=== PATIENT | female | born 2005 | race African-American/Black ===

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

== ENCOUNTER 2024-02-14 22:16 | Emergency (ER) | payer SELFPAY ==
[2024-02-14 22:26] VITALS: BP 149/78; PULSE 81; RESP 16; TEMP 36.4; O2SAT 100
[2024-02-14 22:55] LABS: Appearance Urine Cloudy (Clear); Bacteria Urine 1+ /hpf; Bilirubin Urine Negative (Negative); Blood Urine 3+ (Negative); Color Urine Yellow (Yellow); Glucose Urine UA Negative (Negative); Ketones Urine Trace mg/dL (Negative); Leukocyte Esterase Ur Trace LEU/UL (Negative); Nitrate Urine Negative (Negative); Non Pathogenic Casts 0-2; Protein Urine Trace mg/dL (Negative); RBC Urine 51-100 /hpf (0-2); Squamous Epithelial Cell Urine Few /hpf (Few); pH Urine 5.5 (5.0-9.0)
[2024-02-14 23:00] LABS: Add Urine Microscopic? YES
--- NOTE | 2024-02-14 23:26 | ED.GENADULT ---
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 The patient reports that she was treated for chlamydia about 3 months ago and reports that she has had some vaginal irritation and discharge after having relations with the individual that they have given her chlamydia the patient reports that she is no longer that relationship and reports Related Data Home Medications Medication Instructions Recorded Confirmed lisinopril 10 mg tablet mg 02/14/24 Allergies Allergy/AdvReac Type Severity Reaction Status Date / Time Penicillins Allergy Severe Anaphylactic Verified 02/14/24 22:29 Shock [place] And Derivatives Allergy Mild itching Verified 02/14/24 22:29 Early Allergy Intermediate hives Uncoded 02/14/24 22:29 Whole Milk AdvReac Unknown projectile Uncoded 02/14/24 22:29 vomiting Review of Systems Review of Systems: A 10 system review of systems was completed on the patient and is negative except for what is stated in the HPI. Nursing and ancillary documentation was reviewed. Exam Narrative: GENERAL: Well-appearing, well-nourished, and in no acute distress. HEAD: Normocephalic, atraumatic. EYES: PERRLA and EOMI. ENT: Nares clear, no rhinorrhea or epistaxis. Mucous membranes moist. NECK: Supple. CHEST: Clear to auscultation. No respiratory distress. HEART: Regular rate and rhythm. No murmur heard. Normal peripheral pulses. ABDOMEN: Soft, nontender, nondistended, normal active bowel sounds. EXTREMITIES: Normal range of motion. No edema. SKIN: Warm, dry, no rash. NEURO: No focal deficits. Alert and oriented x3. PSYCH: Normal mood and affect. Course Vital Signs Vital signs: Vital Signs Temperature 36.4 C 02/14/24 22:26 Pulse Rate 81 02/14/24 22:26 Respiratory Rate 16 02/14/24 22:26 Blood Pressure 149/78 H 02/14/24 22:26 Pulse Oximetry 100 02/14/24 22:26 Oxygen Delivery Room Air 02/14/24 22:26 Temperature 36.4 C 02/14/24 22:26 Pulse Rate 81 02/14/24 22:26 Respiratory Rate 16 02/14/24 22:26 Blood Pressure 149/78 H 02/14/24 22:26 Pulse Oximetry 100 02/14/24 22:26 Oxygen Delivery Room Air 02/14/24 22:26 Medical Decision Making MDM Narrative Medical decision making narrative: differential diagnosis includes STI, urinary tract infection, urinalysis showed a urinary tract infection the patient will be empirically treated with Rocephin is started on Macrobid also given her prior history of STI patient will doxycycline and also be started on Flagyl Vital Signs Vital Signs: Vital Signs Temperature 36.4 C 02/14/24 22:26 Pulse Rate 81 02/14/24 22:26 Respiratory Rate 16 02/14/24 22:26 Blood Pressure 149/78 H 02/14/24 22:26 Pulse Oximetry 100 02/14/24 22:26 Oxygen Delivery Room Air 02/14/24 22:26 Temperature 36.4 C 02/14/24 22:26 Pulse Rate 81 02/14/24 22:26 Respiratory Rate 16 02/14/24 22:26 Blood Pressure 149/78 H 02/14/24 22:26 Pulse Oximetry 100 02/14/24 22:26 Oxygen Delivery Room Air 02/14/24 22:26 Lab Data Labs: Lab Results 02/14/24 Range/Units 22:37 Urine Color Yellow (Yellow) Urine Appearance Cloudy H (Clear) Urine pH 5.5 (5.0-9.0) Ur Specific [place] 1.030 (1.001-1.035) Urine Protein Trace (Negative) mg/dL Urine Glucose (UA) Negative (Negative) mg/dL Urine Ketones Trace H (Negative) mg/dL Ur Blood (Man) 3+ H (Negative) Urine Nitrate Negative (Negative) Urine Bilirubin Negative (Negative) Urine Urobilinogen 1.0 (<2.0) mg/dL Leukocyte Esterase Rfl Trace H (Negative) KENA/UL Urine RBC 51-100 H (0-2) /hpf Urine WBC 11-20 H (0-3) /hpf Ur Squamous Epith Cells Few (Few) /hpf Urine Bacteria 1+ H
[2024-02-14] MEDS: cefTRIAXone 1 GM VIAL IM (23:49)
[2024-02-14] MEDS: metroNIDAZOLE 500 MG TABLET PO (23:51)
[2024-02-14] MEDS: DOXYCYCLINE HYCLATE 100 MG TABLET PO (23:51)
[2024-02-15 00:57] LABS: Chlamydia trachomatis NOT DETECTED (NOT DETECTE); Neisseria gonorrhoeae PCR NOT DETECTED (NOT DETECTE)
== END 2024-02-14 23:58 | disposition home or self-care (01) ==
PROVIDERS: Emergency Provider Emergency Medicine; PCP Emergency Medicine
DX: N39.0 Urinary tract infection, site not specified (principal); Z20.2 Contact with and (suspected) exposure to infections with a predominantly sexual mode of transmission; Z79.899 Other long term (current) drug therapy
CPT/HCPCS: 81001; 81025; 87086; 87088; 87491; 87591; 96372; 99283; A9270; J0696

== ENCOUNTER 2024-10-01 11:08 | Emergency (ER) | payer SELFPAY ==
[2024-10-01 11:10] VITALS: BP 139/108; PULSE 105; RESP 16; TEMP 36.6; O2SAT 100
--- OUTSIDE RECORDS SUMMARY | 2024-10-01 12:51 | XMS_ITS | Encounter Summary ---
Author Organization [facility] Address [address] [place] [address] Care Team Providers Care Signal Maintainer Helper Name Role Phone Mesfin May MD Primary Care Provider [phone] Kiki Burks MD Unavailable Yuly Pope DO Primary Care Provider [phone] Reason for Visit * Reason Onset Date Comments Concerns 09/07/2021 Encounter Details Date Type Department Care Team (Late st Contact Info) Description 09/07/2021 Telephone [facility] [place] [facility] [address] [place] [id number] Mesfin May MD [address] [place] [id number] Concerns Social History Tobacco Use Types Packs/Day Years Used Date Smoking Tobacco: Passive Smo ke Exposure - Never Smoker Smokeless Tobacco: Never Alcohol Use Standard Drinks/Week Comments No 0 (1 standard drink = 0.6 oz pur e alcohol) Sex and Gender Information Value Date Recorded Sex Assigned at Not on file Gender Identity Not on file Sexual Orientation Not on file documented as of this encounter Functional Status Functional Status Response Date of Assess ment Is person deaf or have robi us hearing difficulty? No 04/05/2020 Is person blind or have seri ous difficulty seeing? Yes-wears glasses 04/05/2020 Does person have serious dif ficulty walking/climbing stairs? Yes 04/05/2020 Does person have difficulty dressing/bathing? Ye s 04/05/2020 Does person have difficulty doing errands alone? Yes 04/05/2020 Cognitive Status Response Date of Assessm ent Does person have difficulty concentrating/remembering/making decisions? Yes 04/05/2020 documented as of this encounter Miscellaneous Notes * Telephone Encounter - Priya Christianson APRN-CNP - 09/07/2021 3:45 PM CRYOGENIC TRANSPORT DRIVER Called number in chart mother Ms Purdy. She said she got 2nd covid vaccine at [facility]. Instructed to provide school with vaccine care or contact [facility] for letter since we do not have record of this visit. GENIC TRANSPORT DRIVER * Telephone Encounter - Ariana Booker - 09/07/2021 3:09 PM CST Ronaldrigobertohunter Men[employer], 15 year old female, Mother } is calling with concerns. Patient mom call and said that she need her child doctor to fax over a notes to patient school to let them know that she was here at the doctor office yesterday 09/06/2021 getting her 2nd covid shot and it made her sick. You canreach patient mom at [phone] Instructed that provider will call back at their earliest convenience. GENIC TRANSPORT DRIVER documented in this encounter Plan of Treatment Upcoming Encounters Date Type Department Care Team (Late st Contact Info) Description 10/03/2024 10:00 AM CRYOGENIC TRANSPORT DRIVER Office Visit [facility] [place] [address] [facility] , [address] [phone] Amina Nicholas APRN-CNP [id number] [address] 01/08/2025 9:00 AM CDT Office Visit [facility] [place] [address] [facility], [place] [id number] Areli Dao APRN-CNP [address] [place] [id number] documented as of this encounter Visit Diagnoses Not on filedocumented in this encounter Additional Health Concerns Infection Onset Date Last Indicated Resolved Time COVID-19 Under Investigation 04/13/2023 04/13/2023 04/13/2023 5:37 AM CDT documented as of this encounter Care Teams Signal Maintainer Helper Relationship Specialty [place] [address] [place] [id number] PCP - General Pediatrics 12/11/17 02/16/22 Yuly Pope DO [address] [place] [id number] PCP - General Internal Medicine 02/17/22 Kiki Burks MD [address] [place] [phone] Resident Student Resident 12/11/17 documented as of this encounter
--- OUTSIDE RECORDS SUMMARY | 2024-10-01 12:51 | XMS_ITS ---
Author Organization [facility] Address [address] [place] [address] Care Team Providers Care Mixing Machine Tender Cork Gasket Name Role Phone Sharonda Roberts Primary Care Provider REASON FOR VISIT check in for appt Social History Sex Assigned At : Social History Observation Description Sex Assigned At Female Encounters Encounter Location Date Provider Diagnosis [address] [address] 11/27/2023 Sharonda Roberts Plan Of Treatment No Information Progress Notes * Ronald VIEIRAiDOB:[birth year] (18 yo F)Acc No.[id number]:11/27/2023 Patient: Duncan JOYRonald :2005 A ge:18 Y S ex:Female Address:[facility] [place], [address] * true * Date: Generated for Aneeshi yanira/Dinorahg/eTransmitting on: 0 10/01/2024 12:51 PM 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
--- OUTSIDE RECORDS SUMMARY | 2024-10-01 12:52 | XMS_ITS | Clinical Summary ---
Author Organization [facility] Address [address] 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 This disclosure is being madepursuant to the Care Everywhere program and may not contain all information available regarding this patient. Last updated 18.[facility] Allergies Active Allergy Reactions Criticality Noted Date Comments [place] Vomiting Low 10/05/2017 Lactose GI Discomfort Low 05/30/2018 [place] Rash Medium 09/25/2014 [place] Fruit Swelling Medium 10/05/2017 [place] Oil Rash Medium 09/25/2014 Penicillins Swelling High 07/17/2011 Other reaction(s): Swollen tongue Prochlorperazine Rash Medium Medications * Be aware that medications may not be up to date on this document. Alwaysverify current medications with the patient. Medication Sig Dispensed Refills Start Date End Date Status polyethylene glycol 3350 (MIRALAX) 17 GM/SCOOP powderIndications: Constipation, unspecified constipation type Take 17 g by mouth once daily 05/07/2020 Active omeprazole (PRILOSEC) 40 MG capsule TAKE 1 (ONE) CAPSULE BY MOUTH 2 TIMES DAILY, BEFORE BREAKFAST AND SUPPER 60 capsule 2 08/30/2021 Active naproxen (NAPROSYN) 500 MG tablet Take at onset of severe. Do not take more than 3x per week. 30 tablet 5 02/17/2022 Active levonorgestrel (Mirena) 20 MCG/DAY IUD 1 (one) device by Intrauterine route continuous Inserted at [facility] [employer] 04/23/2022, good through 04/24/2030 04/24/2022 Active albuterol HFA (Ventolin HFA) 108 (90 Base) MCG/ACT inhaler Inhale 2 (two) puffs by mouth every 6 hours as needed 18 g 5 06/18/2022 Active hydrOXYzine HCl (Atarax) 25 MG tablet Take 1 (one) tablet by mouth 4 times daily as needed for Itching 15 tablet 07/03/2023 Active SUMAtriptan (Imitrex) 50 MG tablet Take 1 (one) tablet by mouth daily as needed - may repeat one time for Migraine Maximum daily dose: 200mg/24 hours 9 tablet 09/21/2023 Active lisinopril (Prinivil; Zestril) 10 MG tablet Take 1 (one) tablet by mouth once daily 90 tablet 1 09/21/2023 Active dexAMETHasone (Decadron) 0.5 MG/5ML elixir 5 mL swish and spit three to four times daily for 5 days. It is important to keep the medication in the mouth for five minutes prior to spitting it out. Do not rinse afterward and avoid eating or drinking for 30 minutes. 100 mL 12/25/2023 Active ibuprofen (Motrin) 400 MG tablet TAKE 1 (ONE) TABLET BY MOUTH EVERY 4 HOURS FOR 30 DAYS 180 tablet 12/28/2023 12/27/2024 Active acyclovir (Zovirax) 200 MG capsule TAKE 2 (TWO) CAPSULES BY MOUTH 3 TIMES DAILY FOR 26 DOSES 52 capsule 12/28/2023 12/27/2024 Active polyethylene glycol 3350 (Miralax) 17 GM/SCOOP powder Take 2 capfuls QD-BID for soft regular stools 500 g 3 08/14/2024 Active esomeprazole (NexIUM) 20 MG capsule Take 1 (one) capsule by mouth daily before breakfast 14 capsule 08/15/2024 Active ondansetron, disintegrating, (Zofran ODT) 4 MG tablet Take 1 (one) tablet by mouth every 6 hours as needed for Nausea/Vomiting Allow tablet to dissolve on the tongue 5 tablet 08/15/2024 Active Active Problems Problem Noted Date Diagnosed Date Polydipsia/concern for diabetes 08/14/2024 Assessment & Plan (08/14/2024 4:26 PM TECHNICAL CUSTOMER SUPPORT SPECIALIST): Pt with concern for diabetes, had elevated HgA1c in the past, now has increased thirst. + acanthosis, BMI > 99%ile, 51 today. Will check HgA1c, CMP today. F/u next week. Irregular bleeding 09/23/2023 Assessment & Plan (09/23/2023 10:32 AM TECHNICAL CUSTOMER SUPPORT SPECIALIST): IUD - Mirena placed in March 2022 in view of menorrhagia - not experiencing heavy bleeding but continues to have irregular spotting and periods. Now sexually active - would like to consider other alternatives as says she feels very bloated and uncomfortable with current IUD. Has OB appt set up for 10/06. Positive screening for depre ssion on 9-item Patient Health Questionnaire (PHQ-9) 09/23/2023 Assessment & Plan (09/23/2023 10:45 AM TECHNICAL CUSTOMER SUPPORT SPECIALIST): Does have a hx of anxiety and depression as per patient with no SI/HI. Is currently in therapy - at [facility] once a week and seeking psychiatry referral to [facility] to initiate medication. Mood stable today. PHQ-9 6/ZACH -5. Screen for STD (sexually transmitted disease) Assessment & Plan (09/23/2023 10:48 AM TECHNICAL CUSTOMER SUPPORT SPECIALIST): Is currently newly sexually active - with male partner, protected intercourse as per patient with barrier contraception but infrequently without. Testing pursued today. Results positive for Chlamydia, trich, gonorrhea neg and blood testing - HIV/syphilis not collected yet. Did attempt to reach out to patient to talk about results but unavailable . Prescribed doxycyline 100 mg BID x 7 days. Will continue to reach out to talk about treatment. Prescription in place. Acanthosis nigricans 10/21/2020 Sleep difficulties 10/21/2020 Chronic constipation 05/07/2020 Assessment & Plan (08/14/2024 4:23 PM TECHNICAL CUSTOMER SUPPORT SPECIALIST): Pt with chronic constipation, managed with Miralax (reports to not be working when taking 1 capful/day) and Mag Citrate (took recently and did not work). She has intermittent diarrhea and constipation. Last BM was this morning was loose, not formed, not zac, not watery. Intermittent drops of blood in stool. Plan to obtain an obstructive series, TSH, CBC, CMP, refer to GI. F/u next week. Left ventricular hypertrophy 05/03/2020 Assessment & Plan (05/03/2020 1:52 PM CDT): IMPRESSION Ashley is a 14 year-old with: 1. Obesity. 2. Left ventricular hypertrophy, likely secondary to hypertension. PLAN Ashley has a structurally normal heart by exam and prior ECG. She had a normal echocardiogram apart from left ventricular hypertrophy. She does not have any left heart obstruction to explain the hypertrophy (no aortic stenosis or coarctation of the aorta), and her echo is not suggestive of a myopathic process such as hypertrophic cardiomyopathy (normal diastolic indices, normal mitral valve motion, hypertrophy is not asymmetric, and no left atrial dilation); furthermore, she has no family history of myopathic diseases. She does, however, have an extensive family history of hypertension, and her mother tells me that Ashley's blood pressure has always been elevated at well child exams. She had several very high documented blood pressures in March (apparently 165/100 at an outlying hospital), and has fairly consistently been in the 130-140 mmHg range at home. Given the lack of other explanations for her left ventricular hypertrophy and the documented elevated blood pressures (recognizing she is not consistently high), and family history of hypertension, my opinion is longstanding hypertension is the likely culprit for the hypertrophy. Thus I would recommend treating hypertension, and started her on lisinopril 10 mg qday. I asked her to contact me if she feels dizzy or develops a chronic cough on this medication. I also discussed the importance of weight loss, regular physical activity (which she does), and cutting back on salt in her diet. I scheduled a follow up visit in 3 months for a medication and blood pressure check (no testing), and anticipate likely repeating her echo in 6-9 months hopefully with improved blood pressure control to assess for any changes in the degree of hypertrophy. In the meantime, she has no restrictions from a cardiovascular standpoint regarding routine care or activity. SBE prophylaxis is not indicated. Hypertension 04/05/2020 Assessment & Plan (12/26/2023 1:59 PM CDT): Assessment: Chronic problem, some mild BP elevation here likely partly fluids and white coat hypertension given patient-reported anxiety with the hospital setting Plan: - continue home lisinopril - monitor BP here Assessment & Plan (09/23/2023 10:44 AM TECHNICAL CUSTOMER SUPPORT SPECIALIST): BP stable today but patient takes lisinopril very erratically. Did take a dose before clinic visit which may be the reason for normal blood pressure - 120/88. Reinforced compliance with lisinopril. Assessment & Plan (02/17/2022 10:54 AM CDT): - BP stable today - Continue lisinopril 10 mg qd. Refilled rx Assessment & Plan (04/13/2020 2:18 PM CDT): Assessment: - Admitted 1 week ago for hypertensive emergency with blurry vision and headache, which have both occurred on many past occasions - Average home measurements in the 130's/100's, not currently on antihypertensive therapy - Reports of polydipsia, occasional thyroid tenderness, and polyuria - Seen by Nephrology inpatient -- no renal pathology on U/S, Echo showed mild LVH - Pt struggles with morbid obesity and dietary sugar and salt intake -- referred to Weight Mgmt clinic Plan: - RFP, Urine lytes, TSH, Lipid panel today - Follow-up with Nephrology in June as scheduled - Will follow-up in [facility] and start antihypertensives pending today's labs Assessment & Plan (04/06/2020 11:42 AM CDT): Assessment: RonaldTerrellmiki Menon 14 year old obese (BMI: 47.56) with pmhx of R posterior fossa arachnoid cyst s/p fenestration in 2012, autism spectrum disorder, headache, staring spells, POTS, ADHD, recent concussion (3 weeks ago) and intermittently elevated HTN transferred from OSH with high BP 160/100, dizziness and blurry vision this morning. Plan: - Regular diet - BP checks manually q4h - I/O's, VS q8h - CR monitors - Following Nephrology recs, work up was done. ECHO showed moderate LVH unchanged from her prior imaging, HbA1C: 5.6, BMP is unremarkable. - Renal USG, EKG, renin, aldosterone, cortisol and urine analysis ordered - Nutrition consulted Assessment & Plan (04/05/2020 3:47 PM CDT): Assessment: Ashley Menon 14 year old obese (BMI: 47.56) with pmhx of R posterior fossa arachnoid cyst s/p fenestration in 2012, autism spectrum disorder, headache, staring spells, POTS, ADHD, recent concussion (3 weeks ago) and intermittently elevated HTN transferred from OSH with high BP 160/100, dizziness and blurry vision this morning. Plan: - Admit to Pediatrics, Dr. Fatima - Regular diet - BP checks manually q4h - I/O's, VS q8h - CR monitors - Nephrology consulted. Appreciate recs: 1. Blood pressure to be checked using manual technique in upper extremity Q4H with comment on clinical status (ongoing blurry vision/dizziness) 2. Labetalol 20 mg IV Q4H PRN SBP >150 3. No recommendation for chronic anti-hypertensive therapy for now 4. Will follow up results of labs sent at [facility] 5. If BP noted to be >130/80 using manual BP measurement technique while during hospitalization, will consider further evaluation for etiology of elevated BP including (depending on evaluation already performed at [facility]) Urine for urinalysis Blood for RFP, renin, aldosterone, cortisol Renal ultrasound EKG and echo (prior echo on 09/27/13 performed for history of cardiomegaly on CXR with left ventricle thickness at upper limit of normal) History of concussion 03/09/2020 Assessment & Plan (03/10/2020 9:36 AM CDT): Patient previously suffered concussion on 03/03 with subsequent headache, altered gait, dizziness, fatigue, slepe disturbance, retrograde and anterograde amnesia since the event. Neurological exam demonstrates no focal deficits, but altered gait with normal walk, tandem walk and a positive romberg sign. NSAIDs PRN Refered to concussion clinic Reduce school workload until symptoms subside Hold off on driving lessons until symptoms subside Severe frontal headaches 04/30/2018 Assessment & Plan (09/23/2023 10:42 AM TECHNICAL CUSTOMER SUPPORT SPECIALIST): Continues to have frontal headaches - atleast once a week - characterized as migraines. Was initially followed by Neurology ---> was on Topamax which she discontinued in 2019. Also has a hx of R posterior arachnoid cyst s/p fenestration. Has family hx of migraines. In part may be due to high blood pressures (is on lisinopril - not compliant). Talked about abortive therapy - imitrex 50 mg at the onset of headaches. Will consider placing patient on prophylactic therapy or referral to Neurology for further follow up. Reinforced compliance to lisinopril. Assessment & Plan (06/23/2019 1:06 PM TECHNICAL CUSTOMER SUPPORT SPECIALIST): Followed by Neurology Assessment & Plan (05/01/2018 2:56 PM CDT): Assessment: Patient is a 12 y.o. female admitted with right CPA/posterior fossa arachnoid cyst s/p fenestration in 2012 who is presented to the ED with persistent headaches and new onset dizziness, is neurologically intact with a CT scan of the head(04/30) showing no significant change in the size of the right posterior fossa arachnoid cyst with stable ventriculomegaly compared to MR scan in November 2017. Evaluated by Neurology, Ophthalmology and ENT. No acute interventions recommended at this time. Pt's cause of headaches and dizziness is most likely due to a combination of factors including some orthostasis, obesity, and poor diet. Plan: -Vitals Q4 -I/Os Q8 - Regular diet - Orthostatic vitals - Increase water intake; decrease caffeine intake -Flovent 44mcg 2 puffs BID for asthma - RT education - consider referral to weight management - increase fluid intake - begin headache diary - follow-up with neurosurgery and neurology as outpatient Assessment & Plan (04/30/2018 9:19 PM CDT): Assessment: Patient is a 12 y.o. female admitted with right CPA/posterior fossa arachnoid cyst s/p fenestration in 2012 who is presenting to the ED with persistent headaches and new onset dizziness, is neurologically intact with a CT scan of the head(04/30) showing no significant change in the size of the right posterior fossa arachnoid cyst with stable ventriculomegaly compared to MR scan in November 2017. Cause of new onset headaches and dizziness unclear at this time. Plan: -Vitals Q4 -I/Os Q8 -Regular diet - Consult for further evaluation of headache and dizziness - Neurology - Neurosurgery - ENT -Opthalmology -Flovent 44mcg 2 puffs BID for asthma -RT education Assessment & Plan (04/30/2018 5:26 PM CDT): Assessment: Patient is a 12 y.o. female admitted with right CPA/posterior fossa arachnoid cyst s/p fenestration in 2012 who is presenting to the ED with persistent headaches and new onset dizziness, is neurologically intact with a CT scan of the head(04/30) showing no significant change in the size of the right posterior fossa arachnoid cyst with stable ventriculomegaly compared to MR scan in November 2017. Plan: -Admit to general medicine floor -Vitals Q4 -I/Os Q8 -Regular diet - Consult for further evaluation of headache and dizziness - Neurology - Neurosurgery - ENT -Opthalmology -Flovent 44mcg 2 puffs BID for asthma -RT education Menorrhagia 04/23/2018 Assessment & Plan (02/17/2022 10:53 AM CDT): - Refilled Naproxen. Take at onset of menstrual sx - Ordered CBC to r/o anemia - Discussed OCP vs Nexplanon vs Depo. Patient interested in Nexplanon insertion. Referred to adolescent cell preparer clinic with Dr. Angulo Assessment & Plan (06/23/2019 1:06 PM TECHNICAL CUSTOMER SUPPORT SPECIALIST): Improved Followed by Adolescent Med Assessment & Plan (04/23/2018 12:43 PM CDT): Hx of heavy painful periods Naproxen makes her sleepy Check CBC today In the past Ibuprofen, has not worked. Instructed to trial 600mg every 6-8 hours instead of 400mg Refer to Adolescent Anxiety 04/23/2018 Assessment & Plan (08/25/2022 7:03 PM TECHNICAL CUSTOMER SUPPORT SPECIALIST): Assessment: 16 year old female who presents with signs and symptoms generalized anxiety for several years. Including fear, anxiety, trouble staying asleep, repeated thoughts, palpitation, chest pain, and more. Calm during exam today. Has not tried any medication in the past. Plan: Start Wellbutrin daily Start Atarax PRN for anxiety Follow-up in 4-6 weeks Assessment & Plan (07/19/2020 4:56 PM TECHNICAL CUSTOMER SUPPORT SPECIALIST): Spent >50% of this visit discussing concerns of anxiety, particularly as it has been exacerbated during the covid pandemic. Reports improvement with in-person schooling (she describes herself as very social and in need of social interactions), which she will start back up in the spring. I discussed with her that increasing physical activity, and talking on the phone with family and friends is certainly an option. She will make an effort to touch base with loved ones. Also discussed with her that several covid vaccines are now being administered to at-risk groups, and that vaccinating the general public seems to be around the corner. She seemed more hopeful after I mentioned this, and she continues to look forward to this pandemic being over. Assessment & Plan (04/23/2018 12:47 PM CDT): Spent >50% of this visit discussing concerns regarding anxiety and counseling options and coordination for care Patient willing to speak with someone. Mother does not want medications. Refer to [facility] for follow up 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 0904/23/2018 Assessment & Plan (07/19/2020 4:57 PM TECHNICAL CUSTOMER SUPPORT SPECIALIST): BMI remains elevated. Has likely been exacerbated by being at home more (virtual schooling). Encouraged her to continue making healthy diet options and increasing her physical activity. Plan: - RTC in 3mo Assessment & Plan (04/13/2020 2:14 PM CDT): Assessment: - Weight today 148kg (>99th percentile) - Patient has tried losing weight but has difficulty with sweets, sugar, and sodium - Has been referred to stock shipper in the past and tried the meal plans - Mom reports patient will bargain to drink sugary drinks and eats salty foods despite the rest of her diet being mostly healthy Plan: - referral to weight mgmt clinic for weight counseling and to devise a plan for dietary measures for BP control Assessment & Plan (04/23/2018 12:46 PM CDT): BMI. >99 %ile (Z= 2.69) based on CDC 2-20 Years BMI-for-age data using vitals from 04/23/2018. Diet and exercise reviewed at length, recommendations for working towards goal for change Can discuss with counseling Mentioned following up with weight management as an option Follow up at well child check up Poor sleep hygiene 01/01/2017 Assessment & Plan (09/23/2023 10:28 AM TECHNICAL CUSTOMER SUPPORT SPECIALIST): Continues to have poor sleep hygiene with erratic sleep schedule. Sleeps at 3-4 am until 11-12 am with frequent use of electronics. Discussed establishing a routine and sticking to beddtime/sleep aids/ turning off electronics atleast 1-2 hours before bedttime. Assessment & Plan (01/02/2017 6:19 PM CDT): Pt c/o difficult falling and staying asleep. Pt does have hx of nightmares and sleep terrors which may be contributing. Snoring does not seem to be an issue anymore for her (has been seen in sleep clinic before). She also has very poor sleep hygiene that is likely the cause of her sleep problems. - Advised to turn off TV and phone 2 hours before bedtime, and keep consistent bedtime/wake time over the summer. Ganglion cyst of foot 09/28/2016 Assessment & Plan (06/23/2019 1:07 PM TECHNICAL CUSTOMER SUPPORT SPECIALIST): Referral to Ortho. Assessment & Plan (09/28/2016 11:59 AM TECHNICAL CUSTOMER SUPPORT SPECIALIST): Mass on left dorsal surface of the bony prominence. Unlikely to be fracture or calcification of bone without h/o trauma. Plan: - Xray of left foot 2 view Allergic rhinitis 10/15/2014 Overview (04/29/2015): Assessment & Plan (08/03/2021 3:50 PM TECHNICAL CUSTOMER SUPPORT SPECIALIST): Poorly controlled. Takes Zyrtec. Plan: Continue Zyrtec. Start Flonase Assessment & Plan (09/28/2016 11:56 AM TECHNICAL CUSTOMER SUPPORT SPECIALIST): Pt with AR on Zyrtec. Her symptoms are not well controlled with Zyrtec QD. Plan: - Adding Flonase - Continue Zyrtec Assessment & Plan (12/09/2015 1:00 PM CDT): Improved with zyrtec 5mg QD - refilled. Assessment & Plan (10/15/2014 10:25 AM CDT): H/o nasal symptoms for few months claritin 10 mg daily Call or return if no better or worse Healthcare maintenance 09/09/2014 Assessment & Plan (08/03/2021 3:49 PM TECHNICAL CUSTOMER SUPPORT SPECIALIST): Refused Flu shot Assessment & Plan (07/19/2020 4:52 PM TECHNICAL CUSTOMER SUPPORT SPECIALIST): Ashley Menon is here for her adolescent well child check and has excessive weight gain and normal development. Immunizations up to date - flu shot today Has dentist PHQ-9: Negative Age appropriate anticipatory guidance provided Return in about 3 months (around 10/17/2020) for weight follow-up. Assessment & Plan (06/23/2019 1:05 PM TECHNICAL CUSTOMER SUPPORT SPECIALIST): Ronald Menon is here for her adolescent well child check and has normal growth with good interval weight gain and normal development. MMR - defers flu Dental referral for prevention PHQ-9: mild depression Age appropriate anticipatory guidance provided Return for next well child check; sooner if concerns arise. Assessment & Plan (01/01/2017 1:26 AM CDT): Ashley Menon is here for her adolescent well child check and has normal growth with good interval weight gain and normal development. HPV #2 given today Has a dental home Age appropriate anticipatory guidance provided Return for next well child check in 1 year; sooner if concerns arise. Assessment & Plan (10/14/2015 2:03 PM CDT): Ashley Menon is here for her 10 y.o. well child check. See problem list for obesity and developmental problems. Vaccinations today: TdaP, Menactra, HPV #1/3 Lipid Screening Needs a new dental home - mom arranging through insurance. Age appropriate anticipatory guidance provided Return for follow up in 4-6 weeks; call sooner if concerns arise. Assessment & Plan (09/09/2014 1:45 PM TECHNICAL CUSTOMER SUPPORT SPECIALIST): Ashley Menon is here for her 8 y.o. well child check. - Immunizations up to date, except flu which was declined today - Has a dental home - Age appropriate anticipatory guidance provided - Return for next well child check; sooner if concerns arise - See other separate problems Obesity 09/09/2014 Assessment & Plan (09/23/2023 10:26 AM TECHNICAL CUSTOMER SUPPORT SPECIALIST): Weight is up from previous visit - 300 lbs at last visit with weight at 363 lbs at this visit. Eats 2 large meals but currently experiencing decreased appetite which may be due to frequent snacking. Talked about portion sizing as well as regular meals with incorporation of exercise as well as healthy snack alternatives. Plan: - Will continue to follow - RTC in 3 months Assessment & Plan (02/17/2022 10:54 AM CDT): - Weight stable - Discussed cutting down on juice intake for weight goal of 300 lbs - Not interested in weight mgmt clinic at this time Assessment & Plan (06/23/2019 1:05 PM TECHNICAL CUSTOMER SUPPORT SPECIALIST): Good exercise regimen Discussed diet issues. Assessment & Plan (01/02/2017 6:12 PM CDT): BMI is 38 today, increased from 33 last year. Pt states she eats well and gets lots exercise through sports but this seems inconsistent with her weight gain. She has been referred to nutrition in the past but did not go. Encouraged her to continue to make healthy choices this summer, to cut out soda and juice, and to run/walk at least 3 times per week. Pt has acanthosis on exam, and due to obesity, will screen for DM. - Blood glucose, lipid profile today Assessment & Plan (12/09/2015 1:29 PM CDT): Weight today is 84.6kg, down about 1 kg in past 6 weeks. Pt has made healthy changes including workouts with a care trainer 3-4 times per week and limiting sweet drinks. Mom allows her to have 1-2 cheat days per week when she can have sweets, but also gives in to Ashley frequently when she wants unhealthy foods. Encouraged them to keep up with the diet and exercise changes and that she is on the right track. Pt was also referred to nutrition at her last visit, encouraged her to make an appointment. - Continue exercise and diet changes - Schedule nutrition appt - F/U in 3-4 months Assessment & Plan (10/14/2015 2:05 PM CDT): Weight is 85.4kg (up from 77kg in 04/2015) (99.9%ile) and BMI is 33 (99%ile). No previous obesity lab screening has been done. Stressed the importance of weight management as the rate of increase in pt's weight is very concerning. Mom has implemented some changes including exercising with pt 2-3x/week and improving her diet, limiting sweets. Pt and Mom could still use more specific counseling on diet changes. Pt still drinks juice and sweet tea, recommended cutting this down and drinking water instead. Also limit screen time. Plan: - Refer to nutrition - can schedule an appointment with her brother - Labs today: lipid screening, glucose, ALT - Continue to encourage exercise and activity that she enjoys - Follow up in 4-6 weeks Assessment & Plan (04/30/2015 4:47 PM CDT): BMI only slightly increased. Discussed diet and exercise. Encouraged maintenance of present weight while she undergoes growth spurt. Assessment & Plan (09/09/2014 1:42 PM TECHNICAL CUSTOMER SUPPORT SPECIALIST): Ashley Menon is an obese 8 y/o female seen today for well child check. Lost 6 pounds since last seen in 06/2014. Recently went from size 15 to 14. Describes eager appetite, active but not currently involved in any sports. - Discussed healthy choices with meals and variety of foods, avoiding soda and juice - Increase physical activity - plan is to start baseball this spring - Will need lipid panel at next well child check Acne 07/08/2014 Assessment & Plan (07/19/2020 4:59 PM TECHNICAL CUSTOMER SUPPORT SPECIALIST): Noted on bilateral cheeks and chin. No inflammation noted. Likely exacerbated by stress of the pandemic. Plan: - Will start benzoyl peroxide - RTC in 3mo (monitor during weight follow-up) Assessment & Plan (07/08/2014 1:31 PM TECHNICAL CUSTOMER SUPPORT SPECIALIST): Flesh colored fine papular rash. Appears to be urticarial, possibly associated with H2 release (abdominal pain with meals). No trigger identified Education provided Zyrtec in am Benadryl at night Hydrocortisone for 1 week past when rash disappears Zantac for 1 month Would not do RAST testing at this point RTC if rash does not start to improve in the next week ADHD (attention deficit hyperactivity disorder) 07/31/2013 Assessment & Plan (07/19/2020 5:04 PM TECHNICAL CUSTOMER SUPPORT SPECIALIST): Has had significant difficulty with attention and focus while school has been virtual. She knows that she would do much better if school were in-person, since she would not be able to move around like she is at home. Mother has made significant efforts in making their home a quite environment by removing distractions, but Ashley is always getting up and doing something else when she should be doing her work. I discussed with her that restarting methylphenidate would be an option, but she does not want to feel like a zombie , and a side-effect is increased blood pressure. She has the school's Erik break to consider whether she would like to restart it or not. I also mentioned to them that they should discuss with Cardiology (appointment scheduled in July 2020) if it would even be possible for her to start an ADHD med with her LVH and HTN. Will continue to monitor. However, I suspect that her attention and focus will improve with in-person schooling. Assessment & Plan (09/28/2016 11:51 AM TECHNICAL CUSTOMER SUPPORT SPECIALIST): Pt with ADHD diagnosed earlier. Pt was on med until 7 yo, but discontinued as pt states it made her feel stupid . She is currently followed by a therapist and mom wishes not to medicate her. Assessment & Plan (12/09/2015 1:35 PM CDT): Pt has a hx of developmental delays (fine motor and problem solving), and mood instability. She received full neuropsychiatric evaluation with psychology this past month. She has deficits in attention and problem solving, and will require special services at school. Will follow up on these adjustments at school. Mom would like to continue counseling services for her but has had difficulty finding a counselor. - Refer to [facility], given phone number. Or recommend she try and schedule with Ashley's previous counselor. - Will follow up on classroom and learning adjustments for the next school year. Assessment & Plan (10/14/2015 2:00 PM CDT): Pt was seen by psychology for diagnostic evaluation for behavioral issues and developmental/learning delays. Has follow up scheduled with them this month. Will follow up on their recommendations. Assessment & Plan (04/30/2015 4:48 PM CDT): Suspect patient and parent using prior h/o neurosurgery as a crutch for some of her problems. Refer to psychology. Assessment & Plan (07/31/2013 5:51 PM TECHNICAL CUSTOMER SUPPORT SPECIALIST): Unusual behaviors, escalating since, after surgery. Initially, symptoms more suggestive of anxiety/PTSD. Now, more odd. Mother concerned with and reports history of language and social delays. Indicates can become aggressive, rocks when upset, and aversions to sound yet high pain threshold to hot temperatures (& other possible sensory issues). Family history significant for schizophrenia and bipolar in [place] interactions between mother and child in office. Referral to [facility] for formal evaluation although from previous visits, autism seems unlikely. Stressed importance of continuing to see psychologist. Make sure to take copies of school evaluation for [facility] to review. Follow up in 3-4 months after [facility] evaluation completed. Asthma 06/18/2013 Assessment & Plan (06/23/2019 1:06 PM TECHNICAL CUSTOMER SUPPORT SPECIALIST): Well controlled Does not get relief from MDIs Uses nebulizer. Meds refilled. Assessment & Plan (04/23/2018 12:43 PM CDT): Hx of asthma Plan: Continue Albuterol every 4-6 hours as needed with spacer Continue Flovent Monitor Albuterol use, if using more frequently (more then twice a week/multiple times on a day of week/0awakening more then twice a month) bring patient in sooner Follow up at well child check up Assessment & Plan (12/13/2017 10:54 AM CDT): Pt walks up at night with coughing spells ,difficulty breathing--albuterol inhaler helps Pt had prednisone on 11/29 Lungs -clear,no distress Mom had nebulizer which she thinks worked better Nebulizer given --Albuterol premix --1 amp q 4 hours prn Re-start --flovent 44 -2 puffs bid Finish z-brinda Call or return if no better or worse Assessment & Plan (01/02/2017 6:20 PM CDT): Hx of mild intermittent asthma, with albuterol use with exercise, infrequently otherwise. Pt does not need a controller at this time. - Continue albuterol prior to and during exercise, and PRN Assessment & Plan (09/28/2016 11:50 AM TECHNICAL CUSTOMER SUPPORT SPECIALIST): Pt on Flovent 44 2puffs BID and Albuterol prn. Plan: - refills given with spacer - RTC if having to use albuterol more frequently Assessment & Plan (12/09/2015 1:24 PM CDT): Hx of mild-moderate persistent asthma. No ED visits for asthma in over a year. Pt has sx every 1-2 days. She is using flovent but only QD instead of BID, and does not have a spacer. - Asthma education with aerochamber provided - Refilled flovent 110 2 puffs BID - reinforced importance of using flovent for sx control - refilled albuterol Assessment & Plan (10/15/2014 10:28 AM CDT): Pt has congestion but no h/o wheezing Continue using albuterol q 4 hours prn Assessment & Plan (07/31/2013 5:45 PM TECHNICAL CUSTOMER SUPPORT SPECIALIST): Mild exacerabation over past month. Not giving full dose of Flovent. Instructed mother to increase to 2 puffs BID and wean off albuterol. Call office if unable to wean off albuterol over next two weeks or if worsens. Assessment & Plan (06/18/2013 5:23 PM TECHNICAL CUSTOMER SUPPORT SPECIALIST): Patient with mild persistent asthma. No ED visits or hospitalizations for asthma in last year. -Increase Flovent 44 from qday to BID use. -Continue albuterol PRN. -Advised use of albuterol 15-20 minutes prior to strenuous exercise. -Asthma check in 3 months, sooner if symptoms persist or worsen despite med change today. Resolved Problems Problem Noted Date Diagnosed Date Resolved Date Fever 12/25/2023 01/08/2024 Assessment & Plan (12/26/2023 3:56 PM CDT): Pt with symptoms of fatigue, chills, fever (tmax 103), decreased appetite, lymphadenopathy, abdominal pain and non-bloody diarrhea for the past week. Constellation of symptoms most consistent with infectious process, mostly likely viral illness such as mononucleosis however bacterial infection is also a possibility. Pt in NAD and overall well-appearing on exam with cervical lymphadenopathy noted. Per chart review, previous workup included negative COVID/Flu/RSV, negative monospot, negative strep DNA, negative gonorrhea and chlamydia. Pt has been on Clindamycin without improvement in symptoms. Discussed with pt that obtaining labs to check white count and electrolytes would be the starting point as well as obtaining a chest x-ray given history of shortness of breath. Return precautions provided including shortness of breath and difficulty breathing and/or swallowing that would require urgent medical evaluation. - Labs ordered: CBC with diff, CMP, repeat monospot - Imaging ordered: 2VW chest x-ray - Will call with results - If symptoms not improving or worsening by the end of the week, please return to clinic for further evaluation Aphthous ulcer of mouth 12/25/202307/30 Assessment & Plan (12/26/2023 3:55 PM CDT): Pt with aphthous ulcers noted to gums on exam. No cold sores noted. Pt was on valacyclovir with reported improvement in cold sore. - Start Magic mouth wash and oral steroid (swish and spit) three times a day for 5 days Syncope and collapse 12/25/2023 024 Assessment & Plan (12/26/2023 1:57 PM CDT): Likely due to dehydration, now resolved, EKG normal. Management as above. Assessment & Plan (12/25/2023 11:45 PM CDT): Please refer to dehydration problem list Dehydration 12/25/2023 01/08/2024 Assessment & Plan (12/27/2023 11:29 AM CDT): Assessment: 18 year old female with chronic hypertension admitted with dehydration in the setting of herpetic gingivostomatitis. Clinical dehydration manifested by syncope and fatigue, currently clinically rehydrated, PO intake improving though not yet sufficient Plan: - continue MIVFs, if PO continues to improve can consider saline lock and transition home, otherwise will continue in-hospital fluid support - strict I/O's - encourage PO Assessment & Plan (12/25/2023 11:45 PM CDT): Assessment: Ronald Collette Menon, 18 year old female, with known history of HTN, presented to ED after syncopal episode. After her [facility] visit this afternoon, she went to labs where she had brief 15-20sec passing out episode, but recovered with full consiousness and taken to ED for further evaluation. She has been having fever (resolved) and painful mouth sores for past 4 days and couple of episodes of loose stools, non bloody. No other symptoms. No improvement with Clinda and Valacyclovir prescribed at the OSH. In [facility] ED, afebrile. Labs CBC normal, CMP showed low bicarb 17 concerning for dehydration, TSH, BG normal, mono screen process. Pian improved with swish and spit mouth wash able to tolerate small PO, tylenol x 1, bolus x 1. Started on mIVF. Admitted to gen med floor for hydration and pain control Plan: Admit to yellow team under VS q8h Pulse ox Strict I/Os Regular diet D5NS 100ml/hr Tylenol 650mg q6h prn Motrin 400mg q6h prn Magic mouth wash q6h prn Herpetic gingivostomatitis 12/25/2023 0 08/14/2024 Assessment & Plan (12/27/2023 11:30 AM CDT): Assessment: Gingivostomatitis, likely HSV given now positive PCR (reportedly had a prior negative test though cannot see documentation of such), which would fit clinical symptoms especially in the setting of her first cold sore occurring simultaneously. Unclear why she did not respond to valacyclovir, though may have been past window of benefit. Could consider co-infection with Coxsackie virus (given fever and exposure to BF who had a febrile illness), or other viral etiology. Can see oral mucosal involvement with mycoplasma as well, generally more mucositis usually though certainly possible. HIV a consideration though reported exposure history would be less compatible, and she declines testing. Plan: - Magic mouth wash swish and spit q6h prn - start IV acyclovir 5mg/kg, likely will transition to acyclovir on discharge rather than valacyclovir given lack of response - Tylenol 650mg q6h prn - Motrin 400mg q6h prn - follow Mycoplasma IgM and IgG - stop azithromycin Assessment & Plan (12/25/2023 11:55 PM CDT): Assessment: Ronald Murdock started with mouth sores 4 days ago, painful. Fever resolved. She was seen on OSH ED on 12/20 and started on Clindamycin. As symptoms not improving, she was seen in another OSH ED on 12/22 and was started on Valacyclovir. She is compliant with both Clindamycin and Valacyclovir, but no improvements in symptoms. She also complaints of sore throat. She was tested negative for strep throat and mono test at the OSH. She also tested negative for oral swabs at the OSH. In [facility] ED, her pain improved with magic mouth wash and able to tolerate small PO. She is admitted to the floor for management of dehydration and further investigation and management of painful mouth ulcers Differential diagnosis could be aphthous ulcers vs HSV vs lichen planus vs stomatitis 2/2 micronutrient deficiency Plan: Magic mouth wash swish and spit q6h prn Tylenol 650mg q6h prn Motrin 400mg q6h prn Injury of left ankle 08/25/2022 025 Assessment & Plan (08/25/2022 7:11 PM TECHNICAL CUSTOMER SUPPORT SPECIALIST): Assessment: Rolled ankle about 2 weeks ago and still having pain to palpation and limited range of motion. Pain mostly on the lateral malleolus. Able to bare weight for only a limited amount of time. Plan: Follow-up with orthopedic surgery Follow-up with physical therapy Otitis externa 08/03/2021 09/14/2021 Assessment & Plan (08/03/2021 3:48 PM TECHNICAL CUSTOMER SUPPORT SPECIALIST): Otitis Externa on L side Plan: Start Ciprodex Acute right otitis media 08/03/202105/2024 Assessment & Plan (08/03/2021 3:49 PM TECHNICAL CUSTOMER SUPPORT SPECIALIST): See exam. Plan: Start Cefdinir Diarrhea 06/07/2021 07/05/2021 Laceration of skin of left hand 04/21/2021 08/14/2024 Trapezius strain, right, initial encounter 12/14/2020 02/20/2022 Assessment & Plan (12/14/2020 12:27 PM CDT): R Trapezius muscle injury. Plan: - Referred to Physical Therapy - Start Naproxen 500mg BID for 7 days, then reassess pain - Gentle massages okay - Letter for activity limitations for work and EC activities Suspected COVID-19 virus infection 07/13/2020 02/20/2022 Assessment & Plan (07/13/2020 11:30 AM TECHNICAL CUSTOMER SUPPORT SPECIALIST): 14-year-old female with multiple comorbidities and positive COVID exposure presents with pharyngitis, otalgia, headache, nasal congestion, and cough. Rapid strep test negative. Pending COVID test. COVID vs other viral etiology URI. Pulse Ox 99 on room air. Quarantine at home until COVID results return Supportive care: analgesics, antipyretics, fluids, rest Education on when to report the the emergency department (call first) for worsening symptoms. Pain of upper abdomen 05/07/20202021 Periumbilical abdominal pain 05/07/2020 02/20/2022 Dizziness 04/05/2020 02/20/2022 Assessment & Plan (04/06/2020 7:49 AM CDT): Assessment: Ashley Menon 14 year old obese (BMI: 47.56) with pmhx of R posterior fossa arachnoid cyst s/p fenestration in 2013, autism spectrum disorder, headache, staring spells, POTS, ADHD, recent concussion (3 weeks ago) and intermittently elevated HTN transferred from OSH with high BP 160/100, dizziness and blurry vision this morning. Plan: - Neurology consulted - Recommended for orthostatics - Continue monitoring for dizziness Assessment & Plan (04/05/2020 4:13 PM CDT): Assessment: Ashley Menon 14 year old obese (BMI: 47.56) with pmhx of R posterior fossa arachnoid cyst s/p fenestration in 2013, autism spectrum disorder, headache, staring spells, POTS, ADHD, recent concussion (3 weeks ago) and intermittently elevated HTN transferred from OSH with high BP 160/100, dizziness and blurry vision this morning. Plan: - Neurology consulted - Recommended for orthostatics - Continue monitoring for dizziness Blurry vision 04/05/2020 02/20/2022 Hand injury, left, initial encounter 12/09/2019 02/20/2022 Assessment & Plan (12/09/2019 2:48 PM CDT): Ashley slammed her hand in the car door and since then, has been experiencing pain at site and inability to bend. Obtained X ray during clinic. On my read, X ray did not show any fractures or soft tissue swelling. Sent home with supportive care measures including alleve PRN, finger splint. After final X ray read was in which did not show fractures or dislocation, I called mother to inform her. Closed triplane fracture of ankle with routine healing 07/02/2017 06/23/2019 Headache(784.0) 01/02/2017 06/23/2019 Overview (04/29/2017): IMO Update 04/29/2017 Assessment & Plan (01/02/2017 6:16 PM CDT): Pt having occasional headaches that seem consistent with tension-type headache or menstrual headache. Pt has hx of arachnoid cyst and is worried that headaches are related, but there are no other accompanying sx to suggest this, and the pain is completely resolved with tylenol. Advised to call neurosurgery to speak to her specialist about it, but reassured her that her headaches are likely not related. - Continue tylenol 1000mg PRN - Discuss with neurosurgeon - Call if headaches are more frequent or not relieved by tylenol. Go to ED if worst headache of your life or associated with vomiting, weakness, vision changes Viral respiratory illness 09/28/2016 Assessment & Plan (09/28/2016 12:04 PM TECHNICAL CUSTOMER SUPPORT SPECIALIST): 11yo female with h/o asthma, allergic rhinitis presenting with viral respiratory symptoms and frontal headache. Pt is not vaccinated for flu shot. Clear nasal drainage, diarrhea consistent with virus (flu or adenovirus), however lack of high fever would be unlikely in flu. Would also consider sinusitis with her PND causing cough. Plan: - Follow flu swab result - Continue supportive care unless pt clinically worsens; would consider treating for sinusitis then Qcudm-[id number] vaccine (MMR) not given 09/29/19 17 06/23/2019 Assessment & Plan (09/28/2016 12:00 PM TECHNICAL CUSTOMER SUPPORT SPECIALIST): Missing record of her 2nd MMR vaccine. Plan: - to update once confirmed with her school that she has received 2nd dose Sinusitis, chronic 10/15/2014 9 Overview (04/29/2015): Assessment & Plan (10/15/2014 10:27 AM CDT): Nasal congestion for few months ,seen in local er dx with flu according to mom H/o thick nasal discharge and daytime cough z-brinda --2,1,1,1,1 Honey for cough Call or return if no better or worse Snoring 09/09/2014 06/23/2019 Assessment & Plan (09/09/2014 1:34 PM TECHNICAL CUSTOMER SUPPORT SPECIALIST): Ashley Menon is 8 y/o obese female with snoring and pauses in breathing at night concerning for possible sleep apnea. This could likely be contributed by enlarged tonsils and/or body habitus. - Ordered sleep study to evaluate sleep, mom provided with phone number where she can call to schedule study Sleep terror 09/09/2014 06/23/2019 Assessment & Plan (10/14/2015 2:08 PM CDT): Pt with hx of sleep terrors, sleep walking, and inability to stay asleep. Pt also has a hx of snoring and had a sleep study done but has not followed up in the sleep clinic. Note in chart states that pt no-showed to their sleep study, so it is unclear if/when this was done. Plan: - Referral to sleep clinic Assessment & Plan (09/09/2014 1:36 PM TECHNICAL CUSTOMER SUPPORT SPECIALIST): Ashley Menon is a 8 y/o female here for well child check and has frequent episodes of night time screaming and violent/combative behaviors while asleep consistent with sleep terrors. - Mom given hand out about sleep terrors - Educated about importance of not waking Ashley during episodes but still keeping her safe Separation anxiety 09/09/2014 9 Assessment & Plan (10/14/2015 2:02 PM CDT): Mom worried about pt's attachment to her brother and separation anxiety between them, especially since brother will be going to college in a couple years. Pt would benefit from specific behavioral management. Plan: - Referred mom to the [facility] to help with disruptive behaviors Assessment & Plan (09/09/2014 1:39 PM TECHNICAL CUSTOMER SUPPORT SPECIALIST): Ashley Menon is a 8 y/o female seen today for well child check found to have significant separation anxiety related to her mother. Discussed with mom and Ashley the role of therapy in treatment of anxiety in childhood. - Referral to Psychology at [facility] for management of anxiety. Mom does not wish to return to prior therapist in [place]. URI (upper respiratory infection) 07/24/2014 12/09/2014 Assessment & Plan (07/24/2014 4:52 PM TECHNICAL CUSTOMER SUPPORT SPECIALIST): 8yo with 4-5days of fever, congestion, runny nose, cough, and wheezing. Fever has been well controlled with tylenol/motrin rotating as instructed by the ED. Getting albuterol every 4-8hrs as needed. In office patient looks well. Afebrile, not wheezing. Plan: -discussed discontinuing the scheduled motrin/tylenol and to only use as needed -discussed and provided handouts on supportive care for viral respiratory illness -Per Mom no refills needed for albuterol [facility] with [facility] 07/24/2014 06/23/2019 Assessment & Plan (07/24/2014 4:56 PM TECHNICAL CUSTOMER SUPPORT SPECIALIST): Per Mom Ashley [facility] weeks. Did not give details, but implied that it was a temporary arrangement. -Provided family with [employer]'s business card as a social service resource, instructed her to call with questions/concerns if we could be of service. Ashley is due for a well child check and Mom was interested in possibly speaking with [facility] at that time. Abdominal pain, epigastric 07/13/2014 0 09/09/2014 Assessment & Plan (07/13/2014 1:21 PM TECHNICAL CUSTOMER SUPPORT SPECIALIST): Zantac trial x 1 mo Hip pain 06/18/2013 12/09/2015 Assessment & Plan (06/18/2013 5:25 PM TECHNICAL CUSTOMER SUPPORT SPECIALIST): BL hip pain resolved with stretching exercises. Not needed any pain meds for. X-rays are normal. Normal hip exam BL. -Follow clinically Posterior fossa arachnoid cyst 06/18/2013 06/23/2019 Overview (04/29/2017): . IMO Update 04/29/2017 Assessment & Plan (06/18/2013 10:01 PM TECHNICAL CUSTOMER SUPPORT SPECIALIST): 05/05/13 Right suboccipital retrosigmoid craniotomy for excision and fenestration of arachnoid cyst. Microsurgical technique. Cranioplasty of skull defect less than 5 cm using [employer] titanium plating system. 05/19/13 Recurrent incisional drainage, right posterior fossa arachnoid cyst, surgical wound breakdown and exploration Fall 11/10/2009 06/18/2013 Encounters Date Type Department Care Team Description 08/19/[address] [facility] - [facility] [address] [place] [address]. [place] [address] Yuly Pope, DO Concerns 08/15/2024 7:44 AM TECHNICAL CUSTOMER SUPPORT SPECIALIST - 08/15/2024 8:07 PM TECHNICAL CUSTOMER SUPPORT SPECIALIST Emergency ER at [address] [address] Dasia Donaldson MD Gerard, James M, MD Abdominal pain, epigastric Discharge Disposition: Home or Self Care 08/15/2024 Travel 08/14/2024 4:34 PM TECHNICAL CUSTOMER SUPPORT SPECIALIST - 08/14/2024 11:59 PM TECHNICAL CUSTOMER SUPPORT SPECIALIST Hospital Encounter [facility] - Lab [address] [place] [id number] Areli Salinas, PhD Discharge Disposition: Home or Self Care 08/14/2024 4:20 PM TECHNICAL CUSTOMER SUPPORT SPECIALIST - 08/14/2024 4:33 PM TECHNICAL CUSTOMER SUPPORT SPECIALIST Hospital Encounter [facility] - Radiology [address] [place] [id number] Areli Dao APRN-CNP Discharge Disposition: Home or Self Care 08/14/2024 2:45 PM TECHNICAL CUSTOMER SUPPORT SPECIALIST - 08/14/2024 4:19 PM TECHNICAL CUSTOMER SUPPORT SPECIALIST Hospital Encounter [facility] - [facility] [address] [facility] [place] [address] Areli Salinas, PhD Areli Dao APRN-CNP from Last 3 Months Immunizations Name Administration Dates Next Due CovELDR Media primary Monoval ent 12+ yr 0.3ml 02/17/2022 DTaP VACCINE IM (6wk-6yrs) 03/04/2009,,03/30/2005,11/24 HEP A PEDS 2 DOSE 03/27/2008,02/19/2007 HEP B VACCINE, PED/ADOL 06/05/2005,05/05,03/30/2005,11/24,2004 HIB-PRP-OMP 3 DOSE 05/05/2005,03/30/2005, 005 Human Papilloma Virus Nineva lent Vaccine 12/28/2016,10/13/2015 INFLUENZA VACCINE 05/08/2013,05/23/2010 INFLUENZA VACCINE, QUADR. (F LUZONE; FLULAVAL; FLUARIX; AFLURIA QUADRIVALENT; 6MO+), 0.5 ML (IIV4) 07/19/2020 MENINGOCOCCAL CONJUGATE (MCV4P) 08/03/2021,10/12 MMR 06/23/2019,03/04/2009 PNEUMOCOCCAL PCV7 CONJ, PEDS 11/28/2005, 05/05/2005,03/30/2005,11/24 POLIO IPV 03/04/2009, 5,05/05/2005,03/30,2004 TDAP (7yrs+) 10/13/2015 VARICELLA 03/04/2009,11/28/2005 Family History Medical History Relation Name Comments Seizures Brother 1/2 paternal br other, onset as adult Obesity Father Other - Musculoskeletal Father bone disorder Seizures Father Hypertension Maternal Grandfather Obesity Maternal Grandfather Bipolar Disorder Maternal Grandmother Hypertension Maternal Grandmother Other Maternal Grandmother Stroke <50 yo Schizophrenia Maternal Grandmother Asthma Mother Cancer - Other Mother cervical Migraine Mother Other Mother overweight, bor derline diabetes Other - Syndrome Sister 1 transgender male to female Crohn's Disease Sister 2 Hypertension Sister 3 Obesity Sister 3 Anesthesia Reaction Neg Hx Relation Name Status Comments Brother Alive Father Maternal Grandfather Maternal Grandmother Alive Mother Alive Sister 1 Alive Sister 2 Sister 3 Social History Tobacco Use Types Packs/Day Years Used Date Smoking Tobacco: Never Passive Smoke Exposure: Yes Smokeless Tobacco: Never Tobacco Cessation:Counseling Given: Not Answered Alcohol Use Standard Drinks/Week Comments No 0 (1 standard drink = 0.6 oz pur e alcohol) AUDIT-C Answer Date Recorded Q1: How often do you have a drink containing alc ohol? Never 12/25/2023 Average Number of Drinks Not on file 024 Q3: How often do you have si x or more drinks on one occasion? Never 12/25/2023 PHQ-2 Answer Date Recorded Patient Health Questionnaire-2 Score 0 04/16/2023 Sex and Gender Information Value Date Recorded Sex Assigned at Not on file Gender Identity Not on file Sexual Orientation Not on file Last Filed Vital Signs Vital Sign Reading Time Taken Comments Blood Pressure 135/90 08/15/2024 6:43 PM TECHNICAL CUSTOMER SUPPORT SPECIALIST Pulse 90 08/15/2024 6:43 PM TECHNICAL CUSTOMER SUPPORT SPECIALIST Temperature 37.6 C (99.7 F) 08/15/2024 6:43 PM TECHNICAL CUSTOMER SUPPORT SPECIALIST Respiratory Rate 20 08/15/2024 6:43 PM TECHNICAL CUSTOMER SUPPORT SPECIALIST Oxygen Saturation 99% 08/15/2024 6:43 PM TECHNICAL CUSTOMER SUPPORT SPECIALIST Inhaled Oxygen Concentration 100% 01/2013 12:30 PM CDT Weight 161.4 kg (355 lb 13.2 oz) 08/15/2024 7:31 AM TECHNICAL CUSTOMER SUPPORT SPECIALIST Height 175 cm (5' 8.9 ) 08/15/2024 7:31 AM TECHNICAL CUSTOMER SUPPORT SPECIALIST Body Mass Index 52.7 08/15/2024 7:31 AM TECHNICAL CUSTOMER SUPPORT SPECIALIST Plan of Treatment Upcoming Encounters Date Type Department Care Team (Late st Contact Info) Description 10/03/2024 10:00 AM TECHNICAL CUSTOMER SUPPORT SPECIALIST Office Visit [facility] - [address], [address] [phone] Amina Nicholas, [employer] [id number] [place] [phone] 01/08/2025 9:00 AM CDT Office Visit [facility] - [facility] [address] [facility], [facility] [place] [id number] Areli Dao, [employer] [address] [place] [address] Health Maintenance Due Date Last Done Comments PNEUMOCOCCAL VACCINE (1 of 1 - PPSV23) 2010 11/28/2005, 05/05/2005, 03/30/2005, Additional history exists HIV SCREENING 2019 MENINGOCOCCAL (Group B) VACCINE (1 of 2 - Standard) 2020 HEPATITIS C SCREENING 09/15/2022 COVID-19 VACCINE (3 - season) 2024 02/17/2022, 07/25/2021 INFLUENZA VACCINE (#1) 2024 , 05/08/2013, 05/23/2010 CHLAMYDIA/GONORRHEA SCREENING 09/21/2024 09/21/2023 DTAP/TDAP/TD VACCINES (6 - Td or Tdap) 10/12/2025 10/13/2015, 03/04/2009, 05/05/2005, Additional history exists ZOSTER VACCINE (1 of 2) 2054 HIB VACCINE Aged Out 05/05/2005, 07/2004, 2004 No longer eligible based on patient's age to complete this topic HEPATITIS B VACCINE Completed 06/05/2005, 05/05/2005, 03/30/2005, Additional history exists HPV VACCINE Completed 12/28/2016, 10/13/2015 MENINGOCOCCAL VACCINE Completed 08/03/2021, 016 DEPRESSION SCREENING Completed 08/14/2024, 09/21/2023, 08/25/2022, Additional history exists Medical Devices Implanted Type Area Fork Lift Truck Operator Device Identifier Shelf Expiration Date Model / Serial / Lot Floseal 10ml Implanted:Qty: 1 on 05/05/2013 by Aiden Turner MD at [facility] Right: Cranial [employer] 06/29/2014 [id number] / / [id number] Grft Duragen Plus 2 X 2 Implanted:Qty: 1 on 05/05/2013 by Aiden Turner MD at [facility] Right: Cranial Integra [employer] Alexandra 11/28/2015 [id number] / / [id number] Matrix Regeneration Durepair 1 X 1in Implanted:Qty: 1 on 05/05/2013 by Aiden Turner MD at [facility] Right: Cranial Med[employer] Neurological 12/28/2013 [id number] / / [id number] Glue Tisseel Fibrin 10ml Implanted:Qty: 1 on 05/05/2013 by Aiden Turner MD at [facility] Right: Cranial [employer] 09/27/2014 [id number] / / [id number] Cov Bur Hole Ti Matrix 17mm Implanted:Qty: 1 on 05/05/2013 by Aiden Turner MD at [facility] Right: Cranial Synthes Maxillofacial [id number] / / Synthes Matrix Neuro Plate Implanted:Qty: 1 on 05/05/2013 by Aiden Turner MD at [facility] Right: Cranial [id number] / / Synthes Matrix Neuro Screws 4 Mm Implanted:Qty: 9 on 05/05/2013 by Aiden Turner MD at [facility] Right: Cranial [id number] / / Screw Ortho Pediatric Set Implanted:Qty: 1 on 07/09/2017 by Areli Kwan MD at [facility] Right: Ankle 45 / / Explanted Type Area Fork Lift Truck Operator Device Identifier Shelf Expiration Date Model / Serial / Lot Wire K 3mm 21mm Ss Orth Fx Explanted:Qty: 1 on 07/09/2017 by Areli Kwan MD at [facility] Right: Ankle Ortho Pedicatrics 6 / / Procedures Procedure Name Priority Date/Time Associated Diagnosis Comments US ABDOMEN LIMITED STAT 08/15/2024 5: 21 PM TECHNICAL CUSTOMER SUPPORT SPECIALIST Abdominal pain, epigastric CT ABDOMEN PELVIS W CONTRAST STAT 08/15/2024 3:47 PM TECHNICAL CUSTOMER SUPPORT SPECIALIST Abdominal pain, epigastric HCG URINE QUALITATIVE - POCT (IP) INTERFACED Routine 08/15/2024 3:08 PM TECHNICAL CUSTOMER SUPPORT SPECIALIST URINALYSIS W/MICROSCOPIC REFLEX TO CULTURE STAT 08/15/2024 3:05 PM TECHNICAL CUSTOMER SUPPORT SPECIALIST HCG URINE QUAL POCT NOTIFICATION STAT 08/15/2024 1:32 PM TECHNICAL CUSTOMER SUPPORT SPECIALIST AMYLASE BLOOD STAT 08/15/2024 10:10 AM TECHNICAL CUSTOMER SUPPORT SPECIALIST LIPASE BLOOD STAT 08/15/2024 10:10 AM TECHNICAL CUSTOMER SUPPORT SPECIALIST COMPREHENSIVE METABOLIC PANEL STAT 08/15/2024 10:10 AM TECHNICAL CUSTOMER SUPPORT SPECIALIST CBC W AUTO DIFFERENTIAL STAT 08/15/2024 10:10 AM TECHNICAL CUSTOMER SUPPORT SPECIALIST CBC W/O DIFFERENTIAL Routine 08/14/2024 4:45 PM TECHNICAL CUSTOMER SUPPORT SPECIALIST Chronic constipation COMPREHENSIVE METABOLIC PANEL Routine 08/14/2024 4:45 PM TECHNICAL CUSTOMER SUPPORT SPECIALIST Chronic constipation TSH REFLEX FREE T4 Routine 08/14/2024 4: 45 PM TECHNICAL CUSTOMER SUPPORT SPECIALIST Chronic constipation HEMOGLOBIN A1C Routine 08/14/2024 4:45 PM TECHNICAL CUSTOMER SUPPORT SPECIALIST Chronic constipation LIPID PROFILE Routine 08/14/2024 4:45 PM TECHNICAL CUSTOMER SUPPORT SPECIALIST Encounter for routine child health examination with abnormal findings XR ABD OBSTRUCTION SERIES 2VW Routine 08/14/2024 4:29 PM TECHNICAL CUSTOMER SUPPORT SPECIALIST Chronic constipation CHLAMYDIA + GC AMPLIFIED PROBE Routine 09/21/2023 4:07 PM TECHNICAL CUSTOMER SUPPORT SPECIALIST Encounter for routine child health examination with abnormal findings from Last 3 Months or Most Recently Relevant to Health Maintenance Results * US Abdomen Limited (08/15/2024 5:21 PM TECHNICAL CUSTOMER SUPPORT SPECIALIST) Anatomical Region Laterality Modality Abdomen Ultrasound 08/15/2024 4:46 PM TECHNICAL CUSTOMER SUPPORT SPECIALIST Impressions 08/16/2024 7:23 AM TECHNICAL CUSTOMER SUPPORT SPECIALIST Limited gallbladder ultrasound as the patient was postprandial. Evaluation also limited due to body habitus. There appears to be a linear echogenic focus in the gallbladder which may represent cholelithiasis versus prominent folds, poorly evaluated on the images obtained. No gallbladder wall thickening or pericholecystic fluid identified on ultrasound. Consider a routine outpatient ultrasound performed with appropriate fasting time if the patient is continuing to experience right upper quadrant pain. Reading Radiologist: Delphine Tenorio on 08/16/2024 at 7:23 AM Narrative 08/16/2024 7:23 AM TECHNICAL CUSTOMER SUPPORT SPECIALIST PROCEDURE: US ABDOMEN LIMITED, DATE/TIME OF EXAM: 08/15/2024 4:46 PM, LOCATION INDICATION: Epigastric pain ADDITIONAL CLINICAL INFORMATION: Ordering Provider Reason For Exam: Evaluate for cholelithiasis COMPARISON: Same day CT TECHNIQUE: Right upper quadrant ultrasound was performed according to departmental protocol FINDINGS: The patient was not NPO for the examination and ate 15 minutes prior to exam. Ultrasound is also degraded by patient body habitus. Limited evaluation of the liver is grossly unremarkable. Liver is within normal limits for size. No intrahepatic or extrahepatic biliary ductal dilatation. Gallbladder lumen contains a linear hyperechoic focus with some suggestion of posterior acoustic shadowing however it does not appear mobile and is poorly characterized on the images obtained. There is no gallbladder wall thickening or pericholecystic fluid identified. Pancreas: Obscured due to bowel gas Right kidney: Not seen due to ectopic positioning as demonstrated on recent CT. Procedure Note Delphine Tenorio MD - 08/16/2024 PROCEDURE: US ABDOMEN LIMITED, DATE/TIME OF EXAM: 08/15/2024 4:46 PM,LOCATION INDICATION: Epigastric pain ADDITIONAL CLINICAL INFORMATION: Ordering Provider Reason For Exam: Evaluate for cholelithiasis COMPARISON: Same day CT TECHNIQUE: Right upper quadrant ultrasound was performed according to departmental protocol FINDINGS: The patient was not NPO for the examination and ate 15 minutes prior toexam. Ultrasound is also degraded by patient body habitus. Limited evaluation of the liver is grossly unremarkable. Liver is withinnormal limits for size. No intrahepatic or extrahepatic biliary ductal dilatation. Gallbladder lumen contains a linear hyperechoic focus with some suggestionof posterior acoustic shadowing however it does not appear mobile and ispoorly characterized on the images obtained. There is no gallbladder wallthickening or pericholecystic fluid identified. Pancreas: Obscured due to bowel gas Right kidney: Not seen due to ectopic positioning as demonstrated onrecent CT. IMPRESSION Limited gallbladder ultrasound as the patient was postprandial. Evaluationalso limited due to body habitus. There appears to be a linear echogenic focus in the gallbladder which may represent cholelithiasis versus prominent folds, poorly evaluated on theimages obtained. No gallbladder wall thickening or pericholecystic fluididentified on ultrasound. Consider a routine outpatient ultrasound performed withappropriate fasting time if the patient is continuing to experience right upperquadrant pain. Reading Radiologist: Delphine Tenorio on 08/16/2024 at 7:23 AM Amandeep Blackwell MD US ORDERABLES * CT Abdomen Pelvis W Contrast (08/15/2024 3:47 PM TECHNICAL CUSTOMER SUPPORT SPECIALIST) Anatomical Region Laterality Modality Abdomen, Pelvis Computed Tomogra phy 08/15/2024 3:40 PM TECHNICAL CUSTOMER SUPPORT SPECIALIST Impressions 08/15/2024 4:12 PM TECHNICAL CUSTOMER SUPPORT SPECIALIST 1. Questionable cholelithiasis (versus gallbladder folds) without CT findings to suggest acute inflammation. This could be further evaluated with ultrasound if indicated. 2. Ectopic right kidney with abnormal rotation, with a ptotic appearance with the lower moiety descending into the right lower quadrant. No urinary tract dilation or evidence of pyelonephritis. 3. Incidental 4.4 cm low-attenuation cystic lesion in the spleen. As true splenic cysts are extremely rare, this is more likely a benign splenic lymphangioma or hemangioma. Reading Radiologist: Delphine Tenorio on 08/15/2024 at 4:12 PM Narrative 08/15/2024 4:12 PM TECHNICAL CUSTOMER SUPPORT SPECIALIST PROCEDURE: CT ABDOMEN PELVIS W CONTRAST, DATE/TIME OF EXAM: 08/15/2024 3:40 PM, LOCATION INDICATION: Epigastric pain CG SEDATION IF NEEDED: ORDER [id number] FOR INPATIENTS AND [id number] FOR OUTPATIENTS AND CLINIC PATIENTS. - Radiation Dose:->[id number] ADDITIONAL CLINICAL INFORMATION: Ordering Provider Reason For Exam: 18-year-old with reports of daily emesis for one year. COMPARISON: None. TECHNIQUE: CT of the abdomen and pelvis with 95 IV contrast. Coronal and sagittal reformatted images were submitted. DOSE: CTDI: 11.7 mGy, DLP: 720.5 mGy-cm The reported CTDIvol (mGy) and DLP (mGy-cm) values are generated from scan acquisition factors based on 32 cm (body) or 16 cm (head) phantoms and may underestimate or overestimate the actual patient dose based on patient size and other factors. FINDINGS: Chest: The lung bases are clear. Hepatobiliary: Liver is normal in size and attenuation. No focal hepatic lesion. There is a rounded region in the gallbladder (series 4 image 71), without gallbladder wall thickening or pericholecystic fluid, which may represent a gallstone. The common bile duct measures approximately 3 mm in caliber, within normal limits. Pancreas: Normal without peripancreatic fluid collection. Spleen: Well-circumscribed fluid attenuation lesion in the inferior pole of the spleen measuring 3.7 x 4.4 x 4.4 cm. Fluid. Adrenal glands: Normal in morphology without mass lesion. There does appear to be a medial limb of the right adrenal gland. : Abnormal rotation and location of the right kidney, which is located low in the right retroperitoneum and descends into the right lower quadrant, with the right renal vein located anteriorly as opposed to medially. No urinary tract dilation. Normal cortical medullary differentiation Left kidney is normal. No urinary tract dilation or evidence of pyelonephritis. No bladder or deep pelvic soft tissue abnormality is seen. Intrauterine contraceptive device is normally positioned in the uterus. GI: No obstruction or abnormal bowel wall thickening. Normal appendix. Vascular: The aorta and inferior vena cava are normal. Other: No free air or abnormal fluid collection. Bones: The bones are normal. Procedure Note Delphine Tenorio MD - 08/15/2024 PROCEDURE: CT ABDOMEN PELVIS W CONTRAST, DATE/TIME OF EXAM: 53:40 PM, LOCATION INDICATION: Epigastric pain CG SEDATION IF NEEDED: ORDER [id number] FORINPATIENTS AND [id number] FOR OUTPATIENTS AND CLINIC PATIENTS. - RadiationDose:->[id number] ADDITIONAL CLINICAL INFORMATION: Ordering Provider Reason For Exam: 18-year-old with reports of dailyemesis for one year. COMPARISON: None. TECHNIQUE: CT of the abdomen and pelvis with 95 IV contrast. Coronal and sagittal reformatted images were submitted. DOSE: CTDI: 11.7 mGy, DLP: 720.5 mGy-cm The reported CTDIvol (mGy) and DLP (mGy-cm) values are generated from scan acquisition factors based on 32 cm (body) or 16 cm (head) phantoms and may underestimate or overestimate the actual patient dose based on patientsize and other factors. FINDINGS: Chest: The lung bases are clear. Hepatobiliary: Liver is normal in size and attenuation. No focal hepaticlesion. There is a rounded region in the gallbladder (series 4 image 71), without gallbladder wall thickening or pericholecystic fluid, which may representa gallstone. The common bile duct measures approximately 3 mm in caliber,within normal limits. Pancreas: Normal without peripancreatic fluid collection. Spleen: Well-circumscribed fluid attenuation lesion in the inferior poleof the spleen measuring 3.7 x 4.4 x 4.4 cm. Fluid. Adrenal glands: Normal in morphology without mass lesion. There doesappear to be a medial limb of the right adrenal gland. : Abnormal rotation and location of the right kidney, which is locatedlow in the right retroperitoneum and descends into the right lower quadrant, withthe right renal vein located anteriorly as opposed to medially. No urinarytract dilation. Normal cortical medullary differentiation Left kidney is normal.No urinary tract dilation or evidence of pyelonephritis. No bladder or deeppelvic soft tissue abnormality is seen. Intrauterine contraceptive device isnormally positioned in the uterus. GI: No obstruction or abnormal bowel wall thickening. Normal appendix. Vascular: The aorta and inferior vena cava are normal. Other: No free air or abnormal fluid collection. Bones: The bones are normal. IMPRESSION 1. Questionable cholelithiasis (versus gallbladder folds) without CTfindings to suggest acute inflammation. This could be further evaluated withultrasound if indicated. 2. Ectopic right kidney with abnormal rotation, with a ptotic appearancewith the lower moiety descending into the right lower quadrant. No urinarytract dilation or evidence of pyelonephritis. 3. Incidental 4.4 cm low-attenuation cystic lesion in the spleen. As true splenic cysts are extremely rare, this is more likely a benign splenic lymphangioma or hemangioma. Reading Radiologist: Delphine Tenorio on 08/15/2024 at 4:12 PM Dasia Donaldson MD CT ORDERABLES * HCG URINE QUALITATIVE - POCT (IP) INTERFACED (08/15/2024 3:08 PM TECHNICAL CUSTOMER SUPPORT SPECIALIST) HCG Qual Urine Negative Negative 08/15/2024 3:18 PM TECHNICAL CUSTOMER SUPPORT SPECIALIST [facility] Urine URINE / Unknown 08/15/2024 3 :08 PM TECHNICAL CUSTOMER SUPPORT SPECIALIST 08/15/2024 3:18 PM TECHNICAL CUSTOMER SUPPORT SPECIALIST Amandeep Blackwell MD LAB - POINT OF CARE ORDERABLES [facility] [address] [place] [phone] * (ABNORMAL) URINALYSIS W/MICROSCOPIC REFLEX TO CULTURE (08/15/2024 3:05 PM TECHNICAL CUSTOMER SUPPORT SPECIALIST) Color UA Yellow Straw, Yellow 08/15/2024 3:19 PM [facility] Clarity UA Slt Cloudy(A) Clear 08/15/2024 3:19 PM [facility] Specific [place] UA 1.024 1.005 - 1.030 08/15/2024 3:19 PM [facility] pH UA 8.0 5.0 - 8.0 pH 08/15/2024 3:19 PM [facility] Protein UA Negative Negative 08/15/2024 3:19 PM [facility] Glucose UA Negative Negative 08/15/2024 3:19 PM [facility] Ketone UA Negative Negative 08/15/2024 3:19 PM [facility] Bilirubin UA Negative Negative 08/15/2024 3:19 PM [facility] Blood UA Negative Negative 08/15/2024 3:19 PM [facility] Nitrite UA Negative Negative 08/15/2024 3:19 PM [facility] Leukocyte Esterase Negative Negative 08/15/2024 3:19 PM [facility] Urobilinogen UA 2.0(A) Negative mg/dL 08/15/2024 3:19 PM [facility] RBC UA 3-5 None Seen, 0-2, 3-5 /HPF 08/15/2024 3:19 PM [facility] WBC UA 0-5 None Seen, 0-5 /HPF 08/15/2024 3:19 PM [facility] Squamous Epithelial Cells UA 6-10(A) None Seen, 0-2, 3-5 /HPF 08/15/2024 3:19 PM [facility] Mucus UA 1+ /LPF 08/15/2024 3:19 PM [facility] Urine URINE SPECIMEN OBTAINED BY CLEAN CATCH PROCEDURE / Unknown Collection / Unknown 08/15/2024 3:05 PM TECHNICAL CUSTOMER SUPPORT SPECIALIST 08/15/2024 3:13 PM TECHNICAL CUSTOMER SUPPORT SPECIALIST Narrative [facility] - 08/15/2024 3:19 PM TECHNICAL CUSTOMER SUPPORT SPECIALIST Culture Not Indicated Dasia Donaldson MD LAB - URINALYSI S ORDERABLES Performing Organization Address City/[facility]/ZIP Co de Phone Number [facility] [address] [place] [address] [phone] * HCG URINE QUAL POCT NOTIFICATION (08/15/2024 1:32 PM TECHNICAL CUSTOMER SUPPORT SPECIALIST) Comment Notification Label Only - See Separate Report 08/15/2024 4:01 PM TECHNICAL CUSTOMER SUPPORT SPECIALIST [facility] Urine URINE / Unknown 08/15/2024 1 :32 PM TECHNICAL CUSTOMER SUPPORT SPECIALIST 08/15/2024 2:51 PM TECHNICAL CUSTOMER SUPPORT SPECIALIST Dasia Donaldson MD LAB - URINALYSI S ORDERABLES [address] [id number] [place] [address] * (ABNORMAL) CBC W AUTO DIFFERENTIAL (08/15/2024 10:10 AM TECHNICAL CUSTOMER SUPPORT SPECIALIST) WBC 11.3(H) 4.0 - 10.7 x10E9/L 08/15/2024 10:45 AM [facility] RBC Count 4.14 3.90 - 5.20 x10E12/L 08/15/2024 10:45 AM [facility] Hemoglobin 12.3 11.9 - 15.8 g/dL 08/15/2024 10:45 AM [facility] Hematocrit 37.0 34.8 - 46.1 % 08/15/2024 10:45 AM [facility] MCV 89.4 80.0 - 98.0 fL 08/15/2024 10:45 AM [facility] MCH 29.7 26.7 - 33.6 pg 08/15/2024 10:45 AM [facility] MCHC 33.2 31.7 - 36.3 g/dL 08/15/2024 10:45 AM [facility] RDW-CV 12.7 11.3 - 14.8 % 08/15/2024 10:45 AM [facility] Platelet Count 413 150 - 420 x10E9/L 08/15/2024 10:45 AM [facility] MPV 9.5 7.8 - 11.4 fL 08/15/2024 10:45 AM [facility] Neutrophil % 78.9(H) 41.0 - 74.0 % 08/15/2024 10:45 AM [facility] Lymphocyte % 12.8(L) 17.0 - 47.0 % 08/15/2024 10:45 AM [facility] Monocyte % 7.4 3.0 - 11.0 % 08/15/2024 10:45 AM [facility] Eosinophil % 0.3 0.0 - 7.0 % 08/15/2024 10:45 AM [facility] Basophil % 0.2 0.0 - 1.6 % 08/15/2024 10:45 AM [facility] Immature Granulocytes % 0.4 0.0 - 1.0 % 08/15/2024 10:45 AM [facility] Neutrophil Absolute 8.94(H) 1.60 - 7.50 x10E9/L 08/15/2024 10:45 AM [facility] Lymphocyte Absolute 1.45 1.00 - 4.40 x10E9/L 08/15/2024 10:45 AM [facility] Monocyte Absolute 0.84 0.15 - 1.00 x10E9/L 08/15/2024 10:45 AM [facility] Eosinophil Absolute 0.03 0.00 - 0.60 x10E9/L 08/15/2024 10:45 AM [facility] Basophil Absolute 0.02 0.00 - 0.13 x10E9/L 08/15/2024 10:45 AM [facility] Blood BLOOD SPECIMEN / Unknown Venipuncture / Unknown 08/15/2024 10:10 AM [facility] 08/15/2024 10:31 AM [facility] Dasia Donaldson MD LAB - HEMATOLOG Y ORDERABLES [facility] [address] [place] [address], [facility] [phone] * COMPREHENSIVE METABOLIC PANEL (08/15/2024 10:10 AM [facility]) Only the most recent of2 resultswithin the time period is included. BUN 11 7 - 26 mg/dL 08/15/2024 10:59 AM [facility] Creatinine 0.68 0.56 - 0.96 mg/dL 08/15/2024 10:59 AM [facility] Sodium 137 136 - 145 mmol/L 08/15/2024 10:59 AM [facility] Potassium 4.0 3.5 - 4.5 mmol/L 08/15/2024 10:59 AM [facility] Chloride 106 98 - 107 mmol/L 08/15/2024 10:59 AM [facility] CO2 24 22 - 29 mmol/L 08/15/2024 10:59 AM [facility] Glucose 98 70 - 99 mg/dL 08/15/2024 10:59 AM [facility] Calcium 9.6 8.4 - 10.2 mg/dL 08/15/2024 10:59 AM [facility] Protein Total 7.6 6.0 - 8.3 g/dL 08/15/2024 10:59 AM [facility] Albumin 3.9 3.4 - 5.0 g/dL 08/15/2024 10:59 AM [facility] Bilirubin Total 0.6 0.2 - 1.2 mg/dL 08/15/2024 10:59 AM [facility] Alkaline Phosphatase 77 40 - 150 U/L 08/15/2024 10:59 AM [facility] ALT 16 5 - 55 U/L 08/15/2024 10:59 AM [facility] AST 17 5 - 34 U/L 08/15/2024 10:59 AM [facility] Anion Gap 7 6 - 16 08/15/2024 10:59 AM [facility] BUN/Creatinine Ratio 16 7 - 23 08/15/2024 10:59 AM [facility] Osmolality Calculated 283 275 - 295 mOsm/kg 08/15/2024 10:59 AM [facility] Albumin/Globulin Ratio 1.1 1.1 - 2.3 08/15/2024 10:59 AM [facility] eGFR by CKD-EPI >90 >=90 mL/min/1.7 3 m2 08/15/2024 10:59 AM [facility] Blood BLOOD SPECIMEN / Unknown Venipuncture / Unknown 08/15/2024 10:10 AM TECHNICAL CUSTOMER SUPPORT SPECIALIST 08/15/2024 10:31 AM TECHNICAL CUSTOMER SUPPORT SPECIALIST Dasia Donaldson MD LAB - CHEMISTRY ORDERABLES [address] [address], [place] [phone] * LIPASE BLOOD (08/15/2024 10:10 AM TECHNICAL CUSTOMER SUPPORT SPECIALIST) Lipase 14 8 - 78 U/L 08/15/2024 10:59 AM [facility] Blood BLOOD SPECIMEN / Unknown Venipuncture / Unknown 08/15/2024 10:10 AM TECHNICAL CUSTOMER SUPPORT SPECIALIST 08/15/2024 10:31 AM TECHNICAL CUSTOMER SUPPORT SPECIALIST Narrative [facility] - 08/15/2024 10:59 AM TECHNICAL CUSTOMER SUPPORT SPECIALIST Lipase results from the [employer] Alinity analyzer may not be comparable with other methodologies. Dasia Donaldson MD LAB - CHEMISTRY ORDERABLES [address] [address], [place] [phone] * AMYLASE BLOOD (08/15/2024 10:10 AM TECHNICAL CUSTOMER SUPPORT SPECIALIST) Amylase 42 25 - 125 U/L 08/15/2024 10:59 AM [facility] Blood BLOOD SPECIMEN / Unknown Venipuncture / Unknown 08/15/2024 10:10 AM TECHNICAL CUSTOMER SUPPORT SPECIALIST 08/15/2024 10:31 AM TECHNICAL CUSTOMER SUPPORT SPECIALIST Dasia Donaldson MD LAB - CHEMISTRY ORDERABLES Performing Organization Address City/[facility]/ZIP Co de Phone Number [address] [address], [facility] [phone] * TSH REFLEX FREE T4 (08/14/2024 4:45 PM TECHNICAL CUSTOMER SUPPORT SPECIALIST) TSH 1.281 0.350 - 4.940 uIU/mL 08/14/2024 6:39 PM [facility] Blood BLOOD SPECIMEN / Unknown Lab Venipuncture / Unknown 08/14/2024 4:45 PM TECHNICAL CUSTOMER SUPPORT SPECIALIST 08/14/2024 4:57 PM TECHNICAL CUSTOMER SUPPORT SPECIALIST Areli CARNES LAB - VOCATIONAL NURSING INSTRUCTOR RY ORDERABLES Performing Organization Address [facility]/[place] Co de Phone Number [address] [address], [facility] [phone] * HEMOGLOBIN A1C (08/14/2024 4:45 PM TECHNICAL CUSTOMER SUPPORT SPECIALIST) Hemoglobin A1c 5.3 <=5.6 % 08/15/2024 10:21 AM [facility] Estimated Average Glucose 105 mg/dL 08/15/2024 10:21 AM [facility] Comment: HbA1c Interpretation: Normal : < 5.7% Pre-diabetes: 5.7-6.4% Diabetes: Equal to or greater than 6.5% Test results diagnostic of diabetes should be repeated for confirmation. Treatment target values recommended by ADA and other clinical organizations should be used to evaluate metabolic control in patients. Reference: [place] [employer], Standards of Care in Diabetes -2020 In patients 70 years and older consider HbA1c target range of 7.0-7.5% (Reference: Phil Vargas et al. MINA. 2012) The Sebia assay for the measurement of HbA1c is a National Glycohemoglobin Standardization Program (NGSP) certified method. Blood BLOOD SPECIMEN / Unknown Lab Venipuncture / Unknown 08/14/2024 4:45 PM TECHNICAL CUSTOMER SUPPORT SPECIALIST 08/14/2024 4:57 PM TECHNICAL CUSTOMER SUPPORT SPECIALIST Areli Dao [employer] LAB - VOCATIONAL NURSING INSTRUCTOR RY ORDERABLES [facility] [address] [place] [address], [facility] [phone] * (ABNORMAL) CBC NO DIFFERENTIAL (08/14/2024 4:45 PM TECHNICAL CUSTOMER SUPPORT SPECIALIST) WBC 12.7(H) 4.0 - 10.7 x10E9/L 08/14/2024 5:00 PM [facility] RBC Count 3.93 3.90 - 5.20 x10E12/L 08/14/2024 5:00 PM [facility] Hemoglobin 11.8(L) 11.9 - 15.8 g/dL 08/14/2024 5:00 PM [facility] Hematocrit 36.1 34.8 - 46.1 % 08/14/2024 5:00 PM [facility] MCV 91.9 80.0 - 98.0 fL 08/14/2024 5:00 PM [facility] MCH 30.0 26.7 - 33.6 pg 08/14/2024 5:00 PM [facility] MCHC 32.7 31.7 - 36.3 g/dL 08/14/2024 5:00 PM [facility] RDW-CV 12.7 11.3 - 14.8 % 08/14/2024 5:00 PM [facility] Platelet Count 395 150 - 420 x10E9/L 08/14/2024 5:00 PM [facility] MPV 9.1 7.8 - 11.4 fL 08/14/2024 5:00 PM [facility] Blood BLOOD SPECIMEN / Unknown Lab Venipuncture / Unknown 08/14/2024 4:45 PM TECHNICAL CUSTOMER SUPPORT SPECIALIST 08/14/2024 4:57 PM TECHNICAL CUSTOMER SUPPORT SPECIALIST Areli Dao [employer] LAB - HEMATOL OGY ORDERABLES Performing Organization Address City/[facility]/ZIP Co de Phone Number [facility] [address] [place] [address], [place] [phone] * (ABNORMAL) LIPID PROFILE (08/14/2024 4:45 PM TECHNICAL CUSTOMER SUPPORT SPECIALIST) Cholesterol Total 164 <200 mg/dL 08/14/2024 6:21 PM [facility] HDL 34(L) >40 mg/dL 08/14/2024 6:21 PM [facility] Comment: ATP III Classification of HDL Cholesterol: <40 mg/dL: Considered a major risk factor. >60 mg/dL: Considered a negative risk factor. LDL Calculated 107(H) <100 mg/dL 08/14/2024 6:21 PM [facility] Comment: ATP III Classification of LDL Cholesterol: <100 mg/dL: Optimal 100 - 129 mg/dL: Near Optimal/Above Optimal 130 - 159 mg/dL: Borderline High 160 - 189 mg/dL: High >190 mg/dL: Very High Triglycerides 115 <150 mg/dL 08/14/2024 6:21 PM [facility] Comment: ATP III Classification of Triglycerides: <150 mg/dL: Normal 150 - 199 mg/dL: Borderline High 200 - 400 mg/dL: High >500 mg/dL: Very High Blood BLOOD SPECIMEN / Unknown Lab Venipuncture / Unknown 08/14/2024 4:45 PM TECHNICAL CUSTOMER SUPPORT SPECIALIST 08/14/2024 4:57 PM TECHNICAL CUSTOMER SUPPORT SPECIALIST Yuly Pope DO LAB - CHEMISTRY ORDE ANSELMO [facility] [address] [place] [address], [place] [phone] * XR Abd Obstruction Series 2Vw (08/14/2024 4:29 PM TECHNICAL CUSTOMER SUPPORT SPECIALIST) Anatomical Region Laterality Modality Abdomen Computed Radiogr aphy 08/14/2024 4:22 PM TECHNICAL CUSTOMER SUPPORT SPECIALIST Impressions 08/14/2024 4:37 PM TECHNICAL CUSTOMER SUPPORT SPECIALIST Nonobstructive bowel gas pattern. Reading Radiologist: Pallavi Lange on 08/14/2024 at 4:37 PM Narrative 08/14/2024 4:37 PM TECHNICAL CUSTOMER SUPPORT SPECIALIST INDICATION: Constipation COMPARISON: None available. TECHNIQUE: Supine frontal and upright radiographs of the abdomen. FINDINGS: IUD is present. The bowel gas pattern is nonobstructive with moderate colonic stool. There are no findings to suggest free intraperitoneal gas. No abnormal calcifications are seen. No acute osseous abnormality is seen. The lower chest is normal. Procedure Note Pallavi Lange MD - 08/14/2024 INDICATION: Constipation COMPARISON: None available. TECHNIQUE: Supine frontal and upright radiographs of the abdomen. FINDINGS: IUD is present. The bowel gas pattern is nonobstructive with moderate colonic stool. There are no findings to suggest free intraperitoneal gas. No abnormal calcifications are seen. No acute osseous abnormality is seen. The lower chest is normal. IMPRESSION Nonobstructive bowel gas pattern. Reading Radiologist: Pallavi Lange on 08/14/2024 at 4:37 PM Areli Dao [employer] DIAGNOSTIC IM AGING ORDERABLES * (ABNORMAL) CHLAMYDIA + GC AMPLIFIED PROBE (09/21/2023 4:07 PM TECHNICAL CUSTOMER SUPPORT SPECIALIST) Chlamydia Amplified Probe Positive(A) Negative 09/22/2023 12:40 AM TECHNICAL CUSTOMER SUPPORT SPECIALIST [facility] GC Amplified Probe Negative Negative 09/22/2023 12:40 AM TECHNICAL CUSTOMER SUPPORT SPECIALIST [facility] Microbiology URINE / Unknown Collection / Unknown 09/21/2023 4:07 PM TECHNICAL CUSTOMER SUPPORT SPECIALIST 09/21/2023 4:53 PM TECHNICAL CUSTOMER SUPPORT SPECIALIST Narrative [facility] - 09/22/2023 12:40 AM TECHNICAL CUSTOMER SUPPORT SPECIALIST Repeat testing is recommended 3 months post treatment for patients who test positive for Chlamydia trachomatis/Neisseria gonorrhoeae. Results based on detection/no detection of ribosomal RNA by amplified method. Yuly Pope DO LAB - MICROBIOLOGY O RDERABLES [facility] [address] [place] [address] [phone] from Last 3 Months or Most Recently Relevant to Health Maintenance Advance Directives * Full Code (Latest Code Status on File) Date Activated Date Inactivated Comments 12/25/2023 11:24 PM 12/28/2023 2:22 PM * Full Code Date Activated Date Inactivated Comments 04/05/2020 1:50 PM 04/06/2020 6:02 PM * Full Code Date Activated Date Inactivated Comments 04/30/2018 9:48 AM 05/01/2018 4:48 PM Care Teams Mexican Food Machine Tender Relationship Specialty Start Date End Date Yuly Pope DO [address] [place] [address] PCP - General Internal Medicine 02/17/22 Kiki Burks MD [address] [place] [address] Resident Student Resident 12/11/17
--- OUTSIDE RECORDS SUMMARY | 2024-10-01 12:52 | XMS_ITS | Referral Summary ---
Author Organization [facility] Address [address] [facility] [place] [address] Care Team Providers Care Home Health Nurse Licensed Practical Name Role Phone Kiki Burks MD Unavailable Yuly Pope DO Primary Care Provider [phone] Source Comments [facility],non-owned Affiliates and Associated Physician Practices is amultiple site organization consisting of ambulatory clinics and hospital sitesin [place], [place], [place] and [place]. This disclosure is being madepursuant to the Care Everywhere program and may not contain all information available regarding this patient. Last updated 18.[facility] Encounters Date Type Department Care Team Description 08/19/2024 Telephone [facility] [address] [place] [address]. [place] [address] Yuly Pope, DO Concerns 08/15/2024 Travel 08/15/2024 7:44 AM PACU NURSE - 08/15/2024 8:07 PM PACU NURSE Emergency ER at [address] [address] Dasia Donaldson MD Gerard, James M, MD Abdominal pain, epigastric Discharge Disposition: Home or Self Care 08/14/2024 4:34 PM PACU NURSE - 08/14/2024 11:59 PM PACU NURSE Hospital Encounter [facility] - Lab [address] [place] [address] Areli Salinas, PhD Discharge Disposition: Home or Self Care 08/14/2024 4:20 PM PACU NURSE - 08/14/2024 4:33 PM PACU NURSE Hospital Encounter [facility] - Radiology [address] [place] [address] Areli Dao APRN-CNP Discharge Disposition: Home or Self Care 08/14/2024 2:45 PM PACU NURSE - 08/14/2024 4:19 PM PACU NURSE Hospital Encounter [facility] [address] [place] [address]. [place] [address] Areli Salinas, PhD Areli Dao APRN-CNP from Last 3 Months Allergies Active Allergy Reactions Criticality Noted Date Comments [place] Bovis Vomiting Low 10/05/2017 Lactose GI Discomfort Low 05/30/2018 Karnes Rash Medium 09/25/2014 Karnes Fruit Swelling Medium 10/05/2017 Karnes Oil Rash Medium 09/25/2014 Penicillins Swelling High [...] device by Intrauterine route continuous Inserted at [facility] 04/23/2022, good through 04/24/2030 04/24/2022 Active albuterol [...] 08/14/2024 Assessment & Plan (08/14/2024 4:26 PM PACU NURSE): Pt with concern for diabetes, had elevated HgA1c in the past, now has increased thirst. + acanthosis, BMI > 99%ile, 51 today. Will check HgA1c, CMP today. F/u next week. Irregular bleeding 09/23/2023 Assessment & Plan (09/23/2023 10:32 AM PACU NURSE): IUD - Mirena placed in March 2022 [...] 09/23/2023 Assessment & Plan (09/23/2023 10:45 AM PACU NURSE): Does have a hx of anxiety and depression as per patient with no SI/HI. Is currently in therapy - at [facility] once a week and seeking psychiatry referral to [place] to initiate medication. Mood stable today. PHQ-9 6/ZACH -5. Screen for STD (sexually transmitted disease) Assessment & Plan (09/23/2023 10:48 AM PACU NURSE): Is currently newly sexually active - with [...] 05/07/2020 Assessment & Plan (08/14/2024 4:23 PM PACU NURSE): Pt with chronic constipation, managed with Miralax [...] here Assessment & Plan (09/23/2023 10:44 AM PACU NURSE): BP stable today but patient takes lisinopril [...] June as scheduled - Will follow-up in [facility] and start antihypertensives pending today's labs Assessment & Plan (04/06/2020 11:42 AM CDT): Assessment: Ashley Menon 14 year [...] follow up results of labs sent at [facility] 5. If BP noted to be >130/80 using manual BP measurement technique while during hospitalization, will consider further evaluation for etiology of elevated BP including (depending on evaluation already performed at [facility]) Urine for urinalysis Blood for [...] 04/30/2018 Assessment & Plan (09/23/2023 10:42 AM PACU NURSE): Continues to have frontal headaches - atleast [...] lisinopril. Assessment & Plan (06/23/2019 1:06 PM PACU NURSE): Followed by Neurology Assessment & Plan (05/01/2018 [...] interested in Nexplanon insertion. Referred to adolescent budget record clerk clinic with Dr. Angulo Assessment & Plan (06/23/2019 1:06 PM PACU NURSE): Improved Followed by Adolescent Med Assessment & Plan (04/23/2018 12:43 PM CDT): Hx of heavy painful periods Naproxen makes her sleepy Check CBC today In the past Ibuprofen, has not worked. Instructed to trial 600mg every 6-8 hours instead of 400mg Refer to Adolescent Anxiety 04/23/2018 Assessment & Plan (08/25/2022 7:03 PM PACU NURSE): Assessment: 16 year old female who presents with signs and symptoms generalized anxiety for several years. Including fear, anxiety, trouble staying asleep, repeated thoughts, palpitation, chest pain, and more. Calm during exam today. Has not tried any medication in the past. Plan: Start Wellbutrin daily Start Atarax PRN for anxiety Follow-up in 4-6 weeks Assessment & Plan (07/19/2020 4:56 PM PACU NURSE): Spent >50% of this visit discussing concerns [...] 0904/23/2018 Assessment & Plan (07/19/2020 4:57 PM PACU NURSE): BMI remains elevated. Has likely been exacerbated [...] and sodium - Has been referred to boxing machine operator in the past and tried the meal [...] 01/01/2017 Assessment & Plan (09/23/2023 10:28 AM PACU NURSE): Continues to have poor sleep hygiene with [...] 09/28/2016 Assessment & Plan (06/23/2019 1:07 PM PACU NURSE): Referral to Ortho. Assessment & Plan (09/28/2016 11:59 AM PACU NURSE): Mass on left dorsal surface of the bony prominence. Unlikely to be fracture or calcification of bone without h/o trauma. Plan: - Xray of left foot 2 view Allergic rhinitis 10/15/2014 Overview (04/29/2015): Assessment & Plan (08/03/2021 3:50 PM PACU NURSE): Poorly controlled. Takes Zyrtec. Plan: Continue Zyrtec. Start Flonase Assessment & Plan (09/28/2016 11:56 AM PACU NURSE): Pt with AR on Zyrtec. Her symptoms [...] 09/09/2014 Assessment & Plan (08/03/2021 3:49 PM PACU NURSE): Refused Flu shot Assessment & Plan (07/19/2020 4:52 PM PACU NURSE): Ashley Menon is here for her adolescent well child check and has excessive weight gain and normal development. Immunizations up to date - flu shot today Has dentist PHQ-9: Negative Age appropriate anticipatory guidance provided Return in about 3 months (around 10/17/2020) for weight follow-up. Assessment & Plan (06/23/2019 1:05 PM PACU NURSE): Ronald Menon is here for her adolescent [...] arise. Assessment & Plan (09/09/2014 1:45 PM PACU NURSE): Ashley Menon is here for her 8 y.o. well child check. - Immunizations up to date, except flu which was declined today - Has a dental home - Age appropriate anticipatory guidance provided - Return for next well child check; sooner if concerns arise - See other separate problems Obesity 09/09/2014 Assessment & Plan (09/23/2023 10:26 AM PACU NURSE): Weight is up from previous visit - [...] time Assessment & Plan (06/23/2019 1:05 PM PACU NURSE): Good exercise regimen Discussed diet issues. Assessment [...] made healthy changes including workouts with a regional trainer 3-4 times per week and limiting [...] spurt. Assessment & Plan (09/09/2014 1:42 PM PACU NURSE): Ashley Menon is an obese 8 y/o [...] 07/08/2014 Assessment & Plan (07/19/2020 4:59 PM PACU NURSE): Noted on bilateral cheeks and chin. No inflammation noted. Likely exacerbated by stress of the pandemic. Plan: - Will start benzoyl peroxide - RTC in 3mo (monitor during weight follow-up) Assessment & Plan (07/08/2014 1:31 PM PACU NURSE): Flesh colored fine papular rash. Appears to [...] 07/31/2013 Assessment & Plan (07/19/2020 5:04 PM PACU NURSE): Has had significant difficulty with attention and [...] schooling. Assessment & Plan (09/28/2016 11:51 AM PACU NURSE): Pt with ADHD diagnosed earlier. Pt was [...] psychology. Assessment & Plan (07/31/2013 5:51 PM PACU NURSE): Unusual behaviors, escalating since, after surgery. Initially, symptoms more suggestive of anxiety/PTSD. Now, more odd. Mother concerned with and reports history of language and social delays. Indicates can become aggressive, rocks when upset, and aversions to sound yet high pain threshold to hot temperatures (& other possible sensory issues). Family history significant for schizophrenia and bipolar in [place]. Peculiar interactions between mother and child in office. Referral to [facility] for formal evaluation although from previous visits, autism seems unlikely. Stressed importance of continuing to see psychologist. Make sure to take copies of school evaluation for [facility] to review. Follow up in 3-4 months after [facility] evaluation completed. Asthma 06/18/2013 Assessment & Plan (06/23/2019 1:06 PM PACU NURSE): Well controlled Does not get relief from [...] PRN Assessment & Plan (09/28/2016 11:50 AM PACU NURSE): Pt on Flovent 44 2puffs BID and [...] prn Assessment & Plan (07/31/2013 5:45 PM PACU NURSE): Mild exacerabation over past month. Not giving full dose of Flovent. Instructed mother to increase to 2 puffs BID and wean off albuterol. Call office if unable to wean off albuterol over next two weeks or if worsens. Assessment & Plan (06/18/2013 5:23 PM PACU NURSE): Patient with mild persistent asthma. No ED [...] and Valacyclovir prescribed at the OSH. In ED, afebrile. Labs CBC normal, CMP showed [...] 025 Assessment & Plan (08/25/2022 7:11 PM PACU NURSE): Assessment: Rolled ankle about 2 weeks ago and still having pain to palpation and limited range of motion. Pain mostly on the lateral malleolus. Able to bare weight for only a limited amount of time. Plan: Follow-up with orthopedic surgery Follow-up with physical therapy Otitis externa 08/03/2021 09/14/2021 Assessment & Plan (08/03/2021 3:48 PM PACU NURSE): Otitis Externa on L side Plan: Start Ciprodex Acute right otitis media 08/03/202105/2024 Assessment & Plan (08/03/2021 3:49 PM PACU NURSE): See exam. Plan: Start Cefdinir Diarrhea 06/07/2021 [...] 02/20/2022 Assessment & Plan (07/13/2020 11:30 AM PACU NURSE): 14-year-old female with multiple comorbidities and positive [...] 09/28/2016 Assessment & Plan (09/28/2016 12:04 PM PACU NURSE): 11yo female with h/o asthma, allergic rhinitis [...] worsens; would consider treating for sinusitis then Civap-dhotrlo-otjkciv vaccine (MMR) not given 09/29/19 17 06/23/2019 Assessment & Plan (09/28/2016 12:00 PM PACU NURSE): Missing record of her 2nd MMR vaccine. [...] 06/23/2019 Assessment & Plan (09/09/2014 1:34 PM PACU NURSE): Ashley Menon is 8 y/o obese female [...] clinic Assessment & Plan (09/09/2014 1:36 PM PACU NURSE): Ashley Menon is a 8 y/o female [...] behaviors Assessment & Plan (09/09/2014 1:39 PM PACU NURSE): Ashley Menon is a 8 y/o female seen today for well child check found to have significant separation anxiety related to her mother. Discussed with mom and Ashley the role of therapy in treatment of anxiety in childhood. - Referral to Psychology at [facility] for management of anxiety. Mom does not wish to return to prior therapist in [place]. URI (upper respiratory infection) 07/24/2014 12/09/2014 Assessment & Plan (07/24/2014 4:52 PM PACU NURSE): 8yo with 4-5days of fever, congestion, runny [...] refills needed for albuterol Living [facility] with Mom 07/24/2014 06/23/2019 Assessment & Plan (07/24/2014 4:56 PM PACU NURSE): Per Mom Ashley has been [facility] for past several weeks. Did not give details, but implied that it was a temporary arrangement. -Provided family with [employer] [address] card as a social service resource, instructed her to call with questions/concerns if we could be of service. Ashley is due for a well child check and Mom was interested in possibly speaking with Mindy at that time. Abdominal pain, epigastric 07/13/2014 0 09/09/2014 Assessment & Plan (07/13/2014 1:21 PM PACU NURSE): Zantac trial x 1 mo Hip pain 06/18/2013 12/09/2015 Assessment & Plan (06/18/2013 5:25 PM PACU NURSE): BL hip pain resolved with stretching exercises. Not needed any pain meds for. X-rays are normal. Normal hip exam BL. -Follow clinically Posterior fossa arachnoid cyst 06/18/2013 06/23/2019 Overview (04/29/2017): . IMO Update 04/29/2017 Assessment & Plan (06/18/2013 10:01 PM PACU NURSE): 05/05/13 Right suboccipital retrosigmoid craniotomy for excision and fenestration of arachnoid cyst. Microsurgical technique. Cranioplasty of skull defect less than 5 cm using Synthes titanium plating system. 05/19/13 Recurrent incisional drainage, right posterior fossa arachnoid cyst, surgical wound breakdown and exploration Fall 11/10/2009 06/18/2013 Immunizations Name Administration Dates Next Due Appetise primary Monoval ent 12+ yr 0.3ml 02/17/2022 [...] 03/04/2009, 5,05/05/2005,03/30,2004 TDAP (7yrs+) 10/13/2015 VARICELLA 03/04/2009,11/28/2005 Social History Tobacco Use Types Packs/Day Years [...] Comments Blood Pressure 135/90 08/15/2024 6:43 PM PACU NURSE Pulse 90 08/15/2024 6:43 PM PACU NURSE Temperature 37.6 C (99.7 F) 08/15/2024 6:43 PM PACU NURSE Respiratory Rate 20 08/15/2024 6:43 PM PACU NURSE Oxygen Saturation 99% 08/15/2024 6:43 PM PACU NURSE Inhaled Oxygen Concentration 100% 01/2013 12:30 PM CDT Weight 161.4 kg (355 lb 13.2 oz) 08/15/2024 7:31 AM PACU NURSE Height 175 cm (5' 8.9 ) 08/15/2024 7:31 AM PACU NURSE Body Mass Index 52.7 08/15/2024 7:31 AM PACU NURSE Functional Status Functional Status Response Date of [...] person have difficulty concentrating/remembering/making decisions? Yes 04/05/2020 Plan of Treatment Upcoming Encounters Date Type Department Care Team (Late st Contact Info) Description 10/03/2024 10:00 AM PACU NURSE Office Visit [facility] [place] [address] [place] , [address] [address] Amina Nicholas, SENIOR NETWORK SECURITY ENGINEER-INSOLE PRESSER [address] [address] 01/08/2025 9:00 AM CDT Office Visit [facility] [place] [address] [facility], [place] [address] Feliberto Areli Sam, SENIOR NETWORK SECURITY ENGINEER-INSOLE PRESSER [address] [place] [address] Medical Devices Implanted Type Area Solo Truck Driver Device Identifier Shelf Expiration Date Model / Serial / Lot Floseal 10ml Implanted:Qty: 1 on 05/05/2013 by Aiden Turner MD at [facility] Right: Cranial [employer] 06/29/2014 [id number] / / [id number] Grft Duragen Plus 2 X 2 Implanted:Qty: 1 on 05/05/2013 by Aiden Turner MD at [facility] Right: Cranial Integra [employer] Alexandra 11/28/2015 [id number] / / [id number] Matrix Regeneration Durepair 1 X 1in Implanted:Qty: 1 on 05/05/2013 by Aiden Turner MD at [facility] Right: Cranial Medtronic Neurological 12/28/2013 [id number] / / [id number] Glue Tisseel Fibrin 10ml Implanted:Qty: 1 on 05/05/2013 by Aiden Turner MD at [facility] Right: Cranial Santacruz Katie [employer] 09/27/2014 [id number] / / [id number] Cov Bur Hole Ti Matrix 17mm Implanted:Qty: 1 on 05/05/2013 by Aiden Turner MD at [facility] Right: Cranial Synthes Maxillofacial [id number] / / Synthes Matrix Neuro Plate Implanted:Qty: 1 on 05/05/2013 by Aiden Turner MD at [facility] Right: Cranial 04.502.074 / / Synthes Matrix Neuro Screws 4 Mm Implanted:Qty: 9 on 05/05/2013 by Aiden Turner MD at [facility] Right: Cranial [id number] / / Screw Ortho Pediatric Set Implanted:Qty: 1 on 07/09/2017 by Areli Kwan MD at [facility] Right: Ankle 45 / / Explanted Type Area Solo Truck Driver Device Identifier Shelf Expiration Date Model / Serial / Lot Wire K 3mm 21mm Ss Orth Fx Explanted:Qty: 1 on 07/09/2017 by Areli Kwan MD at [facility] Right: Ankle Ortho Pedicatrics 6 / / Procedures Procedure Name Priority Date/Time Associated Diagnosis Comments US ABDOMEN LIMITED STAT 08/15/2024 5: 21 PM PACU NURSE Abdominal pain, epigastric CT ABDOMEN PELVIS W CONTRAST STAT 08/15/2024 3:47 PM PACU NURSE Abdominal pain, epigastric HCG URINE QUALITATIVE - POCT (IP) INTERFACED Routine 08/15/2024 3:08 PM PACU NURSE URINALYSIS W/MICROSCOPIC REFLEX TO CULTURE STAT 08/15/2024 3:05 PM PACU NURSE HCG URINE QUAL POCT NOTIFICATION STAT 08/15/2024 1:32 PM PACU NURSE AMYLASE BLOOD STAT 08/15/2024 10:10 AM PACU NURSE LIPASE BLOOD STAT 08/15/2024 10:10 AM PACU NURSE COMPREHENSIVE METABOLIC PANEL STAT 08/15/2024 10:10 AM PACU NURSE CBC W AUTO DIFFERENTIAL STAT 08/15/2024 10:10 AM PACU NURSE CBC W/O DIFFERENTIAL Routine 08/14/2024 4:45 PM PACU NURSE Chronic constipation COMPREHENSIVE METABOLIC PANEL Routine 08/14/2024 4:45 PM PACU NURSE Chronic constipation TSH REFLEX FREE T4 Routine 08/14/2024 4: 45 PM PACU NURSE Chronic constipation HEMOGLOBIN A1C Routine 08/14/2024 4:45 PM PACU NURSE Chronic constipation LIPID PROFILE Routine 08/14/2024 4:45 PM PACU NURSE Encounter for routine child health examination with abnormal findings XR ABD OBSTRUCTION SERIES 2VW Routine 08/14/2024 4:29 PM PACU NURSE Chronic constipation CHLAMYDIA + GC AMPLIFIED PROBE Routine 09/21/2023 4:07 PM PACU NURSE Encounter for routine child health examination with abnormal findings from Last 3 Months or Most Recently Relevant to Health Maintenance Results * US Abdomen Limited (08/15/2024 5:21 PM PACU NURSE) Anatomical Region Laterality Modality Abdomen Ultrasound 08/15/2024 4:46 PM PACU NURSE Impressions 08/16/2024 7:23 AM PACU NURSE Limited gallbladder ultrasound as the patient was [...] at 7:23 AM Narrative 08/16/2024 7:23 AM PACU NURSE PROCEDURE: US ABDOMEN LIMITED, DATE/TIME OF EXAM: [...] Abdomen Pelvis W Contrast (08/15/2024 3:47 PM PACU NURSE) Anatomical Region Laterality Modality Abdomen, Pelvis Computed Tomogra phy 08/15/2024 3:40 PM PACU NURSE Impressions 08/15/2024 4:12 PM PACU NURSE 1. Questionable cholelithiasis (versus gallbladder folds) without [...] at 4:12 PM Narrative 08/15/2024 4:12 PM PACU NURSE PROCEDURE: CT ABDOMEN PELVIS W CONTRAST, DATE/TIME OF EXAM: 08/15/2024 3:40 PM, LOCATION INDICATION: Epigastric pain CG SEDATION IF NEEDED: ORDER [id number] FOR INPATIENTS AND [id number] FOR OUTPATIENTS AND CLINIC PATIENTS. - Radiation [...] Epigastric pain CG SEDATION IF NEEDED: ORDER [id number] FORINPATIENTS AND [id number] FOR OUTPATIENTS AND CLINIC PATIENTS. - RadiationDose:->761.52 [...] - POCT (IP) INTERFACED (08/15/2024 3:08 PM PACU NURSE) Pathologist [facility] HCG Qual Urine Negative Negative 08/15/2024 3:18 PM PACU NURSE [facility] Urine URINE / Unknown 08/15/2024 3 :08 PM PACU NURSE 08/15/2024 3:18 PM PACU NURSE Amandeep Blackwell MD LAB - POINT OF CARE ORDERABLES Performing Organization Address City/State/[facility] Co de Phone Number [facility] [address] [place] [phone] * (ABNORMAL) URINALYSIS W/MICROSCOPIC REFLEX TO CULTURE (08/15/2024 3:05 PM PACU NURSE) Color UA Yellow Straw, Yellow 08/15/2024 3:19 PM PACU NURSE [facility] Clarity UA Slt Cloudy(A) Clear 08/15/2024 3:19 PM PACU NURSE [facility] Specific [place] UA 1.024 1.005 - 1.030 08/15/2024 3:19 PM [facility] pH UA 8.0 5.0 - 8.0 pH 08/15/2024 3:19 PM PACU NURSE [facility] Protein UA Negative Negative 08/15/2024 3:19 PM [facility] Glucose UA Negative Negative 08/15/2024 3:19 PM [facility] Ketone UA Negative Negative 08/15/2024 3:19 PM [facility] Bilirubin UA Negative Negative 08/15/2024 3:19 PM [facility] Blood UA Negative Negative 08/15/2024 3:19 PM [facility] Nitrite UA Negative Negative 08/15/2024 3:19 PM [facility] Leukocyte Esterase Negative Negative 08/15/2024 3:19 PM [facility] Urobilinogen UA 2.0(A) Negative mg/dL 08/15/2024 3:19 PM [facility] RBC UA 3-5 None Seen, 0-2, 3-5 /HPF 08/15/2024 3:19 PM [facility] WBC UA 0-5 None Seen, 0-5 /HPF 08/15/2024 3:19 PM [facility] Squamous Epithelial Cells UA 6-10(A) None Seen, 0-2, 3-5 /HPF 08/15/2024 3:19 PM [facility] Mucus UA 1+ /LPF 08/15/2024 3:19 PM [facility] Urine URINE SPECIMEN OBTAINED BY CLEAN CATCH PROCEDURE / Unknown Collection / Unknown 08/15/2024 3:05 PM PACU NURSE 08/15/2024 3:13 PM PACU NURSE Narrative [facility] - 08/15/2024 3:19 PM PACU NURSE Culture Not Indicated Dasia Donaldson MD LAB - URINALYSI S ORDERABLES Performing Organization Address City/State/[facility] de Phone Number [facility] [address] [place] [phone], [facility] [email or web address]] [phone] * HCG URINE QUAL POCT NOTIFICATION (08/15/2024 1:32 PM PACU NURSE) Comment Notification Label Only - See Separate Report 08/15/2024 4:01 PM PACU NURSE [facility] Urine URINE / Unknown 08/15/2024 1 :32 PM PACU NURSE 08/15/2024 2:51 PM PACU NURSE Dasia Donaldson MD LAB - URINALYSI S ORDERABLES [facility] [place]0 Medina Velasco [facility]. [place] [phone] * (ABNORMAL) CBC W AUTO DIFFERENTIAL (08/15/2024 10:10 AM [facility]) WBC 11.3(H) 4.0 - 10.7 x10E9/L 08/15/2024 10:45 AM [facility] RBC Count 4.14 3.90 - 5.20 x10E12/L 08/15/2024 10:45 AM [facility] Hemoglobin 12.3 11.9 - 15.8 g/dL 08/15/2024 10:45 AM [facility] Hematocrit 37.0 34.8 - 46.1 % 08/15/2024 10:45 AM [facility] MCV 89.4 80.0 - 98.0 fL 08/15/2024 10:45 AM [facility] MCH 29.7 26.7 - 33.6 pg 08/15/2024 10:45 AM [facility] MCHC 33.2 31.7 - 36.3 g/dL 08/15/2024 10:45 AM [facility] RDW-CV 12.7 11.3 - 14.8 % 08/15/2024 10:45 AM [facility] Platelet Count 413 150 - 420 x10E9/L 08/15/2024 10:45 AM [facility] MPV 9.5 7.8 - 11.4 fL 08/15/2024 10:45 AM [facility] Neutrophil % 78.9(H) 41.0 - 74.0 % 08/15/2024 10:45 AM [facility] Lymphocyte % 12.8(L) 17.0 - 47.0 % 08/15/2024 10:45 AM [facility] Monocyte % 7.4 3.0 - 11.0 % 08/15/2024 10:45 AM [facility] Eosinophil % 0.3 0.0 - 7.0 % 08/15/2024 10:45 AM [facility] Basophil % 0.2 0.0 - 1.6 % 08/15/2024 10:45 AM [facility] Immature Granulocytes % 0.4 0.0 - 1.0 % 08/15/2024 10:45 AM [facility] Neutrophil Absolute 8.94(H) 1.60 - 7.50 x10E9/L 08/15/2024 10:45 AM [facility] Lymphocyte Absolute 1.45 1.00 - 4.40 x10E9/L 08/15/2024 10:45 AM [facility] Monocyte Absolute 0.84 0.15 - 1.00 x10E9/L 08/15/2024 10:45 AM [facility] Eosinophil Absolute 0.03 0.00 - 0.60 x10E9/L 08/15/2024 10:45 AM [facility] Basophil Absolute 0.02 0.00 - 0.13 x10E9/L 08/15/2024 10:45 AM [facility] Blood BLOOD SPECIMEN / Unknown Venipuncture / Unknown 08/15/2024 10:10 AM [facility] 08/15/2024 10:31 AM [facility] Dasia Donaldson MD LAB - HEMATOLOG Y ORDERABLES Performing Organization Address City/State/[facility] Co de Phone Number [address] [address], [facility] [[email or web address]] [phone] * COMPREHENSIVE METABOLIC PANEL (08/15/2024 10:10 AM [facility]) Only the most recent of2 resultswithin the time period is included. BUN 11 7 - 26 mg/dL 08/15/2024 10:59 AM [facility] Creatinine 0.68 0.56 - 0.96 mg/dL 08/15/2024 10:59 AM [facility] Sodium 137 136 - 145 mmol/L 08/15/2024 10:59 AM [facility] Potassium 4.0 3.5 - 4.5 mmol/L 08/15/2024 10:59 AM [facility] Chloride 106 98 - 107 mmol/L 08/15/2024 10:59 AM [facility] CO2 24 22 - 29 mmol/L 08/15/2024 10:59 AM [facility] Glucose 98 70 - 99 mg/dL 08/15/2024 10:59 AM [facility] Calcium 9.6 8.4 - 10.2 mg/dL 08/15/2024 10:59 AM [facility] Protein Total 7.6 6.0 - 8.3 g/dL 08/15/2024 10:59 AM [facility] Albumin 3.9 3.4 - 5.0 g/dL 08/15/2024 10:59 AM [facility] [facility] Bilirubin Total 0.6 0.2 - 1.2 mg/dL 08/15/2024 10:59 AM [facility] Alkaline Phosphatase 77 40 - 150 U/L 08/15/2024 10:59 AM [facility] ALT 16 5 - 55 U/L 08/15/2024 10:59 AM [facility] AST 17 5 - 34 U/L 08/15/2024 10:59 AM [facility] Anion Gap 7 6 - 16 08/15/2024 10:59 AM [facility] BUN/Creatinine Ratio 16 7 - 23 08/15/2024 10:59 AM [facility] Osmolality Calculated 283 275 - 295 mOsm/kg 08/15/2024 10:59 AM [facility] Albumin/Globulin Ratio 1.1 1.1 - 2.3 08/15/2024 10:59 AM [facility] eGFR by CKD-EPI >90 >=90 mL/min/1.7 3 m2 08/15/2024 10:59 AM [facility] Blood BLOOD SPECIMEN / Unknown Venipuncture / Unknown 08/15/2024 10:10 AM [facility] 08/15/2024 10:31 AM [facility] Dasia Donaldson MD LAB - CHEMISTRY ORDERABLES [facility] [address] [place] [address], [facility] [[email or web address]] [phone] * LIPASE BLOOD (08/15/2024 10:10 AM [facility]) Lipase 14 8 - 78 U/L 08/15/2024 10:59 AM PACU NURSE [facility] Blood BLOOD SPECIMEN / Unknown Venipuncture / Unknown 08/15/2024 10:10 AM PACU NURSE 08/15/2024 10:31 AM PACU NURSE Narrative [facility] - 08/15/2024 10:59 AM PACU NURSE Lipase results from the [employer]azco Alinity analyzer may not be comparable with other methodologies. Dasia Donaldson MD LAB - CHEMISTRY ORDERABLES [address] [address], [place] [phone] * AMYLASE BLOOD (08/15/2024 10:10 AM PACU NURSE) Amylase 42 25 - 125 U/L 08/15/2024 10:59 AM PACU NURSE [facility] Blood BLOOD SPECIMEN / Unknown Venipuncture / Unknown 08/15/2024 10:10 AM PACU NURSE 08/15/2024 10:31 AM PACU NURSE Dasia Donaldson MD LAB - CHEMISTRY ORDERABLES Performing Organization Address [facility]/ZIP Co de Phone Number [address] [address], [place] [phone] * TSH REFLEX FREE T4 (08/14/2024 4:45 PM PACU NURSE) TSH 1.281 0.350 - 4.940 uIU/mL 08/14/2024 6:39 PM PACU NURSE [facility] Blood BLOOD SPECIMEN / Unknown Lab Venipuncture / Unknown 08/14/2024 4:45 PM PACU NURSE 08/14/2024 4:57 PM PACU NURSE Areli CARNES LAB - FOOT MITER OPERATOR RY ORDERABLES Performing Organization Address City/[facility]/ZIP Co de Phone Number [address] [address], [place] [phone] * HEMOGLOBIN A1C (08/14/2024 4:45 PM PACU NURSE) [facility] Hemoglobin A1c 5.3 <=5.6 % 08/15/2024 10:21 AM [facility] Estimated Average Glucose 105 mg/dL 08/15/2024 10:21 AM [facility] Comment: HbA1c Interpretation: Normal : < 5.7% Pre-diabetes: 5.7-6.4% Diabetes: Equal to or greater than 6.5% Test results diagnostic of diabetes should be repeated for confirmation. Treatment target values recommended by ADA and other clinical organizations should be used to evaluate metabolic control in patients. Reference: [place] [employer], Standards of Care in Diabetes -2020 In patients 70 years and older consider HbA1c target range of 7.0-7.5% (Reference: Phil Vargas et al. JAMDA. 2012) The Sebia assay for the measurement of HbA1c is a National Glycohemoglobin Standardization Program (NGSP) certified method. Blood BLOOD SPECIMEN / Unknown Lab Venipuncture / Unknown 08/14/2024 4:45 PM PACU NURSE 08/14/2024 4:57 PM PACU NURSE Areli Dao SENIOR NETWORK SECURITY ENGINEER-INSOLE PRESSER LAB - FOOT MITER OPERATOR RY ORDERABLES [facility] [address] [place] [address], [facility] [[email or web address]] [phone] * (ABNORMAL) CBC NO DIFFERENTIAL (08/14/2024 4:45 PM PACU NURSE) [facility] WBC 12.7(H) 4.0 - 10.7 x10E9/L 08/14/2024 5:00 PM [facility] RBC Count 3.93 3.90 - 5.20 x10E12/L 08/14/2024 5:00 PM [facility] Hemoglobin 11.8(L) 11.9 - 15.8 g/dL 08/14/2024 5:00 PM [facility] Hematocrit 36.1 34.8 - 46.1 % 08/14/2024 5:00 PM [facility] MCV 91.9 80.0 - 98.0 fL 08/14/2024 5:00 PM [facility] MCH 30.0 26.7 - 33.6 pg 08/14/2024 5:00 PM [facility] MCHC 32.7 31.7 - 36.3 g/dL 08/14/2024 5:00 PM [facility] RDW-CV 12.7 11.3 - 14.8 % 08/14/2024 5:00 PM [facility] Platelet Count 395 150 - 420 x10E9/L 08/14/2024 5:00 PM [facility] MPV 9.1 7.8 - 11.4 fL 08/14/2024 5:00 PM [facility] Blood BLOOD SPECIMEN / Unknown Lab Venipuncture / Unknown 08/14/2024 4:45 PM PACU NURSE 08/14/2024 4:57 PM [facility] Areli Dao SENIOR NETWORK SECURITY ENGINEER-INSOLE PRESSER LAB - HEMATOL OGY ORDERABLES Performing Organization Address City/State/[facility] Co de Phone Number [facility] [address] [place] [address], [facility] [[email or web address]] [phone] * (ABNORMAL) LIPID PROFILE (08/14/2024 4:45 PM PACU NURSE) Cholesterol Total 164 <200 mg/dL 08/14/2024 6:21 PM [facility] HDL 34(L) >40 mg/dL 08/14/2024 6:21 PM [facility] Comment: ATP III Classification of HDL Cholesterol: <40 mg/dL: Considered a major risk factor. >60 mg/dL: Considered a negative risk factor. LDL Calculated 107(H) <100 mg/dL 08/14/2024 6:21 PM [facility] Comment: ATP III Classification of LDL Cholesterol: <100 mg/dL: Optimal 100 - 129 mg/dL: Near Optimal/Above Optimal 130 - 159 mg/dL: Borderline High 160 - 189 mg/dL: High >190 mg/dL: Very High Triglycerides 115 <150 mg/dL 08/14/2024 6:21 PM [facility] Comment: ATP III Classification of Triglycerides: <150 mg/dL: Normal 150 - 199 mg/dL: Borderline High 200 - 400 mg/dL: High >500 mg/dL: Very High Blood BLOOD SPECIMEN / Unknown Lab Venipuncture / Unknown 08/14/2024 4:45 PM PACU NURSE 08/14/2024 4:57 PM PACU NURSE Yuly Pope DO LAB - CHEMISTRY NISSA BRIONES [facility] [address] [place] [address], [facility] [[email or web address]] [phone] * XR Abd Obstruction Series 2Vw (08/14/2024 4:29 PM PACU NURSE) Anatomical Region Laterality Modality Abdomen Computed Radiogr aphy 08/14/2024 4:22 PM PACU NURSE Impressions 08/14/2024 4:37 PM PACU NURSE Nonobstructive bowel gas pattern. Reading Radiologist: Pallavi Lange on 08/14/2024 at 4:37 PM Narrative 08/14/2024 4:37 PM PACU NURSE INDICATION: Constipation COMPARISON: None available. TECHNIQUE: Supine [...] on 08/14/2024 at 4:37 PM Areli Dao SENIOR NETWORK SECURITY ENGINEER-INSOLE PRESSER DIAGNOSTIC IM AGING ORDERABLES * (ABNORMAL) CHLAMYDIA + GC AMPLIFIED PROBE (09/21/2023 4:07 PM PACU NURSE) Chlamydia Amplified Probe Positive(A) Negative 09/22/2023 12:40 AM PACU NURSE [facility] GC Amplified Probe Negative Negative 09/22/2023 12:40 AM PACU NURSE [facility] Microbiology URINE / Unknown Collection / Unknown 09/21/2023 4:07 PM PACU NURSE 09/21/2023 4:53 PM PACU NURSE Narrative [facility] - 09/22/2023 12:40 AM PACU NURSE Repeat testing is recommended 3 months post treatment for patients who test positive for Chlamydia trachomatis/Neisseria gonorrhoeae. Results based on detection/no detection of ribosomal RNA by amplified method. Yuly Pope DO LAB - MICROBIOLOGY O RDERABLES [facility] [address] [place] [address], [facility] [[email or web address]] [phone] from Last 3 Months or Most Recently Relevant to Health Maintenance Advance Directives * Full Code (Latest Code Status on File) Date Activated Date Inactivated Comments 12/25/2023 11:24 PM 12/28/2023 2:22 PM * Full Code Date Activated Date Inactivated Comments 04/05/2020 1:50 PM 04/06/2020 6:02 PM * Full Code Date Activated Date Inactivated Comments 04/30/2018 9:48 AM 05/01/2018 4:48 PM Care Teams Home Health Nurse Licensed Practical Relationship Specialty Start Date End Date Yuly Pope DO [address] [place] [address] PCP - General Internal Medicine 02/17/22 Kiki Burks MD [address] [place] [address] Resident Student Resident 12/11/17
--- OUTSIDE RECORDS SUMMARY | 2024-10-01 12:53 | XMS_ITS | Patient Health Record ---
Author Organization [facility] Address [address] [place] [address] Care Team Providers Care Classification Officer Name Role Phone Sharonda Roberts Primary Care Provider [phone] Reason For Referral No Information Social History Sex Assigned At : Social History Observation Description Sex Assigned At Female Encounters Encounter Location Date Provider Diagnosis [address] [address] 11/27/2023 Sharonda Roberts Plan Of Treatment No Information Insurance Providers Payer Name Payer Address Payer Phone Subscriber Number Group Number Insured Name Patient Relationship to Insured Coverage Start Date Coverage End Date MEDICAID [address] [place] [address] [id number] Ronald Menon Self - patient is the insured 4 MEDICA[employer] [address] [place] [address] [id number] Ronald Menon Self - patient is the insured 4
--- OUTSIDE RECORDS SUMMARY | 2024-10-01 12:53 | XMS_ITS | Encounter Summary ---
Author Organization [facility] Address [address] [place] [address] Care Team Providers Care Shirt Trimmer Name Role Phone Mesfin May MD Primary Care Provider [phone] Kiki Burks MD Unavailable Yuly Pope DO Primary Care Provider [phone] Encounter Details Date Type Department Care Team (Late st Contact Info) Description 08/15/2018 Telephone [facility] Pediatrics - Pulmonology [address] [place] [phone] Jennifer Michael Social History Tobacco Use Types Packs/Day Years [...] Assess ment Is person deaf or have serious hearing difficult y? No 04/30/2018 Is person blind or have serious difficulty seein g? No 04/30/2018 Does person have serious dif ficulty walking/climbing stairs? No 04/30/2018 Does person have difficulty dressing/bathing? No 04/30/2018 Does person have difficulty doing errands alone? No 04/30/2018 Cognitive Status Response Date of Assessm ent Does person have difficulty concentrating/remembering/making decisions? No 04/30/2018 documented as of this encounter Plan of Treatment Upcoming Encounters Date Type Department Care Team (Late st Contact Info) Description 10/03/2024 10:00 AM DIETITIAN THERAPEUTIC Office Visit [facility] - [address] [facility] [address] [phone] Amina Nicholas, BRASS MOLDER-PARALEGAL SECRETARY [address] [address] 01/08/2025 9:00 AM CDT Office Visit [facility] - [address] [facility], [place] [address] Areli Dao BRASS MOLDER-PARALEGAL SECRETARY [address] [place] [phone] documented as of this encounter Visit Diagnoses Not on filedocumented in this encounter Additional Health Concerns Infection Onset Date Last Indicated Resolved Time COVID-19 Under Investigation 07/13/2020 07/13/2020 07/14/2020 12:25 PM DIETITIAN THERAPEUTIC COVID-19 Under Investigation 04/13/2023 04/13/2023 04/13/2023 5:37 AM CDT documented as of this encounter Care Teams Shirt Trimmer Relationship Specialty Start Date End Date Mesfin May MD [address] [place] [address] PCP - General Pediatrics 12/11/17 02/16/22 Yuly Pope DO [address] [place] [address] PCP - General Internal Medicine 02/17/22 Kiki Burks MD [address] [place] [phone] Resident Student Resident 12/11/17 documented as of this encounter
--- OUTSIDE RECORDS SUMMARY | 2024-10-01 12:53 | XMS_ITS ---
Author Organization [facility] Address [address] [place] [address] Care Team Providers Care Marine Technician Name Role Phone Sharonda Roberts Primary Care Provider [phone] REASON FOR VISIT New Patient Psych Eval Social History Sex Assigned At : Social History Observation Description Sex Assigned At Female Encounters Encounter Location Date Provider Diagnosis [address] [address] 12/05/2023 Sharonda Roberts Plan Of Treatment No Information Progress Notes * Ronald VIEIRAiDOB:[birth year] (19 yo F)Acc No.[id number]:12/05/2023 UNLOCKED PROGRESS NOTE Patient: Duncan JOYRonald Provider: Liliya Roberts, MSN, LOG SORTER-BC, PMHNP-BC :2005 A ge:18 Y S ex:Female Date:12/05/2023 Address:[address] [place], [place] [id number] Subjective: * Chief Complaints: * 1 . New Patient Psych Eval. * Medical History: Objective: * Vitals: Assessment: Plan: * Treatment: * * Electronic signature of Sharonda Roberts , [id number] on 10/01/2024 at 12:53 PM TRANSLATOR DEAF Sign off status: Pending * Provider: Liliya Roberts, MSN, LOG SORTER-BC, PMHNP-BC Date: 0 12/05/2023 Generated for Eric doyle/Chon/Ange on: 0 10/01/2024 12:53 PM TRANSLATOR DEAF
--- OUTSIDE RECORDS SUMMARY | 2024-10-01 12:53 | XMS_ITS | Encounter Summary ---
Author Organization [facility] Address [address] [facility] [place] [address] Care Team Providers Care Mid Level Clinician Name Role Phone Mesfin May MD Primary Care Provider [phone] Kiki Burks MD Unavailable Yuly Pope DO Primary Care Provider [phone] Encounter Details Date Type Department Care Team (Late st Contact Info) Description 04/30/2018 Ophth Exam [facility] Pediatrics - Ophthalmology [address] [place] [address] Alejandro Murillo MD [address] [place] [address] Social History Tobacco Use Types Packs/Day Years [...] st Contact Info) Description 10/03/2024 10:00 AM SHOP DIRECTOR Office Visit [facility] - [address] [facility], [address] [phone] Amina Nicholas, HEALTH POLICY NURSE-CARDIAC REHABILITATION SPECIALIST [address] [address] 01/08/2025 9:00 AM CDT Office Visit [facility] - GI [address] [facility], [place] [phone] Areli Dao HEALTH POLICY NURSE-CARDIAC REHABILITATION SPECIALIST [address] [place] [address] documented as of this encounter Visit Diagnoses Not on filedocumented in this encounter Additional Health Concerns Infection Onset Date Last Indicated Resolved Time COVID-19 Under Investigation 07/13/2020 07/13/2020 07/14/2020 12:25 PM SHOP DIRECTOR COVID-19 Under Investigation 04/13/2023 04/13/2023 04/13/2023 5:37 AM CDT documented as of this encounter Care Teams Mid Level Clinician Relationship Specialty Start Date End Date Mesfin May MD [address] [place] [address] PCP - General Pediatrics 12/11/17 02/16/22 Yuly Pope DO [address] [place] [address] PCP - General Internal Medicine 02/17/22 Kiki Burks MD [address] [place] [phone] Resident Student Resident 12/11/17 documented as of this encounter
--- OUTSIDE RECORDS SUMMARY | 2024-10-01 12:53 | XMS_ITS | Patient Health Summary ---
Author Organization [facility] Address [address] [place] [address] Care Team Providers Care Computer Forensic Examiner Name Role Phone Kiki Burks MD Unavailable Yuly Pope DO Primary Care Provider [phone] Note [address] [facility],non-owned Affiliates and Associated Physician Practices is amultiple site organization consisting of ambulatory clinics and hospital sitesin [place], [place], [place] and [place]. This disclosure is being madepursuant to the Care Everywhere program and may not contain all information available regarding this patient. Last updated 18.[facility] Allergies * Lac Bovis(Vomiting) -Low Criticality * Lactose(GI Discomfort) -Low Criticality * Villalba(Rash) -Medium Criticality * Villalba Fruit(Swelling) -Medium Criticality * Villalba Oil(Rash) -Medium Criticality * Penicillins(Swelling) -High Criticality * Prochlorperazine(Rash) -Medium Criticality * Lactase(GI Discomfort),Inactive * Milk-Related Compounds(Nausea and/or Vomiting) -Medium Criticality,Inactive Medications * Be aware that medications may not be up to date on this document. Alwaysverify current medications with the patient. * polyethylene glycol 3350 (MIRALAX) 17 GM/SCOOP powder(Started 05/07/2020) Take 17 g by mouth once daily * omeprazole (PRILOSEC) 40 MG capsule(Started 08/30/2021) TAKE 1 (ONE) CAPSULE BY MOUTH 2 TIMES DAILY, BEFORE BREAKFAST AND SUPPER 2 refills by 08/30/2022 * naproxen (NAPROSYN) 500 MG tablet(Started 02/17/2022) Take at onset of severe. Do not take more than 3x per week. 5 refills by 02/17/2023 * levonorgestrel (Mirena) 20 MCG/DAY IUD(Started 04/24/2022) 1 (one) device by Intrauterine route continuous Inserted at [facility] [employer] 04/23/2022, good through 04/24/2030 * albuterol HFA (Ventolin HFA) 108 (90 Base) MCG/ACT inhaler(Started 06/18/2022) Inhale 2 (two) puffs by mouth every 6 hours as needed 5 refills by 06/18/2023 * hydrOXYzine HCl (Atarax) 25 MG tablet(Started 07/03/2023) Take 1 (one) tablet by mouth 4 times daily as needed for Itching * SUMAtriptan (Imitrex) 50 MG tablet(Started 09/21/2023) Take 1 (one) tablet by mouth daily as needed - may repeat one time for Migraine Maximum daily dose:200mg/24 hours * lisinopril (Prinivil; Zestril) 10 MG tablet(Started 09/21/2023) Take 1 (one) tablet by mouth once daily 1 refill by 09/20/2024 * dexAMETHasone (Decadron) 0.5 MG/5ML elixir(Started 12/25/2023) 5 mL swish and spit three to four times daily for 5 days. It is important to keep the medication inthe mouth for five minutes prior to spitting it out. Do not rinse afterward and avoid eating or drinking for 30 minutes. * ibuprofen (Motrin) 400 MG tablet(Started 12/28/2023) TAKE 1 (ONE) TABLET BY MOUTH EVERY 4 HOURS FOR 30 DAYS * acyclovir (Zovirax) 200 MG capsule(Started 12/28/2023) TAKE 2 (TWO) CAPSULES BY MOUTH 3 TIMES DAILY FOR 26 DOSES * polyethylene glycol 3350 (Miralax) 17 GM/SCOOP powder(Started 08/14/2024) Take 2 capfuls QD-BID for soft regular stools 3 refills by 08/14/2025 * esomeprazole (NexIUM) 20 MG capsule(Started 08/15/2024) Take 1 (one) capsule by mouth daily before breakfast * ondansetron, disintegrating, (Zofran ODT) 4 MG tablet(Started 08/15/2024) Take 1 (one) tablet by mouth every 6 hours as needed for Nausea/Vomiting Allow tablet to dissolve on the tongue Active Problems Problem Noted Date Diagnosed Date Polydipsia/concern for diabetes 08/14/2024 Irregular bleeding 09/23/2023 Positive screening for depre ssion on 9-item Patient Health Questionnaire (PHQ-9) 09/23/2023 Screen for STD (sexually transmitted disease) Acanthosis nigricans 10/21/2020 Sleep difficulties 10/21/2020 Chronic constipation 05/07/2020 Left ventricular hypertrophy 05/03/2020 Hypertension 04/05/2020 History of concussion 03/09/2020 Severe frontal headaches 04/30/2018 Menorrhagia 04/23/2018 Anxiety 04/23/2018 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 0904/23/2018 Poor sleep hygiene 01/01/2017 Ganglion cyst of foot 09/28/2016 Allergic rhinitis 10/15/2014 Healthcare maintenance 09/09/2014 Obesity 09/09/2014 Acne 07/08/2014 ADHD (attention deficit hyperactivity disorder) 07/31/2013 Asthma 06/18/2013 Resolved Problems Problem Noted Date Diagnosed Date Resolved Date Fever 12/25/2023 01/08/2024 Aphthous ulcer of mouth 12/25/202307/30 Syncope and collapse 12/25/2023 024 Dehydration 12/25/2023 01/08/2024 Herpetic gingivostomatitis 12/25/2023 0 08/14/2024 Injury of left ankle 08/25/2022 025 Otitis externa 08/03/2021 09/14/2021 Acute right otitis media 08/03/202105/2024 Diarrhea 06/07/2021 07/05/2021 Laceration of skin of left hand 04/21/2021 08/14/2024 Trapezius strain, right, initial encounter 12/14/2020 02/20/2022 Suspected COVID-19 virus infection 07/13/2020 02/20/2022 Pain of upper abdomen 05/07/20202021 Periumbilical abdominal pain 05/07/2020 02/20/2022 Dizziness 04/05/2020 02/20/2022 Blurry vision 04/05/2020 02/20/2022 Hand injury, left, initial encounter 12/09/2019 02/20/2022 Closed triplane fracture of ankle with routine healing 07/02/2017 06/23/2019 Headache(784.0) 01/02/2017 06/23/2019 Viral respiratory illness 09/28/2016 Oixhq-dmrknzy-rkemwfm vaccine (MMR) not given 09/29/19 17 06/23/2019 Sinusitis, chronic 10/15/2014 9 Snoring 09/09/2014 06/23/2019 Sleep terror 09/09/2014 06/23/2019 Separation anxiety 09/09/2014 9 URI (upper respiratory infection) 07/24/2014 12/09/2014 Living in [facility] with Mom 07/24/2014 06/23/2019 Abdominal pain, epigastric 07/13/2014 0 09/09/2014 Hip pain 06/18/2013 12/09/2015 Posterior fossa arachnoid cyst 06/18/2013 06/23/2019 Fall 11/10/2009 06/18/2013 Immunizations * Covid Pfizer primary Monovalent 12+ yr 0.3ml(Given 02/17/2022) * DTaP VACCINE IM (6wk-6yrs)(Given 03/04/2009, 05/05/2005, 03/30/2005, 2004) * HEP A PEDS 2 DOSE(Given 03/27/2008, 02/19/2007) * HEP B VACCINE, PED/ADOL(Given 06/05/2005, 05/05/2005, 03/30/2005, 2004, 2004) * HIB-PRP-OMP 3 DOSE(Given 05/05/2005, 03/30/2005, 2004) * Human Papilloma Virus Ninevalent Vaccine(Given 12/28/2016, 10/13/2015) * INFLUENZA VACCINE(Given 05/08/2013, 05/23/2010) * INFLUENZA VACCINE, QUADR. (FLUZONE; FLULAVAL; FLUARIX; AFLURIA QUADRIVALENT; 6MO+), 0.5 ML (IIV4)(Given 07/19/2020) * MENINGOCOCCAL CONJUGATE (MCV4P)(Given 08/03/2021, 10/13/2015) * MMR(Given 06/23/2019, 03/04/2009) * PNEUMOCOCCAL PCV7 CONJ, PEDS(Given 11/28/2005, 05/05/2005, 03/30/2005, 2004) * POLIO IPV(Given 03/04/2009, 06/05/2005, 05/05/2005, 03/30/2005, 2004) * TDAP (7yrs+)(Given 10/13/2015) * VARICELLA(Given 03/04/2009, 11/28/2005) Social History Tobacco Use Types Packs/Day Years [...] Comments Blood Pressure 135/90 08/15/2024 6:43 PM MEMORANDUM STATEMENT CLERK Pulse 90 08/15/2024 6:43 PM MEMORANDUM STATEMENT CLERK Temperature 37.6 C (99.7 F) 08/15/2024 6:43 PM MEMORANDUM STATEMENT CLERK Respiratory Rate 20 08/15/2024 6:43 PM MEMORANDUM STATEMENT CLERK Oxygen Saturation 99% 08/15/2024 6:43 PM MEMORANDUM STATEMENT CLERK Inhaled Oxygen Concentration 100% 01/2013 12:30 PM CDT Weight 161.4 kg (355 lb 13.2 oz) 08/15/2024 7:31 AM MEMORANDUM STATEMENT CLERK Height 175 cm (5' 8.9 ) 08/15/2024 7:31 AM MEMORANDUM STATEMENT CLERK Body Mass Index 52.7 08/15/2024 7:31 AM MEMORANDUM STATEMENT CLERK Medical Devices Implanted Type Area Dish Person Device Identifier Shelf Expiration Date Model / Serial / Lot Floseal 10ml Implanted:Qty: 1 on 05/05/2013 by Aiden Turner MD at [facility] Right: Cranial [employer] 06/29/2014 [id number] / / [id number] Grft Duragen Plus 2 X 2 Implanted:Qty: 1 on 05/05/2013 by Aiden Turner MD at [facility] Right: Cranial Integra [employer] Alexandra 11/28/2015 [id number] / / [id number] Matrix Regeneration Durepair 1 X 1in Implanted:Qty: 1 on 05/05/2013 by Aiden Turner MD at [facility] Right: Cranial [employer] Neurological 12/28/2013 [id number] / / [id number] Glue Tisseel Fibrin 10ml Implanted:Qty: 1 on 05/05/2013 by Aiden Turner MD at [facility] Right: Cranial [employer] 09/27/2014 [id number] / / [id number] Cov Bur Hole Ti Matrix 17mm Implanted:Qty: 1 on 05/05/2013 by Aiden Turner MD at [facility] Right: Cranial Synthes Maxillofacial [id number] / / Synthes Matrix Neuro Plate Implanted:Qty: 1 on 05/05/2013 by Aiden Turner MD at [facility] Right: Cranial [id number] / / Synthes Matrix Neuro Screws 4 Mm Implanted:Qty: 9 on 05/05/2013 by Aiden Turner MD at [facility] Right: Cranial [id number] / / Screw Ortho Pediatric Set Implanted:Qty: 1 on 07/09/2017 by Areli Kwan MD at [facility] Right: Ankle [id number] 45 / / Explanted Type Area Dish Person Device Identifier Shelf Expiration Date Model / Serial / Lot Wire K 3mm 21mm Ss Orth Fx Explanted:Qty: 1 on 07/09/2017 by Areli Kwan MD at [facility] Right: Ankle Ortho Pedicatrics 01-1030-00 6 / / Procedures * US ABDOMEN LIMITED(Performed 08/15/2024) Performed for Abdominal pain, epigastric * CT ABDOMEN PELVIS W CONTRAST(Performed 08/15/2024) Performed for Abdominal pain, epigastric * HCG URINE QUALITATIVE - POCT (IP) INTERFACED(Performed 08/15/2024) * URINALYSIS W/MICROSCOPIC REFLEX TO CULTURE(Performed 08/15/2024) * HCG URINE QUAL POCT NOTIFICATION(Performed 08/15/2024) * AMYLASE BLOOD(Performed 08/15/2024) * LIPASE BLOOD(Performed 08/15/2024) * COMPREHENSIVE METABOLIC PANEL(Performed 08/15/2024) * CBC W AUTO DIFFERENTIAL(Performed 08/15/2024) * CBC W/O DIFFERENTIAL(Performed 08/14/2024) Performed for Chronic constipation * COMPREHENSIVE METABOLIC PANEL(Performed 08/14/2024) Performed for Chronic constipation * TSH REFLEX FREE T4(Performed 08/14/2024) Performed for Chronic constipation * HEMOGLOBIN A1C(Performed 08/14/2024) Performed for Chronic constipation * LIPID PROFILE(Performed 08/14/2024) Performed for Encounter for routine child health examination with abnormal findings * XR ABD OBSTRUCTION SERIES 2VW(Performed 08/14/2024) Performed for Chronic constipation * HERPES SIMPLEX 1+2 PCR LESION(Performed 12/26/2023) Performed for Mouth sore * MYCOPLASMA PNEUMONIAE AB IGG/IGM PANEL(Performed 12/26/2023) Performed for Mouth sore * BASIC METABOLIC PANEL (CALCIUM TOTAL)(Performed 12/26/2023) Performed for Dehydration * EKG 15-LEAD(Performed 12/25/2023) Performed for Syncope and collapse * GLUCOSE - POINT OF CARE(Performed 12/25/2023) * TSH REFLEX FREE T4(Performed 12/25/2023) * MONONUCLEOSIS SCREEN REFLX TITER(Performed 12/25/2023) Performed for Fever, unspecified fever cause * COMPREHENSIVE METABOLIC PANEL(Performed 12/25/2023) Performed for Fever, unspecified fever cause * CBC W AUTO DIFFERENTIAL(Performed 12/25/2023) Performed for Fever, unspecified fever cause * TRICHOMONAS VAGINALIS AMPLIFIED PROBE(Performed 09/21/2023) Performed for Encounter for routine child health examination with abnormal findings * CHLAMYDIA + GC AMPLIFIED PROBE(Performed 09/21/2023) Performed for Encounter for routine child health examination with abnormal findings * CARDIAC EKG ORDER(Performed 07/04/2023) * TROPONIN-I HIGH SENSITIVE REFLEX 1HOUR(Performed 07/03/2023) * XR CHEST 1VW PORTABLE(Performed 07/03/2023) Performed for Chest pain, unspecified type * COMPREHENSIVE METABOLIC PANEL(Performed 07/03/2023) * CBC W AUTO DIFFERENTIAL(Performed 07/03/2023) * TROPONIN-I HIGH SENSITIVE BASELINE + 1HR(Performed 07/03/2023) * EKG 12-LEAD(Performed 07/03/2023) Performed for Chest pain, unspecified type * STREP A SCREEN - POCT (IP) URGENT CARE(Performed 04/16/2023) Performed for Strep pharyngitis * HCG URINE QUALITATIVE(Performed 04/13/2023) * CULTURE STREP GROUP A(Performed 04/13/2023) * STREP A SCREEN DIRECT W RFLX STREP A CULTURE(Performed 04/13/2023) * SARS-COV-2 (COVID-19) RAPID(Performed 04/13/2023) * XR ANKLE LEFT 3VW OR MORE(Performed 08/10/2022) Performed for Acute left ankle pain * IN INSERT INTRAUTERINE DEVICE(Performed 04/24/2022) Performed for Family planning, Dysmenorrhea, Menorrhagia with regular cycle, Encounter for IUD insertion * IN US PEL NONOB B-SCAN&/R-T IMG LMTD/F-UP+C97(Performed 04/24/2022) Performed for Dysmenorrhea, Menorrhagia with regular cycle, Family history of gynecological problem * IMAGING/RADIOLOGY/XRAY RESULTS ORDER(Performed 04/24/2022) * HCG URINE QUALITATIVE - POCT (IP) SLH(Performed 04/24/2022) Performed for Negative test * VON [place]IL[place]BR[place] EVALUATION PANEL(Performed 03/10/2022) * VITAMIN D 25-HYDROXY(Performed 02/17/2022) Performed for Menorrhagia with irregular cycle * CBC W/O DIFFERENTIAL(Performed 02/17/2022) Performed for Menorrhagia with irregular cycle * O+P PANEL(Performed 06/15/2021) * GIARDIA CRYPTOSPORIDIUM ANTIGEN PANEL(Performed 06/15/2021) Performed for Pain of upper abdomen, Diarrhea, unspecified type, Severe childhood obesity with BMI greater than 99th percentile for age (HCC) * CULTURE STOOL PANEL(Performed 06/15/2021) Performed for Pain of upper abdomen, Diarrhea, unspecified type, Severe childhood obesity with BMI greater than 99th percentile for age (HCC) * CALPROTECTIN FECAL(Performed 06/13/2021) Performed for Pain of upper abdomen, Diarrhea, unspecified type, Severe childhood obesity with BMI greater than 99th percentile for age (HCC) * LIPID PROFILE(Performed 06/13/2021) Performed for Pain of upper abdomen, Diarrhea, unspecified type, Severe childhood obesity with BMI greater than 99th percentile for age (HCC) * VITAMIN D 25-HYDROXY(Performed 06/13/2021) Performed for Pain of upper abdomen, Diarrhea, unspecified type, Severe childhood obesity with BMI greater than 99th percentile for age (HCC) * TSH REFLEX FREE T4(Performed 06/13/2021) Performed for Pain of upper abdomen, Diarrhea, unspecified type, Severe childhood obesity with BMI greater than 99th percentile for age (HCC) * IGA BLOOD(Performed 06/13/2021) Performed for Pain of upper abdomen, Diarrhea, unspecified type, Severe childhood obesity with BMI greater than 99th percentile for age (HCC) * TISSUE TRANSGLUTAMINASE AB IGA(Performed 06/13/2021) Performed for Pain of upper abdomen, Diarrhea, unspecified type, Severe childhood obesity with BMI greater than 99th percentile for age ([facility]) * C-REACTIVE PROTEIN(Performed 06/13/2021) Performed for Pain of upper abdomen, Diarrhea, unspecified type, Severe childhood obesity with BMI greater than 99th percentile for age (HCC) * COMPREHENSIVE METABOLIC PANEL(Performed 06/13/2021) Performed for Pain of upper abdomen, Diarrhea, unspecified type, Severe childhood obesity with BMI greater than 99th percentile for age ([facility]) * CBC W AUTO DIFFERENTIAL(Performed 06/13/2021) Performed for Pain of upper abdomen, Diarrhea, unspecified type, Severe childhood obesity with BMI greater than 99th percentile for age (HCC) * CULTURE STREP GROUP A(Performed 07/13/2020) Performed for Fever, unspecified fever cause * SARS-COV-2 (COVID-19) IN HOUSE(Performed 07/13/2020) Performed for Fever, unspecified fever cause * STREP A SCREEN - POCT(IP) NOTIFICATION(Performed 07/13/2020) Performed for Fever, unspecified fever cause * STREP A SCREEN - POCT MTE(Performed 07/13/2020) * US KIDNEY DOPPLER ONLY(Performed 05/03/2020) Performed for LVH (left ventricular hypertrophy), Hypertension, unspecified type * LYTES (NA K CL) URINE RANDOM PANEL(Performed 05/03/2020) Performed for Essential hypertension, Blurry vision * ALDOSTERONE BLOOD(Performed 05/03/2020) Performed for LVH (left ventricular hypertrophy), Hypertension, unspecified type * RENIN ACTIVITY(Performed 05/03/2020) Performed for LVH (left ventricular hypertrophy), Hypertension, unspecified type * LIPID PROFILE(Performed 04/13/2020) Performed for Essential hypertension * TSH(Performed 04/13/2020) Performed for Essential hypertension * RENAL FUNCTION PANEL(Performed 04/13/2020) Performed for Essential hypertension, Blurry vision * US RETROPERITONEAL COMPLETE(Performed 04/06/2020) Performed for Hypertension, unspecified type * URINALYSIS W/MICROSCOPIC NO CULTURE(Performed 04/06/2020) * EKG 15-LEAD(Performed 04/06/2020) * HEMOGLOBIN A1C(Performed 04/06/2020) * CORTISOL BLOOD(Performed 04/06/2020) * ALDOSTERONE BLOOD(Performed 04/06/2020) * RENIN ACTIVITY(Performed 04/06/2020) * RENAL FUNCTION PANEL(Performed 04/06/2020) * ECHO CONSULT - PEDIATRIC(Performed 04/06/2020) * XR FINGERS LEFT 2VW OR MORE(Performed 12/09/2019) Performed for Injury, hand, left, initial encounter * MRI BRAIN WO CONT LTD PEDIATRIC(Performed 12/02/2019) Performed for Posterior fossa arachnoid cyst * CBC W AUTO DIFFERENTIAL(Performed 08/30/2018) * EEG AWAKE AND ASLEEP(Performed 07/01/2018) Performed for Seizure (HCC) * TSH(Performed 05/30/2018) Performed for Menorrhagia with regular cycle * VITAMIN D 25-HYDROXY(Performed 05/30/2018) Performed for Menorrhagia with regular cycle * TESTOSTERONE TOTAL FEM/CHLD HYPOGNDL MALE(Performed 05/30/2018) Performed for Menorrhagia with regular cycle * TESTOSTERONE FREE FEM/CHLD HYPOGNDL MALE(Performed 05/30/2018) Performed for Menorrhagia with regular cycle * HEMOGLOBIN A1C(Performed 05/30/2018) Performed for Menorrhagia with regular cycle * INSULIN LEVEL(Performed 05/30/2018) Performed for Menorrhagia with regular cycle * LH(Performed 05/30/2018) Performed for Menorrhagia with regular cycle * FSH(Performed 05/30/2018) Performed for Menorrhagia with regular cycle * ESTRADIOL(Performed 05/30/2018) Performed for Menorrhagia with regular cycle * HCG URINE QUALITATIVE - POCT (IP) INTERFACED(Performed 05/30/2018) * URINALYSIS - POCT (IP) BEAKER INTERFACE(Performed 05/30/2018) * HCG URINE QUAL POCT NOTIFICATION(Performed 05/30/2018) Performed for Menorrhagia with regular cycle * URINALYSIS - POCT (IP) NOTIFICATION(Performed 05/30/2018) Performed for Menorrhagia with regular cycle * AUDIOLOGY/TYMPANOMETRY ORDER(Performed 05/02/2018) * XR SHUNT SERIES PEDIATRIC(Performed 04/30/2018) Performed for History of brain shunt * HCG URINE QUALITATIVE - POCT (IP) INTERFACED(Performed 04/30/2018) * HCG URINE QUAL POCT NOTIFICATION(Performed 04/30/2018) * CT BRAIN SHUNT EVALUATION(Performed 04/30/2018) Performed for History of brain shunt * CBC W AUTO DIFFERENTIAL(Performed 04/23/2018) Performed for Menorrhagia with irregular cycle * URINE DRUG SCREEN IMMUNOASSAY(Performed 12/28/2017) * URINALYSIS W/MICROSCOPIC NO CULTURE(Performed 12/28/2017) * XR ANKLE RIGHT 3VW OR MORE(Performed 12/04/2017) Performed for Closed triplane fracture of right ankle with routine healing, subsequent encounter * MRI BRAIN WO CONTRAST(Performed 11/27/2017) Performed for Arachnoid cyst * XR ANKLE RIGHT 3VW OR MORE(Performed 09/25/2017) Performed for Closed triplane fracture of right ankle with routine healing, subsequent encounter * XR ANKLE RIGHT 3VW OR MORE(Performed 08/21/2017) Performed for Closed right ankle fracture, initial encounter * XR ANKLE RIGHT 3VW OR MORE(Performed 07/31/2017) Performed for Closed triplane fracture of right ankle with routine healing, subsequent encounter * XR ANKLE RIGHT 3VW OR MORE(Performed 07/09/2017) Performed for Closed right ankle fracture, initial encounter * OPEN REDUCTION INTERNAL FIXATION (ORIF) TIBIA(Performed 07/09/2017) Performed for Closed fracture of right ankle, initial encounter * HCG URINE QUALITATIVE - POCT (IP) BEAKER(Performed 07/09/2017) * CT LOWER EXT RIGHT WO CONTRAST(Performed 07/05/2017) Performed for Closed right ankle fracture, initial encounter * IMAGING/RADIOLOGY/XRAY RESULTS ORDER(Performed 05/02/2017) * LIPASE BLOOD(Performed 02/07/2017) * COMPREHENSIVE METABOLIC PANEL(Performed 02/07/2017) * CULTURE STREP GROUP A(Performed 02/01/2017) * STREP A SCREEN DIRECT W RFLX STREP A CULTURE(Performed 02/01/2017) * GLUCOSE(Performed 12/28/2016) Performed for Non morbid obesity due to excess calories * LIPID PROFILE(Performed 12/28/2016) Performed for Non morbid obesity due to excess calories * XR FOOT LEFT 2VW(Performed 09/28/2016) Performed for Foot mass, left * INFLUENZA A+B ANTIGEN RAPID(Performed 09/28/2016) Performed for Posterior fossa arachnoid cyst, Living in [facility] with Mom, Snoring, Sleep terror, Separation anxiety * MRI BRAIN WO CONTRAST(Performed 2016) Performed for Hydrocephalus (HCC) * LIPID PROFILE(Performed 12/02/2015) Performed for Obesity, unspecified obesity severity, unspecified obesity type * GLUCOSE(Performed 12/02/2015) Performed for Obesity, unspecified obesity severity, unspecified obesity type * ALT(Performed 12/02/2015) Performed for Obesity, unspecified obesity severity, unspecified obesity type * MRI BRAIN WO CONTRAST(Performed 09/24/2015) Performed for Posterior fossa arachnoid cyst * XR LUMBAR SPINE 2 OR 3VW(Performed 01/18/2015) Performed for Back injury, initial encounter * MRI BRAIN WO CONTRAST(Performed 09/25/2014) Performed for Posterior fossa arachnoid cyst * MRI BRAIN WO CONTRAST(Performed 09/30/2013) Performed for Cerebral cysts * CARDIAC ECHOCARDIOGRAM COMPLETE ORDER(Performed 09/27/2013) * LAB RESULTS ORDER(Performed 09/27/2013) * IMAGING/RADIOLOGY/XRAY RESULTS ORDER(Performed 09/27/2013) * XR PELVIS W BILAT HIP 2VW(Performed 06/04/2013) Performed for Bilateral hip pain, Limp * DIFFERENTIAL MANUAL(Performed 05/21/2013) * CBC W AUTO DIFFERENTIAL(Performed 05/21/2013) * DIFFERENTIAL MANUAL(Performed 05/20/2013) * CBC W AUTO DIFFERENTIAL(Performed 05/20/2013) * EXPLORATION WOUND CRANIAL(Performed 05/19/2013) Performed for ARACHNOID CYST * CULTURE WOUND+GRAM STAIN(Performed 05/19/2013) Performed for Surgical wound dehiscence * CULTURE ANAEROBE(Performed 05/19/2013) Performed for Surgical wound dehiscence * CT HEAD WO CONTRAST(Performed 05/19/2013) Performed for Surgical wound dehiscence * DIFFERENTIAL MANUAL(Performed 05/19/2013) * BASIC METABOLIC PANEL (CALCIUM TOTAL)(Performed 05/19/2013) * CBC W AUTO DIFFERENTIAL(Performed 05/19/2013) * TYPE + SCREEN PANEL(Performed 05/18/2013) * PT PTT PANEL(Performed 05/18/2013) * BASIC METABOLIC PANEL (CALCIUM TOTAL)(Performed 05/18/2013) * C-REACTIVE PROTEIN(Performed 05/18/2013) * ERYTHROCYTE SEDIMENTATION RATE(Performed 05/18/2013) * CBC W AUTO DIFFERENTIAL(Performed 05/18/2013) * CT HEAD W CONTRAST(Performed 05/16/2013) Performed for Wound infection * CULTURE BLOOD(Performed 05/16/2013) * CULTURE WOUND+GRAM STAIN(Performed 05/16/2013) * PT PTT PANEL(Performed 05/16/2013) * C-REACTIVE PROTEIN(Performed 05/16/2013) * ERYTHROCYTE SEDIMENTATION RATE(Performed 05/16/2013) * BASIC METABOLIC PANEL (CALCIUM TOTAL)(Performed 05/16/2013) * CBC W AUTO DIFFERENTIAL(Performed 05/16/2013) * DIFFERENTIAL MANUAL(Performed 05/16/2013) * PATHOLOGY/CYTOLOGY REPORT ORDER(Performed 05/09/2013) * DIFFERENTIAL MANUAL(Performed 05/08/2013) Performed for Fall * BASIC METABOLIC PANEL (CALCIUM TOTAL)(Performed 05/08/2013) * CBC W AUTO DIFFERENTIAL(Performed 05/08/2013) Performed for Fall * DIFFERENTIAL MANUAL(Performed 05/07/2013) Performed for Fall * CBC W AUTO DIFFERENTIAL(Performed 05/07/2013) Performed for Fall * CT HEAD WO CONTRAST(Performed 05/06/2013) Performed for Fall * CBC W AUTO DIFFERENTIAL(Performed 05/06/2013) Performed for Fall * BASIC METABOLIC PANEL (CALCIUM TOTAL)(Performed 05/06/2013) Performed for Fall * DIFFERENTIAL MANUAL(Performed 05/06/2013) Performed for Fall * CRANIECTOMY/CRANIOTOMY RESECTION BRAIN TUMOR(Performed 05/05/2013) Performed for Cerebral cysts * STEREOTACTIC ASSISTED CRANIAL PROCEDURE/CRANIOTOMY(Performed 05/05/2013) Performed for Cerebral cysts * PATHOLOGY TISSUE EXAM (STL)(Performed 05/05/2013) Performed for Arachnoid cyst * BLOOD GASES ART + GLUC K CA+ PANEL(Performed 05/05/2013) Performed for Fall * CROSSMATCH RBC LEUKOREDUCED(Performed 05/05/2013) Performed for Fall * CROSSMATCH RBC LEUKOREDUCED(Performed 05/05/2013) * ANTIBODY SCREEN(Performed 05/05/2013) Performed for Fall * BLOOD TYPE ABO+ RH PANEL(Performed 05/05/2013) Performed for Fall * CT HEAD WO CONTRAST(Performed 05/05/2013) Performed for Fall * CREATININE BLOOD(Performed 04/29/2013) * BUN(Performed 04/29/2013) * LYTES (NA K CL CO2) BLOOD(Performed 04/29/2013) * PT PTT PANEL(Performed 04/29/2013) * CBC W AUTO DIFFERENTIAL(Performed 04/29/2013) * MRI BRAIN WO CONTRAST(Performed 04/01/2013) Performed for Arachnoid cyst * XR TIBIA FIBULA LEFT 2VW(Performed 12/28/2012) Performed for Injury, Other And Unspecified, Knee, Leg, Ankle, And Foot * COMPREHENSIVE METABOLIC PANEL(Performed 10/18/2012) * CBC W AUTO DIFFERENTIAL(Performed 10/18/2012) * MRI BRAIN WWO CONTRAST(Performed 03/04/2012) Performed for Cerebral cysts * CULTURE STREP GROUP A(Performed 03/05/2010) * STREP A SCREEN DIRECT(Performed 03/05/2010) * CT HEAD CERV SPINE WO CONTRAST(Performed 11/10/2009) Performed for Fall Results * US Abdomen Limited (08/15/2024 5:21 PM MEMORANDUM STATEMENT CLERK) Anatomical Region Laterality Modality Abdomen Ultrasound 08/15/2024 4:46 PM MEMORANDUM STATEMENT CLERK Impressions 08/16/2024 7:23 AM MEMORANDUM STATEMENT CLERK Limited gallbladder ultrasound as the patient was [...] at 7:23 AM Narrative 08/16/2024 7:23 AM MEMORANDUM STATEMENT CLERK PROCEDURE: US ABDOMEN LIMITED, DATE/TIME OF EXAM: [...] Abdomen Pelvis W Contrast (08/15/2024 3:47 PM MEMORANDUM STATEMENT CLERK) Anatomical Region Laterality Modality Abdomen, Pelvis Computed Tomogra phy 08/15/2024 3:40 PM MEMORANDUM STATEMENT CLERK Impressions 08/15/2024 4:12 PM MEMORANDUM STATEMENT CLERK 1. Questionable cholelithiasis (versus gallbladder folds) without [...] at 4:12 PM Narrative 08/15/2024 4:12 PM MEMORANDUM STATEMENT CLERK PROCEDURE: CT ABDOMEN PELVIS W CONTRAST, DATE/TIME OF EXAM: 08/15/2024 3:40 PM, LOCATION INDICATION: Epigastric pain CG SEDATION IF NEEDED: ORDER [id number] FOR INPATIENTS AND [id number] FOR OUTPATIENTS AND CLINIC PATIENTS. - Radiation [...] Epigastric pain CG SEDATION IF NEEDED: ORDER [id number] FORINPATIENTS AND [id number] FOR OUTPATIENTS AND CLINIC PATIENTS. - RadiationDose:->761.52 [...] - POCT (IP) INTERFACED (08/15/2024 3:08 PM MEMORANDUM STATEMENT CLERK) Only the most recent of3 resultswithin the time period is included. HCG Qual Urine Negative Negative 08/15/2024 3:18 PM MEMORANDUM STATEMENT CLERK [facility] Urine URINE / Unknown 08/15/2024 3 :08 PM MEMORANDUM STATEMENT CLERK 08/15/2024 3:18 PM MEMORANDUM STATEMENT CLERK Amandeep Blackwell MD LAB - POINT OF CARE ORDERABLES [facility] [place] [address] * (ABNORMAL) URINALYSIS W/MICROSCOPIC REFLEX TO CULTURE (08/15/2024 3:05 PM MEMORANDUM STATEMENT CLERK) Color UA Yellow Straw, Yellow 08/15/2024 3:19 PM [facility] Clarity UA Slt Cloudy(A) Clear 08/15/2024 3:19 PM [facility] Specific [place] UA 1.024 1.005 - 1.030 08/15/2024 3:19 PM [facility] pH UA 8.0 5.0 - 8.0 pH 08/15/2024 3:19 PM [facility] Protein UA Negative Negative 08/15/2024 3:19 PM [facility] Glucose UA Negative Negative 08/15/2024 3:19 PM [facility] Ketone UA Negative Negative 08/15/2024 3:19 PM [facility] Bilirubin UA Negative Negative 08/15/2024 3:19 PM [facility] Blood UA Negative Negative 08/15/2024 3:19 PM [facility] Nitrite UA Negative Negative 08/15/2024 3:19 PM [facility] Leukocyte Esterase Negative Negative 08/15/2024 3:19 PM [facility] Urobilinogen UA 2.0(A) Negative mg/dL 08/15/2024 3:19 PM [facility] RBC UA 3-5 None Seen, 0-2, 3-5 /HPF 08/15/2024 3:19 PM [facility] WBC UA 0-5 None Seen, 0-5 /HPF 08/15/2024 3:19 PM [facility] Squamous Epithelial Cells UA 6-10(A) None Seen, 0-2, 3-5 /HPF 08/15/2024 3:19 PM [facility] Mucus UA 1+ /LPF 08/15/2024 3:19 PM [facility] Urine URINE SPECIMEN OBTAINED BY CLEAN CATCH PROCEDURE / Unknown Collection / Unknown 08/15/2024 3:05 PM MEMORANDUM STATEMENT CLERK 08/15/2024 3:13 PM MEMORANDUM STATEMENT CLERK Narrative [facility] - 08/15/2024 3:19 PM MEMORANDUM STATEMENT CLERK Culture Not Indicated Dasia Donaldson MD LAB - URINALYSI S ORDERABLES Performing Organization Address City/[facility]/ZIP Co de Phone Number [facility] [address] [place] [address], [facility] [phone] * HCG URINE QUAL POCT NOTIFICATION (08/15/2024 1:32 PM MEMORANDUM STATEMENT CLERK) Only the most recent of3 resultswithin the time period is included. Comment Notification Label Only - See Separate Report 08/15/2024 4:01 PM MEMORANDUM STATEMENT CLERK [facility] Urine URINE / Unknown 08/15/2024 1 :32 PM MEMORANDUM STATEMENT CLERK 08/15/2024 2:51 PM MEMORANDUM STATEMENT CLERK Dasia Donaldson MD LAB - URINALYSI S ORDERABLES Performing Organization Address [facility]/ZIP Co de Phone Number [facility] [address] [place] [address] * (ABNORMAL) CBC W AUTO DIFFERENTIAL (08/15/2024 10:10 AM MEMORANDUM STATEMENT CLERK) Only the most recent of16 resultswithin the time period is included. WBC 11.3(H) 4.0 - 10.7 x10E9/L 08/15/2024 10:45 AM [facility] RBC Count 4.14 3.90 - 5.20 x10E12/L 08/15/2024 10:45 AM [facility] Hemoglobin 12.3 11.9 - 15.8 g/dL 08/15/2024 10:45 AM [facility] Hematocrit 37.0 34.8 - 46.1 % 08/15/2024 10:45 AM [facility] MCV 89.4 80.0 - 98.0 fL 08/15/2024 10:45 AM [facility] MCH 29.7 26.7 - 33.6 pg 08/15/2024 10:45 AM [facility] MCHC 33.2 31.7 - 36.3 g/dL 08/15/2024 10:45 AM [facility] RDW-CV 12.7 11.3 - 14.8 % 08/15/2024 10:45 AM [facility] Platelet Count 413 150 - 420 x10E9/L 08/15/2024 10:45 AM [facility] MPV 9.5 7.8 - 11.4 fL 08/15/2024 10:45 AM [facility] Neutrophil % 78.9(H) 41.0 - 74.0 % 08/15/2024 10:45 AM [facility] Lymphocyte % 12.8(L) 17.0 - 47.0 % 08/15/2024 10:45 AM [facility] Monocyte % 7.4 3.0 - 11.0 % 08/15/2024 10:45 AM [facility] Eosinophil % 0.3 0.0 - 7.0 % 08/15/2024 10:45 AM [facility] Basophil % 0.2 0.0 - 1.6 % 08/15/2024 10:45 AM [facility] Immature Granulocytes % 0.4 0.0 - 1.0 % 08/15/2024 10:45 AM [facility] Neutrophil Absolute 8.94(H) 1.60 - 7.50 x10E9/L 08/15/2024 10:45 AM [facility] Lymphocyte Absolute 1.45 1.00 - 4.40 x10E9/L 08/15/2024 10:45 AM [facility] Monocyte Absolute 0.84 0.15 - 1.00 x10E9/L 08/15/2024 10:45 AM [facility] Eosinophil Absolute 0.03 0.00 - 0.60 x10E9/L 08/15/2024 10:45 AM [facility] Basophil Absolute 0.02 0.00 - 0.13 x10E9/L 08/15/2024 10:45 AM [facility] Blood BLOOD SPECIMEN / Unknown Venipuncture / Unknown 08/15/2024 10:10 AM [facility] 08/15/2024 10:31 AM [facility] Dasia Donaldson MD LAB - HEMATOLOG Y ORDERABLES [facility] [address] [place] [address], [facility] [phone] * COMPREHENSIVE METABOLIC PANEL (08/15/2024 10:10 AM [facility]) Only the most recent of7 resultswithin the time period is included. BUN 11 7 - 26 mg/dL 08/15/2024 10:59 AM [facility] Creatinine 0.68 0.56 - 0.96 mg/dL 08/15/2024 10:59 AM [facility] Sodium 137 136 - 145 mmol/L 08/15/2024 10:59 AM [facility] Potassium 4.0 3.5 - 4.5 mmol/L 08/15/2024 10:59 AM [facility] Chloride 106 98 - 107 mmol/L 08/15/2024 10:59 AM [facility] CO2 24 22 - 29 mmol/L 08/15/2024 10:59 AM [facility] Glucose 98 70 - 99 mg/dL 08/15/2024 10:59 AM [facility] Calcium 9.6 8.4 - 10.2 mg/dL 08/15/2024 10:59 AM [facility] Protein Total 7.6 6.0 - 8.3 g/dL 08/15/2024 10:59 AM [facility] Albumin 3.9 3.4 - 5.0 g/dL 08/15/2024 10:59 AM [facility] Bilirubin Total 0.6 0.2 - 1.2 mg/dL 08/15/2024 10:59 AM [facility] Alkaline Phosphatase 77 40 - 150 U/L 08/15/2024 10:59 AM [facility] ALT 16 5 - 55 U/L 08/15/2024 10:59 AM [facility] AST 17 5 - 34 U/L 08/15/2024 10:59 AM MEMORANDUM STATEMENT CLERK [facility] Anion Gap 7 6 - 16 08/15/2024 10:59 AM [facility] BUN/Creatinine Ratio 16 7 - 23 08/15/2024 10:59 AM [facility] Osmolality Calculated 283 275 - 295 mOsm/kg 08/15/2024 10:59 AM [facility] Albumin/Globulin Ratio 1.1 1.1 - 2.3 08/15/2024 10:59 AM [facility] eGFR by CKD-EPI >90 >=90 mL/min/1.7 3 m2 08/15/2024 10:59 AM [facility] Blood BLOOD SPECIMEN / Unknown Venipuncture / Unknown 08/15/2024 10:10 AM MEMORANDUM STATEMENT CLERK 08/15/2024 10:31 AM MEMORANDUM STATEMENT CLERK Dasia Donaldson MD LAB - CHEMISTRY ORDERABLES Performing Organization Address City/[facility]/ZIP Co de Phone Number [address] [address], [facility] [phone] * LIPASE BLOOD (08/15/2024 10:10 AM MEMORANDUM STATEMENT CLERK) Only the most recent of2 resultswithin the time period is included. Lipase 14 8 - 78 U/L 08/15/2024 10:59 AM [facility] Blood BLOOD SPECIMEN / Unknown Venipuncture / Unknown 08/15/2024 10:10 AM MEMORANDUM STATEMENT CLERK 08/15/2024 10:31 AM MEMORANDUM STATEMENT CLERK Narrative [facility] - 08/15/2024 10:59 AM MEMORANDUM STATEMENT CLERK Lipase results from the [employer] Alinity analyzer may not be comparable with other methodologies. Dasia Donaldson MD LAB - CHEMISTRY ORDERABLES [address] [address], [place] [phone] * AMYLASE BLOOD (08/15/2024 10:10 AM MEMORANDUM STATEMENT CLERK) Amylase 42 25 - 125 U/L 08/15/2024 10:59 AM [facility] Blood BLOOD SPECIMEN / Unknown Venipuncture / Unknown 08/15/2024 10:10 AM MEMORANDUM STATEMENT CLERK 08/15/2024 10:31 AM MEMORANDUM STATEMENT CLERK Dasia Donaldson MD LAB - CHEMISTRY ORDERABLES Performing Organization Address City/[facility]/ZIP Co de Phone Number [address] [address], [facility] [phone] * TSH REFLEX FREE T4 (08/14/2024 4:45 PM MEMORANDUM STATEMENT CLERK) Only the most recent of3 resultswithin the time period is included. Pathologist [facility] TSH 1.281 0.350 - 4.940 uIU/mL 08/14/2024 6:39 PM [facility] Blood BLOOD SPECIMEN / Unknown Lab Venipuncture / Unknown 08/14/2024 4:45 PM MEMORANDUM STATEMENT CLERK 08/14/2024 4:57 PM MEMORANDUM STATEMENT CLERK Areli CARNES LAB - TOOL SALVAGE WORKER RY ORDERABLES Performing Organization Address [facility]/ZIP Co de Phone Number [address] [address], [facility] [phone] * HEMOGLOBIN A1C (08/14/2024 4:45 PM MEMORANDUM STATEMENT CLERK) Only the most recent of3 resultswithin the time period is included. Hemoglobin A1c 5.3 <=5.6 % 08/15/2024 10:21 AM [facility] Estimated Average Glucose 105 mg/dL 08/15/2024 10:21 AM [facility] Comment: HbA1c Interpretation: Normal : < 5.7% Pre-diabetes: 5.7-6.4% Diabetes: Equal to or greater than 6.5% Test results diagnostic of diabetes should be repeated for confirmation. Treatment target values recommended by ADA and other clinical organizations should be used to evaluate metabolic control in patients. Reference: [place] [employer], Standards of Care in Diabetes -2020 In patients 70 years and older consider HbA1c target range of 7.0-7.5% (Reference: Phil Vargas et al. JAMDA. 2012) The Sebia assay for the measurement of HbA1c is a National Glycohemoglobin Standardization Program (NGSP) certified method. Blood BLOOD SPECIMEN / Unknown Lab Venipuncture / Unknown 08/14/2024 4:45 PM MEMORANDUM STATEMENT CLERK 08/14/2024 4:57 PM MEMORANDUM STATEMENT CLERK Areli Dao WATER PUMP ASSEMBLER[employer]DERRICK BUILDER LAB - TOOL SALVAGE WORKER RY ORDERABLES Performing Organization Address City/[facility]/ZIP Co de Phone Number [facility] [address] [place] [address], [facility] [phone] * (ABNORMAL) CBC NO DIFFERENTIAL (08/14/2024 4:45 PM MEMORANDUM STATEMENT CLERK) Only the most recent of2 resultswithin the time period is included. WBC 12.7(H) 4.0 - 10.7 x10E9/L 08/14/2024 5:00 PM [facility] RBC Count 3.93 3.90 - 5.20 x10E12/L 08/14/2024 5:00 PM [facility] Hemoglobin 11.8(L) 11.9 - 15.8 g/dL 08/14/2024 5:00 PM [facility] Hematocrit 36.1 34.8 - 46.1 % 08/14/2024 5:00 PM [facility] MCV 91.9 80.0 - 98.0 fL 08/14/2024 5:00 PM [facility] MCH 30.0 26.7 - 33.6 pg 08/14/2024 5:00 PM [facility] MCHC 32.7 31.7 - 36.3 g/dL 08/14/2024 5:00 PM [facility] RDW-CV 12.7 11.3 - 14.8 % 08/14/2024 5:00 PM [facility] Platelet Count 395 150 - 420 x10E9/L 08/14/2024 5:00 PM [facility] MPV 9.1 7.8 - 11.4 fL 08/14/2024 5:00 PM [facility] Blood BLOOD SPECIMEN / Unknown Lab Venipuncture / Unknown 08/14/2024 4:45 PM MEMORANDUM STATEMENT CLERK 08/14/2024 4:57 PM MEMORANDUM STATEMENT CLERK Areli Dao W[employer] ASSEM[employer]ERRICK BUILDER LAB - HEMATOL OGY ORDERABLES [facility] [address] [place] [address], [place] [phone] * (ABNORMAL) LIPID PROFILE (08/14/2024 4:45 PM MEMORANDUM STATEMENT CLERK) Only the most recent of5 resultswithin the time period is included. Cholesterol Total 164 <200 mg/dL 08/14/2024 6:21 PM [facility] HDL 34(L) >40 mg/dL 08/14/2024 6:21 PM [facility] Comment: ATP III Classification of HDL Cholesterol: <40 mg/dL: Considered a major risk factor. >60 mg/dL: Considered a negative risk factor. LDL Calculated 107(H) <100 mg/dL 08/14/2024 6:21 PM [facility] Comment: ATP III Classification of LDL Cholesterol: <100 mg/dL: Optimal 100 - 129 mg/dL: Near Optimal/Above Optimal 130 - 159 mg/dL: Borderline High 160 - 189 mg/dL: High >190 mg/dL: Very High Triglycerides 115 <150 mg/dL 08/14/2024 6:21 PM [facility] Comment: ATP III Classification of Triglycerides: <150 mg/dL: Normal 150 - 199 mg/dL: Borderline High 200 - 400 mg/dL: High >500 mg/dL: Very High Blood BLOOD SPECIMEN / Unknown Lab Venipuncture / Unknown 08/14/2024 4:45 PM MEMORANDUM STATEMENT CLERK 08/14/2024 4:57 PM MEMORANDUM STATEMENT CLERK Yuly Pope DO LAB - CHEMISTRY LUCIAE ANSELMO [facility] [address] [place] [address], [place] [phone] * XR Abd Obstruction Series 2Vw (08/14/2024 4:29 PM MEMORANDUM STATEMENT CLERK) Anatomical Region Laterality Modality Abdomen Computed Radiogr aphy 08/14/2024 4:22 PM MEMORANDUM STATEMENT CLERK Impressions 08/14/2024 4:37 PM MEMORANDUM STATEMENT CLERK Nonobstructive bowel gas pattern. Reading Radiologist: Pallavi Lange on 08/14/2024 at 4:37 PM Narrative 08/14/2024 4:37 PM MEMORANDUM STATEMENT CLERK INDICATION: Constipation COMPARISON: None available. TECHNIQUE: Supine [...] on 08/14/2024 at 4:37 PM Areli Dao [employer] AS[employer]ERRICK BUILDER DIAGNOSTIC IM AGING ORDERABLES * (ABNORMAL) HERPES SIMPLEX 1+2 PCR LESION (12/26/2023 2:39 PM CDT) Herpes Simplex Virus 1 PCR Lesion Detected(A) Not detected 12/26/2023 9:12 PM CDT [facility] Herpes Simplex Virus 2 PCR Lesion Not detected Not detected 12/26/2023 9:12 PM CDT [facility] Microbiology LESION SPECIMEN / Unknown Collection / Unknown 12/26/2023 2:39 PM CDT 12/26/2023 2:43 PM CDT Enoc Badillo MD LAB - MICROBIOLOGY O RDERABLES [facility] [address] [place] [address], [facility] [phone] * (ABNORMAL) MYCOPLASMA PNEUMONIAE AB IGG/IGM PANEL (12/26/2023 10:29 AM CDT) [facility] Mycoplasma Antibody IgG 0.31(H) <=0.09 U/L 12/29/2023 2:52 PM CDT [facility] ([facility]) Comment: INTERPRETIVE INFORMATION: Mycoplasma pneumoniae Ab, IgG 0.09 U/L or less ............ Negative 0.10 - 0.32 U/L ............. Equivocal 0.33 U/L or greater ......... Positive INTERPRETIVE DATA: Over 50% of healthy adults have a relatively high background of specific M. pneumoniae IgG antibodies in their sera, probably because of past M. pneumoniae infections. Therefore, paired sera obtained with a time interval of 1 to 3 weeks are highly recommended in adults to confirm reinfection by M. pneumoniae, which is demonstrated by a significant change in IgG antibodies. A significant change is indicated if one sample is above 0.32 U/L and the other is below 0.20 U/L. Mycoplasma Antibody IgM 0.16 <=0.76 U/L 12/29/2023 2:52 PM T [facility] ([facility]) Comment: INTERPRETIVE INFORMATION: Mycoplasma pneumoniae Ab, IgM 0.76 U/L or less .......... Negative: No clinically significant amount of M. pneumoniae IgM antibody detected. 0.77 - 0.95 U/L ........... Low Positive: M. pneumoniae- specific IgM presumptively detected. Collection of a follow-up sample in 1-2 weeks is recommended to assure reactivity. 0.96 U/L or greater ....... Positive: Highly significant amount of M. pneumoniae- specific IgM antibody detected. However, low levels of IgM antibodies may occasionally persist for more than 12 months post-infection. Performed By: [facility] [address] [place] [id number] Body Specialist: Jean Paul Acosta MD, PhD CLIA Number: [id number] Blood BLOOD SPECIMEN / Unknown Venipuncture / Unknown 12/26/2023 10:29 AM CDT 12/26/2023 10:37 AM CDT Dasia Donaldson MD LAB - SEROLOGY ORDERABLES [facility] ([facility]) [address] [place] [address], [facility] * (ABNORMAL) BASIC METABOLIC PANEL (CALCIUM TOTAL) (12/26/2023 7:55 AM CDT) Only the most recent of6 resultswithin the time period is included. BUN 8 7 - 26 mg/dL 12/26/2023 9:03 AM [facility] Creatinine 0.91 0.56 - 0.96 mg/dL 12/26/2023 9:03 AM [facility] Sodium 138 136 - 145 mmol/L 12/26/2023 9:03 AM [facility] Potassium 4.1 3.5 - 4.5 mmol/L 12/26/2023 9:03 AM [facility] Chloride 109(H) 98 - 107 mmol/L 12/26/2023 9:03 AM [facility] CO2 16(L) 22 - 29 mmol/L 12/26/2023 9:03 AM [facility] Glucose 103 70 - 115 mg/dL 12/26/2023 9:03 AM [facility] Calcium 9.6 8.4 - 10.2 mg/dL 12/26/2023 9:03 AM [facility] Anion Gap 13 6 - 16 12/26/2023 9:03 AM [facility] BUN/Creatinine Ratio 9 7 - 23 12/26/2023 9:03 AM [facility] Osmolality Calculated 285 275 - 295 mOsm/kg 12/26/2023 9:03 AM [facility] eGFR by CKD-EPI >90 >=90 mL/min/1.7 3 m2 12/26/2023 9:03 AM [facility] Blood BLOOD SPECIMEN / Unknown Lab Capillary / Unknown 12/26/2023 7:55 AM CDT 12/26/2023 8:14 AM [facility][NOTE 3] Amandeep Blackwell MD LAB - CHEMISTRY NISSA BRIONES [facility] [address] [place] [address] [phone] * EKG 15-LEAD (12/25/2023 5:58 PM CDT) Only the most recent of2 resultswithin the time period is included. [facility] Ventricular Rate 89 BPM CG MUSE Atrial Rate 89 BPM CG MUSE P-R Interval 150 ms CG MUSE QRS Duration ms 90 ms CG MUSE Q-T Interval ms 350 ms CG MUSE QTC Calculation (Bezet) 425 ms CG MUSE Calculated P [place] 36 degrees CG MUSE Calculated R [place] 16 degrees CG MUSE Calculated T [place] 4 degrees CG MUSE Interpretation EKG Normal sinus rhythm Confirmed by MAURICIO WORTHY, SARAH BETH ([id number]) on 12/26/2023 4:06:13 PM CG MUSE 12/25/2023 5:58 PM CDT 12/26/2023 4:06 PM CDT Amandeep Blackwell MD ECG ORDERABLES CG MUSE * GLUCOSE - POINT OF CARE (12/25/2023 5:20 PM CDT) [facility] Glucose WB/POC 77 70 - 106 mg/dL 12/25/2023 5:24 PM CDT [facility] Specimen Type Cap Fingerstick 2023 5:24 PM CDT [facility] Blood BLOOD SPECIMEN / Unknown 12/25/2023 5:20 PM CDT 12/25/2023 5:24 PM CDT Provider Unknown LAB - POINT OF CARE ORDERABLES [facility] [address] [facility] [place] [address] * MONONUCLEOSIS SCREEN REFLX TITER (12/25/2023 4:58 PM CDT) [facility] [place] Qualitative W/Reflex Quantitative Negative Negative 12/28/2023 11:12 AM CDT [facility] ([facility]) Comment: The sensitivity of Heterophile antibody testing is 80-90%. Cynthia Paz IgM testing offers higher sensitivity. Blood BLOOD SPECIMEN / Unknown Lab Venipuncture / Unknown 12/25/2023 4:58 PM CDT 12/25/2023 5:21 PM CDT Narrative [facility] ([facility]) - 12/28/2023 11:12 AM CDT Performed at: 01 - [facility] [address] [place], [place] [id number] Counterintelligence Specialist: Arron Wesley PhD, Phone: [phone] Zaida Phoenix DO LAB - SEROLOGY ORDER CARLEEN Performing Organization Address City/[facility]/ZIP Co de Phone Number [facility] ([facility]) [address] [place] [address] * TRICHOMONAS VAGINALIS AMPLIFIED PROBE (09/21/2023 4:07 PM MEMORANDUM STATEMENT CLERK) Trichomonas vaginalis Amplified Probe Negative Negative 09/22/2023 12:40 AM MEMORANDUM STATEMENT CLERK [facility] Microbiology URINE / Unknown Collection / Unknown 09/21/2023 4:07 PM MEMORANDUM STATEMENT CLERK 09/21/2023 4:53 PM MEMORANDUM STATEMENT CLERK Narrative [facility] - 09/22/2023 12:40 AM MEMORANDUM STATEMENT CLERK This test was developed and its performance characteristics determined by the [facility], [facility]. Urine specimens tested by the [facility] have not been cleared or approved by the U.S. Food and Drug Administration (FDA). The laboratory is regulated under the Clinical Laboratory Improvement Amendments (CLIA) as qualified to perform high-complexity testing. This test is used for clinical purposes. It should not be regarded as investigational or for research. Results based on detection/no detection of ribosomal RNA by amplified method. Yuly Pope DO LAB - MICROBIOLOGY O RDERABLES Performing Organization Address City/[facility]/ZIP Co de Phone Number [facility] [address] [place] [address], [facility] [phone] * (ABNORMAL) CHLAMYDIA + GC AMPLIFIED PROBE (09/21/2023 4:07 PM MEMORANDUM STATEMENT CLERK) Chlamydia Amplified Probe Positive(A) Negative 09/22/2023 12:40 AM MEMORANDUM STATEMENT CLERK [facility] GC Amplified Probe Negative Negative 09/22/2023 12:40 AM [facility] Microbiology URINE / Unknown Collection / Unknown 09/21/2023 4:07 PM MEMORANDUM STATEMENT CLERK 09/21/2023 4:53 PM MEMORANDUM STATEMENT CLERK Narrative [facility] - 09/22/2023 12:40 AM MEMORANDUM STATEMENT CLERK Repeat testing is recommended 3 months post treatment for patients who test positive for Chlamydia trachomatis/Neisseria gonorrhoeae. Results based on detection/no detection of ribosomal RNA by amplified method. Yuly Pope DO LAB - MICROBIOLOGY O RDERABLES [facility] [address] [phone] * CARDIAC EKG ORDER (07/04/2023 4:43 PM MEMORANDUM STATEMENT CLERK) Narrative 07/04/2023 4:43 PM MEMORANDUM STATEMENT CLERK Ordered by an unspecified provider. Scanned Document CARDIAC SERVICES ORD ERABLES * TROPONIN-I HIGH SENSITIVE REFLEX 1HOUR (07/03/2023 7:52 AM MEMORANDUM STATEMENT CLERK) Troponin I High Sensitive <3 <=14 ng/L 07/03/2023 10:13 AM MEMORANDUM STATEMENT CLERK [facility] Delta Troponin I HS 07/03/2023 10:13 AM [facility] Comment:Delta value intentio carri not calculated. Baseline to 1 hour specimen collection interval exceeded. Blood BLOOD SPECIMEN / Unknown Venipuncture / Unknown 07/03/2023 7:52 AM MEMORANDUM STATEMENT CLERK 07/03/2023 7:55 AM MEMORANDUM STATEMENT CLERK Kev Goodrich MD LAB - CHEMISTRY ORDE ANSELMO [facility] [address] [place] [address] * XR CHEST 1VW PORTABLE (07/03/2023 6:32 AM MEMORANDUM STATEMENT CLERK) Anatomical Region Laterality Modality Chest Radiographic Mackenzie ging 07/03/2023 8:29 AM MEMORANDUM STATEMENT CLERK Impressions 07/03/2023 8:30 AM MEMORANDUM STATEMENT CLERK IMPRESSION: No active disease > Interpreting Provider: Dante Corral MD on 07/03/2023 8:30 AM Narrative 07/03/2023 8:30 AM MEMORANDUM STATEMENT CLERK PROCEDURE: XR CHEST 1VW PORTABLE, DATE/TIME OF EXAM: 07/03/2023 6:32 AM, LOCATION [facility] INDICATION: R07.9: Chest pain, unspecified ADDITIONAL CLINICAL INFORMATION: Ordering Provider Reason For Exam: Technologist Note: Additional: COMPARISON: 10/26/2006 TECHNIQUE: AP portable chest FINDINGS: The heart and mediastinum appear unremarkable. No focal infiltrate or effusion. No pneumothorax. Procedure Note Dante Corral MD - 07/03/2023 PROCEDURE: XR CHEST 1VW PORTABLE, DATE/TIME OF EXAM: 07/03/2023 6:32AM, LOCATION [facility] INDICATION: R07.9: Chest pain, unspecified ADDITIONAL CLINICAL INFORMATION: Ordering Provider Reason For Exam: Technologist Note: Additional: COMPARISON: 10/26/2006 TECHNIQUE: AP portable chest FINDINGS: The heart and mediastinum appear unremarkable. No focal infiltrate or effusion. No pneumothorax. IMPRESSION: No active disease > Interpreting Provider: Dante Corral MD on 07/03/2023 8:30 AM Kev Goodrich MD DIAGNOSTIC IMAGING O RDERABLES * TROPONIN-I HIGH SENSITIVE BASELINE + 1HR (07/03/2023 6:21 AM MEMORANDUM STATEMENT CLERK) [facility] Troponin I High Sensitive <3 <=14 ng/L 07/03/2023 6:58 AM MEMORANDUM STATEMENT CLERK [facility] Blood BLOOD SPECIMEN / Unknown Venipuncture / Unknown 07/03/2023 6:21 AM MEMORANDUM STATEMENT CLERK 07/03/2023 6:41 AM MEMORANDUM STATEMENT CLERK Kev Goodrich MD LAB - CHEMISTRY NISSA BRIONES [facility] Organization Address City/State/ZIP Co de Phone Number [facility] [address] [place] [address] * EKG 12-LEAD (07/03/2023 6:07 AM MEMORANDUM STATEMENT CLERK) [facility] Ventricular Rate 81 BPM [facility] Atrial Rate 81 BPM [facility] P-R Interval 168 ms [facility] QRS Duration ms 90 ms [facility] Q-T Interval ms 352 ms [facility] QTC Calculation (Bezet) 408 ms [facility] Calculated P [place] 48 degrees [facility] Calculated R [place] 16 degrees [facility] Calculated T [place] 2 degrees [facility] Interpretation EKG Normal sinus rhythm Nonspecific T wave abnormality Abnormal ECG No previous ECGs available Confirmed by Maurice Bailey ([id number]) on 07/03/2023 9:07:13 AM [facility] 07/03/2023 6:07 AM MEMORANDUM STATEMENT CLERK 07/03/2023 9:07 AM MEMORANDUM STATEMENT CLERK Kev Goodrich MD ECG ORDERABLES [facility] * (ABNORMAL) STREP A SCREEN - POCT (IP) URGENT CARE (04/16/2023 11:39 AM CDT) [facility] Strep A Rapid POCT Positive(A ) Negative [facility] QC Verified Yes Yes [facility] Throat ENTIRE THROAT (SURFACE REGION OF NECK) / Unknown 04/16/2023 11:39 AM CDT Pallavi Mendoza W[employer] ASSEM[employer]ERRICK BU[employer]DER LAB - POINT OF CARE ORDERABLES [facility] [address] [phone] * SARS-COV-2 (COVID-19) RAPID (04/13/2023 4:48 AM CDT) [facility] COVID-19 PCR Not detected Not detected 04/13/20 5:37 AM CDT [facility] Microbiology SPECIMEN FROM NASOPHARYNGEAL STRUCTURE / Unknown Collection / Unknown 04/13/2023 4:48 AM CDT 04/13/2023 4:59 AM CDT Narrative [facility] - 04/13/2023 5:37 AM CDT The [employer] Xpert Xpress SARS-COV-2 has been authorized by the Food and Drug Administration (FDA) under an Emergency Use Authorization (EUA). This test has been validated in accordance with the FDA's guidance document Policy for Diagnostic Testing in Laboratories Certified to perform High Complexity Testing under CLIA prior to Emergency Use Authorization for Coronavirus Disease-2019 during the Public Health Emergency issued on September 27, 2019. FDA independent review of this validation is pending. This test is only authorized for the duration of the time the declaration that circumstances exist justifying the authorization of emergency use of in vitro diagnostic tests for detection of SARS-COV-2 virus and/or diagnosis of COVID-19 infection under 564(b) (1) of the Act. 21 U.S.C. 360bbb-3 (b) (1), unless the authorization is terminated or revoked sooner. Fact Sheets for this EUA assay are available upon request. Jean Paul Parada MD LAB - MICROBIOLOGY O REZA Performing Organization Address [facility] Co de Phone Number [facility] [address] [place] [address] * STREP A SCREEN DIRECT W RFLX STREP A CULTURE (04/13/2023 4:48 AM CDT) Only the most recent of2 resultswithin the time period is included. Pathologist [facility] Strep A Rapid Negative Negative 04/13/2023 5:13 AM CDT [facility] Microbiology ENTIRE THROAT (SURFACE REGION OF NECK) / Unknown Collection / Unknown 04/13/2023 4:48 AM CDT 04/13/2023 4:59 AM CDT Narrative [facility] - 04/13/2023 5:13 AM CDT Test has reflexed to a Strep A culture. Jean Paul Parada MD LAB - MICROBIOLOGY O REZA Performing Organization Address [facility] Co de Phone Number [facility] [address] [place] [address] * HCG URINE QUALITATIVE (04/13/2023 4:48 AM CDT) hCG Qualitative Urine Negative Negative 04/13/2023 5:08 AM CDT [facility] Urine URINE / Unknown Collection / Unknown 04/13/2023 4:48 AM CDT 04/13/2023 4:59 AM CDT Jean Paul Parada MD LAB - URINALYSIS ORD ERABLES Performing Organization Address City/[facility]/ZIP Co de Phone Number [facility] [address] [place] [address] * CULTURE STREP GROUP A (04/13/2023 4:48 AM CDT) Only the most recent of4 resultswithin the time period is included. Culture Negative for beta-hemolytic Streptococcus Group A [facility]O 04/14/2023 6:09 AM CDT [facility] Microbiology ENTIRE THROAT (SURFACE REGION OF NECK) / Unknown Collection / Unknown 04/13/2023 4:48 AM CDT 04/13/2023 4:59 AM CDT Jean Paul Parada MD LAB - MICROBIOLOGY O RDERABLES Performing Organization Address City/[facility]/ZIP Co de Phone Number [facility] [address] [place] [address], [facility] [phone] * XR ANKLE LEFT 3VW OR MORE (08/10/2022 7:21 PM MEMORANDUM STATEMENT CLERK) Anatomical Region Laterality Modality Lower Extremity Radiographic Mackenzie ging 08/10/2022 7:23 PM MEMORANDUM STATEMENT CLERK Impressions 08/10/2022 7:24 PM MEMORANDUM STATEMENT CLERK IMPRESSION: No acute osseous process of the left ankle is identified. > Interpreting Provider: Mark Estrada MD on 08/10/2022 7:24 PM Narrative 08/10/2022 7:24 PM MEMORANDUM STATEMENT CLERK PROCEDURE: XR ANKLE LEFT 3VW OR MORE, DATE/TIME OF EXAM: 08/10/2022 7:22 PM, LOCATION [facility] INDICATION: M25.572: Pain in left ankle and joints of left foot ADDITIONAL CLINICAL INFORMATION: Ordering Provider Reason For Exam: Technologist Note: Additional: COMPARISON: None. FINDINGS: 3 view examination of the left ankle was performed. There is normal bone mineralization and alignment. Ankle mortise appears intact. No evidence of fracture or dislocation is seen. There is diffuse soft tissue swelling. Procedure Note Mark Estrada MD - 08/10/2022 PROCEDURE: XR ANKLE LEFT 3VW OR MORE, DATE/TIME OF EXAM: 37:22 PM, LOCATION [facility] INDICATION: M25.572: Pain in left ankle and joints of left foot ADDITIONAL CLINICAL INFORMATION: Ordering Provider Reason For Exam: Technologist Note: Additional: COMPARISON: None. FINDINGS: 3 view examination of the left ankle was performed. There is normal bone mineralization and alignment. Ankle mortise appears intact. No evidenceof fracture or dislocation is seen. There is diffuse soft tissue swelling. IMPRESSION: No acute osseous process of the left ankle is identified. > Interpreting Provider: Mark Estrada MD on 08/10/2022 7:24 PM Manolo Knight PA-C DIAGNOSTIC IMAGING ORDERABLES * IN INSERT INTRAUTERINE DEVICE (04/24/2022 1:35 PM CDT) Narrative Marybeth Angulo MD - 04/24/2022 1:35 PM CDT Marybeth Angulo MD 05/07/2022 10:54 PM Date of IUD Insertion: 04/24/2022 Patient desires IUD. I have counseled her regarding the risks, benefits, and side effects with emphasis on the possibility of unpredictable bleeding patterns. She was told that the Mirena IUD doesnot protect against HIV, AIDS, or any other sexually transmitted diseases. She expresses understanding of the risks and requests to proceed with the procedure. All her questions were answered to her satisfaction, and she understands and agrees to appropriate follow up appointments. Written informed consent was obtained from her and her older sister. 03/15/2022 Switching from another hormonal method? no Urine test: negative Procedure Note: Cervix prepped with betadine and grasped with a tenaculum. The uterus was sounded to 8 cm with US guidance (limited due to habitus). Mirena IUD inserted easily with US guidance. Strings cut to 2 cm. Tenaculum removed and good hemostasis noted. Patient tolerated the procedure well. Patient instructed to follow-up in 6 weeks and to use a back-up form of contraception until then. Instructed to call with heavy bleeding, or severe lower abdominal pain with fever. Ross Lot # [id number] Exp date: 05/29/2024 [facility]: 29127-874-03 Buy and bill device Marybeth Angulo MD Marybeth Angulo MD PROCEDURE/MINOR SURG ICAL ORDERABLES * IN US PEL NONOB B-SCAN&/R-T IMG LMTD/F-UP+C97 (04/24/2022 1:31 PM CDT) Narrative Octaviano Castle RDMS - 04/24/2022 1:31 PM CDT Octaviano Castle RDMS 04/24/2022 1:32 PM Documentation in digisonics. Marybeth Angulo MD PROCEDURE/MINOR SURG ICAL ORDERABLES * HCG URINE QUALITATIVE - POCT (IP) [facility] (04/24/2022) Test Urine Negative Negative Urine URINE / Unknown 04/24/2022 Marybeth Angulo MD LAB - POINT OF CARE ORDERABLES * IMAGING RADIOLOGY XRAY RESULTS ORDER (04/24/2022) Only the most recent of3 resultswithin the time period is included. Anatomical Region Laterality Modality Other Narrative 04/24/2022 Ordered by an unspecified provider. Scanned Document IMAGING * VON WILLEBRAND EVALUATION PANEL (03/10/2022 12:07 PM CDT) Interpretation see note [facility] Comment: Normal von Willebrand Evaluation PTT 28 23 - 32 sec [facility] Comment: This test has not been validated for monitoring unfractionated heparin therapy. For testing that is validated for this type of therapy, please refer to the Heparin Anti-Xa assay (test code 81597). For additional information, please refer to http://[email or web address].WeeWorld/faq/RUH451 (This link is being provided for informational/ educational purposes only.) Factor VIII Activity Clotting 104 50 - 180 % normal [facility] Comment: For additional information please refer to: http://education.[employer]/faq/WFK091 (This link is being provided for informational/ educational purposes only.) von Willebrand Factor Antigen 83 50 - 217 % [facility] Ristocetin Cofactor 80 42 - 200 % normal [facility] von Willebrand Factor Antigen Multimeric see note [facility] Comment: All multimers of von Willebrand Factor Antigen are present in normal amounts. von Willebrand Factor multimer reviewed by: Antonieta Rouse, Ph.D. This test was developed and its analytical performance characteristics have been determined by [employer] [place], [place]. It has not been cleared or approved by the U.S. Food and Drug Administration. This assay has been validated pursuant to the CLIA regulations and is used for clinical purposes. Test Performed at: [facility] [address] ADNEIKE EDMOND MD,PHD 03/10/2022 12:0 7 PM CDT 03/10/2022 12:09 PM CDT Marybeth Angulo MD LAB - COAGULATION OR DERABLES [facility] [address] [place] [address] * VITAMIN D 25-HYDROXY (02/17/2022 11:26 AM CDT) Only the most recent of3 resultswithin the time period is included. [facility] Vitamin D, 25 Hydroxy 22.0 >20.0 ng/mL 02/17/2022 1:13 PM CDT [facility] Comment: The recommendations for 25-Hydroxy Vitamin D clinical decision points are as follows: Deficient: <20.0 ng/mL Insufficient: 20.0 - 29.9 ng/mL Sufficient: > or =30.0 ng/mL If the 25-Hydroxy Vitamin D results are inconsitent with clinical evidence, it is recommended that follow-up testing using a method such as LC/MS/MS be performed to confirm the result. Reference: The Endocrine Society Clinical Practice Guidelines. 2011 Blood BLOOD SPECIMEN / Unknown Lab Venipuncture / Unknown 02/17/2022 11:26 AM CDT 02/17/2022 11:37 AM CDT Mesfin May MD LAB - CHEMISTRY NISSA BRIONES [id number] [place] [address], [facility] [phone] * O + P - GIARDIA / CRYPTO ONLY (06/15/2021 9:24 AM MEMORANDUM STATEMENT CLERK) Cryptosporidium Antigen EIA [facility] Comment: CRYPTOSPORIDIUM ANTIGEN, EIA Micro Number: [id number] Test Status: Final Specimen Source: Stool Specimen Quality: Adequate Cryptosporidium: Not Detected Reference Range: Not Detected NOTE: Due to intermittent shedding, one negative sample does not necessarily rule out the presence of a parasitic infection. Test Performed at: [facility] [address] AISHWARYA BANKS MD EIA [facility] Comment: GIARDIA AG, EIA, STOOL Micro Number: [id number] Test Status: Final Specimen Source: Stool Specimen Quality: Adequate Giardia Result 1: Not Detected Reference Range: Not Detected NOTE: Due to intermittent shedding, one negative sample does not necessarily rule out the presence of a parasitic infection. Test Performed at: [facility] [address] AISHWARYA BANKS MD Stool STOOL SPECIMEN / Unknown 06/15/2021 9:24 AM MEMORANDUM STATEMENT CLERK 06/15/2021 9:27 AM MEMORANDUM STATEMENT CLERK Aubree Pelletier WATER [employer]MP ASSEMBLER-[employer]ICK BU[employer]DER LAB - [place] ROBIOLOGY ORDERABLES Performing Organization Address City/[facility]/ZIP Co de Phone Number [address] [address] * O+P PANEL (06/15/2021 9:24 AM MEMORANDUM STATEMENT CLERK) Trichrome (1) [facility] Comment: OVA AND PARASITES, CONC AND PERM SMEAR Micro Number: [id number] Test Status: Final Specimen Source: Stool Specimen Quality: Adequate CONCENTRATION 1: No ova or parasites seen TRICHROME 1: No ova or parasites seen Routine Ova and Parasite exam may not detect some parasites that occasionally cause diarrheal illness. Cryptosporidium Antigen and/or Cyclospora and Isospora Exam may be ordered to detect these parasites. One negative sample does not necessarily rule out the presence of a parasitic infection. For additional information, please refer to https://education.[employer]/faq/VHY722 (This link is being provided for informational/ educational purposes only.) REPORT COMMENT: SPLIT 06/13/2021 FROM [id number] Test Performed at: [facility] [address] AISHWARYA BANKS MD 06/15/2021 9:24 AM MEMORANDUM STATEMENT CLERK 06/15/2021 9:27 AM MEMORANDUM STATEMENT CLERK Aubree Pelletier APRN-DERRICK BUILDER LAB - [place] ROBIOLOGY ORDERABLES Performing Organization Address [facility] Co de Phone Number [address] [address] * CULTURE STOOL PANEL (06/15/2021 9:24 AM MEMORANDUM STATEMENT CLERK) Pathologist [facility] Campylobacter Antigen [facility] Comment: CAMPYLOBACTER SPP. AG,EIA Micro Number: [id number] Test Status: Final Specimen Source: Stool Specimen Quality: Adequate Campy Ag Result: Not Detected Reference Range: Not Detected Test Performed at: [facility] [address] AISHWARYA BANKS MD EIA [facility] Comment: SHIGA TOXINS, EIA W/RFL TO E.COLI O157 CULTURE Micro Number: [id number] Test Status: Final Specimen Source: Stool Specimen Quality: Adequate Shiga Toxin: Not Detected Reference Range: Not Detected Culture [facility] Comment: SALMONELLA AND SHIGELLA, CULTURE Micro Number: [id number] Test Status: Final Specimen Source: Stool Specimen Quality: Adequate Result: No Salmonella or Shigella isolated Test Performed at: [facility] [address] AISHWARYA BANKS MD Stool STOOL SPECIMEN / Unknown 06/15/2021 9:24 AM MEMORANDUM STATEMENT CLERK 06/15/2021 9:27 AM MEMORANDUM STATEMENT CLERK Aubree Pelletier APRN-DERRICK BUILDER LAB - [place] ROBIOLOGY ORDERABLES Performing Organization Address [facility]/ZIP Co de Phone Number [address] [address] * CALPROTECTIN FECAL (06/13/2021 8:58 AM MEMORANDUM STATEMENT CLERK) Pathologist [facility] Calprotectin Fecal 74 mcg/g [facility] Comment: Reference Range: <50 Normal 50-120 Borderline >120 Elevated Calprotectin in Crohn's disease and ulcerative colitis can be five to several thousand times above the reference population (50 mcg/g or less). Levels are usually 50 mcg/g or less in healthy patients and with irritable bowel syndrome. Repeat testing in 4-6 weeks is suggested for borderline values. Test Performed at: [facility] [address] [place] [address] AMY GUARDADO MD,PHD,TISHA Stool STOOL SPECIMEN / Unknown 06/13/2021 8:58 AM MEMORANDUM STATEMENT CLERK 06/13/2021 8:58 AM MEMORANDUM STATEMENT CLERK Aubree Pelletier WATER PUMP ASSEMBLER-DERRICK BUILDER LAB - BOD Y FLUID ORDERABLES Performing Organization Address [facility] de Phone Number [facility] [address] [place] [address] * TISSUE TRANSGLUTAMINASE AB IGA (06/13/2021 8:58 AM MEMORANDUM STATEMENT CLERK) [facility] TTG Antibody IgA <1.0 U/mL [facility] Comment: Value Interpretation ----- <15.0 Antibody not detected > or = 15.0 Antibody detected Test Performed at: [facility] [address] [address] JUNE GONZALEZ MD Blood BLOOD SPECIMEN / Unknown 06/13/2021 8:58 AM MEMORANDUM STATEMENT CLERK 06/13/2021 8:58 AM MEMORANDUM STATEMENT CLERK Aubree Pelletier W[employer] ASSEMBLER-DERRICK BUILDER LAB - SER OLOGY ORDERABLES Performing Organization Address [facility] Co de Phone Number [facility] [phone] [place] [address] * C-REACTIVE PROTEIN (06/13/2021 8:58 AM MEMORANDUM STATEMENT CLERK) Only the most recent of3 resultswithin the time period is included. [facility] C-Reactive Protein 4.9 <8.0 mg/L [facility] Comment: Test Performed at: [facility] [address] [place] [address] JOSHUA BARROS DO,MPH Blood BLOOD SPECIMEN / Unknown 06/13/2021 8:58 AM MEMORANDUM STATEMENT CLERK 06/13/2021 8:58 AM MEMORANDUM STATEMENT CLERK Aubree Pelletier WATER PU[employer] ASSEMBLER-[employer]ERRICK BUILDER LAB - AMANDA ARSH ORDERABLES Performing Organization Address City/[facility]/ZIP Co de Phone Number [facility] [address] [place] [address] * IGA BLOOD (06/13/2021 8:58 AM MEMORANDUM STATEMENT CLERK) IgA 218 36 - 220 mg/dL [facility] Comment: Test Performed at: [facility] [address] [place] [address] JOSHUA BARROS DO,MPH Blood BLOOD SPECIMEN / Unknown 06/13/2021 8:58 AM MEMORANDUM STATEMENT CLERK 06/13/2021 8:58 AM MEMORANDUM STATEMENT CLERK Aubree Pelletier WATER PUMP ASSEMBLER-[employer]ERRICK BUILDER LAB - AMANDA ARSH ORDERABLES Performing Organization Address City/[facility] Co de Phone Number [facility] [phone] [place] [address] * SARS-COV-2 (COVID-19) IN HOUSE (07/13/2020 12:54 PM MEMORANDUM STATEMENT CLERK) COVID-19 PCR Not detected Not detected 07/14/2020 12:25 PM MEMORANDUM STATEMENT CLERK [facility] Microbiology SPECIMEN FROM NASOPHARYNGEAL STRUCTURE / Unknown Collection / Unknown 07/13/2020 12:54 PM MEMORANDUM STATEMENT CLERK 07/13/2020 12:54 PM MEMORANDUM STATEMENT CLERK Narrative [facility] - 07/14/2020 12:25 PM MEMORANDUM STATEMENT CLERK This nucleic acid amplification assay performance was validated by [facility]. This test has been authorized by the Food and Drug administration (FDA)under an Emergency Use Authorization (EUA). This test has been validated in accordance with the FDA's guidance document Policy for Diagnostic Testing in Laboratories Certified to perform High Complexity Testing under CLIA prior to Emergency Use Authorization for Coronavirus Disease-2019 during the Public Health Emergency issued on September 27, 2019. FDA independent review of this validation is pending. This test is only authorized for the duration of time the declaration that circumstances exist justifying the authorization of emergency use of in vitro diagnostic tests for detection of SARS-CoV-2 virus and/or diagnosis of COVID-19 infection under section 564(b)(1) of the Act, 21 U.S.C 360bbb-3 (b)(1), unless the authorization is terminated or revoked sooner. Fact Sheets for this EUA assay are available upon request. Lucy MOREAU LAB - MICROBIOLO GY ORDERABLES [facility] [address] [place] [address], [facility] [phone] * STREP A SCREEN - POCT(IP) NOTIFICATION (07/13/2020 12:00 PM MEMORANDUM STATEMENT CLERK) Comment Notification 07/13/2020 12:00 PM MEMORANDUM STATEMENT CLERK [facility] Throat ENTIRE THROAT (SURFACE REGION OF NECK) / Unknown 07/13/2020 10:37 AM MEMORANDUM STATEMENT CLERK Lucy MOREAU LAB - POINT OF C ARE ORDERABLES Performing Organization Address [facility] Co de Phone Number [facility] [address] [place] [address] * STREP A SCREEN - POCT MTE (07/13/2020 10:45 AM MEMORANDUM STATEMENT CLERK) Strep A Rapid Negative Negative 07/13/2020 11:04 AM MEMORANDUM STATEMENT CLERK [facility] Throat ENTIRE THROAT (SURFACE REGION OF NECK) / Unknown 07/13/2020 10:45 AM MEMORANDUM STATEMENT CLERK 07/13/2020 11:04 AM MEMORANDUM STATEMENT CLERK Lucy MOREAU LAB - POINT OF C ARE ORDERABLES Performing Organization Address [facility] Co de Phone Number [facility] [address] [place] [address] * US KIDNEY DOPPLER ONLY (05/03/2020 3:17 PM CDT) Anatomical Region Laterality Modality Abdomen Ultrasound 05/03/2020 4:22 PM CDT Impressions 05/03/2020 4:26 PM CDT 1. Size asymmetry of the kidneys is similar to prior. Otherwise normal appearance of the kidneys. 2. Normal renal color and spectral Doppler without findings to suggest renal artery stenosis. *Reading Radiologist: Hector Lopez on 05/03/2020 at 4:26 PM Narrative 05/03/2020 4:26 PM CDT INDICATION: Hypertension and cardiomegaly. COMPARISON: April 06, 2020 TECHNIQUE: Grayscale, color and spectral Doppler ultrasound imaging of the kidneys, renal vessels and urinary bladder per department protocol. FINDINGS: Right kidney: 8.4 cm in length, previously 8.8 cm. The cortical echotexture and thickness are normal. No urinary tract dilation is present. There is no shadowing calculus. The perinephric soft tissues are normal. Left kidney: 12.4 cm in length, previously 12.8 cm The cortical echotexture and thickness are normal. No urinary tract dilation is present. There is no shadowing calculus. The perinephric soft tissues are normal. Doppler right kidney: The main renal artery is patent with normal waveforms. The main renal vein is patent with normal waveforms. Arcuate arteries RI 0.63-0.78; Main right renal artery PSV 50 cm/sec; Doppler left kidney: The main renal artery is patent with normal waveforms. The main renal vein is patent with normal waveforms. Arcuate arteries RI 0.50-0.61; Main left renal artery PSV 39 cm/sec; The IVC and aorta are normal with normal color flow and waveforms. PSV in the aorta 98 cm/sec. Procedure Note Hector Lopez MD - 05/03/2020 INDICATION: Hypertension and cardiomegaly. COMPARISON: April 06, 2020 TECHNIQUE: Grayscale, color and spectral Doppler ultrasound imaging of the kidneys, renal vessels and urinary bladder per department protocol. FINDINGS: Right kidney: 8.4 cm in length, previously 8.8 cm. The cortical echotexture and thickness are normal. No urinary tract dilation is present. There is no shadowing calculus. The perinephric soft tissues are normal. Left kidney: 12.4 cm in length, previously 12.8 cm The cortical echotexture and thickness are normal. No urinary tract dilation is present. There is no shadowing calculus. The perinephric soft tissues are normal. Doppler right kidney: The main renal artery is patent with normal waveforms. The main renal vein is patent with normal waveforms. Arcuate arteries RI 0.63-0.78; Main right renal artery PSV 50 cm/sec; Doppler left kidney: The main renal artery is patent with normal waveforms. The main renal vein is patent with normal waveforms. Arcuate arteries RI 0.50-0.61; Main left renal artery PSV 39 cm/sec; The IVC and aorta are normal with normal color flow and waveforms. PSV in the aorta 98 cm/sec. IMPRESSION 1. Size asymmetry of the kidneys is similar to prior. Otherwise normal appearance of the kidneys. 2. Normal renal color and spectral Doppler without findings to suggest renal artery stenosis. *Reading Radiologist: Hector Lopez on 05/03/2020 at 4:26 PM Abraham Alvarez MD US ORDERABLES * LYTES (NA K CL) URINE RANDOM PANEL (05/03/2020 1:06 PM CDT) Sodium Urine 132 mmol/L 05/03/2020 1:45 PM CDT [facility] Potassium Urine 72.6 mmol/L 05/03/2020 1:45 PM CDT [facility] Chloride Urine 122.0 mmol/L 05/03/2020 1:45 PM CDT [facility] Urine URINE SPECIMEN OBTAINED BY CLEAN CATCH PROCEDURE / Unknown Collection / Unknown 05/03/2020 1:06 PM CDT 05/03/2020 1:23 PM CDT Linwood Pepe MD LAB - URINE CHEMISTR Y ORDERABLES [facility] [address] [place] [id number] * RENIN ACTIVITY (05/03/2020 12:51 PM CDT) Only the most recent of2 resultswithin the time period is included. Renin 2.224 0.500 - 3.300 ng/mL/hr 10/13/2020 12:06 AM CDT [facility] ([facility]) Comment: This test was developed and its performance characteristics determined by [facility]. It has not been cleared or approved by the Food and Drug Administration. This is a corrected report. The previously reported result was: Renin Activity, P... 3.800 HI ng/mL/hr 05/08/2020 Blood BLOOD SPECIMEN / Unknown Lab Venipuncture / Unknown 05/03/2020 12:51 PM CDT 05/03/2020 1:23 PM CDT Narrative [facility] ([facility]) - 10/13/2020 12:06 AM CDT Performed at: [address] [place] [id number] Counterintelligence Specialist: Ruby Ponce MD, Phone: [phone] Specimen Comment: This is a corrected report Specimen Comment: The prior result of Renin Activity, Plasma, is incorrect due Specimen Comment: to a calculation error. The results were over-reported Specimen Comment: by a factor of 1.709. Please disregard previous results. Abraham Alvarez MD LAB - CHEMISTRY OR DERABLES [facility] ([facility]) [address] [place] [address] * ALDOSTERONE BLOOD (05/03/2020 12:51 PM CDT) Only the most recent of2 resultswithin the time period is included. Aldosterone 21.3 0.0 - 30.0 ng/dL 05/06/2020 9:10 AM CDT [facility] ([facility]) Comment: This test was developed and its performance characteristics determined by [facility]. It has not been cleared or approved by the Food and Drug Administration. Blood BLOOD SPECIMEN / Unknown Lab Venipuncture / Unknown 05/03/2020 12:51 PM CDT 05/03/2020 1:23 PM CDT [facility]) - 05/06/2020 9:10 AM CDT Performed at: [address] [place] [id number] Counterintelligence Specialist: Ruby Ponce MD, Phone: [phone] Abraham Alvarez MD LAB - CHEMISTRY OR DERABLES [facility]) [address] [place] [address] * (ABNORMAL) RENAL FUNCTION PANEL (04/13/2020 12:14 PM CDT) Only the most recent of2 resultswithin the time period is included. Glucose 103 70 - 105 mg/dL 04/13/2020 12:53 PM [facility] Sodium 141 136 - 145 mmol/L 04/13/2020 12:53 PM [facility] Potassium 4.3 3.5 - 5.1 mmol/L 04/13/2020 12:53 PM [facility] Chloride 109(H) 98 - 107 mmol/L 04/13/2020 12:53 PM [facility] CO2 21 20 - 28 mmol/L 04/13/2020 12:53 PM [facility] Calcium 8.99(L) 9.08 - 10.48 mg/dL 04/13/2020 12:53 PM [facility] Anion Gap 11 5 - 20 mmol/L 04/13/2020 12:53 PM [facility] BUN 8.2 5.3 - 18.7 mg/dL 04/13/2020 12:53 PM [facility] Creatinine 0.76 0.61 - 1.07 mg/dL 04/13/2020 12:53 PM [facility] Albumin 3.8 3.3 - 4.9 gm/dL 04/13/2020 12:53 PM [facility] Phosphorus 4.49 2.88 - 5.08 mg/dL 04/13/2020 12:53 PM [facility] eGFR by MDRD 04/13/2020 12:53 PM [facility] Comment: eGFR calculations are not performed for children under 18 years old. eGFR by MDRD 04/13/2020 12:53 PM [facility] Comment: eGFR calculations are not performed for children under 18 years old. Blood BLOOD SPECIMEN / Unknown Lab Venipuncture / Unknown 04/13/2020 12:14 PM CDT 04/13/2020 12:13 PM CDT Linwood Pepe MD LAB - CHEMISTRY ORDLiliya WESLYBELEN Performing Organization Address City/[facility]/ZIP Co de Phone Number [facility] [address] [place] [address] * TSH (04/13/2020 12:14 PM CDT) Only the most recent of2 resultswithin the time period is included. TSH 1.97 0.35 - 4.95 uIU/mL 04/13/2020 1:10 PM CDT [facility] Blood BLOOD SPECIMEN / Unknown Lab Venipuncture / Unknown 04/13/2020 12:14 PM CDT 04/13/2020 12:13 PM CDT Linwood Pepe MD LAB - CHEMISTRY NISSA BRIONES Performing Organization Address [facility] Co de Phone Number [facility] [address] [place] [address] * US RETROPERITONEAL COMPLETE (04/06/2020 2:41 PM CDT) Anatomical Region Laterality Modality Abdomen Ultrasound 04/06/2020 3:17 PM CDT Impressions 04/06/2020 4:52 PM CDT 1. The lower pole right kidney is partially obscured by overlying bowel gas. The right kidney is otherwise normal where visualized. No urinary tract dilation. 2. Normal sonographic appearance of the left kidney. No urinary tract dilation. Dictated by Cynthia Garsia on 04/06/2020 3:20 PM I, Arpan Camejo, have personally reviewed the images and I agree with this report. *Reading Radiologist: Arpan Camejo on 04/06/2020 at 4:52 PM Narrative 04/06/2020 4:52 PM CDT INDICATION: Hypertension COMPARISON: None available. TECHNIQUE: Cantor scale and color Doppler ultrasound imaging of the kidneys per department protocol. FINDINGS: Right kidney: 8.4 cm in length. The lower pole right kidney is obscured by bowel gas and is suboptimally visualized. The superior pole cortical echotexture and thickness are normal. No urinary tract dilation is present. There is no shadowing calculus. The perinephric soft tissues are normal. Left kidney: 12.8 cm in length The cortical echotexture and thickness are normal. No urinary tract dilation is present. There is no shadowing calculus. The perinephric soft tissues are normal. The bladder is distended and appears normal. Procedure Note Arpan Camejo, DO - 04/06/2020 INDICATION: Hypertension COMPARISON: None available. TECHNIQUE: Cantor scale and color Doppler ultrasound imaging of the kidneys per department protocol. FINDINGS: Right kidney: 8.4 cm in length. The lower pole right kidney is obscured by bowel gas and is suboptimally visualized. The superior pole cortical echotexture and thickness are normal. No urinary tract dilation is present. There is no shadowing calculus. The perinephric soft tissues are normal. Left kidney: 12.8 cm in length The cortical echotexture and thickness are normal. No urinary tract dilation is present. There is no shadowing calculus. The perinephric soft tissues are normal. The bladder is distended and appears normal. IMPRESSION 1. The lower pole right kidney is partially obscured by overlying bowel gas. The right kidney is otherwise normal where visualized. No urinary tract dilation. 2. Normal sonographic appearance of the left kidney. No urinary tract dilation. Dictated by Cynthia Garsia on 04/06/2020 3:20 PM I, Arpan Camejo, have personally reviewed the images and I agree with this report. *Reading Radiologist: Arpan Camejo on 04/06/2020 at 4:52 PM Jennie Otis DO ORDERABLES * (ABNORMAL) URINALYSIS W/MICROSCOPIC NO CULTURE (04/06/2020 1:26 PM CDT) Only the most recent of2 resultswithin the time period is included. Color UA Yellow Straw, Yellow 04/06/2020 2:08 PM CDT [facility] Clarity UA Slt Cloudy(A) Clear 04/06/2020 2:08 PM CDT [facility] Glucose UA Negative Negative 04/06/2020 2:08 PM CDT [facility] Bilirubin UA Negative Negative 04/06/2020 2:08 PM CDT [facility] Ketone UA Negative Negative 04/06/2020 2:08 PM CDT [facility] Specific [place] UA 1.012 1.005 - 1.030 04/06/2020 2:08 PM CDT [facility] Blood UA Negative Negative 04/06/2020 2:08 PM CDT [facility] pH UA 6.0 5.0 - 8.0 pH 04/06/2020 2:08 PM T [facility] Protein UA Negative Negative 04/06/2020 2:08 PM CDT [facility] Urobilinogen UA Negative Negative mg/dL 04/06/2020 2:08 PM T [facility] Nitrite UA Negative Negative 04/06/2020 2:08 PM T [facility] Leukocyte UA Trace(A) Negative 04/06/2020 2:08 PM CDT [facility] RBC UA 0-2 None Seen, 0-2, 3-5 # /hpf 04/06/2020 2:08 PM T [facility] WBC UA 0-5 None Seen, 0-5 # /hpf 04/06/2020 2:08 PM T [facility] Bacteria UA Trace(A) None Seen 04/06/2020 2:08 PM T [facility] Squamous Epithelial Cells 6-10(A) None Seen, 0-2, 3-5 /hpf 04/06/2020 2:08 PM T [facility] Mucus UA 1+ /LPF 04/06/2020 2:08 PM T [facility] Urine URINE SPECIMEN OBTAINED BY CLEAN CATCH PROCEDURE / Unknown Collection / Unknown 04/06/2020 1:26 PM CDT 04/06/2020 1:47 PM CDT Narrative [facility] - 04/06/2020 2:08 PM CDT Ascorbic Acid can cause false negative urine strip tests for blood, glucose, nitrite, and bilirubin. Jennie Berg DO LAB - URINALYSIS O RDERABLES [facility] [address] [place] [id number] * CORTISOL BLOOD (04/06/2020 10:51 AM CDT) Cortisol 4.3 ug/dL 04/06/2020 11:52 AM T [facility] Blood BLOOD SPECIMEN / Unknown Lab Venipuncture / Unknown 04/06/2020 10:51 AM CDT 04/06/2020 10:57 AM CDT Narrative [facility] - 04/06/2020 11:52 AM CDT CORTISOL REFERENCE RANGE COMMENT Cortisol AM (7-10 a.m.) 3.70 - 19.40 ug/dL Cortisol PM (3-5 p.m.) 2.90 - 17.30 ug/dL Note: No reference range available for random cortisol levels. All results interpreted by ordering physician. 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 The PM measurements of cortisol run approximately one-half to one-third of the AM values. Jennie Berg DO LAB - CHEMISTRY OR DERABLES [facility] [place] [address] * ECHO CONSULT - PEDIATRIC (04/06/2020 9:55 AM CDT) 04/06/2020 9:55 AM CDT Narrative Procedure Note Denis Tanner DDS - 04/06/[address] [place] [phone] Fax Non-Congenital Transthoracic Report Pat.Name: VIEIRAROSANGELA Razo Pat.ID: [id number] .Date: 04/06/2020 Exam Time: 9:55:00 AM Study Type:Non-Congenital TTE Height: 175cm Weight: 146.1kg BSA: 2.53 m2 Age: 1 2005,14Y Sex: FEMALE BP: 124/82 Sonogrphr: Natasha Mast RDCS Pat. Stat.:Inpatient Room: 2010 CPT - 4: 91513 Reason for Study: HTN History / Clinical: ECHO for HTN urgency Procedures: 2D Non-congenital, Doppler Complete, Color Flow Race: U Visit ID: [id number] SUMMARY: Impression: Moderate concentric left ventricular hypertrophy. No pathologic valve stenosis or regurgitation. Normal left ventricular systolic function. Findings: Anatomic Relationships: Abdominal situs solitus. There is levocardia. Atrial situs solitus. The AV alignment is concordant. The ventricular looping is D-looped. The VA connection is concordant. The arterial relationships are normal. Systemic Veins: Normal right SVC. Normal IVC. Pulmonary Veins: At least two pulmonary veins drain to the left atrium. Right Atrium: The right atrial size is normal. Left Atrium: The left atrial size is normal. Atrial Septum: Difficult subcostal acoustic windows; limited visualization of atrial septum but no significant shunting visualized. Tricuspid Valve: The tricuspid valve is structurally normal. There is no stenosis. There is physiologic regurgitation present. Mitral Valve: The mitral valve is structurally normal. There is no stenosis. There is no significant regurgitation present. Right Ventricle: The cavity size is normal. The wall thickness is normal. The systolic function is normal. RV Outflow Tract: The outflow tract is normal. Left Ventricle: The cavity size is normal. The wall thickness is with concentric hypertrophy. The systolic function is normal. LV Outflow Tract: The outflow tract is normal. Ventricular Septum: The septal motion is normal. There is no defect with no shunting. Pulmonary Valve: The pulmonic valve is structurally normal. There is no stenosis. There is physiologic regurgitation present. Aortic Valve: The aortic valve is structurally normal. There is no stenosis. There is no regurgitation present. Pulmonary Artery: The MPA is normal. The LPA is normal. The RPA is normal. Aorta: The aortic root is normal. The aortic arch is patent. The arch sidedness is not evaluated. PDA: No PDA with no shunting. Coronary Arteries: Not evaluated. Pericardium: No pericardial effusion. MEASUREMENTS: DOPPLER Mitral Valve MV pkE 0.78 m/s ([facility] -0.8) MV DeTm 142.68 ms (zsc -0.5) MV pkA 0.48 m/s (zsc 0.4) E Velocity to A 5.22 MV E/A 1.64 (zsc -1) Average Annulus 0.15 m/s Left Ventricle BasLatE' 0.17 m/s (zsc -0.8) BasSeptE' 0.13 m/s (zsc -0.2) Lat MA E Velocity to A 4.7 Med MA E Velocity to A 5.86 MMODE Ventricles LVIDd 43.75 mm (38.1-46.3) LV%fs 36.82 % (zsc 0.5) LVIDs 27.64 mm LV EF 66.92 % IVSd 16.58 mm (5.4-8.8) LV Mass 288.57 g IVSs 17.31 mm LV MaIx 114.06 g/m LVPWd 15.14 mm (5.8-8.8) LV Ma/ht 164.9 g/m LVPWs 19.47 mm AO / LA AoR 26.44 mm (17.9-24.1) LA/Ao 1.16 LAIDs 30.77 mm (19.4-28.2) Signed 04/06/2020 11:34 AM Agnes Houston MD Jennie Berg DO ECHO ORDERABLES [facility] [address] [id number] * XR FINGERS LEFT 2VW OR MORE (12/09/2019 1:39 PM CDT) Anatomical Region Laterality Modality Upper Extremity, Wrist / Hand Ra diographic Imaging 12/09/2019 2:02 PM CDT Impressions 12/09/2019 2:19 PM CDT No fracture or dislocation. Dictated by Tian Presley on 12/09/2019 2:04 PM I, Ruy Mccabe, have personally reviewed the images and I agree with this report. *Reading Radiologist: Ruy Mccabe on 12/09/2019 at 2:19 PM Narrative 12/09/2019 2:19 PM CDT INDICATION: Unspecified injury COMPARISON: None available. TECHNIQUE: Frontal, lateral and oblique views of the left hand centered on the third digit. FINDINGS: There is no fracture or osseous abnormality. The joint alignment is normal. Soft tissues normal as seen. Procedure Note Ruy Mccabe DO - 12/09/2019 INDICATION: Unspecified injury COMPARISON: None available. TECHNIQUE: Frontal, lateral and oblique views of the left hand centered on the third digit. FINDINGS: There is no fracture or osseous abnormality. The joint alignment is normal. Soft tissues normal as seen. IMPRESSION No fracture or dislocation. Dictated by Tian Presley on 12/09/2019 2:04 PM I, Ruy Mccabe, have personally reviewed the images and I agree with this report. *Reading Radiologist: Ruy Mccabe on 12/09/2019 at 2:19 PM Nai Turner MD DIAGNOSTIC IMAGING O RDERABLES * MRI BRAIN WO CONT LTD PEDIATRIC (12/02/2019 9:30 AM CDT) Anatomical Region Laterality Modality Head Magnetic Resonan ce 12/02/2019 10:0 6 AM CDT Narrative 12/02/2019 10:09 AM CDT INDICATION: Cerebral cyst. COMPARISON: 11/27/2017. . 04/30/[address] TECHNIQUE: Multiplanar T2 SSFSE imaging of the brain was performed without IV contrast. FINDINGS/IMPRESSION: There is mild lateral ventriculomegaly, stable. The fourth ventricle is normal in size. The right posterior fossa cyst is stable in size and shape. No acute intracranial abnormality. *Reading Radiologist: Cassius Grey on 12/02/2019 at 10:09 AM Procedure Note Cassius Grey MD - 12/02/2019 INDICATION: Cerebral cyst. COMPARISON: 11/27/2017. . 04/30/[address] TECHNIQUE: Multiplanar T2 SSFSE imaging of the brain was performed without IV contrast. FINDINGS/IMPRESSION: There is mild lateral ventriculomegaly, stable. The fourth ventricle is normal in size. The right posterior fossa cyst is stable in size and shape. No acute intracranial abnormality. *Reading Radiologist: Cassius Grey on 12/02/2019 at 10:09 AM Yuly Acnua WATER PU[employer] ASSEMBLER[employer]DERRICK BUILDER MR ORDERABLES * EEG AWAKE AND ASLEEP (07/01/2018 1:09 PM MEMORANDUM STATEMENT CLERK) Narrative [facility] - 07/01/2018 1:09 PM MEMORANDUM STATEMENT CLERK Sven Rodriguez MD 07/01/2018 1:09 PM M [facility] [address] [place] [address] CLINICAL NEUROPHYSIOLOGY NAME: Rosangela Vieira :2005 AD[address]ESS:[address] [place] [id number] CSN #: [id number] DATE OF TEST:07/01/2018 Requesting Physician :Mesfin May MD [employer] SYSTEMS REPAIRER: Sven Rodriguez MD MEDICAL HISTORY: 12 years old female with staring spells, syncope MEDICATIONS: No seizure medications EEG DESCRIPTION: A routine EEG with scalp electrodes was performed during clinical wakefulness and sleep using Relux monitoring system to record EEG data digitally on this 12 y.o. 9 m.o. patient. The standard 10/20 electrode placement system was used. A variety of referential and bipolar montages were utilized to analyze the data. The duration of study was 36 minutes. The study began at 11.46 AM on 07/01/2018 and ended at 12.22 PM on the same day. EEG FINDINGS: During awake state with eyes closed background activity included evidence of posterior dominant rhythm of 9 Hzs. No significant asymmetry of background activity occurred. During periods of drowsiness posterior dominant rhythm waxed and weaned and there were periods of slowing. During stage 2 sleep, symmetrical V-waves, K-complexes, and sleep spindles occurred. Hyperventilation was performed and did not show any epileptiform activity.Photic stimulation using stepwise progression of photic frequency did not elicit any epileptiform abnormality. There were no focal abnormalities, no interictal epileptiform abnormalities occurred. No clinical or electrographic seizures were seen. INTERPRETATION: This routine awake and sleep EEG is normal for patient's age. No pattern with specific correlation with seizure occurred. No focal abnormalities were present. Sven Rodriguez MD 07/01/2018 1:07 PM Crystal Kasie Worsena DO NEUROLOGY ORDER CARLEEN [facility] * (05/30/2018 3:07 PM CDT) LH 3.2 mIU/mL 05/30/2018 7:05 PM CDT [facility] Blood BLOOD SPECIMEN / Unknown Lab Venipuncture / Unknown 05/30/2018 3:07 PM CDT 05/30/2018 3:34 PM CDT Narrative [facility] - 05/30/2018 7:05 PM CDT LH Reference Range Adult Female: Normally menstruating: Follicular 1.9 - 12.5 mIU/mL Midcycle Peak 8.7 - 76.3 mIU/mL Luteal 0.5 - 16.9 mIU/mL <0.1 - 1.5 mIU/mL Postmenopausal 15.9 - 54.0 mIU/mL Contraceptives 0.7 - 5.6 mIU/mL Adult Male: 20 - 70 years : 1.5 - 9.3 mIU/mL > 70 years : 3.1 - 34.6 mIU/mL Children : <0.1 - 6.0 mIU/mL Delia Ahn MD LAB - CHEMISTR Y ORDERABLES [facility] [address] [place] [address] * INSULIN LEVEL (05/30/2018 3:07 PM CDT) Insulin 33.3 uIU/mL 05/30/2018 5:10 PM CDT [facility] Blood BLOOD SPECIMEN / Unknown Lab Venipuncture / Unknown 05/30/2018 3:07 PM CDT 05/30/2018 3:34 PM CDT Narrative [facility] - 05/30/2018 5:10 PM CDT INSULIN BLOOD RANGE COMMENT: Random Level Not Established Fasting Level 3-19 mcU/mL 30 minutes post challege 20-112 mcU/mL 60 minutes 29-88 mcU/mL 90 minutes 26-84 mcU/mL 120 minutes 22-79 mcU/mL Delia Ahn MD LAB - CHEMISTR Y ORDERABLES [facility] [address] [place] [id number] * FSH (05/30/2018 3:07 PM CDT) [facility] FSH 5.01 0.2 - 8.0 mIU/mL 05/30/2018 4:41 PM CDT [facility] Blood BLOOD SPECIMEN / Unknown Lab Venipuncture / Unknown 05/30/2018 3:07 PM CDT 05/30/2018 3:35 PM CDT Narrative [facility] - 05/30/2018 4:41 PM CDT FSH Reference Range Normal Female Menses: Normally menstruating: Follicular 3.0 - 8.1 mIU/mL Midcycle Peak 2.6 - 16.7 mIU/mL Luteal 1.4 - 5.5 mIU/mL Postmenopausal 26.7 - 133.4 mIU/mL Delia Ahn MD LAB - CHEMISTR Y ORDERABLES Performing Organization Address [facility] Co de Phone Number [facility] [address] [place] [id number] * ESTRADIOL (05/30/2018 3:07 PM CDT) [facility] Estradiol 34.87 pg/mL 05/30/2018 7:07 PM CDT [facility] Blood BLOOD SPECIMEN / Unknown Lab Venipuncture / Unknown 05/30/2018 3:07 PM CDT 05/30/2018 3:34 PM CDT Narrative [facility] - 05/30/2018 7:07 PM CDT Menstruating Females Day in cycle relative to LH peak: Follicular Phase(-12 to -4) 18.9 - 246.7 pg/mL Midcycle (-3 to +2) 35.5 - 570.8 pg/mL Luteal Phase (+4 to +12) 22.4 - 256.0 pg/mL Postmenopausal ND* - 44.5 pg/mL Males 11.6 - 41.2 pg/mL * ND = not detectable Delia Ahn MD LAB - CHEMISTR Y ORDERABLES [facility] [address] [place] [address] * TESTOSTERONE FREE FEM/CHLD HYPOGNDL MALE (05/30/2018 3:07 PM CDT) Testosterone 16 ng/dL 06/05/2018 4:23 PM MEMORANDUM STATEMENT CLERK [facility] ([facility]) Comment: Reference Range: Michael Age Range Stage (years) (ng/dL) 1 <9.2 <2.5 - 10 2 9.2 - 13.7 7 - 28 3 10.0 - 14.4 15 - 35 4 10.7 - 15.6 13 - 32 5 11.8 - 18.6 20 - 38 Adult Females >18 10 - 55 Free Testosterone % 2.1 % 06/05/2018 4:23 PM MEMORANDUM STATEMENT CLERK [facility] ([facility]) Comment: Reference Range: Adult Females: 0.8 - 1.4 Testosterone Free 3.4 pg/mL 018 4:23 PM MEMORANDUM STATEMENT CLERK [facility] ([facility]) Comment: Reference Range: Comprehensive values for free testosterone by dialysis throughout puberty are currently unavailable. Adult Females: 1.1 - 6.3 Blood BLOOD SPECIMEN / Unknown Lab Venipuncture / Unknown 05/30/2018 3:07 PM CDT 05/30/2018 3:34 PM CDT Narrative [facility] ([facility]) - 06/05/2018 4:23 PM MEMORANDUM STATEMENT CLERK Performed at: [facility] [address] [place] [id number] Counterintelligence Specialist: Linwood Cuenca MD, Phone: [phone] Delia Ahn MD LAB - CHEMISTR Y ORDERABLES [facility] ([facility]) [address] [place] [address] * TESTOSTERONE TOTAL FEM/CHLD HYPOGNDL MALE (05/30/2018 3:07 PM CDT) Testosterone Total LC-MS 14.1 ng/dL 06/02/2018 12:07 PM MEMORANDUM STATEMENT CLERK [facility] ([facility]) Comment: Michael Stage Age (years) Female 1 <9.2 <2.5 - 10.0 2 9.2 - 13.7 7.0 - 28.0 3 10.0 - 14.4 15.0 - 35.0 4 10.7 - 15.6 13.0 - 32.0 5 11.8 - 18.6 20.0 - 38.0 Adult Females = or >18 10.0 - 55.0 This test was developed and its performance characteristics determined by [facility]. It has not been cleared or approved by the Food and Drug Administration. Blood BLOOD SPECIMEN / Unknown Lab Venipuncture / Unknown 05/30/2018 3:07 PM CDT 05/30/2018 3:34 PM CDT Narrative [facility] ([facility]) - 06/02/2018 12:07 PM MEMORANDUM STATEMENT CLERK Performed at: [facility] [id number] Counterintelligence Specialist: Ruby Ponce MD, Phone: [phone] Delia Ahn MD LAB - CHEMISTR Y ORDERABLES Performing Organization Address City/State/[facility] Co de Phone Number [facility] ([facility]) [address] [place] [address] * (ABNORMAL) URINALYSIS - POCT (IP) BEAKER INTERFACE (05/30/2018 2:15 PM CDT) Color UA POCT Yellow Straw, Yellow, Dark Yellow, Light Yellow 05/30/2018 2:06 PM CDT [facility] Clarity UA POCT Clear 8 2:06 PM CDT [facility] Specific [place] UA POCT 1.025 1.005 - 1.030 05/30/2018 2:06 PM CDT [facility] pH UA POCT 5.5 5.0 - 8.0 pH 05/30/2018 2:06 PM CDT [facility] Protein UA POCT Negative Negative 8 2:06 PM CDT [facility] Blood UA POCT Negative Negative 05/30/2018 2:06 PM CDT [facility] Leukocyte UA POCT Trace(A) Negative 05/30/2018 2:06 PM CDT [facility] Nitrite UA POCT Negative Negative 8 2:06 PM CDT [facility] Glucose UA POCT Negative Negative 8 2:06 PM CDT [facility] Ketone UA POCT Negative Negative 05/30/2018 2:06 PM CDT [facility] Bilirubin UA POCT Negative Negative 05/30/2018 2:06 PM CDT [facility] Urobilinogen UA POCT 0.2 0.1 - 1.0 E.U./dL 05/30/2018 2:06 PM CDT [facility] Urine URINE / Unknown 05/30/2018 2 :15 PM CDT 05/30/2018 2:06 PM CDT Delia Ahn MD LAB - POINT OF CARE ORDERABLES Performing Organization Address City/[facility]/ZIP Co de Phone Number [facility] [address] [place] [address] * URINALYSIS - POCT (IP) NOTIFICATION (05/30/2018 2:00 PM CDT) Comment Notification Label Only - See Separate Report 05/30/2018 3:30 PM CDT [facility] Urine URINE / Unknown 05/30/2018 2 :00 PM CDT 05/30/2018 2:00 PM CDT Delia Ahn MD LAB - URINALYS IS ORDERABLES Performing Organization Address [facility] Co de Phone Number [facility] [address] [place] [address] * AUDIOLOGY/TYMPANOMETRY ORDER (05/02/2018 10:09 PM CDT) Narrative 05/02/2018 10:09 PM CDT Ordered by an unspecified provider. Scanned Document AUDIOLOGY SERVICES O RDERABLES * XR SHUNT SERIES PEDIATRIC (04/30/2018 4:11 AM CDT) Anatomical Region Laterality Modality Radiographic Mackenzie ging 04/30/2018 7:44 AM CDT Impressions 04/30/2018 7:47 AM CDT 1. No shunt. 2. Status post right occipital craniotomy Reading Radiologist: Primo Polanco MD on 04/30/2018 at 7:47 AM Narrative 04/30/2018 7:47 AM CDT Shunt series pediatric April history: Presence of cerebrospinal fluid drainage device 2 views of the skull are obtained in addition to AP views of the chest and AP view the abdomen and pelvis. The AP view of the pelvis is unremarkable. The lungs are clear and heart size is within normal limits allowing for this portable technique. This image was obtained in expiration. Lungs are clear. Abdomen gas pattern shows moderate amount of retained stool. No shunt catheter is present. Postsurgical changes involving the right occiput are noted consistent with right occipital craniotomy now stabilized with external fixators. Procedure Note Primo Polanco MD - 04/30/2018 Shunt series pediatric April history: Presence of cerebrospinal fluid drainage device 2 views of the skull are obtained in addition to AP views of the chest and AP view the abdomen and pelvis. The AP view of the pelvis is unremarkable. The lungs are clear and heart size is within normal limits allowing for this portable technique. This image was obtained in expiration. Lungs are clear. Abdomen gas pattern shows moderate amount of retained stool. No shunt catheter is present. Postsurgical changes involving the right occiput are noted consistent with right occipital craniotomy now stabilized with external fixators. IMPRESSION 1. No shunt. 2. Status post right occipital craniotomy Reading Radiologist: Primo Polanco MD on 04/30/2018 at 7:47 AM Emperatriz Thomas MD DIAGNOSTIC IMAGING O RDERABLES * CT BRAIN SHUNT EVALUATION (04/30/2018 3:31 AM CDT) Anatomical Region Laterality Modality Computed Tomogra phy 04/30/2018 7:13 AM CDT Impressions 04/30/2018 9:04 AM CDT Stable ventriculomegaly with large arachnoid cyst that is unchanged in size. The preliminary results were discussed with David by Robert at 0408 on 04/30/18. I, Joshua Hicks, have personally reviewed the images and I agree with this report. Reading Radiologist: Bill Emanuel MD on 04/30/2018 at 9:04 AM Narrative 04/30/2018 9:04 AM CDT EXAMINATION: Computed tomography (CT) of the head without contrast HISTORY: 12-year-old with a right posterior fossa arachnoid cyst complicated by ventriculomegaly. Patient has recently had dizziness, headaches, tachycardia. TECHNIQUE: CT of the head was performed without contrast according to standard protocol. DOSE: CTDI: 6.7 mGy, DLP: 131 mGy-cm The reported CTDIvol (mGy) and DLP (mGy-cm) values are generated from scan acquisition factors based on 32 cm (body) or 16 cm (head) phantoms. FINDINGS: Multiple MRIs of the brain, most recent 11/27/2017. Compared to MRI performed on 11/27/2017, ventriculomegaly is stable. The transverse diameter of the third ventricle is approximately 8 mm on today's study (series 2, image 15) which is not significantly different. The bifrontal diameter of the lateral ventricles at the level of the foramen of Shipley in axial plane (series 2, image 15) is 41 mm on today's study compared to 40 mm on the previous exam. The previously described arachnoid cyst in the right posterior fossa has not significantly changed since the previous examination. There appears to be unchanged mass effect on the adjacent right cerebellar hemisphere and brainstem. The basilar cisterns are patent. The visualized portions of the orbits, paranasal sinuses, and mastoids appear normal. No acute osseous abnormality. Procedure Note Joshua Hicks MD - 04/30/2018 EXAMINATION: Computed tomography (CT) of the head without contrast HISTORY: 12-year-old with a right posterior fossa arachnoid cyst complicated by ventriculomegaly. Patient has recently had dizziness, headaches, tachycardia. TECHNIQUE: CT of the head was performed without contrast according to standard protocol. DOSE: CTDI: 6.7 mGy, DLP: 131 mGy-cm The reported CTDIvol (mGy) and DLP (mGy-cm) values are generated from scan acquisition factors based on 32 cm (body) or 16 cm (head) phantoms. FINDINGS: Multiple MRIs of the brain, most recent 11/27/2017. Compared to MRI performed on 11/27/2017, ventriculomegaly is stable. The transverse diameter of the third ventricle is approximately 8 mm on today's study (series 2, image 15) which is not significantly different. The bifrontal diameter of the lateral ventricles at the level of the foramen of Shipley in axial plane (series 2, image 15) is 41 mm on today's study compared to 40 mm on the previous exam. The previously described arachnoid cyst in the right posterior fossa has not significantly changed since the previous examination. There appears to be unchanged mass effect on the adjacent right cerebellar hemisphere and brainstem. The basilar cisterns are patent. The visualized portions of the orbits, paranasal sinuses, and mastoids appear normal. No acute osseous abnormality. IMPRESSION Stable ventriculomegaly with large arachnoid cyst that is unchanged in size. The preliminary results were discussed with Orileyda by Robert at 0408 on 04/30/18. I, Joshua Hicks, have personally reviewed the images and I agree with this report. Reading Radiologist: Bill Emanuel MD on 04/30/2018 at 9:04 AM Emperatriz Thomas MD CT ORDERABLES * DRUG SCREEN TOX URINE PANEL (12/28/2017 1:09 PM CDT) Pathologist [facility] Amphetamines Screen Urine Not Detected Not Detected 12/28/2017 1:52 PM T [facility] Barbiturates Screen Urine Not Detected Not Detected 12/28/2017 1:52 PM T [facility] Benzodiazepines Screen Urine Not Detected Not Detected 12/28/2017 1:52 PM T [facility] Cannabinoids Screen Urine Not Detected Not Detected 12/28/2017 1:52 PM T [facility] Cocaine Screen Urine Not Detected Not Detected 12/28/2017 1:52 PM T [facility] Methadone Screen Urine Not Detected Not Detected 12/28/2017 1:52 PM T [facility] Opiate Screen Urine Not Detected Not Detected 12/28/2017 1:52 PM T [facility] Phencyclidine Screen Urine Not Detected Not Detected 12/28/2017 1:52 PM T [facility] Urine URINE / Unknown Collection / Unknown 12/28/2017 1:09 PM CDT 12/28/2017 1:33 PM CDT Narrative [facility] - 12/28/2017 1:52 PM CDT This drug screen is designed for MEDICAL purposes only. It is not to be used for legal purposes, including but not limited to worker's comp, police investigations, occupational issues, child custody, etc. Any positive result is only presumptive and must be confirmed with a separate confirmatory test ordered by the physician. Drug Screening Test Cutoff Values: AMPHETAMINES 1000 ng/mL BARBITURATES 200 ng/mL BENZODIAZEPINES 200 ng/mL CANNABINOIDS(THC) 50 ng/mL COCAINE 300 ng/mL METHADONE 300 ng/mL OPIATES 300 ng/mL PHENCYCLIDINE(PCP)25 ng/mL Emperatriz Thomas MD LAB - URINE CHEMISTR Y ORDERABLES [facility] [address] [facility] [place] [address] * XR ANKLE 3+ VW RIGHT (12/04/2017 11:31 AM CDT) Only the most recent of5 resultswithin the time period is included. Anatomical Region Laterality Modality Lower Extremity Radiographic Mackenzie ging 12/04/2017 11:5 8 AM CDT Impressions 12/04/2017 12:00 PM CDT Progressive healing sclerosis at the nondisplaced Salter-Ma IV fracture of the distal right tibia with a transverse epiphyseal screw in place. Decreased soft tissue swelling and joint effusion. Narrative 12/04/2017 12:00 PM CDT INDICATION: Salter-Ma IV fracture of the distal right tibia, follow-up for healing EXAMINATION: 3 nonweightbearing view(s) of the right ankle 12/04/2017 COMPARISON: CT right ankle 07/05/2017, right ankle radiographs 09/25/2017 Procedure Note Joshua Hicks MD - 12/04/2017 INDICATION: Salter-Ma IV fracture of the distal right tibia, follow-up for healing EXAMINATION: 3 nonweightbearing view(s) of the right ankle 12/04/2017 COMPARISON: CT right ankle 07/05/2017, right ankle radiographs 09/25/2017 IMPRESSION Progressive healing sclerosis at the nondisplaced Salter-Ma IV fracture of the distal right tibia with a transverse epiphyseal screw in place. Decreased soft tissue swelling and joint effusion. Areli Kwan MD DIAGNOSTIC IMAGING O RDERABLES * MRI BRAIN NON CONTRAST (11/27/2017 12:03 PM CDT) Only the most recent of6 resultswithin the time period is included. Anatomical Region Laterality Modality Head Magnetic Resonan ce 11/27/2017 2:34 PM CDT Impressions 11/27/2017 2:43 PM CDT 1. Stable abnormal study. Ventriculomegaly and the size of arachnoid cyst have not changed. The shunt protocol is designed to rapidly image a nonsedated patient for the evaluation of ventricular size. It is not sufficiently sensitive to exclude or characterize other intracranial structural abnormalities, evaluate ventricular catheter position/shunt integrity, or exclude intracranial hemorrhage. Narrative 11/27/2017 2:43 PM CDT EXAMINATION: MAGNETIC RESONANCE IMAGING (MRI) OF THE BRAIN WITHOUT CONTRAST (REDUCED SERVICE) HISTORY: Cerebral cysts TECHNIQUE: MRI of the brain consisting of multiplanar single shot fast spin echo images utilizing parallel imaging were obtained without contrast or sedation as part of a shunt protocol. FINDINGS: Comparison is made with aCT head examination dated 2016. The previously reported arachnoid cyst in the right posterior fossa and the cerebellopontine angle, demonstrates stable mass effect on the adjacent right cerebellar hemisphere and brainstem. Its maximum diagonal diameter is close to 94 mm, and its maximum transverse diameter is 47 mm on axial image #10 of series 2, similar to the previous examination, given the technical differences (image #11 of series 2 of the prior study). The ventriculomegaly is stable. The transverse diameter of the third ventricle is 10 mm in both studies (image #13 of series 2). The bifrontal diameter of the lateral ventricles at the level of foramen of Monro in coronal plane is 42 mm in both studies (image #12 of series 3). There is a stable empty sella associated with flattening of the pituitary gland. The pituitary stalk and optic chiasm are stable and appear normal. The paranasal sinuses, middle ear cavities and the mastoid air cells are aerated and clear. Procedure Note Cristobal Summers MD - 11/27/2017 EXAMINATION: MAGNETIC RESONANCE IMAGING (MRI) OF THE BRAIN WITHOUT CONTRAST (REDUCED SERVICE) HISTORY: Cerebral cysts TECHNIQUE: MRI of the brain consisting of multiplanar single shot fast spin echo images utilizing parallel imaging were obtained without contrast or sedation as part of a shunt protocol. FINDINGS: Comparison is made with aCT head examination dated 2016. The previously reported arachnoid cyst in the right posterior fossa and the cerebellopontine angle, demonstrates stable mass effect on the adjacent right cerebellar hemisphere and brainstem. Its maximum diagonal diameter is close to 94 mm, and its maximum transverse diameter is 47 mm on axial image #10 of series 2, similar to the previous examination, given the technical differences (image #11 of series 2 of the prior study). The ventriculomegaly is stable. The transverse diameter of the third ventricle is 10 mm in both studies (image #13 of series 2). The bifrontal diameter of the lateral ventricles at the level of foramen of Monro in coronal plane is 42 mm in both studies (image #12 of series 3). There is a stable empty sella associated with flattening of the pituitary gland. The pituitary stalk and optic chiasm are stable and appear normal. The paranasal sinuses, middle ear cavities and the mastoid air cells are aerated and clear. IMPRESSION 1. Stable abnormal study. Ventriculomegaly and the size of arachnoid cyst have not changed. The shunt protocol is designed to rapidly image a nonsedated patient for the evaluation of ventricular size. It is not sufficiently sensitive to exclude or characterize other intracranial structural abnormalities, evaluate ventricular catheter position/shunt integrity, or exclude intracranial hemorrhage. Yuly Acuna APRN-DERRICK BUILDER MR ORDERABLES * HCG URINE QUALITATIVE - POCT (IP) BEAKER (07/09/2017 12:30 PM MEMORANDUM STATEMENT CLERK) HCG Qual Urine Negative Negative [facility] POCT TESTING QC Verified Yes Yes [facility] PO CT TESTING Urine URINE / Unknown 07/09/2017 1 2:30 PM MEMORANDUM STATEMENT CLERK Areli Kwan MD LAB - POINT OF CARE ORDERABLES [facility] POCT TESTING [address] [place] [address], [facility] [phone] * CT LOWER EXTREMITY NON CONTRAST RIGHT (07/05/2017 10:30 AM MEMORANDUM STATEMENT CLERK) Anatomical Region Laterality Modality Lower Extremity Computed Tomogra phy 07/05/2017 10:5 2 AM MEMORANDUM STATEMENT CLERK Impressions 07/05/2017 2:41 PM MEMORANDUM STATEMENT CLERK 1. Salter-Ma IV fracture, distal tibia. 2. A gap of 4 mm and a 4mm fragment of bone from the medial tibial epiphysis. 3. Soft tissue swelling and ankle joint effusion. This report was dictated by Lew Escalante M.D. (Day Care Teacher). I, Lorin Mendes, have personally reviewed the images and I agree with this report. Narrative 07/05/2017 2:41 PM MEMORANDUM STATEMENT CLERK Exam: CT right lower extremity without contrast HISTORY: 11-year-old female with closed right ankle fracture. COMPARISON: No prior studies are available for comparison. TECHNIQUE: 0.[address] slices through the right ankle were obtained without contrast. 2.5 mm and 5 mm reconstructions were obtained in the axial plane using bone and soft tissue algorithms. Additional reconstructions in bone and soft tissue algorithms were obtained in the coronal and sagittal planes. DOSE: CTDI: 2.83 mGy, DLP: 43.14 mGy-cm The reported CTDIvol (mGy) and DLP (mGy-cm) values are generated from scan acquisition factors based on 32 cm (body) or 16 cm (head) phantoms and may underestimate or overestimate the actual patient dose based on patient size and other factors. FINDINGS: There is a minimally displaced fracture fragment of the posterior distal tibial metaphysis. The fracture extends horizontally through the lateral aspect of the physis. A comminuted fracture of the distal tibial epiphysis has a maximum of 2 mm of displacement between the medial and lateral fragments. There is a gap of 4 mm in the anterior medial tibial epiphysis where a fracture fragment seen anterior to the talus was likely from. The small fragment measures 4 mm. The remaining osseous structures are intact and well aligned without evidence of fracture. A moderate amount of ankle soft tissue swelling is seen. A joint effusion is present. Procedure Note Lorin Mendes MD - 07/05/2017 Exam: CT right lower extremity without contrast HISTORY: 11-year-old female with closed right ankle fracture. COMPARISON: No prior studies are available for comparison. TECHNIQUE: 0.[address] slices through the right ankle were obtained without contrast. 2.5 mm and 5 mm reconstructions were obtained in the axial plane using bone and soft tissue algorithms. Additional reconstructions in bone and soft tissue algorithms were obtained in the coronal and sagittal planes. DOSE: CTDI: 2.83 mGy, DLP: 43.14 mGy-cm The reported CTDIvol (mGy) and DLP (mGy-cm) values are generated from scan acquisition factors based on 32 cm (body) or 16 cm (head) phantoms and may underestimate or overestimate the actual patient dose based on patient size and other factors. FINDINGS: There is a minimally displaced fracture fragment of the posterior distal tibial metaphysis. The fracture extends horizontally through the lateral aspect of the physis. A comminuted fracture of the distal tibial epiphysis has a maximum of 2 mm of displacement between the medial and lateral fragments. There is a gap of 4 mm in the anterior medial tibial epiphysis where a fracture fragment seen anterior to the talus was likely from. The small fragment measures 4 mm. The remaining osseous structures are intact and well aligned without evidence of fracture. A moderate amount of ankle soft tissue swelling is seen. A joint effusion is present. IMPRESSION 1. Salter-Ma IV fracture, distal tibia. 2. A gap of 4 mm and a 4mm fragment of bone from the medial tibial epiphysis. 3. Soft tissue swelling and ankle joint effusion. This report was dictated by Lew Escalante M.D. (Day Care Teacher). I, Lorin Mendes, have personally reviewed the images and I agree with this report. Scott MOREAU-Liliya CT ORDERABLES * GLUCOSE (12/28/2016 2:11 PM CDT) Only the most recent of2 resultswithin the time period is included. [facility] Glucose 94 70 - 105 mg/dL 12/28/2016 5:10 PM CDT [facility] Blood BLOOD SPECIMEN / Unknown Lab Venipuncture / Unknown 12/28/2016 2:11 PM CDT 12/28/2016 3:02 PM CDT Taisha Valladares DO LAB - CHEMISTRY NISSA BRIONES [facility] [place] [address] * XR FOOT 2 VW LEFT (09/28/2016 11:49 AM MEMORANDUM STATEMENT CLERK) Anatomical Region Laterality Modality Ankle / Foot Radiographic Mackenzie ging 09/28/2016 11:5 8 AM MEMORANDUM STATEMENT CLERK Impressions 09/28/2016 12:02 PM MEMORANDUM STATEMENT CLERK No fracture. Narrative 09/28/2016 12:02 PM MEMORANDUM STATEMENT CLERK EXAMINATION: Left foot 2 views HISTORY: 11-year-old with foot mass. COMPARISON: None. FINDINGS: Nonweightbearing 2 view examination of the foot is obtained. There is no fracture. The joint spaces and alignment appear normal. No focal osseous abnormality is present. There is no ankle joint effusion. There are no radiopaque foreign bodies. There is increased soft tissue density along the dorsal aspects of the forefoot and hindfoot. Procedure Note Sheree Lopez MD - 09/28/2016 EXAMINATION: Left foot 2 views HISTORY: 11-year-old with foot mass. COMPARISON: None. FINDINGS: Nonweightbearing 2 view examination of the foot is obtained. There is no fracture. The joint spaces and alignment appear normal. No focal osseous abnormality is present. There is no ankle joint effusion. There are no radiopaque foreign bodies. There is increased soft tissue density along the dorsal aspects of the forefoot and hindfoot. IMPRESSION No fracture. Jessica Paul MD DIAGNOSTIC IMAGING O RDERABLES * INFLUENZA A+B ANTIGEN RAPID (09/28/2016 11:07 AM MEMORANDUM STATEMENT CLERK) Influenza A Antigen Negative Negative 09/28/2016 11:33 AM MEMORANDUM STATEMENT CLERK [facility] Influenza B Antigen Negative Negative 09/28/2016 11:33 AM MEMORANDUM STATEMENT CLERK [facility] Microbiology NASOPHARYNGEAL SWAB / Unknown Collection / Unknown 09/28/2016 11:07 AM MEMORANDUM STATEMENT CLERK 09/28/2016 11:07 AM MEMORANDUM STATEMENT CLERK Narrative [facility] - 09/28/2016 11:33 AM [facility] The sensitivity of rapid tests for influenza A and B antigens, according to the published reports , ranges from 30-70% when compared to PCR and viral culture. For H1N1 influenza A, the sensitivity varies from 30-50%. For other influenza A strains, the sensitivity ranges from 50-70%. For influenza B virus, the sensitivity is approximately 30%. A negative result does not exclude influenza infection. False-positive (and true-negative) influenza test results are more likely to occur when disease prevalence is low, which is generally at the beginning and end of the influenza season. False-negative (and true-positive) influenza test results are more likely to occur when disease prevalence is high, which is typically at the height of the influenza season. Jessica Paul MD LAB - MICROBIOLOGY O RDERABLES Performing Organization Address [facility] Co de Phone Number [facility] [address] [place] [address] * ALT (12/02/2015 3:11 PM CDT) ALT 13 8 - 65 U/L 12/02/2015 4:07 PM CDT [facility] Blood BLOOD SPECIMEN / Unknown Lab Venipuncture / Unknown 12/02/2015 3:11 PM CDT 12/02/2015 3:29 PM CDT Taisha Valladares DO LAB - CHEMISTRY NISSA BRIONES Performing Organization Address [facility] Co de Phone Number [facility] [address] [place] [id number] * XR LUMBAR SPINE 2 OR 3 VW (01/18/2015 4:13 PM CDT) Anatomical Region Laterality Modality Spine Radiographic Mackenzie ging 01/18/2015 4:17 PM CDT Impressions 01/18/2015 4:25 PM CDT Minimal offset at the sacrococcygeal junction with minimal retrolisthesis of S1 on Co1 which may reflect a fracture. Narrative 01/18/2015 4:25 PM CDT EXAMINATION: Lumbar spine 2 or 3 views HISTORY: 9-year-old with back pain after falling off couch. COMPARISON: None available. FINDINGS: AP and lateral views of the lumbar spine are submitted for interpretation. The alignment of the lumbar spine is normal. The vertebral body heights and intervertebral disc spaces are normal. There is minimal offset at the sacrococcygeal junction with minimal retrolisthesis S5 on Co1. A moderate amount of retained stool is present. Procedure Note Sheree Lopez MD - 01/18/2015 EXAMINATION: Lumbar spine 2 or 3 views HISTORY: 9-year-old with back pain after falling off couch. COMPARISON: None available. FINDINGS: AP and lateral views of the lumbar spine are submitted for interpretation. The alignment of the lumbar spine is normal. The vertebral body heights and intervertebral disc spaces are normal. There is minimal offset at the sacrococcygeal junction with minimal retrolisthesis S5 on Co1. A moderate amount of retained stool is present. IMPRESSION Minimal offset at the sacrococcygeal junction with minimal retrolisthesis of S1 on Co1 which may reflect a fracture. Selin Cox MD DIAGNOSTIC IMAGING O RDERABLES * LAB RESULTS ORDER (09/27/2013 4:34 AM MEMORANDUM STATEMENT CLERK) Narrative 09/27/2013 4:34 AM MEMORANDUM STATEMENT CLERK Ordered by an unspecified provider. Transcriptions Document, Scanned - 06/11/2013 7:18 AM CST Document, Scanned - 06/11/2013 7:19 AM CST Document, Scanned - 09/27/2013 4:34 AM CST Scanned Document LAB - THERAPEUTIC DR ZAMORA MONITORING ORDERABLES * CARDIAC ECHOCARDIOGRAM COMPLETE ORDER (09/27/2013 4:34 AM MEMORANDUM STATEMENT CLERK) Narrative 09/27/2013 4:34 AM MEMORANDUM STATEMENT CLERK Ordered by an unspecified provider. Transcriptions Document, Scanned - 06/11/2013 7:19 AM CST Document, Scanned - 09/27/2013 4:34 AM CST Scanned Document ECHO ORDERABLES * XR AP PELVIS AND FROG HIPS ODETTE >1YR (06/04/2013 4:59 PM MEMORANDUM STATEMENT CLERK) Anatomical Region Laterality Modality Pelvis, Lower Extremity [facility] 06/04/2013 5:01 PM MEMORANDUM STATEMENT CLERK Impressions 06/04/2013 5:02 PM MEMORANDUM STATEMENT CLERK No abnormality is seen. Narrative 06/04/2013 5:02 PM MEMORANDUM STATEMENT CLERK 2 views of the hips performed June 04, 2013. History: Bilateral hip discomfort. AP and frog-leg lateral views of the hips were obtained. No osseous or articular abnormality is seen. The femoral heads are intact without evidence of avascular necrosis or slipped capital femoral epiphysis. The sacroiliac joints are symmetric in appearance as well. Procedure Note Azul Watt MD - 06/04/2013 2 views of the hips performed June 04, 2013. History: Bilateral hip discomfort. AP and frog-leg lateral views of the hips were obtained. No osseous or articular abnormality is seen. The femoral heads are intact without evidence of avascular necrosis or slipped capital femoral epiphysis. The sacroiliac joints are symmetric in appearance as well. IMPRESSION No abnormality is seen. Taisha Sherwood MD DIAGNOSTIC IMAGING ORDERABLES * (ABNORMAL) DIFFERENTIAL MANUAL (05/21/2013 6:22 AM CDT) Only the most recent of7 resultswithin the time period is included. WBC Auto 10.9 4.5 - 14.5 X(10)9/L 05/21/2013 7:51 AM CDT [facility] Neutrophil % Manual 50 24 - 66 % 05/21/2013 7:51 AM CDT [facility] Lymphocytes % Manual 28 22 - 61 % 05/21/2013 7:51 AM CDT [facility] Monocytes % Manual 15 3 - 15 % 2012 7:51 AM CDT [facility] Eosinophils % Manual 1 0 - 10 % 05/21/2013 7:51 AM CDT [facility] Basophils % Manual 1 % 2012 7:51 AM CDT [facility] Atypical Lymphocyte % Manual 5(H) <=0 % 05/21/2013 7:51 AM CDT [facility] Cells Counted 100 # cells 05/21/2013 7:51 AM CDT [facility] Platelet Estimation Normal Normal, Adequate platelets 05/21/2013 7:51 AM CDT [facility] WBC Morph Normal 05/21/2013 7:51 AM CDT [facility] Anisocytosis 1+(A) None 05/21/2013 7:51 AM CDT [facility] Poikilocytosis 1+(A) None 05/21/2013 7:51 AM CDT [facility] Ovalocytes 1+(A) None 05/21/2013 7:51 AM CDT [facility] Blood BLOOD SPECIMEN / Unknown 05/21/2013 6:22 AM CDT 05/21/2013 6:37 AM CDT Bren Roque MD LAB - HEMATOLOGY ORD ERABLES Performing Organization Address City/[facility] Co de Phone Number [facility] [address] [place] [address] * CULTURE WOUND+GRAM STAIN (05/19/2013 1:31 PM CDT) Only the most recent of2 resultswithin the time period is included. Culture No Growth 05/22/2013 8:25 AM CDT [facility] Gram Stain No organisms seen 05/22/2013 8:25 AM CDT [facility] Gram Stain Heavy Red blood cells 05/22/2013 8:25 AM CDT [facility] Microbiology SPECIMEN OBTAINED BY INCISIONAL BIOPSY / Unknown 05/19/2013 1:31 PM CDT 05/19/2013 1:41 PM CDT Aiden Turner MD LAB - MICROBIOLOG Y ORDERABLES Performing Organization Address [facility] Co de Phone Number [facility] [address] * CULTURE ANAEROBE (05/19/2013 1:30 PM CDT) Culture No anaerobic organisms isolated 05/26/2013 4:02 PM CDT [facility] Microbiology SPECIMEN FROM WOUND / Unknown 05/19/2013 1:30 PM CDT 05/19/2013 1:41 PM CDT Aiden Turner MD LAB - MICROBIOLOG Y ORDERABLES Performing Organization Address [facility] Co de Phone Number [facility] [address] [address] * CT BRAIN WITH OUT CONTRAST (05/19/2013 10:13 AM CDT) Only the most recent of3 resultswithin the time period is included. Anatomical Region Laterality Modality Head Computed Tomogra phy 05/19/2013 10:1 9 AM CDT Impressions 05/19/2013 12:08 PM CDT 1. Unchanged large right cerebellopontine angle arachnoid cyst with unchanged mass effect on the brainstem and cerebellum. 2. Decreased information in The region of craniotomy. No abscess. D: Arash Pal M.D. I, Tere Suarez, have personally reviewed the images and I agree with this report. Narrative 05/19/2013 12:08 PM CDT EXAMINATION: Computed tomography (CT) of the head without contrast HISTORY: Disruption of external operation (surgical) wound TECHNIQUE: CT of the head was performed without contrast according to standard protocol. FINDINGS: No prior study is available for comparison. Postoperative appearance of a right suboccipital retrosigmoid craniotomy is again noted. The large right cerebellopontine angle arachnoid cyst is grossly unchanged in size, but still exerts unchanged mass effect on the brainstem and cerebellum. The ventricles are nondilated. The basal cisterns are patent. The cantor-white matter differentiation is normal. The visualized portions of the orbits, paranasal sinuses, and mastoids appear normal. No acute fracture is identified. Minimal soft tissue fullness is seen overlying the site of craniotomy. There is no evidence of fluid collection in this region. Procedure Note Tere Suarez MD - 05/19/2013 EXAMINATION: Computed tomography (CT) of the head without contrast HISTORY: Disruption of external operation (surgical) wound TECHNIQUE: CT of the head was performed without contrast according to standard protocol. FINDINGS: No prior study is available for comparison. Postoperative appearance of a right suboccipital retrosigmoid craniotomy is again noted. The large right cerebellopontine angle arachnoid cyst is grossly unchanged in size, but still exerts unchanged mass effect on the brainstem and cerebellum. The ventricles are nondilated. The basal cisterns are patent. The cantor-white matter differentiation is normal. The visualized portions of the orbits, paranasal sinuses, and mastoids appear normal. No acute fracture is identified. Minimal soft tissue fullness is seen overlying the site of craniotomy. There is no evidence of fluid collection in this region. IMPRESSION 1. Unchanged large right cerebellopontine angle arachnoid cyst with unchanged mass effect on the brainstem and cerebellum. 2. Decreased information in The region of craniotomy. No abscess. D: Arash Pal M.D. I, Tere Suarez, have personally reviewed the images and I agree with this report. Juan Carlos Thompson MD CT ORDERABLES * TYPE + SCREEN PANEL (05/18/2013 5:43 PM CDT) ABO O 05/18/2013 6:50 PM CDT [facility] Rh Type Positive 05/18/2013 6:50 PM CDT [facility] Antibody Screen Negative 05/18/2013 6:50 PM CDT [facility] Blood Bank BLOOD SPECIMEN / Unknown 05/18/2013 5:43 PM CDT 05/18/2013 6:10 PM CDT Bren Roque MD LAB - BLOOD BANK ORD ERABLES [facility] * PT PTT PANEL (05/18/2013 5:43 PM CDT) Only the most recent of3 resultswithin the time period is included. PT 12.2 12.2 - 14.5 sec 05/18/2013 6:29 PM CDT [facility] INR 1.0 0.8 - 1.2 05/18/2013 6:29 PM CDT [facility] PTT 30.9 23.0 - 36.0 sec 05/18/2013 6:29 PM CDT [facility] Blood BLOOD SPECIMEN / Unknown 05/18/2013 5:43 PM CDT 05/18/2013 6:10 PM CDT Bren Roque MD LAB - COAGULATION OR DERABLES [facility] [address] [facility] [place] [address] * (ABNORMAL) SED RATE WESTERGREN (05/18/2013 5:43 PM CDT) Only the most recent of2 resultswithin the time period is included. Erythrocyte Sedimentation Rate Westergren 35(H) 0 - 12 mm/hr 05/18/2013 7:04 PM CDT [facility] Blood BLOOD SPECIMEN / Unknown 05/18/2013 5:43 PM CDT 05/18/2013 6:10 PM CDT Ozzie Eason DO LAB - HEMATOLOGY ORD ERABLES [facility] [address] [place] [address] * CT HEAD WITH CONTRAST (05/16/2013 2:54 AM CDT) Anatomical Region Laterality Modality Head Computed Tomogra phy 05/16/2013 7:14 AM CDT Impressions 05/16/2013 8:05 AM CDT 1. Inflammatory changes or developing phlegmon in the subcutaneous right occipital scalp overlying the craniotomy without organized abscess formation or evidence of intracranial extension. 2. Unchanged right cerebellopontine angle arachnoid cyst. Dr. Souza discussed these findings with Dr Narayan of neurosurgery on 05/16/2013 at 0342 hours. Dictated by Sobeida Márquez on 05/16/2013 7:55 AM I, Garcia Scott, have personally reviewed the images and I agree with this report. Narrative 05/16/2013 8:05 AM CDT EXAMINATION: Computed tomography (CT) of the head with contrast HISTORY: Headache and drainage from wound, status post arachnoid cyst fenestration TECHNIQUE: CT of the head was performed following the uneventful administration of 90 mL Optiray-320 intravenous contrast according to standard protocol. FINDINGS: Comparison is made with prior CT head May 06, 2013 Postoperative appearance of right suboccipital retrosigmoid craniotomy for right cerebellopontine angle arachnoid cyst fenestration demonstrates interval resolution of pneumocephalus and no new acute intra- or extra-axial fluid collections are identified. There is unchanged mass effect on the brainstem and cerebellum. The ventricles are nondilated. The basilar cisterns are patent. The cantor-white matter differentiation is normal. No abnormal intracranial enhancement is identified. The visualized portions of the orbits, paranasal sinuses, and mastoids appear normal. Unorganized fluid in the right occipital scalp subcutaneous tissues without rim enhancement may represent inflammation or a developing phlegmon given the clinical history. Procedure Note Garcia Scott MD - 05/16/2013 EXAMINATION: Computed tomography (CT) of the head with contrast HISTORY: Headache and drainage from wound, status post arachnoid cyst fenestration TECHNIQUE: CT of the head was performed following the uneventful administration of 90 mL Optiray-320 intravenous contrast according to standard protocol. FINDINGS: Comparison is made with prior CT head May 06, 2013 Postoperative appearance of right suboccipital retrosigmoid craniotomy for right cerebellopontine angle arachnoid cyst fenestration demonstrates interval resolution of pneumocephalus and no new acute intra- or extra-axial fluid collections are identified. There is unchanged mass effect on the brainstem and cerebellum. The ventricles are nondilated. The basilar cisterns are patent. The cantor-white matter differentiation is normal. No abnormal intracranial enhancement is identified. The visualized portions of the orbits, paranasal sinuses, and mastoids appear normal. Unorganized fluid in the right occipital scalp subcutaneous tissues without rim enhancement may represent inflammation or a developing phlegmon given the clinical history. IMPRESSION 1. Inflammatory changes or developing phlegmon in the subcutaneous right occipital scalp overlying the craniotomy without organized abscess formation or evidence of intracranial extension. 2. Unchanged right cerebellopontine angle arachnoid cyst. Dr. Souza discussed these findings with Dr Narayan of neurosurgery on 05/16/2013 at 0342 hours. Dictated by Sobeida Márquez on 05/16/2013 7:55 AM I, Garcia Scott, have personally reviewed the images and I agree with this report. Margarita Ibanez MD CT ORDERABLES * CULTURE BLOOD (05/16/2013 2:20 AM CDT) Culture No Growth 05/21/2013 6:04 AM CDT [facility] Blood PERIPHERAL BLOOD / Unknown 05/16/2013 2:20 AM CDT 05/16/2013 2:23 AM CDT Margarita Ibanez MD LAB - MICROBIOLOGY O RDERABLES [facility] [address] [place] [place] [id number] [place] [address] * PATHOLOGY/CYTOLOGY REPORT ORDER (05/09/2013 4:13 PM CDT) Narrative 05/09/2013 4:13 PM CDT Ordered by an unspecified provider. Transcriptions Document, Scanned - 05/09/2013 4:13 PM CDT Scanned Document LAB - PATHOLOGY/CYTO LOGY ORDERABLES * GROSS + MICRO EXAM (STL) (05/05/2013 10:00 AM CDT) Case Report Surgical Pathology Report Case: [id number] Authorizing Provider: Aiden Turner MD Ordering Provider: Aiden Turner MD Ordering Location: PICU Collected: 05/05/2013 10:00 AM Pathologist: Gianna Stallings MD Received: 05/05/2013 12:59 PM Signed Out: 05/06/2013 12:07 PM (Final) Specimen: Cyst, Right Posterior Fossa 05/06/2013 12:07 PM CDT [facility] Final Diagnosis A. SOFT TISSUE, CYST, RIGHT CP ANGLE, RIGHT SUBOCCIPITAL CRANIOTOMY: - ARACHNOID CYST 05/06/2013 12:07 PM CDT [facility] Clinical History The patient is an 7-year-old girl who underwent right suboccipital craniotomy for microsurgical fenestration of right CP angle arachnoid cyst. 05/06/2013 12:07 PM CDT [facility] Gross Description Submitted fresh in one container for gross and microscopic examination labeled with the patient's name, Rosangela Vieira, and right posterior fossa, are two membranous portions of glistening pink-white soft tissue with an aggregate measurement of 1.5 x 1 x 0.1 cm. The specimen is submitted in toto as A1. (CT/rtc) 05/06/2013 12:07 PM T [facility] Microscopic Description 1 H&E slide Sections show fragments of fibrous tissue and a cyst wall formed of delicate fibrous connective tissue and lined by meningothelial cells. 05/06/2013 12:07 PM T [facility] Disclaimer The performance characteristics of all immunohistochemical and indirect immunofluorescence stains (if any) cited in this report were determined by the Histopathology Laboratory of [facility] (immunohistochemistry ) or the [facility]ology Laboratory of [facility] (indirect immunofluorescence) in compliance with CLIA `88 regulations. Some of these tests rely on the use of analyte-specific reagents and are subject to specific labeling requirements by the FDA. Such tests were developed by the [facility] of [facility] or the [facility]ology Laboratory of [facility] and have not been cleared or approved by the FDA. The FDA has determined that such clearance or approval is not necessary. These tests are used for clinical purposes and should not be regarded as investigational or for research. This case has been personally reviewed and interpreted by the attending (teaching) pathologist. 05/06/2013 12:07 PM [facility] Synoptic Report 05/06/2013 12:07 PM [facility] Pathology/Cytolo gy CYST TISSUE / Unknown 05/05/2013 10:00 AM CDT 05/05/2013 12:59 PM CDT Samer Lyly Turner MD LAB - PATHOLOGY/C YTOLOGY ORDERABLES Performing Organization Address City/State/[facility] Co de Phone Number [facility] [address] [place] [address] * (ABNORMAL) BLOOD GASES ART + GLUC K CA+ PANEL (05/05/2013 9:39 AM CDT) pH Arterial 7.40 7.35 - 7.45 pH 05/05/2013 9:50 AM T [facility] pCO2 Arterial 35 32 - 45 mm hg 05/05/2013 9:50 AM T [facility] pO2 Arterial 221(H) 83 - 108 mm hg 05/05/2013 9:50 AM T [facility] BE Arterial -2.6(L) -2.0 - 2.0 mmol/L 05/05/2013 9:50 AM [facility] O2 Saturation Arterial 99 95 - 99 % 05/05/2013 9:50 AM T [facility] Glucose WB 115(H) 70 - 106 mg/dL 05/05/2013 9:50 AM T [facility] Calcium Ionized 1.24 mmol/L 3 9:50 AM [facility] Calcium Ionized Adjusted 1.24 1.15 - 1.29 mmol/L 05/05/2013 9:50 AM [facility] Potassium Whole Blood 4.4 3.4 - 4.5 mmol/L 05/05/2013 9:50 AM [facility] Temp 37.0 C 05/05/2013 9:50 AM [facility] Hemoglobin Arterial 10.3(L) 11.5 - 15.5 gm/dL 05/05/2013 9:50 AM [facility] Oxyhemoglobin Arterial 97 94 - 98 % 05/05/2013 9:50 AM [facility] Methemoglobin Arterial 1.5(H) 0.2 - 0.6 % 05/05/2013 9:50 AM [facility] O2 Content Arterial 14.6(L) 15.0 - 23.0 mg/dL 05/05/2013 9:50 AM [facility] P50 Arterial 26.25 25.3 - 26.8 mm hg 05/05/2013 9:50 AM [facility] Carboxyhemoglobin Arterial 0.2 0.0 - 0.8 % 05/05/2013 9:50 AM [facility] Blood ARTERIAL BLOOD SPECIMEN / Unknown Venipuncture / Unknown 05/05/2013 9:39 AM CDT 05/05/2013 9:46 AM CDT Samer Lyly Turner MD LAB - BLOOD GASES ORDERABLES Performing Organization Address City/State/[facility] Co de Phone Number [facility] [address] [facility] [place] [address] * CROSSMATCH RBC (05/05/2013 8:01 AM CDT) Only the most recent of2 resultswithin the time period is included. Unit Donor # [id number] -F 05/09/2013 3:44 AM CDT [facility] Product Code E0424 05/09/2013 3:44 AM CDT [facility] Unit Description E0424 RBC, LR, -5 05/09/2013 3:44 AM CDT [facility] ABO Donor Type O 05/09/2013 3:44 AM CDT [facility] Rh Type Unit NEG 05/09/2013 3:44 AM CDT [facility] Crossmatch Interpretation Compatible 05/09/2013 3:44 AM CDT [facility] Unit Status Returned 05/09/2013 3:44 AM CDT [facility] Blood Bank BLOOD SPECIMEN / Unknown 05/05/2013 8:01 AM CDT 05/05/2013 8:12 AM CDT Laurie Brower MD LAB - BLOOD BANK ORD ERABLES [facility] * BLOOD TYPE ABO+ RH PANEL (05/05/2013 8:01 AM CDT) ABO O 05/05/2013 9:03 AM CDT [facility] Rh Type Positive 05/05/2013 9:03 AM CDT [facility] Blood Bank BLOOD SPECIMEN / Unknown 05/05/2013 8:01 AM CDT 05/05/2013 8:12 AM CDT Laurie Brower MD LAB - BLOOD BANK ORD ERABLES [facility] * ANTIBODY SCREEN (05/05/2013 8:01 AM CDT) Antibody Screen Negative 05/05/2013 9:07 AM CDT [facility] Blood Bank BLOOD SPECIMEN / Unknown 05/05/2013 8:01 AM CDT 05/05/2013 8:12 AM CDT Laurie Brower MD LAB - BLOOD BANK ORD ERABLES [facility] * LYTES (NA K CL CO2) BLOOD (04/29/2013 12:22 PM CDT) Sodium 141 136 - 145 mmol/L 04/29/2013 1:16 PM CDT [facility] Potassium 4.5 3.5 - 5.1 mmol/L 04/29/2013 1:16 PM CDT [facility] Chloride 107 98 - 107 mmol/L 04/29/2013 1:16 PM CDT [facility] CO2 25 20 - 28 mmol/L 04/29/2013 1:16 PM CDT [facility] Anion Gap 9 5 - 20 mmol/L 04/29/2013 1:16 PM CDT [facility] Blood BLOOD SPECIMEN / Unknown Lab Venipuncture / Unknown 04/29/2013 12:22 PM CDT 04/29/2013 12:42 PM CDT Shanon Vang APRN-[employer]ERRICK [employer]DER LAB - CHEMISTRY ORD ERABLES Performing Organization Address [facility] Co de Phone Number [facility] [address] [place] [id number] * CREATININE BLOOD (04/29/2013 12:22 PM CDT) Creatinine 0.71 0.53 - 0.80 mg/dL 04/29/2013 1:16 PM CDT [facility] eGFR by MDRD ml/min/1.7 3m2 04/29/2013 1:16 PM CDT [facility] Comment:eGFR calculations ar e not performed for children under 18 years old. eGFR by MDRD ml/min/1.7 3m2 04/29/2013 1:16 PM CDT [facility] Comment:eGFR calculations ar e not performed for children under 18 years old. Blood BLOOD SPECIMEN / Unknown Lab Venipuncture / Unknown 04/29/2013 12:22 PM CDT 04/29/2013 12:42 PM CDT Shanon Vang WATER PUMP ASSEMBLER-[employer] LAB - CHEMISTRY ORD ERABLES [facility] [address] [place] [address] * BUN (04/29/2013 12:22 PM CDT) BUN 13.1 6.7 - 19.6 mg/dL 04/29/2013 1:16 PM CDT [facility] Blood BLOOD SPECIMEN / Unknown Lab Venipuncture / Unknown 04/29/2013 12:22 PM CDT 04/29/2013 12:42 PM CDT Shanon Vang [employer] AS[employer]ER[employer] LAB - CHEMISTRY ORD ERABLES [facility] [address] [facility] [place] [address] * XR TIBIA AND FIBULA 2 VW LEFT (12/28/2012 8:45 PM CDT) Anatomical Region Laterality Modality Lower Extremity Radiographic Mackenzie ging 12/29/2012 10:3 3 AM CDT Impressions 12/29/2012 10:33 AM CDT Normal Narrative 12/29/2012 10:33 AM CDT Left tibia and fibula, 2 views 12/28/2012 There is no fracture, dislocation, or abnormal bone production or destruction. Procedure Note Primo Polanco MD - 12/29/2012 Left tibia and fibula, 2 views 12/28/2012 There is no fracture, dislocation, or abnormal bone production or destruction. IMPRESSION Normal Radha Chang MD DIAGNOSTIC IMAGING O RDERABLES * MRI BRAIN WITH AND WITHOUT CONTRAST (03/04/2012 11:54 AM CDT) Anatomical Region Laterality Modality Head Magnetic Resonan ce 03/04/2012 12:3 0 PM CDT Impressions 03/04/2012 12:30 PM CDT 1. Unchanged right posterior fossa arachnoid cyst with unchanged, mild mass effect on the adjacent brainstem and cerebellum. Narrative 03/04/2012 12:30 PM CDT EXAMINATION: Magnetic resonance imaging (MRI) of the brain without and with contrast HISTORY: Arachnoid cyst TECHNIQUE: MRI of the brain was performed prior to and following the uneventful administration of Magnevist 10 mL intravenous gadolinium contrast according to standard protocol. FINDINGS: Comparison is made with a study from 27 July 2009. No evidence of acute or chronic hemorrhage and no evidence of acute cerebral infarction is seen. Ventricles are of normal size, shape, and morphology. There is an extra-axial mass which follows cerebrospinal fluid signal intensity on all pulse sequences in the posterior fossa on the right with its epicenter at the right cerebellopontine angle cistern consistent with an arachnoid cyst which is unchanged in size and extent with unchanged mass effect on the adjacent brainstem, cerebellar, and fourth ventricle. No enhancing lesions are identified. The corpus callosum and sella appear normal. The posterior fossa, brainstem, and craniocervical junction otherwise appear normal. The visualized portions of the orbits, mastoids and paranasal sinuses appear normal. Normal flow voids are demonstrated in the carotid arteries and basilar artery. The calvarium and visualized cervical spine appear normal. Procedure Note Garcia Scott MD - 03/04/2012 EXAMINATION: Magnetic resonance imaging (MRI) of the brain without and with contrast HISTORY: Arachnoid cyst TECHNIQUE: MRI of the brain was performed prior to and following the uneventful administration of Magnevist 10 mL intravenous gadolinium contrast according to standard protocol. FINDINGS: Comparison is made with a study from 27 July 2009. No evidence of acute or chronic hemorrhage and no evidence of acute cerebral infarction is seen. Ventricles are of normal size, shape, and morphology. There is an extra-axial mass which follows cerebrospinal fluid signal intensity on all pulse sequences in the posterior fossa on the right with its epicenter at the right cerebellopontine angle cistern consistent with an arachnoid cyst which is unchanged in size and extent with unchanged mass effect on the adjacent brainstem, cerebellar, and fourth ventricle. No enhancing lesions are identified. The corpus callosum and sella appear normal. The posterior fossa, brainstem, and craniocervical junction otherwise appear normal. The visualized portions of the orbits, mastoids and paranasal sinuses appear normal. Normal flow voids are demonstrated in the carotid arteries and basilar artery. The calvarium and visualized cervical spine appear normal. IMPRESSION 1. Unchanged right posterior fossa arachnoid cyst with unchanged, mild mass effect on the adjacent brainstem and cerebellum. Samer Lyly Turner MD MR ORDERABLES * STREP A SCREEN DIRECT (03/05/2010 1:47 PM CDT) Strep A Rapid Negative Neg Grp A Beta Strep [facility] ENTIRE THROAT (SURFACE REGION OF NECK) / Unknown 03/05/2010 1:47 PM CDT 03/05/2010 1:58 PM CDT Jm Cuellar MD LAB - MICROBIOLOGY ORDERABLES Performing Organization Address City/State/[facility] Co de Phone Number [facility] [address] [place] [address] * CT BRAIN WO CON C SPINE WO CON (11/10/2009 7:47 PM CDT) Anatomical Region Laterality Modality Head Computed Tomogra phy 11/11/2009 9:18 AM CDT Narrative 11/11/2009 6:20 PM CDT Exam: CT brain CT C-spine noncontrast Technique: Multislice helical. History: Fall, pain There is no evidence of acute hemorrhage. The right posterior fossa arachnoid cyst is seen with displacement of the cerebellum and brainstem to the left is unchanged since the MRI on 07/27/2009. Lateral ventricular enlargement is unchanged. There are no acute interparenchymal changes and the cantor-white matter interface is normal. There is reversal of the normal cervical lordosis. There is no evidence of fracture or subluxation. There is no prevertebral soft tissue swelling. The C1 ring is intact. The vertebral bodies and intervertebral disc spaces are maintained. There is discontinuity of the left anterior foramen transversarium of C7 which is a normal variant. Diagnosis: No acute intracranial process. Posterior fossa arachnoid cyst, unchanged. No acute osseous injury of the C-spine. D: Edward Cui MD (resident). Procedure Note Primo Polanco MD - 11/11/2009 Exam: CT brain CT C-spine noncontrast Technique: Multislice helical. History: Fall, pain There is no evidence of acute hemorrhage. The right posterior fossa arachnoid cyst is seen with displacement of the cerebellum and brainstem to the left is unchanged since the MRI on 07/27/2009. Lateral ventricular enlargement is unchanged. There are no acute interparenchymal changes and the cantor-white matter interface is normal. There is reversal of the normal cervical lordosis. There is no evidence of fracture or subluxation. There is no prevertebral soft tissue swelling. The C1 ring is intact. The vertebral bodies and intervertebral disc spaces are maintained. There is discontinuity of the left anterior foramen transversarium of C7 which is a normal variant. Diagnosis: No acute intracranial process. Posterior fossa arachnoid cyst, unchanged. No acute osseous injury of the C-spine. D: Edward Cui MD (resident). Meena Contreras MD CT ORDERABLES Care Teams Computer Forensic Examiner Relationship Specialty Start Date End Date Yuly Pope DO [address] [place] [id number] PCP - General Internal Medicine 02/17/22 Kiki Burks MD [facility] [place] [address] Resident Student Resident 12/11/17
--- OUTSIDE RECORDS SUMMARY | 2024-10-01 12:53 | XMS_ITS | Encounter Summary ---
Author Organization [facility] Address [address] [place] [address] Care Team Providers Care Director Of Securities And Real Estate Name Role Phone Mesfin May MD Primary Care Provider [phone] Kiki Burks MD Unavailable Yuly Pope DO Primary Care Provider [phone] Reason for Visit * Reason Onset Date Comments Health Information 05/01/2018 Encounter Details Date Type Department Care Team (Late st Contact Info) Description 05/01/[address] [facility] [address] [place] [id number] Mesfin May MD [address] [place] [phone] Health Information Social History Tobacco Use Types Packs/Day Years [...] No 04/30/2018 documented as of this encounter Miscellaneous Notes * Telephone Encounter - Perez Canodanilo - 05/01/2018 3:[address] brooke rinaldi (med student) stated that the pt was admitted in the hospital for headaches and dizziness for three weeks. Pt has been seen by neurology, ent, ophthomology and neurosurgery. And has an outpt follow up with neurology documented in this encounter Plan of Treatment Upcoming Encounters Date Type Department Care Team (Late st Contact Info) Description 10/03/2024 10:00 AM CSR Office Visit [facility] - [address] [phone] Amina Nicholas TAPE TRANSFERRER-DATA WAREHOUSE MANAGER [id number] [place] [phone] 01/08/2025 9:00 AM CDT Office Visit [facility] - [address] [place] [phone] Areli Dao TAPE TRANSFERRER-DATA WAREHOUSE MANAGER [address] [place] [address] documented as of this encounter Visit Diagnoses Not on filedocumented in this encounter Additional Health Concerns Infection Onset Date Last Indicated Resolved Time COVID-19 Under Investigation 07/13/2020 07/13/2020 07/14/2020 12:25 PM CSR COVID-19 Under Investigation 04/13/2023 04/13/2023 04/13/2023 5:37 AM CDT documented as of this encounter Care Teams Director Of Securities And Real Estate Relationship Specialty [place] [address] [place] [address] PCP - General Pediatrics 12/11/17 02/16/22 Yuly Pope DO [address] [place], [place] [phone] PCP - General Internal Medicine 02/17/22 Kiki Burks MD [facility] [place] [address] Resident Student Resident 12/11/17 documented as of this encounter
--- OUTSIDE RECORDS SUMMARY | 2024-10-01 12:54 | XMS_ITS ---
Author Organization [facility] Address [address] [place] [address] Care Team Providers Care Rivet Heater Name Role Phone Sharonda Roberts Primary Care Provider REASON FOR VISIT New Patient Psych Eval Social History Sex Assigned At : Social History Observation Description Sex Assigned At Female Encounters Encounter Location Date Provider Diagnosis [address] [phone] 11/27/2023 Sharonda Roberts Plan Of Treatment No Information Progress Notes * Ronald VIEIRAiDOB:[birth year] (19 yo F)Acc No.[id number]:11/27/2023 UNLOCKED PROGRESS NOTE Patient: Duncan JOYRonald Provider: Liliya Roberts, MSN, TRAVELING CLERK-BC, PMHNP-BC :2005 A ge:18 Y S ex:Female Date:11/27/2023 Address:[address] [place], [place] [id number] Subjective: * Chief Complaints: * 1 . New Patient Psych Eval. * Medical History: Objective: * Vitals: Assessment: Plan: * Treatment: * * Electronic signature of Sharonda Roberts , [phone] on 10/01/2024 at 12:53 PM ALTERNATIVE ENERGY TECHNICIAN Sign off status: Pending * Provider: Liliya Roberts, MSN, TRAVELING CLERK-BC, PMHNP-BC Date: 0 11/27/2023 Generated for Eric doyle/Chon/Ange on: 0 10/01/2024 12:53 PM ALTERNATIVE ENERGY TECHNICIAN
--- OUTSIDE RECORDS SUMMARY | 2024-10-01 12:54 | XMS_ITS | Clinical Summary ---
Author Organization [facility] Address [address] [place] [address] Care Team Providers Care Physical Education Specialist Name Role Phone Yuly Pope DO Primary Care Provider Allergies Active Allergy Reactions Criticality Noted Date Comments [place] Derived Swelling Medium 10/05/2017 [place] Flavor Swelling Medium 10/05/2017 Lactose Stomach upset Low 05/30/2018 Milk Vomiting Low 10/05/2017 [place] Rash,Swelling Medium 09/25/2014 [place] Juice [place] Oil Rash Medium 09/25/2014 Penicillins Swollen tongue,Swelling High 07/17/2011 Prochlorperazine Rash Medium Medications albuterol HFA (PROVENTIL HFA,VENTOLIN HFA,PROAIR HFA) 90 mcg/actuation inhalerIndicat ions:Bronchosp asm Prevention Inhale 2 puffs every 4 (four) hours as needed for wheezing or shortness of breath. 1 Inhaler 8 Active topiramate (TOPAMAX) 25 mg tablet Take 1 tablet (25 mg total) by mouth daily 8 Active albuterol (PROVENTIL,CULLEN TOLIN) 2.5 mg /3 mL (0.083 %) nebulizer solution 1 amp q 4 hours prn 8 Active lidocaine viscous (XYLOCAINE) 2 % solution Apply a small amount to a cotton ball and place over the affected tooth and gums until pain is relieved, Q3HPRN 100 mL 9 Active Additional Information Patient not taking.Reported on 08/01/2024 omeprazole (PriLOSEC) 40 mg capsule TAKE 1 (ONE) CAPSULE BY MOUTH ONCE DAILY FOR 90 DAYS 1 Active lisinopriL (PRINIVIL,ZEST RIL) 10 mg tablet Take 1 tablet (10 mg total) by mouth daily 0 Active mupirocin (BACTROBAN) 2 % ointment Apply topically daily Apply with each dressing change. Collaborating physician Cassius Krause MD 22 g 1 1 Active azithromycin (Zithromax Z-Myron) 250 mg tabletIndicati ons:Acute right otitis media Take 1 tablet (250 mg total) by mouth daily Take first 2 tablets together, then 1 every day until finished. Collaborating physician Cassius Krause MD 6 tablet 4 Active Additional Information Patient not taking.Reported on 08/01/2024 ibuprofen (ADVIL,MOTRIN) 800 mg tabletIndicati ons:Acute right otitis media,History of fever Take 1 tablet (800 mg total) by mouth every 8 (eight) hours as needed for pain or fever Collaborating physician Cassius Krause MD 20 tablet 4 Active levonorgestreL (MIRENA) IUD 1 each by intrauterine route continuously as needed 2 Active SUMAtriptan (IMITREX) 50 mg tablet Take 1 tablet (50 mg total) by mouth 4 Active naproxen (NAPROSYN) 500 mg tablet Take 1 tablet (500 mg total) by mouth 2 (two) times a day with meals 30 tablet 4 Active methocarbamoL (ROBAXIN) 500 mg tablet Take 1 tablet (500 mg total) by mouth 2 (two) times a day 20 tablet 4 Active albuterol HFA (PROVENTIL HFA,VENTOLIN HFA,PROAIR HFA) 90 mcg/actuation inhaler Inhale 2 puffs every 6 (six) hours as needed for shortness of breath 1 each 5 08/01/19 26 Active Active Problems Problem Noted Date Diagnosed Date Acute right otitis media 12/21/2023 History of fever 12/21/2023 Irregular bleeding 09/23/2023 Overview (01/11/2024): Last Assessment & Plan: IUD - Mirena placed in March 2022 in view of menorrhagia - not experiencing heavy bleeding but continues to have irregular spotting and periods. Now sexually active - would like to consider other alternatives as says she feels very bloated and uncomfortable with current IUD. Has OB appt set up for 10/06. Injury of left ankle 08/25/2022 Overview (01/11/2024): Last Assessment & Plan: Assessment: Rolled ankle about 2 weeks ago and still having pain to palpation and limited range of motion. Pain mostly on the lateral malleolus. Able to bare weight for only a limited amount of time. Plan: Follow-up with orthopedic surgery Follow-up with physical therapy Laceration of skin of left hand 04/21/2021 Acanthosis nigricans 10/21/2020 Sleep difficulties 10/21/2020 Chronic constipation 05/07/2020 Left ventricular hypertrophy 05/03/2020 Overview (01/11/2024): Last Assessment & Plan: IMPRESSION Ashley is a 14 year-old with: [...] pressures in March ([facility]), and has fairly consistently been in [...] SBE prophylaxis is not indicated. Hypertension 04/05/2020 Overview (01/11/2024): Last Assessment & Plan: BP stable today but patient takes lisinopril very erratically. Did take a dose before clinic visit which may be the reason for normal blood pressure - 120/88. Reinforced compliance with lisinopril. History of concussion 03/09/2020 Overview (01/11/2024): Last Assessment & Plan: Patient previously suffered concussion on 03/03 with subsequent headache, altered gait, dizziness, fatigue, slepe disturbance, retrograde and anterograde amnesia since the event. Neurological exam demonstrates no focal deficits, but altered gait with normal walk, tandem walk and a positive romberg sign. NSAIDs PRN Refered to concussion clinic Reduce school workload until symptoms subside Hold off on driving lessons until symptoms subside Urinary tract infection in female 07/26/2018 Acute left otitis media 07/26/2018 Upper respiratory tract infection 07/26/2018 Severe frontal headaches 04/30/2018 Overview (01/11/2024): Last Assessment & Plan: Continues to have frontal headaches - atleast [...] further follow up. Reinforced compliance to lisinopril. Anxiety 04/23/2018 Overview (01/11/2024): Last Assessment & Plan: Assessment: 16 year old female who presents with signs and symptoms generalized anxiety for several years. Including fear, anxiety, trouble staying asleep, repeated thoughts, palpitation, chest pain, and more. Calm during exam today. Has not tried any medication in the past. Plan: Start Wellbutrin daily Start Atarax PRN for anxiety Follow-up in 4-6 weeks Menorrhagia 04/23/2018 Overview (01/11/2024): Last Assessment & Plan: - Refilled Naproxen. Take at onset of menstrual sx - Ordered CBC to r/o anemia - Discussed OCP vs Nexplanon vs Depo. Patient interested in Nexplanon insertion. Referred to adolescent market research interviewer clinic with Dr. Angulo 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 0904/23/2018 Overview (01/11/2024): Last Assessment & Plan: BMI remains elevated. Has likely been exacerbated by being at home more (virtual schooling). Encouraged her to continue making healthy diet options and increasing her physical activity. Plan: - RTC in 3mo Ganglion cyst of foot 09/28/2016 Overview (01/11/2024): Last Assessment & Plan: Referral to Ortho. Allergic rhinitis 10/15/2014 Overview (01/11/2024): Last Assessment & Plan: Poorly controlled. Takes Zyrtec. Plan: Continue Zyrtec. Start Flonase Acne 07/08/2014 Overview (01/11/2024): Last Assessment & Plan: Noted on bilateral cheeks and chin. No inflammation noted. Likely exacerbated by stress of the pandemic. Plan: - Will start benzoyl peroxide - RTC in 3mo (monitor during weight follow-up) ADHD (attention deficit hyperactivity disorder) 07/31/2013 Overview (01/11/2024): Last Assessment & Plan: Has had significant difficulty with attention and [...] increased blood pressure. She has the school's [place] break to consider whether she would like to restart it or not. I also mentioned to them that they should discuss with Cardiology (appointment scheduled in July 2020) if it would even be possible for her to start an ADHD med with her LVH and HTN. Will continue to monitor. However, I suspect that her attention and focus will improve with in-person schooling. Asthma 06/18/2013 Overview (01/11/2024): Last Assessment & Plan: Well controlled Does not get relief from MDIs Uses nebulizer. Meds refilled. Encounters Date Type Department Care Team Description 08/01/2024 2:45 PM HOT KNIFE CUTTER Office Visit [facility] at [address] [phone] Heather Pickering PA Dyspnea on exertion (Primary Dx); RSV (respiratory syncytial virus infection) from Last 3 Months Immunizations Immunization Administration Dates Next Due DTaP 03/04/2009, 5,03/30/2005,11/24 HPV9 12/28/2016,10/13/2015 Hep A, Pediatric 03/27/2008,02/19/2007 Hep B, Adolescent or Pediatric 5,05/05/2005,03/30/2005,11/24,2004 Hib (PRP-OMP) 05/05/2005,03/30/2005,2004 IPV 03/04/2009, 5,05/05/2005,03/30,2004 Influenza, Quadrivalent, Spl it, Preservative Free, Intramuscular 07/19/2020 Influenza, Unspecified 05/08/2013,05/23/2010 MMR 06/23/2019,03/04/2009 Meningococcal MCV4P (Menactra) 08/03/2021,2015 Pneumococcal Conjugate 7-Valent 11/29/19 06,05/05/2005,03/30/2005,11/24 Tdap 10/13/2015 Varicella 03/04/2009,11/28/2005 Surgical History Surgery Date Site/Laterality Comments OTHER SURGICAL HISTORY Cyst on brain: two surgeries on brain BRAIN SURGERY Medical History Medical History Date Comments Exercise-induced asthma Asthma, exercise-induced; Comments: 06/07/2015 - Hx Other Medical Cyst on brain; Comments: 06/07/2015 - Heart murmur Heart murmur Hypertension Hypertension; Co mments: [facility] 06/07/2015 - Attention deficit disorder ADHD Active autistic disorder Autism; Comments: 06/07/2015 - Hx Other Medical Partially Blind ; Comments: 06/07/2015 -; Laterality: right Social History Tobacco Use Types Packs/Day Years Used Date Smoking Tobacco: Never Smokeless Tobacco: Never Tobacco Cessation:Counseling Given: Not Answered Personal Safety Answer Date Recorded Have you ever been in or are you currently in a harmful physical or emotional relationship or is someone making you feel afraid or unsafe? Denies 06/25/2024 Comments No Sex and Gender Information Value Date Recorded Sex Assigned at Not on file Legal Sex Female 8:59 PM HOT KNIFE CUTTER Gender Identity Not on file Sexual Orientation Not on file Obstetrics History Last Filed Vital Signs Vital Sign Reading Time Taken Comments Blood Pressure 130/78 08/01/2024 2:36 PM HOT KNIFE CUTTER Pulse 110 08/01/2024 2:36 PM HOT KNIFE CUTTER Temperature 36.9 C (98.4 F) 08/01/2024 2:36 PM HOT KNIFE CUTTER Respiratory Rate 20 08/01/2024 2:36 PM HOT KNIFE CUTTER Oxygen Saturation 99% 08/01/2024 2:36 PM HOT KNIFE CUTTER Inhaled Oxygen Concentration - - Weight 136.1 kg (300 lb) 08/01/2024 2:36 PM HOT KNIFE CUTTER Height 175.3 cm (5' 9 ) 08/01/2024 2:36 PM HOT KNIFE CUTTER Body Mass Index 44.3 08/01/2024 2:36 PM HOT KNIFE CUTTER Plan of Treatment Health Maintenance Due Date Last Done Comments Depression Screening 2004 Hepatitis C Screening 2004 Pneumococcal vaccine <65 (1 of 1 - PPSV23) 2010 11/28/2005, 05/05/2005, 03/30/2005, Additional history exists Meningococcal B Vaccine (1 o f 2 - Standard) 2020 Regular Well Visit/Exam 18-64 2022 Covid-19 Vaccine (3 - 2023-2 5 season) 2024 02/17/2022, 07/25/2021 Influenza Vaccine (#1) 2024 , 05/08/2013, 05/23/2010 DTaP/Tdap/Td Vaccine (6 - Td or Tdap) 10/12/2025 10/13/2015, 03/04/2009, 05/05/2005, Additional history exists Hepatitis B Screening Completed 06/05/2005 , 05/05/2005, 03/30/2005, Additional history exists Varicella Vaccines Completed 03/04/2009, 11/28/2005 HPV Vaccines Completed 12/28/2016, 10/13/2015 Meningococcal Vaccine Completed 08/03/2021, 016 Insurance [employer] [place] [facility] [place] MEDICAID [facility] [place] [address] [place] [address] MEDICAID [facility]PR [facility] Care Teams Physical Education Specialist Relationship Specialty Start Date End Date Yuly Pope DO [address] [facility] [address] [place] [address] PCP - General Internal Medicine 12/21/23
--- OUTSIDE RECORDS SUMMARY | 2024-10-01 12:54 | XMS_ITS | Referral Summary ---
Author Organization [facility] Address [address] [place] [address] Care Team Providers Care Spool Winder Name Role Phone Yuly Pope DO Primary Care Provider Encounters Date Type Department Care Team Description 08/01/2024 2:45 PM MANAGER FUND Office Visit [facility] at [address] [place] [phone] Heather Pickering PA Dyspnea on exertion (Primary Dx); RSV (respiratory syncytial virus infection) from Last 3 Months Allergies Active Allergy Reactions Criticality Noted Date Comments [place] Derived Swelling Medium 10/05/2017 [place] Flavor Swelling Medium 10/05/2017 Lactose Stomach upset Low 05/30/2018 Milk Vomiting Low 10/05/2017 [place] Rash,Swelling Medium 09/25/2014 [place] Juice [place] Oil Rash Medium 09/25/2014 Penicillins Swollen tongue,Swelling [...] 05/03/2020 Overview (01/11/2024): Last Assessment & Plan: VINICIUS Ramirez is a 14 year-old with: 1. Obesity. 2. Left ventricular hypertrophy, likely secondary to hypertension. MARGIE Ramirez has a structurally normal heart by exam [...] hypertension, and her mother tells me that Rosangela's blood pressure has always been elevated at [...] interested in Nexplanon insertion. Referred to adolescent loader helper clinic with Dr. Angulo Severe childhood obesity [...] a quite environment by removing distractions, but Rosangela is always getting up and doing something [...] relief from MDIs Uses nebulizer. Meds refilled. Immunizations Immunization Administration Dates Next Due DTaP 03/04/2009, 5,03/30/2005,11/24 HPV9 12/28/2016,10/13/2015 Hep A, Pediatric 03/27/2008,02/19/2007 Hep B, Adolescent or Pediatric 5,05/05/2005,03/30/2005,11/24,2004 Hib (PRP-OMP) 05/05/2005,03/30/2005,2004 IPV 03/04/2009, 5,05/05/2005,03/30,2004 Influenza, Quadrivalent, Spl it, Preservative Free, Intramuscular 07/19/2020 Influenza, Unspecified 05/08/2013,05/23/2010 MMR 06/23/2019,03/04/2009 Meningococcal MCV4P (Menactra) 08/03/2021,2015 Pneumococcal Conjugate 7-Valent 11/29/19 06,05/05/2005,03/30/2005,11/24 Tdap 10/13/2015 Varicella 03/04/2009,11/28/2005 Social History Tobacco Use Types Packs/Day [...] on file Legal Sex Female 8:59 PM MANAGER FUND Gender Identity Not on file Sexual Orientation Not on file Last Filed Vital Signs Vital Sign Reading Time Taken Comments Blood Pressure 130/78 08/01/2024 2:36 PM MANAGER FUND Pulse 110 08/01/2024 2:36 PM MANAGER FUND Temperature 36.9 C (98.4 F) 08/01/2024 2:36 PM MANAGER FUND Respiratory Rate 20 08/01/2024 2:36 PM MANAGER FUND Oxygen Saturation 99% 08/01/2024 2:36 PM MANAGER FUND Inhaled Oxygen Concentration - - Weight 136.1 kg (300 lb) 08/01/2024 2:36 PM MANAGER FUND Height 175.3 cm (5' 9 ) 08/01/2024 2:36 PM MANAGER FUND Body Mass Index 44.3 08/01/2024 2:36 PM MANAGER FUND Plan of Treatment Not on file Insurance [email or web address] [place] [facility] [place] [employer] [facility] [place] ANTH ACCESS [employer] [facility] Care Teams Spool Winder Relationship Specialty Start Date End Date Yuly Pope DO [address] [facility] [address] [place] [address] PCP - General Internal Medicine 12/21/23
--- OUTSIDE RECORDS SUMMARY | 2024-10-01 13:19 | XMS_ITS | Referral Summary ---
Author Organization [facility] Address [address] [place] [address] Care Team Providers Care Ammonia Refrigeration Worker Name Role Phone Kiki Burks MD Unavailable Yuly Pope DO Primary Care Provider [phone] Source Comments [facility],non-owned Affiliates and Associated Physician Practices is amultiple site organization consisting of ambulatory clinics and hospital sitesin [place], [place], [place] and [place]. This disclosure is being madepursuant to the Care Everywhere program and may not contain all information available regarding this patient. Last updated 18.[facility] Encounters Date Type Department Care Team Description 08/19/2024 Telephone [facility] [address] [place] [address]. [place] [address] Yuly Pope, DO Concerns 08/15/2024 Travel 08/15/2024 7:44 AM GRANULATOR MACHINE OPERATOR - 08/15/2024 8:07 PM GRANULATOR MACHINE OPERATOR Emergency ER at [address] [address] Dasia Donaldson MD Gerard, James M, MD Abdominal pain, epigastric Discharge Disposition: Home or Self Care 08/14/2024 4:34 PM GRANULATOR MACHINE OPERATOR - 08/14/2024 11:59 PM GRANULATOR MACHINE OPERATOR Hospital Encounter [facility] - Lab [address] [place] [address] Areli Salinas, PhD Discharge Disposition: Home or Self Care 08/14/2024 4:20 PM GRANULATOR MACHINE OPERATOR - 08/14/2024 4:33 PM GRANULATOR MACHINE OPERATOR Hospital Encounter [facility] - Radiology [address] [place] [address] Areli Dao APRN-CNP Discharge Disposition: Home or Self Care 08/14/2024 2:45 PM GRANULATOR MACHINE OPERATOR - 08/14/2024 4:19 PM GRANULATOR MACHINE OPERATOR Hospital Encounter [facility] [address] [place] [address]. [place] [address] Areli Salinas, PhD Areli Dao APRN-CNP from Last 3 Months Allergies Active Allergy Reactions Criticality Noted Date Comments [place] Vomiting Low 10/05/2017 Lactose GI Discomfort Low 05/30/2018 Price Rash Medium 09/25/2014 Price Fruit Swelling Medium 10/05/2017 Price Oil Rash Medium 09/25/2014 Penicillins Swelling High [...] device by Intrauterine route continuous Inserted at [facility] Parking Meter Mechanic 04/23/2022, good through 04/24/2030 04/24/2022 Active albuterol [...] 08/14/2024 Assessment & Plan (08/14/2024 4:26 PM GRANULATOR MACHINE OPERATOR): Pt with concern for diabetes, had elevated HgA1c in the past, now has increased thirst. + acanthosis, BMI > 99%ile, 51 today. Will check HgA1c, CMP today. F/u next week. Irregular bleeding 09/23/2023 Assessment & Plan (09/23/2023 10:32 AM GRANULATOR MACHINE OPERATOR): IUD - Mirena placed in March 2022 [...] 09/23/2023 Assessment & Plan (09/23/2023 10:45 AM GRANULATOR MACHINE OPERATOR): Does have a hx of anxiety and depression as per patient with no SI/HI. Is currently in therapy - at [facility] once a week and seeking psychiatry referral to [facility] to initiate medication. Mood stable today. PHQ-9 6/ZACH -5. Screen for STD (sexually transmitted disease) Assessment & Plan (09/23/2023 10:48 AM GRANULATOR MACHINE OPERATOR): Is currently newly sexually active - with [...] 05/07/2020 Assessment & Plan (08/14/2024 4:23 PM GRANULATOR MACHINE OPERATOR): Pt with chronic constipation, managed with Miralax [...] here Assessment & Plan (09/23/2023 10:44 AM GRANULATOR MACHINE OPERATOR): BP stable today but patient takes lisinopril [...] June as scheduled - Will follow-up in [facility] and start antihypertensives pending today's labs [...] follow up results of labs sent at [facility] 5. If BP noted to be >130/80 using manual BP measurement technique while during hospitalization, will consider further evaluation for etiology of elevated BP including (depending on evaluation already performed at [facility]) Urine for urinalysis Blood for RFP, renin, [...] 04/30/2018 Assessment & Plan (09/23/2023 10:42 AM GRANULATOR MACHINE OPERATOR): Continues to have frontal headaches - atleast [...] lisinopril. Assessment & Plan (06/23/2019 1:06 PM GRANULATOR MACHINE OPERATOR): Followed by Neurology Assessment & Plan (05/01/2018 [...] interested in Nexplanon insertion. Referred to adolescent photolithographer clinic with Dr. Angulo Assessment & Plan (06/23/2019 1:06 PM GRANULATOR MACHINE OPERATOR): Improved Followed by Adolescent Med Assessment & Plan (04/23/2018 12:43 PM CDT): Hx of heavy painful periods Naproxen makes her sleepy Check CBC today In the past Ibuprofen, has not worked. Instructed to trial 600mg every 6-8 hours instead of 400mg Refer to Adolescent Anxiety 04/23/2018 Assessment & Plan (08/25/2022 7:03 PM GRANULATOR MACHINE OPERATOR): Assessment: 16 year old female who presents with signs and symptoms generalized anxiety for several years. Including fear, anxiety, trouble staying asleep, repeated thoughts, palpitation, chest pain, and more. Calm during exam today. Has not tried any medication in the past. Plan: Start Wellbutrin daily Start Atarax PRN for anxiety Follow-up in 4-6 weeks Assessment & Plan (07/19/2020 4:56 PM GRANULATOR MACHINE OPERATOR): Spent >50% of this visit discussing concerns [...] 0904/23/2018 Assessment & Plan (07/19/2020 4:57 PM GRANULATOR MACHINE OPERATOR): BMI remains elevated. Has likely been exacerbated [...] and sodium - Has been referred to appetizer packer in the past and tried the meal [...] 01/01/2017 Assessment & Plan (09/23/2023 10:28 AM GRANULATOR MACHINE OPERATOR): Continues to have poor sleep hygiene with [...] 09/28/2016 Assessment & Plan (06/23/2019 1:07 PM GRANULATOR MACHINE OPERATOR): Referral to Ortho. Assessment & Plan (09/28/2016 11:59 AM GRANULATOR MACHINE OPERATOR): Mass on left dorsal surface of the bony prominence. Unlikely to be fracture or calcification of bone without h/o trauma. Plan: - Xray of left foot 2 view Allergic rhinitis 10/15/2014 Overview (04/29/2015): Assessment & Plan (08/03/2021 3:50 PM GRANULATOR MACHINE OPERATOR): Poorly controlled. Takes Zyrtec. Plan: Continue Zyrtec. Start Flonase Assessment & Plan (09/28/2016 11:56 AM GRANULATOR MACHINE OPERATOR): Pt with AR on Zyrtec. Her symptoms [...] 09/09/2014 Assessment & Plan (08/03/2021 3:49 PM GRANULATOR MACHINE OPERATOR): Refused Flu shot Assessment & Plan (07/19/2020 4:52 PM GRANULATOR MACHINE OPERATOR): Ashley Menon is here for her adolescent well child check and has excessive weight gain and normal development. Immunizations up to date - flu shot today Has dentist PHQ-9: Negative Age appropriate anticipatory guidance provided Return in about 3 months (around 10/17/2020) for weight follow-up. Assessment & Plan (06/23/2019 1:05 PM GRANULATOR MACHINE OPERATOR): Ronald Menon is here for her adolescent [...] arise. Assessment & Plan (09/09/2014 1:45 PM GRANULATOR MACHINE OPERATOR): Ashley Menon is here for her 8 y.o. well child check. - Immunizations up to date, except flu which was declined today - Has a dental home - Age appropriate anticipatory guidance provided - Return for next well child check; sooner if concerns arise - See other separate problems Obesity 09/09/2014 Assessment & Plan (09/23/2023 10:26 AM GRANULATOR MACHINE OPERATOR): Weight is up from previous visit - [...] time Assessment & Plan (06/23/2019 1:05 PM GRANULATOR MACHINE OPERATOR): Good exercise regimen Discussed diet issues. Assessment [...] made healthy changes including workouts with a lead trainer 3-4 times per week and limiting [...] spurt. Assessment & Plan (09/09/2014 1:42 PM GRANULATOR MACHINE OPERATOR): Ashley Menon is an obese 8 y/o [...] 07/08/2014 Assessment & Plan (07/19/2020 4:59 PM GRANULATOR MACHINE OPERATOR): Noted on bilateral cheeks and chin. No inflammation noted. Likely exacerbated by stress of the pandemic. Plan: - Will start benzoyl peroxide - RTC in 3mo (monitor during weight follow-up) Assessment & Plan (07/08/2014 1:31 PM GRANULATOR MACHINE OPERATOR): Flesh colored fine papular rash. Appears to [...] 07/31/2013 Assessment & Plan (07/19/2020 5:04 PM GRANULATOR MACHINE OPERATOR): Has had significant difficulty with attention and [...] schooling. Assessment & Plan (09/28/2016 11:51 AM GRANULATOR MACHINE OPERATOR): Pt with ADHD diagnosed earlier. Pt was [...] psychology. Assessment & Plan (07/31/2013 5:51 PM GRANULATOR MACHINE OPERATOR): Unusual behaviors, escalating since, after surgery. Initially, [...] 06/18/2013 Assessment & Plan (06/23/2019 1:06 PM GRANULATOR MACHINE OPERATOR): Well controlled Does not get relief from [...] PRN Assessment & Plan (09/28/2016 11:50 AM GRANULATOR MACHINE OPERATOR): Pt on Flovent 44 2puffs BID and [...] prn Assessment & Plan (07/31/2013 5:45 PM GRANULATOR MACHINE OPERATOR): Mild exacerabation over past month. Not giving full dose of Flovent. Instructed mother to increase to 2 puffs BID and wean off albuterol. Call office if unable to wean off albuterol over next two weeks or if worsens. Assessment & Plan (06/18/2013 5:23 PM GRANULATOR MACHINE OPERATOR): Patient with mild persistent asthma. No ED [...] 025 Assessment & Plan (08/25/2022 7:11 PM GRANULATOR MACHINE OPERATOR): Assessment: Rolled ankle about 2 weeks ago and still having pain to palpation and limited range of motion. Pain mostly on the lateral malleolus. Able to bare weight for only a limited amount of time. Plan: Follow-up with orthopedic surgery Follow-up with physical therapy Otitis externa 08/03/2021 09/14/2021 Assessment & Plan (08/03/2021 3:48 PM GRANULATOR MACHINE OPERATOR): Otitis Externa on L side Plan: Start Ciprodex Acute right otitis media 08/03/202105/2024 Assessment & Plan (08/03/2021 3:49 PM GRANULATOR MACHINE OPERATOR): See exam. Plan: Start Cefdinir Diarrhea 06/07/2021 [...] 02/20/2022 Assessment & Plan (07/13/2020 11:30 AM GRANULATOR MACHINE OPERATOR): 14-year-old female with multiple comorbidities and positive [...] 09/28/2016 Assessment & Plan (09/28/2016 12:04 PM GRANULATOR MACHINE OPERATOR): 11yo female with h/o asthma, allergic rhinitis [...] worsens; would consider treating for sinusitis then Habbq-kfqkgqv-xewtzoz vaccine (MMR) not given 09/29/19 17 06/23/2019 Assessment & Plan (09/28/2016 12:00 PM GRANULATOR MACHINE OPERATOR): Missing record of her 2nd MMR vaccine. [...] 06/23/2019 Assessment & Plan (09/09/2014 1:34 PM GRANULATOR MACHINE OPERATOR): Ashley Menon is 8 y/o obese female [...] clinic Assessment & Plan (09/09/2014 1:36 PM GRANULATOR MACHINE OPERATOR): Ashley Menon is a 8 y/o female [...] behaviors Assessment & Plan (09/09/2014 1:39 PM GRANULATOR MACHINE OPERATOR): Ashley Menon is a 8 y/o female seen today for well child check found to have significant separation anxiety related to her mother. Discussed with mom and Ashley the role of therapy in treatment of anxiety in childhood. - Referral to Psychology at [facility] for management of anxiety. Mom does not wish to return to prior therapist in [place]. URI (upper respiratory infection) 07/24/2014 12/09/2014 Assessment & Plan (07/24/2014 4:52 PM GRANULATOR MACHINE OPERATOR): 8yo with 4-5days of fever, congestion, runny [...] refills needed for albuterol Living in [facility] with Mom 07/24/2014 06/23/2019 Assessment & Plan (07/24/2014 4:56 PM GRANULATOR MACHINE OPERATOR): Per Mom Ashley has been staying with her in [facility] for past several weeks. Did not give details, but implied that it was a temporary arrangement. -Provided family with [employer] card as a social service resource, instructed her to call with questions/concerns if we could be of service. Ashley is due for a well child check and Mom was interested in possibly speaking with Mindy at that time. Abdominal pain, epigastric 07/13/2014 0 09/09/2014 Assessment & Plan (07/13/2014 1:21 PM GRANULATOR MACHINE OPERATOR): Zantac trial x 1 mo Hip pain 06/18/2013 12/09/2015 Assessment & Plan (06/18/2013 5:25 PM GRANULATOR MACHINE OPERATOR): BL hip pain resolved with stretching exercises. Not needed any pain meds for. X-rays are normal. Normal hip exam BL. -Follow clinically Posterior fossa arachnoid cyst 06/18/2013 06/23/2019 Overview (04/29/2017): . IMO Update 04/29/2017 Assessment & Plan (06/18/2013 10:01 PM GRANULATOR MACHINE OPERATOR): 05/05/13 Right suboccipital retrosigmoid craniotomy for excision and fenestration of arachnoid cyst. Microsurgical technique. Cranioplasty of skull defect less than 5 cm using Synthes titanium plating system. 05/19/13 Recurrent incisional drainage, right posterior fossa arachnoid cyst, surgical wound breakdown and exploration Fall 11/10/2009 06/18/2013 Immunizations Name Administration Dates Next Due YouGoDo primary Monoval ent 12+ yr 0.3ml 02/17/2022 [...] Comments Blood Pressure 135/90 08/15/2024 6:43 PM GRANULATOR MACHINE OPERATOR Pulse 90 08/15/2024 6:43 PM GRANULATOR MACHINE OPERATOR Temperature 37.6 C (99.7 F) 08/15/2024 6:43 PM GRANULATOR MACHINE OPERATOR Respiratory Rate 20 08/15/2024 6:43 PM GRANULATOR MACHINE OPERATOR Oxygen Saturation 99% 08/15/2024 6:43 PM GRANULATOR MACHINE OPERATOR Inhaled Oxygen Concentration 100% 01/2013 12:30 PM CDT Weight 161.4 kg (355 lb 13.2 oz) 08/15/2024 7:31 AM GRANULATOR MACHINE OPERATOR Height 175 cm (5' 8.9 ) 08/15/2024 7:31 AM GRANULATOR MACHINE OPERATOR Body Mass Index 52.7 08/15/2024 7:31 AM GRANULATOR MACHINE OPERATOR Functional Status Functional Status Response Date of [...] st Contact Info) Description 10/03/2024 10:00 AM GRANULATOR MACHINE OPERATOR Office Visit [facility] [place] [address] [place] , [address] [address] Amina Nicholas, MANUFACTURING MANAGEMENT ASSOCIATE-ELEMENTARY SECRETARY [address] [address] 01/08/2025 9:00 AM CDT Office Visit [facility] [place] [address] [place] [address] Feliberto Areli Sam, MANUFACTURING MANAGEMENT ASSOCIATE-ELEMENTARY SECRETARY [address] [place] [address] Medical Devices Implanted Type Area Log Chipper Operator Device Identifier Shelf Expiration Date Model / Serial / Lot Floseal 10ml Implanted:Qty: 1 on 05/05/2013 by Aiden Turner MD at [facility] Right: Cranial [employer] 06/29/2014 [id number] / / [id number] Grft Duragen Plus 2 X 2 Implanted:Qty: 1 on 05/05/2013 by Aiden Turner MD at [facility] Right: Cranial Integra [employer] Alexandra 11/28/2015 [id number] / / [id number] Matrix Regeneration Durepair 1 X 1in Implanted:Qty: 1 on 05/05/2013 by Aiden Turner MD at [facility] Right: Cranial Medtronic Neurological 12/28/2013 [id number] / / [id number] Glue Tisseel Fibrin 10ml Implanted:Qty: 1 on 05/05/2013 by Aiden Turner MD at [facility] Right: Cranial Sant[employer]ruz [employer] 09/27/2014 [id number] / / [id number] Cov Bur Hole Ti Matrix 17mm Implanted:Qty: 1 on 05/05/2013 by Aiden Turner MD at [facility] Right: Cranial Synthes Maxillofacial [id number] / / Synthes Matrix Neuro Plate Implanted:Qty: 1 on 05/05/2013 by Aiden Turner MD at [facility] Right: Cranial 04.502.074 / / Synthes Matrix Neuro Screws 4 Mm Implanted:Qty: 9 on 05/05/2013 by Aiden Turner MD at [facility] Right: Cranial [id number] / / Screw Ortho Pediatric Set Implanted:Qty: 1 on 07/09/2017 by Areli Kwan MD at [facility] Right: Ankle 45 / / Explanted Type Area Log Chipper Operator Device Identifier Shelf Expiration Date Model / Serial / Lot Wire K 3mm 21mm Ss Orth Fx Explanted:Qty: 1 on 07/09/2017 by Areli Kwan MD at [facility] Right: Ankle Ortho Pedicatrics 6 / / Procedures Procedure Name Priority Date/Time Associated Diagnosis Comments US ABDOMEN LIMITED STAT 08/15/2024 5: 21 PM GRANULATOR MACHINE OPERATOR Abdominal pain, epigastric CT ABDOMEN PELVIS W CONTRAST STAT 08/15/2024 3:47 PM GRANULATOR MACHINE OPERATOR Abdominal pain, epigastric HCG URINE QUALITATIVE - POCT (IP) INTERFACED Routine 08/15/2024 3:08 PM GRANULATOR MACHINE OPERATOR URINALYSIS W/MICROSCOPIC REFLEX TO CULTURE STAT 08/15/2024 3:05 PM GRANULATOR MACHINE OPERATOR HCG URINE QUAL POCT NOTIFICATION STAT 08/15/2024 1:32 PM GRANULATOR MACHINE OPERATOR AMYLASE BLOOD STAT 08/15/2024 10:10 AM GRANULATOR MACHINE OPERATOR LIPASE BLOOD STAT 08/15/2024 10:10 AM GRANULATOR MACHINE OPERATOR COMPREHENSIVE METABOLIC PANEL STAT 08/15/2024 10:10 AM GRANULATOR MACHINE OPERATOR CBC W AUTO DIFFERENTIAL STAT 08/15/2024 10:10 AM GRANULATOR MACHINE OPERATOR CBC W/O DIFFERENTIAL Routine 08/14/2024 4:45 PM GRANULATOR MACHINE OPERATOR Chronic constipation COMPREHENSIVE METABOLIC PANEL Routine 08/14/2024 4:45 PM GRANULATOR MACHINE OPERATOR Chronic constipation TSH REFLEX FREE T4 Routine 08/14/2024 4: 45 PM GRANULATOR MACHINE OPERATOR Chronic constipation HEMOGLOBIN A1C Routine 08/14/2024 4:45 PM GRANULATOR MACHINE OPERATOR Chronic constipation LIPID PROFILE Routine 08/14/2024 4:45 PM GRANULATOR MACHINE OPERATOR Encounter for routine child health examination with abnormal findings XR ABD OBSTRUCTION SERIES 2VW Routine 08/14/2024 4:29 PM GRANULATOR MACHINE OPERATOR Chronic constipation CHLAMYDIA + GC AMPLIFIED PROBE Routine 09/21/2023 4:07 PM GRANULATOR MACHINE OPERATOR Encounter for routine child health examination with abnormal findings from Last 3 Months or Most Recently Relevant to Health Maintenance Results * US Abdomen Limited (08/15/2024 5:21 PM GRANULATOR MACHINE OPERATOR) Anatomical Region Laterality Modality Abdomen Ultrasound 08/15/2024 4:46 PM GRANULATOR MACHINE OPERATOR Impressions 08/16/2024 7:23 AM GRANULATOR MACHINE OPERATOR Limited gallbladder ultrasound as the patient was [...] experience right upper quadrant pain. Reading Radiologist: Delphien Tenorio on 08/16/2024 at 7:23 AM Narrative 08/16/2024 7:23 AM GRANULATOR MACHINE OPERATOR PROCEDURE: US ABDOMEN LIMITED, DATE/TIME OF EXAM: [...] Abdomen Pelvis W Contrast (08/15/2024 3:47 PM GRANULATOR MACHINE OPERATOR) Anatomical Region Laterality Modality Abdomen, Pelvis Computed Tomogra phy 08/15/2024 3:40 PM GRANULATOR MACHINE OPERATOR Impressions 08/15/2024 4:12 PM GRANULATOR MACHINE OPERATOR 1. Questionable cholelithiasis (versus gallbladder folds) without [...] at 4:12 PM Narrative 08/15/2024 4:12 PM GRANULATOR MACHINE OPERATOR PROCEDURE: CT ABDOMEN PELVIS W CONTRAST, DATE/TIME OF EXAM: 08/15/2024 3:40 PM, LOCATION INDICATION: Epigastric pain CG SEDATION IF NEEDED: ORDER [id number] FOR INPATIENTS AND [id number] FOR OUTPATIENTS AND CLINIC PATIENTS. - Radiation [...] Epigastric pain CG SEDATION IF NEEDED: ORDER [id number] FORINPATIENTS AND [id number] FOR OUTPATIENTS AND CLINIC PATIENTS. - RadiationDose:->761.52 [...] - POCT (IP) INTERFACED (08/15/2024 3:08 PM GRANULATOR MACHINE OPERATOR) Pathologist [facility] HCG Qual Urine Negative Negative 08/15/2024 3:18 PM GRANULATOR MACHINE OPERATOR [facility] Urine URINE / Unknown 08/15/2024 3 :08 PM GRANULATOR MACHINE OPERATOR 08/15/2024 3:18 PM GRANULATOR MACHINE OPERATOR Amandeep Blackwell MD LAB - POINT OF CARE ORDERABLES Performing Organization Address City/State/[facility] Co de Phone Number [facility] [address] [place] [phone] * (ABNORMAL) URINALYSIS W/MICROSCOPIC REFLEX TO CULTURE (08/15/2024 3:05 PM GRANULATOR MACHINE OPERATOR) Color UA Yellow Straw, Yellow 08/15/2024 3:19 PM GRANULATOR MACHINE OPERATOR [facility] Clarity UA Slt Cloudy(A) Clear 08/15/2024 3:19 PM GRANULATOR MACHINE OPERATOR [facility] Specific Hollis UA 1.024 1.005 - 1.030 08/15/2024 3:19 PM [facility] pH UA 8.0 5.0 - 8.0 pH 08/15/2024 3:19 PM GRANULATOR MACHINE OPERATOR [facility] Protein UA Negative Negative 08/15/2024 3:19 PM [facility] Glucose UA Negative Negative 08/15/2024 3:19 PM [facility] Ketone UA Negative Negative 08/15/2024 3:19 PM [facility] Bilirubin UA Negative Negative 08/15/2024 3:19 PM [facility] Blood UA Negative Negative 08/15/2024 3:19 PM [facility] Nitrite UA Negative Negative 08/15/2024 3:19 PM [facility] Leukocyte Esterase Negative Negative 08/15/2024 3:19 PM [facility] Urobilinogen UA 2.0(A) Negative mg/dL 08/15/2024 3:19 PM [facility] RBC UA 3-5 None Seen, 0-2, 3-5 /HPF 08/15/2024 3:19 PM [facility] WBC UA 0-5 None Seen, 0-5 /HPF 08/15/2024 3:19 PM [facility] Squamous Epithelial Cells UA 6-10(A) None Seen, 0-2, 3-5 /HPF 08/15/2024 3:19 PM [facility] Mucus UA 1+ /LPF 08/15/2024 3:19 PM [facility] Urine URINE SPECIMEN OBTAINED BY CLEAN CATCH PROCEDURE / Unknown Collection / Unknown 08/15/2024 3:05 PM GRANULATOR MACHINE OPERATOR 08/15/2024 3:13 PM GRANULATOR MACHINE OPERATOR Narrative [facility] - 08/15/2024 3:19 PM GRANULATOR MACHINE OPERATOR Culture Not Indicated Dasia Donaldson MD LAB - URINALYSI S ORDERABLES Performing Organization Address City/State/[facility] de Phone Number [facility] [address] [place] [phone], [facility] [phone] * HCG URINE QUAL POCT NOTIFICATION (08/15/2024 1:32 PM GRANULATOR MACHINE OPERATOR) Comment Notification Label Only - See Separate Report 08/15/2024 4:01 PM GRANULATOR MACHINE OPERATOR [facility] Urine URINE / Unknown 08/15/2024 1 :32 PM GRANULATOR MACHINE OPERATOR 08/15/2024 2:51 PM GRANULATOR MACHINE OPERATOR Dasia Donaldson MD LAB - URINALYSI S ORDERABLES [facility] Gonsalo1 Medina Velasco [facility]. [place] [phone] * (ABNORMAL) CBC W AUTO DIFFERENTIAL (08/15/2024 10:10 AM [facility]) WBC 11.3(H) 4.0 - 10.7 x10E9/L 08/15/2024 10:45 AM [facility] RBC Count 4.14 3.90 - 5.20 x10E12/L 08/15/2024 10:45 AM [facility] Hemoglobin 12.3 11.9 - 15.8 g/dL 08/15/2024 10:45 AM [facility] Hematocrit 37.0 34.8 - 46.1 % 08/15/2024 10:45 AM [facility] MCV 89.4 80.0 - 98.0 fL 08/15/2024 10:45 AM [facility] MCH 29.7 26.7 - 33.6 pg 08/15/2024 10:45 AM [facility] MCHC 33.2 31.7 - 36.3 g/dL 08/15/2024 10:45 AM [facility] RDW-CV 12.7 11.3 - 14.8 % 08/15/2024 10:45 AM [facility] Platelet Count 413 150 - 420 x10E9/L 08/15/2024 10:45 AM [facility] MPV 9.5 7.8 - 11.4 fL 08/15/2024 10:45 AM [facility] Neutrophil % 78.9(H) 41.0 - 74.0 % 08/15/2024 10:45 AM [facility] Lymphocyte % 12.8(L) 17.0 - 47.0 % 08/15/2024 10:45 AM [facility] Monocyte % 7.4 3.0 - 11.0 % 08/15/2024 10:45 AM [facility] Eosinophil % 0.3 0.0 - 7.0 % 08/15/2024 10:45 AM [facility] Basophil % 0.2 0.0 - 1.6 % 08/15/2024 10:45 AM [facility] Immature Granulocytes % 0.4 0.0 - 1.0 % 08/15/2024 10:45 AM [facility] Neutrophil Absolute 8.94(H) 1.60 - 7.50 x10E9/L 08/15/2024 10:45 AM [facility] Lymphocyte Absolute 1.45 1.00 - 4.40 x10E9/L 08/15/2024 10:45 AM [facility] Monocyte Absolute 0.84 0.15 - 1.00 x10E9/L 08/15/2024 10:45 AM [facility] Eosinophil Absolute 0.03 0.00 - 0.60 x10E9/L 08/15/2024 10:45 AM [facility] Basophil Absolute 0.02 0.00 - 0.13 x10E9/L 08/15/2024 10:45 AM [facility] Blood BLOOD SPECIMEN / Unknown Venipuncture / Unknown 08/15/2024 10:10 AM [facility] 08/15/2024 10:31 AM [facility] Dasia Donaldson MD LAB - HEMATOLOG Y ORDERABLES Performing Organization Address City/State/[facility] Co de Phone Number [address] [address], [facility] [phone] * COMPREHENSIVE METABOLIC PANEL (08/15/2024 10:10 AM [facility]) Only the most recent of2 resultswithin the time period is included. BUN 11 7 - 26 mg/dL 08/15/2024 10:59 AM [facility] Creatinine 0.68 0.56 - 0.96 mg/dL 08/15/2024 10:59 AM [facility] Sodium 137 136 - 145 mmol/L 08/15/2024 10:59 AM [facility] Potassium 4.0 3.5 - 4.5 mmol/L 08/15/2024 10:59 AM [facility] Chloride 106 98 - 107 mmol/L 08/15/2024 10:59 AM [facility] CO2 24 22 - 29 mmol/L 08/15/2024 10:59 AM [facility] Glucose 98 70 - 99 mg/dL 08/15/2024 10:59 AM [facility] Calcium 9.6 8.4 - 10.2 mg/dL 08/15/2024 10:59 AM [facility] Protein Total 7.6 6.0 - 8.3 g/dL 08/15/2024 10:59 AM [facility] Albumin 3.9 3.4 - 5.0 g/dL 08/15/2024 10:59 AM [facility] Bilirubin Total 0.6 0.2 - 1.2 mg/dL 08/15/2024 10:59 AM [facility] Alkaline Phosphatase 77 40 - 150 U/L 08/15/2024 10:59 AM [facility] ALT 16 5 - 55 U/L 08/15/2024 10:59 AM [facility] AST 17 5 - 34 U/L 08/15/2024 10:59 AM [facility] Anion Gap 7 6 - 16 08/15/2024 10:59 AM [facility] BUN/Creatinine Ratio 16 7 - 23 08/15/2024 10:59 AM [facility] Osmolality Calculated 283 275 - 295 mOsm/kg 08/15/2024 10:59 AM [facility] Albumin/Globulin Ratio 1.1 1.1 - 2.3 08/15/2024 10:59 AM [facility] eGFR by CKD-EPI >90 >=90 mL/min/1.7 3 m2 08/15/2024 10:59 AM [facility] Blood BLOOD SPECIMEN / Unknown Venipuncture / Unknown 08/15/2024 10:10 AM [facility] 08/15/2024 10:31 AM [facility] Dasia Donaldson MD LAB - CHEMISTRY ORDERABLES [facility] [address] [place] [address], [facility] [phone] * LIPASE BLOOD (08/15/2024 10:10 AM [facility]) Lipase 14 8 - 78 U/L 08/15/2024 10:59 AM GRANULATOR MACHINE OPERATOR [facility] Blood BLOOD SPECIMEN / Unknown Venipuncture / Unknown 08/15/2024 10:10 AM GRANULATOR MACHINE OPERATOR 08/15/2024 10:31 AM GRANULATOR MACHINE OPERATOR Narrative [facility] - 08/15/2024 10:59 AM GRANULATOR MACHINE OPERATOR Lipase results from the [employer] Alinity analyzer may not be comparable with other methodologies. Dasia Donaldson MD LAB - CHEMISTRY ORDERABLES [address] [address], [place] [phone] * AMYLASE BLOOD (08/15/2024 10:10 AM GRANULATOR MACHINE OPERATOR) Amylase 42 25 - 125 U/L 08/15/2024 10:59 AM GRANULATOR MACHINE OPERATOR [facility] Blood BLOOD SPECIMEN / Unknown Venipuncture / Unknown 08/15/2024 10:10 AM GRANULATOR MACHINE OPERATOR 08/15/2024 10:31 AM GRANULATOR MACHINE OPERATOR Dasia Donaldson MD LAB - CHEMISTRY ORDERABLES Performing Organization Address [facility]/ZIP Co de Phone Number [address] [address], [place] [phone] * TSH REFLEX FREE T4 (08/14/2024 4:45 PM GRANULATOR MACHINE OPERATOR) TSH 1.281 0.350 - 4.940 uIU/mL 08/14/2024 6:39 PM GRANULATOR MACHINE OPERATOR [facility] Blood BLOOD SPECIMEN / Unknown Lab Venipuncture / Unknown 08/14/2024 4:45 PM GRANULATOR MACHINE OPERATOR 08/14/2024 4:57 PM GRANULATOR MACHINE OPERATOR Areli CARNES LAB - SHEETER OPERATOR RY ORDERABLES Performing Organization Address City/[facility]/ZIP Co de Phone Number [address] [address], [place] [phone] * HEMOGLOBIN A1C (08/14/2024 4:45 PM GRANULATOR MACHINE OPERATOR) [facility] Hemoglobin A1c 5.3 <=5.6 % 08/15/2024 10:21 AM [facility] Estimated Average Glucose 105 mg/dL 08/15/2024 10:21 AM [facility] Comment: HbA1c Interpretation: Normal : < 5.7% Pre-diabetes: 5.7-6.4% Diabetes: Equal to or greater than 6.5% Test results diagnostic of diabetes should be repeated for confirmation. Treatment target values recommended by ADA and other clinical organizations should be used to evaluate metabolic control in patients. Reference: [place] [employer] Association, Standards of Care in Diabetes -2020 In patients 70 years and older consider HbA1c target range of 7.0-7.5% (Reference: Phil Vargas et al. JAMDA. 2012) The Sebia assay for the measurement of HbA1c is a National Glycohemoglobin Standardization Program (NGSP) certified method. Blood BLOOD SPECIMEN / Unknown Lab Venipuncture / Unknown 08/14/2024 4:45 PM GRANULATOR MACHINE OPERATOR 08/14/2024 4:57 PM GRANULATOR MACHINE OPERATOR Areli Dao MANUFACTURING MANAGEMENT ASSOCIATE-ELEMENTARY SECRETARY LAB - SHEETER OPERATOR RY ORDERABLES [facility] [address] [place] [phone], [facility] [phone] * (ABNORMAL) CBC NO DIFFERENTIAL (08/14/2024 4:45 PM GRANULATOR MACHINE OPERATOR) [facility] WBC 12.7(H) 4.0 - 10.7 x10E9/L 08/14/2024 5:00 PM [facility] RBC Count 3.93 3.90 - 5.20 x10E12/L 08/14/2024 5:00 PM [facility] Hemoglobin 11.8(L) 11.9 - 15.8 g/dL 08/14/2024 5:00 PM [facility] Hematocrit 36.1 34.8 - 46.1 % 08/14/2024 5:00 PM [facility] MCV 91.9 80.0 - 98.0 fL 08/14/2024 5:00 PM [facility] MCH 30.0 26.7 - 33.6 pg 08/14/2024 5:00 PM [facility] MCHC 32.7 31.7 - 36.3 g/dL 08/14/2024 5:00 PM [facility] RDW-CV 12.7 11.3 - 14.8 % 08/14/2024 5:00 PM [facility] Platelet Count 395 150 - 420 x10E9/L 08/14/2024 5:00 PM [facility] MPV 9.1 7.8 - 11.4 fL 08/14/2024 5:00 PM [facility] Blood BLOOD SPECIMEN / Unknown Lab Venipuncture / Unknown 08/14/2024 4:45 PM GRANULATOR MACHINE OPERATOR 08/14/2024 4:57 PM [facility] Areli Dao MANUFACTURING MANAGEMENT ASSOCIATE-ELEMENTARY SECRETARY LAB - HEMATOL OGY ORDERABLES Performing Organization Address City/State/[facility] Co de Phone Number [facility] [address] [place] [phone], [facility] [phone] * (ABNORMAL) LIPID PROFILE (08/14/2024 4:45 PM GRANULATOR MACHINE OPERATOR) Cholesterol Total 164 <200 mg/dL 08/14/2024 6:21 PM [facility] HDL 34(L) >40 mg/dL 08/14/2024 6:21 PM [facility] Comment: ATP III Classification of HDL Cholesterol: <40 mg/dL: Considered a major risk factor. >60 mg/dL: Considered a negative risk factor. LDL Calculated 107(H) <100 mg/dL 08/14/2024 6:21 PM [facility] Comment: ATP III Classification of LDL Cholesterol: <100 mg/dL: Optimal 100 - 129 mg/dL: Near Optimal/Above Optimal 130 - 159 mg/dL: Borderline High 160 - 189 mg/dL: High >190 mg/dL: Very High Triglycerides 115 <150 mg/dL 08/14/2024 6:21 PM [facility] Comment: ATP III Classification of Triglycerides: <150 mg/dL: Normal 150 - 199 mg/dL: Borderline High 200 - 400 mg/dL: High >500 mg/dL: Very High Blood BLOOD SPECIMEN / Unknown Lab Venipuncture / Unknown 08/14/2024 4:45 PM GRANULATOR MACHINE OPERATOR 08/14/2024 4:57 PM GRANULATOR MACHINE OPERATOR Yuly Pope DO LAB - CHEMISTRY [facility] [place] [address] [place] [address], [facility] [phone] * XR Abd Obstruction Series 2Vw (08/14/2024 4:29 PM GRANULATOR MACHINE OPERATOR) Anatomical Region Laterality Modality Abdomen Computed Radiogr aphy 08/14/2024 4:22 PM GRANULATOR MACHINE OPERATOR Impressions 08/14/2024 4:37 PM GRANULATOR MACHINE OPERATOR Nonobstructive bowel gas pattern. Reading Radiologist: Pallavi Lange on 08/14/2024 at 4:37 PM Narrative 08/14/2024 4:37 PM GRANULATOR MACHINE OPERATOR INDICATION: Constipation COMPARISON: None available. TECHNIQUE: Supine [...] on 08/14/2024 at 4:37 PM Areli Dao MANUFACTURING MANAGEMENT ASSOCIATE-ELEMENTARY SECRETARY DIAGNOSTIC IM AGING ORDERABLES * (ABNORMAL) CHLAMYDIA + GC AMPLIFIED PROBE (09/21/2023 4:07 PM GRANULATOR MACHINE OPERATOR) Chlamydia Amplified Probe Positive(A) Negative 09/22/2023 12:40 AM GRANULATOR MACHINE OPERATOR [facility] MICROBIOLOGY GC Amplified Probe Negative Negative 09/22/2023 12:40 AM GRANULATOR MACHINE OPERATOR [facility] MICROBIOLOGY Microbiology URINE / Unknown Collection / Unknown 09/21/2023 4:07 PM GRANULATOR MACHINE OPERATOR 09/21/2023 4:53 PM GRANULATOR MACHINE OPERATOR Narrative [facility]CRO[facility]OLOG[facility] - 09/22/2023 12:40 AM GRANULATOR MACHINE OPERATOR Repeat testing is recommended 3 months post treatment for patients who test positive for Chlamydia trachomatis/Neisseria gonorrhoeae. Results based on detection/no detection of ribosomal RNA by amplified method. Yuly Pope DO LAB - MICROBIOLOGY O RDERABLES [facility] MICROBIOLOGY [address] [place] [address], [facility] [phone] from Last 3 Months or Most Recently Relevant to Health Maintenance Advance Directives * Full Code (Latest Code Status on File) Date Activated Date Inactivated Comments 12/25/2023 11:24 PM 12/28/2023 2:22 PM * Full Code Date Activated Date Inactivated Comments 04/05/2020 1:50 PM 04/06/2020 6:02 PM * Full Code Date Activated Date Inactivated Comments 04/30/2018 9:48 AM 05/01/2018 4:48 PM Care Teams Ammonia Refrigeration Worker Relationship Specialty Start Date End Date Yuly Pope DO [address] [place] [address] PCP - General Internal Medicine 02/17/22 Kiki Burks MD [address] [place] [address] Resident Student Resident 12/11/17
--- OUTSIDE RECORDS SUMMARY | 2024-10-01 13:19 | XMS_ITS | Encounter Summary ---
Author Organization [facility] Address [address] [facility] [place] [address] Care Team Providers Care Horse Show Judge Name Role Phone Mesfin May MD Primary Care Provider [phone] Kiki Burks MD Unavailable Yuly Pope DO Primary Care Provider [phone] Encounter Details Date Type Department Care Team (Late st Contact Info) Description 08/15/2018 Telephone [facility] Pediatrics - Pulmonology [address] [place] [id number] Jennifer Michael Social History Tobacco Use [...] st Contact Info) Description 10/03/2024 10:00 AM SMELTER OPERATOR Office Visit [facility] - [address] [facility] [address] [phone] Amina Nicholas, ENVIRONMENTAL TECHNICAL OFFICER-ALTERNATIVE ENERGY TECHNICIAN [address] [address] 01/08/2025 9:00 AM CDT Office Visit [facility] - [address] [facility] [place] [place] [address] Areli Dao ENVIRONMENTAL TECHNICAL OFFICER-ALTERNATIVE ENERGY TECHNICIAN [address] [place] [phone] documented as of this encounter Visit Diagnoses Not on filedocumented in this encounter Additional Health Concerns Infection Onset Date Last Indicated Resolved Time COVID-19 Under Investigation 07/13/2020 07/13/2020 07/14/2020 12:25 PM SMELTER OPERATOR COVID-19 Under Investigation 04/13/2023 04/13/2023 04/13/2023 5:37 AM CDT documented as of this encounter Care Teams Horse Show Judge Relationship Specialty Start Date End Date Mesfin May MD [address] [place] [address] PCP - General Pediatrics 12/11/17 02/16/22 Yuly Pope DO [address] [place] [phone] PCP - General Internal Medicine 02/17/22 Kiki Burks MD [address] [place] [phone] Resident Student Resident 12/11/17 documented as of this encounter
--- OUTSIDE RECORDS SUMMARY | 2024-10-01 13:19 | XMS_ITS | Encounter Summary ---
Author Organization [facility] Address [address] [facility] [place] [address] Care Team Providers Care Archery Equipment Hay Sorter Name Role Phone Mesfin May MD Primary Care Provider [phone] Kiki Burks MD Unavailable Yuly Pope DO Primary Care Provider [phone] Encounter Details Date Type Department Care Team (Late st Contact Info) Description 04/30/2018 Ophth Exam [facility] Pediatrics - Ophthalmology [address] [place] [address] Alejandro Murillo MD [address] [place] [address] Social History Tobacco Use Types Packs/Day Years [...] st Contact Info) Description 10/03/2024 10:00 AM MILLED RUBBER TENDER Office Visit [facility] - [address] [facility], [address] [phone] Amina Nicholas, INTERVENTIONAL TECH-FARM HELPER [address] [address] 01/08/2025 9:00 AM CDT Office Visit [facility] - GI [address] [facility], [place] [phone] Areli Dao INTERVENTIONAL TECH-FARM HELPER [address] [place] [address] documented as of this encounter Visit Diagnoses Not on filedocumented in this encounter Additional Health Concerns Infection Onset Date Last Indicated Resolved Time COVID-19 Under Investigation 07/13/2020 07/13/2020 07/14/2020 12:25 PM MILLED RUBBER TENDER COVID-19 Under Investigation 04/13/2023 04/13/2023 04/13/2023 5:37 AM CDT documented as of this encounter Care Teams Archery Equipment Hay Sorter Relationship Specialty Start Date End Date Mesfin May MD [address] [place] [address] PCP - General Pediatrics 12/11/17 02/16/22 Yuly Pope DO [address] [place] [phone] PCP - General Internal Medicine 02/17/22 Kiki Burks MD [address] [place] [phone] Resident Student Resident 12/11/17 documented as of this encounter
--- OUTSIDE RECORDS SUMMARY | 2024-10-01 13:19 | XMS_ITS | Patient Health Summary ---
Author Organization [facility] Address [address] [place] [address] Care Team Providers Care Ceramic Tile Installation Helper Name Role Phone Kiki Burks MD Unavailable Yuly Pope DO Primary Care Provider [phone] Note from [facility],non-owned Affiliates and Associated Physician Practices is amultiple site organization consisting of ambulatory clinics and hospital sitesin [place], [place], [place] and [place]. This disclosure is being madepursuant to the Care Everywhere program and may not contain all information available regarding this patient. Last updated 18.[facility] Allergies * Lac Bovis(Vomiting) -Low Criticality * Lactose(GI Discomfort) -Low Criticality * Horry(Rash) -Medium Criticality * Horry Fruit(Swelling) -Medium Criticality * Horry Oil(Rash) -Medium Criticality * Penicillins(Swelling) -High Criticality [...] device by Intrauterine route continuous Inserted at [facility] Sales And Service Associate 04/23/2022, good through 04/24/2030 * albuterol HFA [...] Headache(784.0) 01/02/2017 06/23/2019 Viral respiratory illness 09/28/2016 Sdgcf-lnfbflf-plvftep vaccine (MMR) not given 09/29/19 17 06/23/2019 Sinusitis, chronic 10/15/2014 9 Snoring 09/09/2014 06/23/2019 Sleep terror 09/09/2014 06/23/2019 Separation anxiety 09/09/2014 9 URI (upper respiratory infection) 07/24/2014 12/09/2014 Living in [facility] with Mom 07/24/2014 06/23/2019 Abdominal pain, epigastric [...] Comments Blood Pressure 135/90 08/15/2024 6:43 PM DINKEY ENGINE FIRER Pulse 90 08/15/2024 6:43 PM DINKEY ENGINE FIRER Temperature 37.6 C (99.7 F) 08/15/2024 6:43 PM DINKEY ENGINE FIRER Respiratory Rate 20 08/15/2024 6:43 PM DINKEY ENGINE FIRER Oxygen Saturation 99% 08/15/2024 6:43 PM DINKEY ENGINE FIRER Inhaled Oxygen Concentration 100% 01/2013 12:30 PM CDT Weight 161.4 kg (355 lb 13.2 oz) 08/15/2024 7:31 AM DINKEY ENGINE FIRER Height 175 cm (5' 8.9 ) 08/15/2024 7:31 AM DINKEY ENGINE FIRER Body Mass Index 52.7 08/15/2024 7:31 AM DINKEY ENGINE FIRER Medical Devices Implanted Type Area Truck Striker Device Identifier Shelf Expiration Date Model / Serial / Lot Floseal 10ml Implanted:Qty: 1 on 05/05/2013 by Aiden Turner MD at [facility] Right: Cranial [employer] 06/29/2014 [id number] / / [id number] Grft Duragen Plus 2 X 2 Implanted:Qty: 1 on 05/05/2013 by Aiden Turner MD at [facility] Right: Cranial Integra [employer] Alexandra 11/28/2015 [id number] / / [id number] Matrix Regeneration Durepair 1 X 1in Implanted:Qty: 1 on 05/05/2013 by Aiden Turner MD at [facility] Right: Cranial [employer] Neurological 12/28/2013 [id number] / / [id number] Glue Tisseel Fibrin 10ml Implanted:Qty: 1 on 05/05/2013 by Aiden Turner MD at [facility] Right: Cranial [employer] 09/27/2014 [id number] / / [id number] Cov Bur Hole Ti Matrix 17mm Implanted:Qty: 1 on 05/05/2013 by Aiden Turner MD at [facility] Right: Cranial Synthes Maxillofacial 04.503.023 / / Synthes Matrix Neuro Plate Implanted:Qty: 1 on 05/05/2013 by Aiden Turner MD at [facility] Right: Cranial 04.502.074 / / Synthes Matrix Neuro Screws 4 Mm Implanted:Qty: 9 on 05/05/2013 by Aiden Turner MD at [facility] Right: Cranial [id number] / / Screw Ortho Pediatric Set Implanted:Qty: 1 on 07/09/2017 by Areli Kwan MD at [facility] Right: Ankle [id number] / / Explanted Type Area Truck Striker Device Identifier Shelf Expiration Date Model / Serial / Lot Wire K 3mm 21mm Ss Orth Fx Explanted:Qty: 1 on 07/09/2017 by Areli Kwan MD at [facility] Right: Ankle Ortho Pedicatrics 01-1030-00 6 / [...] Performed for Acute left ankle pain * [place] INSERT INTRAUTERINE DEVICE(Performed 04/24/2022) Performed for Family planning, Dysmenorrhea, Menorrhagia with regular cycle, Encounter for IUD insertion * [place] US PEL NONOB B-SCAN&/R-T IMG LMTD/F-UP+C97(Performed 04/24/2022) [...] BMI greater than 99th percentile for age ([facility]) * C-REACTIVE PROTEIN(Performed 06/13/2021) Performed for Pain of upper abdomen, Diarrhea, unspecified type, Severe childhood obesity with BMI greater than 99th percentile for age (HCC) * COMPREHENSIVE METABOLIC PANEL(Performed 06/13/2021) Performed for Pain of upper abdomen, Diarrhea, unspecified type, Severe childhood obesity with BMI greater than 99th percentile for age ([facility]) * CBC W AUTO DIFFERENTIAL(Performed 06/13/2021) Performed [...] Posterior fossa arachnoid cyst, Living in [facility] with Mom, Snoring, Sleep terror, Separation anxiety [...] * US Abdomen Limited (08/15/2024 5:21 PM DINKEY ENGINE FIRER) Anatomical Region Laterality Modality Abdomen Ultrasound 08/15/2024 4:46 PM DINKEY ENGINE FIRER Impressions 08/16/2024 7:23 AM DINKEY ENGINE FIRER Limited gallbladder ultrasound as the patient was [...] at 7:23 AM Narrative 08/16/2024 7:23 AM DINKEY ENGINE FIRER PROCEDURE: US ABDOMEN LIMITED, DATE/TIME OF EXAM: [...] Abdomen Pelvis W Contrast (08/15/2024 3:47 PM DINKEY ENGINE FIRER) Anatomical Region Laterality Modality Abdomen, Pelvis Computed Tomogra phy 08/15/2024 3:40 PM DINKEY ENGINE FIRER Impressions 08/15/2024 4:12 PM DINKEY ENGINE FIRER 1. Questionable cholelithiasis (versus gallbladder folds) without [...] at 4:12 PM Narrative 08/15/2024 4:12 PM DINKEY ENGINE FIRER PROCEDURE: CT ABDOMEN PELVIS W CONTRAST, DATE/TIME OF EXAM: 08/15/2024 3:40 PM, LOCATION INDICATION: Epigastric pain CG SEDATION IF NEEDED: ORDER [id number] FOR INPATIENTS AND [id number] FOR OUTPATIENTS AND CLINIC PATIENTS. - Radiation [...] Epigastric pain CG SEDATION IF NEEDED: ORDER [id number] FORINPATIENTS AND [id number] FOR OUTPATIENTS AND CLINIC PATIENTS. - RadiationDose:->761.52 [...] - POCT (IP) INTERFACED (08/15/2024 3:08 PM DINKEY ENGINE FIRER) Only the most recent of3 resultswithin the time period is included. HCG Qual Urine Negative Negative 08/15/2024 3:18 PM DINKEY ENGINE FIRER [facility] Urine URINE / Unknown 08/15/2024 3 :08 PM DINKEY ENGINE FIRER 08/15/2024 3:18 PM DINKEY ENGINE FIRER Amandeep Blackwell MD LAB - POINT OF CARE ORDERABLES [facility] [place] [address] * (ABNORMAL) URINALYSIS W/MICROSCOPIC REFLEX TO CULTURE (08/15/2024 3:05 PM DINKEY ENGINE FIRER) Color UA Yellow Straw, Yellow 08/15/2024 3:19 PM [facility] Clarity UA Slt Cloudy(A) Clear 08/15/2024 3:19 PM [facility] Specific Slayden UA 1.024 1.005 - 1.030 08/15/2024 3:19 PM [facility] pH UA 8.0 5.0 - 8.0 pH 08/15/2024 3:19 PM [facility] Protein UA Negative Negative 08/15/2024 3:19 PM [facility] Glucose UA Negative Negative 08/15/2024 3:19 PM [facility] Ketone UA Negative Negative 08/15/2024 3:19 PM [facility] Bilirubin UA Negative Negative 08/15/2024 3:19 PM [facility] Blood UA Negative Negative 08/15/2024 3:19 PM [facility] Nitrite UA Negative Negative 08/15/2024 3:19 PM [facility] Leukocyte Esterase Negative Negative 08/15/2024 3:19 PM [facility] Urobilinogen UA 2.0(A) Negative mg/dL 08/15/2024 3:19 PM [facility] RBC UA 3-5 None Seen, 0-2, 3-5 /HPF 08/15/2024 3:19 PM [facility] WBC UA 0-5 None Seen, 0-5 /HPF 08/15/2024 3:19 PM [facility] Squamous Epithelial Cells UA 6-10(A) None Seen, 0-2, 3-5 /HPF 08/15/2024 3:19 PM [facility] Mucus UA 1+ /LPF 08/15/2024 3:19 PM [facility] Urine URINE SPECIMEN OBTAINED BY CLEAN CATCH PROCEDURE / Unknown Collection / Unknown 08/15/2024 3:05 PM DINKEY ENGINE FIRER 08/15/2024 3:13 PM DINKEY ENGINE FIRER Narrative [facility] - 08/15/2024 3:19 PM DINKEY ENGINE FIRER Culture Not Indicated Dasia Donaldson MD LAB - URINALYSI S ORDERABLES Performing Organization Address City/[facility]/ZIP Co de Phone Number [facility] [address] [place] [address], [facility] [phone] * HCG URINE QUAL POCT NOTIFICATION (08/15/2024 1:32 PM DINKEY ENGINE FIRER) Only the most recent of3 resultswithin the time period is included. Comment Notification Label Only - See Separate Report 08/15/2024 4:01 PM DINKEY ENGINE FIRER [facility] Urine URINE / Unknown 08/15/2024 1 :32 PM DINKEY ENGINE FIRER 08/15/2024 2:51 PM DINKEY ENGINE FIRER Dasia Donaldson MD LAB - URINALYSI S ORDERABLES Performing Organization Address [facility]/ZIP Co de Phone Number [facility] [address] [place] [address] * (ABNORMAL) CBC W AUTO DIFFERENTIAL (08/15/2024 10:10 AM DINKEY ENGINE FIRER) Only the most recent of16 resultswithin the time period is included. WBC 11.3(H) 4.0 - 10.7 x10E9/L 08/15/2024 10:45 AM [facility] RBC Count 4.14 3.90 - 5.20 x10E12/L 08/15/2024 10:45 AM [facility] Hemoglobin 12.3 11.9 - 15.8 g/dL 08/15/2024 10:45 AM [facility] Hematocrit 37.0 34.8 - 46.1 % 08/15/2024 10:45 AM [facility] MCV 89.4 80.0 - 98.0 fL 08/15/2024 10:45 AM [facility] MCH 29.7 26.7 - 33.6 pg 08/15/2024 10:45 AM [facility] MCHC 33.2 31.7 - 36.3 g/dL 08/15/2024 10:45 AM [facility] RDW-CV 12.7 11.3 - 14.8 % 08/15/2024 10:45 AM [facility] Platelet Count 413 150 - 420 x10E9/L 08/15/2024 10:45 AM [facility] MPV 9.5 7.8 - 11.4 fL 08/15/2024 10:45 AM [facility] Neutrophil % 78.9(H) 41.0 - 74.0 % 08/15/2024 10:45 AM [facility] Lymphocyte % 12.8(L) 17.0 - 47.0 % 08/15/2024 10:45 AM [facility] Monocyte % 7.4 3.0 - 11.0 % 08/15/2024 10:45 AM [facility] Eosinophil % 0.3 0.0 - 7.0 % 08/15/2024 10:45 AM [facility] Basophil % 0.2 0.0 - 1.6 % 08/15/2024 10:45 AM [facility] Immature Granulocytes % 0.4 0.0 - 1.0 % 08/15/2024 10:45 AM [facility] Neutrophil Absolute 8.94(H) 1.60 - 7.50 x10E9/L 08/15/2024 10:45 AM [facility] Lymphocyte Absolute 1.45 1.00 - 4.40 x10E9/L 08/15/2024 10:45 AM [facility] Monocyte Absolute 0.84 0.15 - 1.00 x10E9/L 08/15/2024 10:45 AM [facility] Eosinophil Absolute 0.03 0.00 - 0.60 x10E9/L 08/15/2024 10:45 AM [facility] Basophil Absolute 0.02 0.00 - 0.13 x10E9/L 08/15/2024 10:45 AM [facility] Blood BLOOD SPECIMEN / Unknown Venipuncture / Unknown 08/15/2024 10:10 AM [facility] 08/15/2024 10:31 AM [facility] Dasia Donaldson MD LAB - HEMATOLOG Y ORDERABLES [facility] [address] [place] [address], [facility] [phone] * COMPREHENSIVE METABOLIC PANEL (08/15/2024 10:10 AM [facility]) Only the most recent of7 resultswithin the time period is included. BUN 11 7 - 26 mg/dL 08/15/2024 10:59 AM [facility] Creatinine 0.68 0.56 - 0.96 mg/dL 08/15/2024 10:59 AM [facility] Sodium 137 136 - 145 mmol/L 08/15/2024 10:59 AM [facility] Potassium 4.0 3.5 - 4.5 mmol/L 08/15/2024 10:59 AM [facility] Chloride 106 98 - 107 mmol/L 08/15/2024 10:59 AM [facility] CO2 24 22 - 29 mmol/L 08/15/2024 10:59 AM [facility] Glucose 98 70 - 99 mg/dL 08/15/2024 10:59 AM [facility] Calcium 9.6 8.4 - 10.2 mg/dL 08/15/2024 10:59 AM [facility] Protein Total 7.6 6.0 - 8.3 g/dL 08/15/2024 10:59 AM [facility] Albumin 3.9 3.4 - 5.0 g/dL 08/15/2024 10:59 AM [facility] Bilirubin Total 0.6 0.2 - 1.2 mg/dL 08/15/2024 10:59 AM [facility] Alkaline Phosphatase 77 40 - 150 U/L 08/15/2024 10:59 AM [facility] ALT 16 5 - 55 U/L 08/15/2024 10:59 AM [facility] AST 17 5 - 34 U/L 08/15/2024 10:59 AM DINKEY ENGINE FIRER [facility] Anion Gap 7 6 - 16 08/15/2024 10:59 AM [facility] BUN/Creatinine Ratio 16 7 - 23 08/15/2024 10:59 AM [facility] Osmolality Calculated 283 275 - 295 mOsm/kg 08/15/2024 10:59 AM [facility] Albumin/Globulin Ratio 1.1 1.1 - 2.3 08/15/2024 10:59 AM [facility] eGFR by CKD-EPI >90 >=90 mL/min/1.7 3 m2 08/15/2024 10:59 AM [facility] Blood BLOOD SPECIMEN / Unknown Venipuncture / Unknown 08/15/2024 10:10 AM DINKEY ENGINE FIRER 08/15/2024 10:31 AM DINKEY ENGINE FIRER Dasia Donaldson MD LAB - CHEMISTRY ORDERABLES Performing Organization Address City/[facility]/ZIP Co de Phone Number [address] [address], [facility] [phone] * LIPASE BLOOD (08/15/2024 10:10 AM DINKEY ENGINE FIRER) Only the most recent of2 resultswithin the time period is included. Lipase 14 8 - 78 U/L 08/15/2024 10:59 AM [facility] Blood BLOOD SPECIMEN / Unknown Venipuncture / Unknown 08/15/2024 10:10 AM DINKEY ENGINE FIRER 08/15/2024 10:31 AM DINKEY ENGINE FIRER Narrative [facility] - 08/15/2024 10:59 AM DINKEY ENGINE FIRER Lipase results from the [employer] Alinity analyzer may not be comparable with other methodologies. Dasia Donaldson MD LAB - CHEMISTRY ORDERABLES [address] [address], [place] [phone] * AMYLASE BLOOD (08/15/2024 10:10 AM DINKEY ENGINE FIRER) Amylase 42 25 - 125 U/L 08/15/2024 10:59 AM [facility] Blood BLOOD SPECIMEN / Unknown Venipuncture / Unknown 08/15/2024 10:10 AM DINKEY ENGINE FIRER 08/15/2024 10:31 AM DINKEY ENGINE FIRER Dasia Donaldson MD LAB - CHEMISTRY ORDERABLES Performing Organization Address City/[facility]/ZIP Co de Phone Number [address] [address], [facility] [phone] * TSH REFLEX FREE T4 (08/14/2024 4:45 PM DINKEY ENGINE FIRER) Only the most recent of3 resultswithin the time period is included. Pathologist [facility] TSH 1.281 0.350 - 4.940 uIU/mL 08/14/2024 6:39 PM [facility] Blood BLOOD SPECIMEN / Unknown Lab Venipuncture / Unknown 08/14/2024 4:45 PM DINKEY ENGINE FIRER 08/14/2024 4:57 PM DINKEY ENGINE FIRER Areli CARNES LAB - LINE CAMERA OPERATOR RY ORDERABLES Performing Organization Address [facility]/ZIP Co de Phone Number [address] [address], [facility] [phone] * HEMOGLOBIN A1C (08/14/2024 4:45 PM DINKEY ENGINE FIRER) Only the most recent of3 resultswithin the time period is included. Hemoglobin A1c 5.3 <=5.6 % 08/15/2024 10:21 AM [facility] Estimated Average Glucose 105 mg/dL 08/15/2024 10:21 AM [facility] Comment: HbA1c Interpretation: Normal : < 5.7% Pre-diabetes: 5.7-6.4% Diabetes: Equal to or greater than 6.5% Test results diagnostic of diabetes should be repeated for confirmation. Treatment target values recommended by ADA and other clinical organizations should be used to evaluate metabolic control in patients. Reference: [place] Diabetes Association, Standards of Care in Diabetes -2020 In patients 70 years and older consider HbA1c target range of 7.0-7.5% (Reference: Phil Vargas et al. JAMDA. 2012) The Sebia assay for the measurement of HbA1c is a National Glycohemoglobin Standardization Program (NGSP) certified method. Blood BLOOD SPECIMEN / Unknown Lab Venipuncture / Unknown 08/14/2024 4:45 PM DINKEY ENGINE FIRER 08/14/2024 4:57 PM DINKEY ENGINE FIRER Areli Dao SENIOR HRIS ANALYST-CLOTH BLEACHING RANGE OPERATOR CHIEF LAB - LINE CAMERA OPERATOR RY ORDERABLES Performing Organization Address City/[facility]/ZIP Co de Phone Number [facility] [address] [place] [address], [facility] [phone] * (ABNORMAL) CBC NO DIFFERENTIAL (08/14/2024 4:45 PM DINKEY ENGINE FIRER) Only the most recent of2 resultswithin the time period is included. WBC 12.7(H) 4.0 - 10.7 x10E9/L 08/14/2024 5:00 PM [facility] RBC Count 3.93 3.90 - 5.20 x10E12/L 08/14/2024 5:00 PM [facility] Hemoglobin 11.8(L) 11.9 - 15.8 g/dL 08/14/2024 5:00 PM [facility] Hematocrit 36.1 34.8 - 46.1 % 08/14/2024 5:00 PM [facility] MCV 91.9 80.0 - 98.0 fL 08/14/2024 5:00 PM [facility] MCH 30.0 26.7 - 33.6 pg 08/14/2024 5:00 PM [facility] MCHC 32.7 31.7 - 36.3 g/dL 08/14/2024 5:00 PM [facility] RDW-CV 12.7 11.3 - 14.8 % 08/14/2024 5:00 PM [facility] Platelet Count 395 150 - 420 x10E9/L 08/14/2024 5:00 PM [facility] MPV 9.1 7.8 - 11.4 fL 08/14/2024 5:00 PM [facility] Blood BLOOD SPECIMEN / Unknown Lab Venipuncture / Unknown 08/14/2024 4:45 PM DINKEY ENGINE FIRER 08/14/2024 4:57 PM DINKEY ENGINE FIRER Areli Doa SENIOR HRIS ANALYST-CLOTH BLEACHING RANGE OPERATOR CHIEF LAB - HEMATOL OGY ORDERABLES [facility] [address] [place] [address], [place] [phone] * (ABNORMAL) LIPID PROFILE (08/14/2024 4:45 PM DINKEY ENGINE FIRER) Only the most recent of5 resultswithin the time period is included. Cholesterol Total 164 <200 mg/dL 08/14/2024 6:21 PM [facility] HDL 34(L) >40 mg/dL 08/14/2024 6:21 PM [facility] Comment: ATP III Classification of HDL Cholesterol: <40 mg/dL: Considered a major risk factor. >60 mg/dL: Considered a negative risk factor. LDL Calculated 107(H) <100 mg/dL 08/14/2024 6:21 PM [facility] Comment: ATP III Classification of LDL Cholesterol: <100 mg/dL: Optimal 100 - 129 mg/dL: Near Optimal/Above Optimal 130 - 159 mg/dL: Borderline High 160 - 189 mg/dL: High >190 mg/dL: Very High Triglycerides 115 <150 mg/dL 08/14/2024 6:21 PM [facility] Comment: ATP III Classification of Triglycerides: <150 mg/dL: Normal 150 - 199 mg/dL: Borderline High 200 - 400 mg/dL: High >500 mg/dL: Very High Blood BLOOD SPECIMEN / Unknown Lab Venipuncture / Unknown 08/14/2024 4:45 PM DINKEY ENGINE FIRER 08/14/2024 4:57 PM DINKEY ENGINE FIRER Yuly Pope DO LAB - CHEMISTRY LUCIAE ANSELMO [facility] [address] [place] [address], [place] [phone] * XR Abd Obstruction Series 2Vw (08/14/2024 4:29 PM DINKEY ENGINE FIRER) Anatomical Region Laterality Modality Abdomen Computed Radiogr aphy 08/14/2024 4:22 PM DINKEY ENGINE FIRER Impressions 08/14/2024 4:37 PM DINKEY ENGINE FIRER Nonobstructive bowel gas pattern. Reading Radiologist: Pallavi Lange on 08/14/2024 at 4:37 PM Narrative 08/14/2024 4:37 PM DINKEY ENGINE FIRER INDICATION: Constipation COMPARISON: None available. TECHNIQUE: Supine [...] 08/14/2024 at 4:37 PM Areli Dao SENIOR HRIS ANALYST-CLOTH BLEACHING RANGE OPERATOR CHIEF DIAGNOSTIC IM AGING ORDERABLES * (ABNORMAL) HERPES SIMPLEX 1+2 PCR LESION (12/26/2023 2:39 PM CDT) Herpes Simplex Virus 1 PCR Lesion Detected(A) Not detected 12/26/2023 9:12 PM CDT [facility] Herpes Simplex Virus 2 PCR Lesion Not detected Not detected 12/26/2023 9:12 PM CDT [facility] Microbiology LESION SPECIMEN / Unknown Collection / Unknown 12/26/2023 2:39 PM CDT 12/26/2023 2:43 PM CDT Enoc Badillo MD LAB - MICROBIOLOGY O RDERABLES [facility] [address] [place] [address], [facility] [phone] * (ABNORMAL) MYCOPLASMA PNEUMONIAE AB IGG/IGM PANEL (12/26/2023 10:29 AM CDT) [facility] Mycoplasma Antibody IgG 0.31(H) <=0.09 U/L 12/29/2023 2:52 PM CDT [facility] ([facility]) Comment: INTERPRETIVE INFORMATION: Mycoplasma pneumoniae Ab, [...] 0.16 <=0.76 U/L 12/29/2023 2:52 PM T [facility] ([facility]) Comment: INTERPRETIVE INFORMATION: Mycoplasma pneumoniae Ab, [...] more than 12 months post-infection. Performed By: [facility] [address] [place] [address] Gem Setter: Jean Paul Acosta MD, PhD CLIA Number: [id number] Blood BLOOD SPECIMEN / Unknown Venipuncture / Unknown 12/26/2023 10:29 AM CDT 12/26/2023 10:37 AM CDT Dasia Donaldson MD LAB - SEROLOGY ORDERABLES [facility] [employer] ([facility]) [address] [place] [address], [facility] * (ABNORMAL) BASIC METABOLIC PANEL (CALCIUM TOTAL) (12/26/2023 7:55 AM CDT) Only the most recent of6 resultswithin the time period is included. BUN 8 7 - 26 mg/dL 12/26/2023 9:03 AM [facility] Creatinine 0.91 0.56 - 0.96 mg/dL 12/26/2023 9:03 AM [facility] Sodium 138 136 - 145 mmol/L 12/26/2023 9:03 AM [facility] Potassium 4.1 3.5 - 4.5 mmol/L 12/26/2023 9:03 AM [facility] Chloride 109(H) 98 - 107 mmol/L 12/26/2023 9:03 AM [facility] CO2 16(L) 22 - 29 mmol/L 12/26/2023 9:03 AM [facility] Glucose 103 70 - 115 mg/dL 12/26/2023 9:03 AM [facility] Calcium 9.6 8.4 - 10.2 mg/dL 12/26/2023 9:03 AM [facility] Anion Gap 13 6 - 16 12/26/2023 9:03 AM [facility] BUN/Creatinine Ratio 9 7 - 23 12/26/2023 9:03 AM [facility] Osmolality Calculated 285 275 - 295 mOsm/kg 12/26/2023 9:03 AM [facility] eGFR by CKD-EPI >90 >=90 mL/min/1.7 3 m2 12/26/2023 9:03 AM [facility] Blood BLOOD SPECIMEN / Unknown Lab Capillary / Unknown 12/26/2023 7:55 AM CDT 12/26/2023 8:14 AM [facility] Amandeep Blackwell MD LAB - CHEMISTRY NISSA BRIONES [facility] [address] [place] [address] [phone] * EKG 15-LEAD (12/25/2023 5:58 PM CDT) Only the most recent of2 resultswithin the time period is included. [facility] Ventricular Rate 89 BPM CG MUSE Atrial Rate 89 BPM CG MUSE P-R Interval 150 ms CG MUSE QRS Duration ms 90 ms CG MUSE Q-T Interval ms 350 ms CG MUSE QTC Calculation (Bezet) 425 ms CG MUSE Calculated P [place] 36 degrees CG MUSE Calculated R [place] 16 degrees CG MUSE Calculated T [place] 4 degrees CG MUSE Interpretation EKG Normal sinus rhythm Confirmed by MAURICIO WORTHY, SARAH BETH ([id number]) on 12/26/2023 4:06:13 PM CG MUSE 12/25/2023 5:58 PM CDT 12/26/2023 4:06 PM CDT Amandeep Blackwell MD ECG ORDERABLES CG MUSE * GLUCOSE - POINT OF CARE (12/25/2023 5:20 PM CDT) [facility] Glucose WB/POC 77 70 - 106 mg/dL 12/25/2023 5:24 PM CDT [facility] Specimen Type Cap Fingerstick 2023 5:24 PM CDT [facility] Blood BLOOD SPECIMEN / Unknown 12/25/2023 5:20 PM CDT 12/25/2023 5:24 PM CDT Provider Unknown LAB - POINT OF CARE ORDERABLES [facility] [address] [facility] [place] [address] * MONONUCLEOSIS SCREEN REFLX TITER (12/25/2023 4:58 PM CDT) [facility] [place] Qualitative W/Reflex Quantitative Negative Negative 12/28/2023 11:12 AM CDT [facility] ([facility]) Comment: The sensitivity of Heterophile antibody testing is 80-90%. Cynthia Paz IgM testing offers higher sensitivity. Blood BLOOD SPECIMEN / Unknown Lab Venipuncture / Unknown 12/25/2023 4:58 PM CDT 12/25/2023 5:21 PM CDT Narrative [facility] ([facility]) - 12/28/2023 11:12 AM CDT Performed at: 01 - [facility] [address] [place], [place] [id number] Moving Picture Producer: Arron Wesley PhD, Phone: [phone] Zaida Phoenix DO LAB - SEROLOGY ORDER CARLEEN Performing Organization Address City/[facility]/ZIP Co de Phone Number [facility] ([facility]) [address] [place] [address] * TRICHOMONAS VAGINALIS AMPLIFIED PROBE (09/21/2023 4:07 PM [employer]IN[employer] ENGINE FIRER) Trichomonas vaginalis Amplified Probe Negative Negative 09/22/2023 12:40 AM [employer] ENGINE [employer]ER [facility] Microbiology URINE / Unknown Collection / Unknown 09/21/2023 4:07 PM [employer]ER 09/21/2023 4:53 PM [employer]INE [employer]ER Narrative [facility] MICROBIOLOG[facility] - 09/22/2023 12:40 AM [employer]IN[employer]INE [employer]ER This test was developed and its performance characteristics determined by the [facility], [facility]. Urine specimens tested by the [facility] have not been cleared or approved by [...] - MICROBIOLOGY O RDERABLES Performing Organization Address City/[facility]/ZIP Co de Phone Number [facility] [address] [place] [address], [facility] [phone] * (ABNORMAL) CHLAMYDIA + GC AMPLIFIED PROBE (09/21/2023 4:07 PM DINKEY ENGINE FIRER) Chlamydia Amplified Probe Positive(A) Negative 09/22/2023 12:40 AM DINKEY ENGINE FIRER [facility] GC Amplified Probe Negative Negative 09/22/2023 12:40 AM [facility] MICROBIOLOGY Microbiology URINE / Unknown Collection / Unknown 09/21/2023 4:07 PM DINKEY ENGINE FIRER 09/21/2023 4:53 PM DINKEY ENGINE FIRER Narrative [facility] - 09/22/2023 12:40 AM DINKEY ENGINE FIRER Repeat testing is recommended 3 months post treatment for patients who test positive for Chlamydia trachomatis/Neisseria gonorrhoeae. Results based on detection/no detection of ribosomal RNA by amplified method. Yuly Pope DO LAB - MICROBIOLOGY O RDERABLES [facility] [address] [phone] * CARDIAC EKG ORDER (07/04/2023 4:43 PM DINKEY ENGINE FIRER) Narrative 07/04/2023 4:43 PM DINKEY ENGINE FIRER Ordered by an unspecified provider. Scanned Document CARDIAC SERVICES ORD ERABLES * TROPONIN-I HIGH SENSITIVE REFLEX 1HOUR (07/03/2023 7:52 AM DINKEY ENGINE FIRER) Troponin I High Sensitive <3 <=14 ng/L 07/03/2023 10:13 AM DINKEY ENGINE FIRER [facility] Delta Troponin I HS 07/03/2023 10:13 AM [facility] Comment:Delta value intentio carri not calculated. Baseline to 1 hour specimen collection interval exceeded. Blood BLOOD SPECIMEN / Unknown Venipuncture / Unknown 07/03/2023 7:52 AM DINKEY ENGINE FIRER 07/03/2023 7:55 AM DINKEY ENGINE FIRER Kev Goodrich MD LAB - CHEMISTRY ORDE ANSELMO [facility] [address] [facility] [address] * XR CHEST 1VW PORTABLE (07/03/2023 6:32 AM DINKEY ENGINE FIRER) Anatomical Region Laterality Modality Chest Radiographic Mackenzie ging 07/03/2023 8:29 AM DINKEY ENGINE FIRER Impressions 07/03/2023 8:30 AM DINKEY ENGINE FIRER IMPRESSION: No active disease > Interpreting Provider: Dante Corral MD on 07/03/2023 8:30 AM Narrative 07/03/2023 8:30 AM DINKEY ENGINE FIRER PROCEDURE: XR CHEST 1VW PORTABLE, DATE/TIME OF EXAM: 07/03/2023 6:32 AM, LOCATION [facility] INDICATION: R07.9: Chest pain, unspecified ADDITIONAL CLINICAL INFORMATION: Ordering Provider Reason For Exam: Technologist Note: Additional: COMPARISON: 10/26/2006 TECHNIQUE: AP portable chest FINDINGS: The heart and mediastinum appear unremarkable. No focal infiltrate or effusion. No pneumothorax. Procedure Note Dante Corral MD - 07/03/2023 PROCEDURE: XR CHEST 1VW PORTABLE, DATE/TIME OF EXAM: 07/03/2023 6:32AM, LOCATION [facility] INDICATION: R07.9: Chest pain, unspecified ADDITIONAL CLINICAL [...] SENSITIVE BASELINE + 1HR (07/03/2023 6:21 AM DINKEY ENGINE FIRER) [facility] Troponin I High Sensitive <3 <=14 ng/L 07/03/2023 6:58 AM DINKEY ENGINE FIRER [facility] Blood BLOOD SPECIMEN / Unknown Venipuncture / Unknown 07/03/2023 6:21 AM DINKEY ENGINE FIRER 07/03/2023 6:41 AM DINKEY ENGINE FIRER Kev Goodrich MD LAB - CHEMISTRY NISSA BRIONES [facility] Organization Address City/State/ZIP Co de Phone Number [facility] [address] [place] [address] * EKG 12-LEAD (07/03/2023 6:07 AM DINKEY ENGINE FIRER) [facility] Ventricular Rate 81 BPM [facility] Atrial Rate 81 BPM [facility] P-R Interval 168 ms [facility] QRS Duration ms 90 ms [facility] Q-T Interval ms 352 ms [facility] QTC Calculation (Bezet) 408 ms [facility] Calculated P [place] 48 degrees [facility] MUSE Calculated R [place] 16 degrees [facility] M[facility] Calculated T [place] 2 degrees [facility] Interpretation EKG Normal sinus rhythm Nonspecific T wave abnormality Abnormal ECG No previous ECGs available Confirmed by Maurice Bailey ([id number]) on 07/03/2023 9:07:13 AM [facility] 07/03/2023 6:07 AM DINKEY ENGINE FIRER 07/03/2023 9:07 AM DINKEY ENGINE FIRER Kev Goodrich MD ECG ORDERABLES [facility] * (ABNORMAL) STREP A SCREEN - POCT (IP) URGENT CARE (04/16/2023 11:39 AM CDT) [facility] Strep A Rapid POCT Positive(A ) Negative [facility] QC Verified Yes Yes [facility] Throat ENTIRE THROAT (SURFACE REGION OF NECK) / Unknown 04/16/2023 11:39 AM CDT Pallavi Mendoza SENIOR HRIS ANALYST-CLOTH BLEACHING RANGE OPERATOR CHIEF LAB - POINT OF CARE ORDERABLES [facility] [address] [phone] * SARS-COV-2 (COVID-19) RAPID (04/13/2023 4:48 AM CDT) [facility] COVID-19 PCR Not detected Not detected 04/13/20 5:37 AM CDT [facility] Microbiology SPECIMEN FROM NASOPHARYNGEAL STRUCTURE / Unknown Collection / Unknown 04/13/2023 4:48 AM CDT 04/13/2023 4:59 AM CDT Narrative [facility] - 04/13/2023 5:37 AM CDT The [employer]ep[employer]id[employer] Xpert Xpress SARS-COV-2 has been authorized by [...] - MICROBIOLOGY O REZA Performing Organization Address [facility] Co de Phone Number [facility] [address] [place] [address] * STREP A SCREEN DIRECT W RFLX STREP A CULTURE (04/13/2023 4:48 AM CDT) Only the most recent of2 resultswithin the time period is included. Pathologist [facility] Strep A Rapid Negative Negative 04/13/2023 5:13 AM CDT [facility] Microbiology ENTIRE THROAT (SURFACE REGION OF NECK) / Unknown Collection / Unknown 04/13/2023 4:48 AM CDT 04/13/2023 4:59 AM CDT Narrative [facility] - 04/13/2023 5:13 AM CDT Test has reflexed to a Strep A culture. Jean Paul Parada MD LAB - MICROBIOLOGY O REZA Performing Organization Address [facility] Co de Phone Number [facility] [address] [place] [address] * HCG URINE QUALITATIVE (04/13/2023 4:48 AM CDT) hCG Qualitative Urine Negative Negative 04/13/2023 5:08 AM CDT [facility] Urine URINE / Unknown Collection / Unknown 04/13/2023 4:48 AM CDT 04/13/2023 4:59 AM CDT Jean Paul Parada MD LAB - URINALYSIS ORD ERABLES Performing Organization Address City/[facility]/ZIP Co de Phone Number [facility] [address] [place] [address] * CULTURE STREP GROUP A (04/13/2023 4:48 AM CDT) Only the most recent of4 resultswithin the time period is included. Culture Negative for beta-hemolytic Streptococcus Group A MANOLO 04/14/2023 6:09 AM CDT [facility] Microbiology ENTIRE THROAT (SURFACE REGION OF NECK) / Unknown Collection / Unknown 04/13/2023 4:48 AM CDT 04/13/2023 4:59 AM CDT Jean Paul Parada MD LAB - MICROBIOLOGY O RDERABLES Performing Organization Address City/[facility]/ZIP Co de Phone Number [facility] [address] [place] [address], [facility] [phone] * XR ANKLE LEFT 3VW OR MORE (08/10/2022 7:21 PM DINKEY ENGINE FIRER) Anatomical Region Laterality Modality Lower Extremity Radiographic Mackenzie ging 08/10/2022 7:23 PM DINKEY ENGINE FIRER Impressions 08/10/2022 7:24 PM DINKEY ENGINE FIRER IMPRESSION: No acute osseous process of the left ankle is identified. > Interpreting Provider: Mark Estrada MD on 08/10/2022 7:24 PM Narrative 08/10/2022 7:24 PM DINKEY ENGINE FIRER PROCEDURE: XR ANKLE LEFT 3VW OR MORE, DATE/TIME OF EXAM: 08/10/2022 7:22 PM, LOCATION [facility] INDICATION: M25.572: Pain in left ankle and [...] MORE, DATE/TIME OF EXAM: 37:22 PM, LOCATION [facility] INDICATION: M25.572: Pain in left ankle and [...] Manolo Knight PA-C DIAGNOSTIC IMAGING ORDERABLES * [place] INSERT INTRAUTERINE DEVICE (04/24/2022 1:35 PM CDT) [...] abdominal pain with fever. Ross Lot # [id number] Exp date: 05/29/[address] [facility]: [phone] Buy and bill device Marybeth Angulo MD Marybeth Angulo MD PROCEDURE/MINOR SURG ICAL ORDERABLES * [place] US PEL NONOB B-SCAN&/R-T IMG LMTD/F-UP+C97 (04/24/2022 1:31 PM CDT) Narrative Octaviano Castle RDMS - 04/24/2022 1:31 PM CDT Octaviano Castle RDMS 04/24/2022 1:32 PM Documentation in digisonics. Marybeth Angulo MD PROCEDURE/MINOR SURG ICAL ORDERABLES * HCG URINE QUALITATIVE - POCT (IP) [facility] (04/24/2022) Test Urine Negative Negative Urine [...] to the Heparin Anti-Xa assay (test code 01160). For additional information, please refer to http://ENJORE.Proterro.Hello! Messenger/faq/QLD563 (This link is being provided for informational/ educational purposes only.) Factor VIII Activity Clotting 104 50 - 180 % normal [facility] Comment: For additional information please refer to: http://education.Flasma/faq/CJB255 (This link is being provided for informational/ [...] analytical performance characteristics have been determined by [facility] [place], [place]. It has not been cleared or approved by the U.S. Food and Drug Administration. This assay has been validated pursuant to the CLIA regulations and is used for clinical purposes. Test Performed at: [email or web address] [address] ADENIKE EDMOND MD,PHD 03/10/2022 12:0 7 PM CDT 03/10/2022 12:09 PM CDT Marybeth Angulo MD LAB - COAGULATION OR DERABLES [facility] [address] [place] [address] * VITAMIN D 25-HYDROXY (02/17/2022 11:26 AM CDT) Only the most recent of3 resultswithin the time period is included. [facility] Vitamin D, 25 Hydroxy 22.0 >20.0 ng/mL 02/17/2022 1:13 PM CDT [facility] Comment: The recommendations for [...] May MD LAB - CHEMISTRY NISSA BRIONES [place] [address] [place] [address], [facility] [phone] * O + P - GIARDIA / CRYPTO ONLY (06/15/2021 9:24 AM DINKEY ENGINE FIRER) Cryptosporidium Antigen EIA [facility] Comment: CRYPTOSPORIDIUM ANTIGEN, EIA Micro Number: [id number] Test Status: Final Specimen Source: Stool Specimen Quality: Adequate Cryptosporidium: Not Detected Reference Range: Not Detected NOTE: Due to intermittent shedding, one negative sample does not necessarily rule out the presence of a parasitic infection. Test Performed at: [email or web address] [address] AISHWARYA BANKS MD EIA [facility] Comment: GIARDIA AG, EIA, STOOL Micro Number: [id number] Test Status: Final Specimen Source: Stool Specimen Quality: Adequate Giardia Result 1: Not Detected Reference Range: Not Detected NOTE: Due to intermittent shedding, one negative sample does not necessarily rule out the presence of a parasitic infection. Test Performed at: [email or web address] [address] AISHWARYA BANKS MD Stool STOOL SPECIMEN / Unknown 06/15/2021 9:24 AM DINKEY ENGINE FIRER 06/15/2021 9:27 AM DINKEY ENGINE FIRER Aubree Pelletier SENIOR HRIS ANALYST-CLOTH BLEACHING RANGE OPERATOR CHIEF LAB - [facility] ROBIOLOGY ORDERABLES Performing Organization Address City/[facility]/ZIP Co de Phone Number [address] [address] * O+P PANEL (06/15/2021 9:24 AM DINKEY ENGINE FIRER) Trichrome (1) [facility] Comment: OVA AND PARASITES, CONC AND PERM SMEAR Micro Number: [id number] Test Status: Final Specimen Source: Stool Specimen [...] infection. For additional information, please refer to https://education.Flasma/faq/ZYB168 (This link is being provided for informational/ educational purposes only.) REPORT COMMENT: SPLIT 06/13/2021 FROM [id number] Test Performed at: [email or web address] [address] AISHWARYA BANKS MD 06/15/2021 9:24 AM DINKEY ENGINE FIRER 06/15/2021 9:27 AM DINKEY ENGINE FIRER Aubree Pelletier APRN-CLOTH BLEACHING RANGE OPERATOR CHIEF LAB - [place] ROBIOLOGY ORDERABLES Performing Organization Address [facility] Co de Phone Number [address] [address] * CULTURE STOOL PANEL (06/15/2021 9:24 AM DINKEY ENGINE FIRER) Pathologist [facility] Campylobacter Antigen [facility] Comment: CAMPYLOBACTER SPP. AG,EIA Micro Number: [id number] Test Status: Final Specimen Source: Stool Specimen Quality: Adequate Campy Ag Result: Not Detected Reference Range: Not Detected Test Performed at: [email or web address] [address] AISHWARYA BANKS MD EIA [facility] Comment: SHIGA TOXINS, EIA W/RFL TO E.COLI O157 CULTURE Micro Number: [id number] Test Status: Final Specimen Source: Stool Specimen Quality: Adequate Shiga Toxin: Not Detected Reference Range: Not Detected Culture [facility] Comment: SALMONELLA AND SHIGELLA, CULTURE Micro Number: [id number] Test Status: Final Specimen Source: Stool Specimen Quality: Adequate Result: No Salmonella or Shigella isolated Test Performed at: [email or web address] [address] AISHWARYA BANKS MD Stool STOOL SPECIMEN / Unknown 06/15/2021 9:24 AM DINKEY ENGINE FIRER 06/15/2021 9:27 AM DINKEY ENGINE FIRER Aubree Pelletier APRN-CLOTH BLEACHING RANGE OPERATOR CHIEF LAB - [place] ROBIOLOGY ORDERABLES Performing Organization Address [facility]/ZIP Co de Phone Number [address] [address] * CALPROTECTIN FECAL (06/13/2021 8:58 AM DINKEY ENGINE FIRER) Pathologist [facility] Calprotectin Fecal 74 mcg/g [facility] Comment: Reference [...] suggested for borderline values. Test Performed at: [email or web address] [address] [place] [address] AMY GUARDADO MD,PHD,TISHA Stool STOOL SPECIMEN / Unknown 06/13/2021 8:58 AM DINKEY ENGINE FIRER 06/13/2021 8:58 AM DINKEY ENGINE FIRER Aubree Pelletier SENIOR HRIS ANALYST-CLOTH BLEACHING RANGE OPERATOR CHIEF LAB - BOD Y FLUID ORDERABLES Performing Organization Address [facility] de Phone Number [facility] [address] [place] [address] * TISSUE TRANSGLUTAMINASE AB IGA (06/13/2021 8:58 AM DINKEY ENGINE FIRER) [facility] TTG Antibody IgA <1.0 U/mL [facility] Comment: Value Interpretation ----- <15.0 Antibody not detected > or = 15.0 Antibody detected Test Performed at: [email or web address] [address] [address] JUNE GONZALEZ MD Blood BLOOD SPECIMEN / Unknown 06/13/2021 8:58 AM DINKEY ENGINE FIRER 06/13/2021 8:58 AM DINKEY ENGINE FIRER Aubree Pelletier SENIOR HRIS ANALYST-CLOTH BLEACHING RANGE OPERATOR CHIEF LAB - SER OLOGY ORDERABLES Performing Organization Address [facility] Co de Phone Number [facility] [phone] [place] [address] * C-REACTIVE PROTEIN (06/13/2021 8:58 AM DINKEY ENGINE FIRER) Only the most recent of3 resultswithin the time period is included. [facility] C-Reactive Protein 4.9 <8.0 mg/L [facility] Comment: Test Performed at: [facility] [address] [address] JOSHUA BARROS DO,MPH Blood BLOOD SPECIMEN / Unknown 06/13/2021 8:58 AM DINKEY ENGINE FIRER 06/13/2021 8:58 AM DINKEY ENGINE FIRER Aubree Pelletier SENIOR HRIS ANALYST-CLOTH BLEACHING RANGE OPERATOR CHIEF LAB - AMANDA ARSH ORDERABLES Performing Organization Address City/[facility]/ZIP Co de Phone Number [facility] [address] [place] [address] * IGA BLOOD (06/13/2021 8:58 AM DINKEY ENGINE FIRER) IgA 218 36 - 220 mg/dL [facility] Comment: Test Performed at: [facility] [address] [place] [address] JOSHUA BARROS DO,MPH Blood BLOOD SPECIMEN / Unknown 06/13/2021 8:58 AM DINKEY ENGINE FIRER 06/13/2021 8:58 AM DINKEY ENGINE FIRER Aubree Pelletier SENIOR HRIS ANALYST-CLOTH BLEACHING RANGE OPERATOR CHIEF LAB - AMANDA ARSH ORDERABLES Performing Organization Address City/[facility] Co de Phone Number [facility] [phone] [place] [address] * SARS-COV-2 (COVID-19) IN HOUSE (07/13/2020 12:54 PM DINKEY ENGINE FIRER) COVID-19 PCR Not detected Not detected 07/14/2020 12:25 PM DINKEY ENGINE FIRER [facility] Microbiology SPECIMEN FROM NASOPHARYNGEAL STRUCTURE / Unknown Collection / Unknown 07/13/2020 12:54 PM DINKEY ENGINE FIRER 07/13/2020 12:54 PM DINKEY ENGINE FIRER Narrative [facility] - 07/14/2020 12:25 PM DINKEY ENGINE FIRER This nucleic acid amplification assay performance was validated by [facility]. This test has been [...] Lucy MOREAU LAB - MICROBIOLO GY ORDERABLES [facility] [address] [place] [address], [facility] [phone] * STREP A SCREEN - POCT(IP) NOTIFICATION (07/13/2020 12:00 PM DINKEY ENGINE FIRER) Comment Notification 07/13/2020 12:00 PM DINKEY ENGINE FIRER [facility] Throat ENTIRE THROAT (SURFACE REGION OF NECK) / Unknown 07/13/2020 10:37 AM DINKEY ENGINE FIRER Lucy MOREAU LAB - POINT OF C ARE ORDERABLES Performing Organization Address [facility] Co de Phone Number [facility] [address] [place] [address] * STREP A SCREEN - POCT MTE (07/13/2020 10:45 AM DINKEY ENGINE FIRER) Strep A Rapid Negative Negative 07/13/2020 11:04 AM DINKEY ENGINE FIRER [facility] Throat ENTIRE THROAT (SURFACE REGION OF NECK) / Unknown 07/13/2020 10:45 AM DINKEY ENGINE FIRER 07/13/2020 11:04 AM DINKEY ENGINE FIRER Lucy MOREAU LAB - POINT OF C ARE ORDERABLES Performing Organization Address [facility] Co de Phone Number [facility] [address] [place] [address] * US KIDNEY DOPPLER ONLY (05/03/2020 3:17 [...] Urine 132 mmol/L 05/03/2020 1:45 PM CDT [facility] Potassium Urine 72.6 mmol/L 05/03/2020 1:45 PM CDT [facility] Chloride Urine 122.0 mmol/L 05/03/2020 1:45 PM CDT [facility] Urine URINE SPECIMEN OBTAINED BY CLEAN CATCH PROCEDURE / Unknown Collection / Unknown 05/03/2020 1:06 PM CDT 05/03/2020 1:23 PM CDT Linwood Pepe MD LAB - URINE CHEMISTR Y ORDERABLES [facility] [address] [place] [address] * RENIN ACTIVITY (05/03/2020 12:51 PM CDT) Only the most recent of2 resultswithin the time period is included. Renin 2.224 0.500 - 3.300 ng/mL/hr 10/13/2020 12:06 AM CDT [facility] ([facility]) Comment: This test was developed and its performance characteristics determined by [facility]. It has not been cleared or approved by the Food and Drug Administration. This is a corrected report. The previously reported result was: Renin Activity, P... 3.800 HI ng/mL/hr 05/08/2020 Blood BLOOD SPECIMEN / Unknown Lab Venipuncture / Unknown 05/03/2020 12:51 PM CDT 05/03/2020 1:23 PM CDT Narrative [facility] ([facility]) - 10/13/2020 12:06 AM CDT Performed at: [address] [place] [address] [id number] Moving Picture Producer: Ruby Ponce MD, Phone: [phone] Specimen Comment: This is a corrected report Specimen Comment: The prior result of Renin Activity, Plasma, is incorrect due Specimen Comment: to a calculation error. The results were over-reported Specimen Comment: by a factor of 1.709. Please disregard previous results. Abraham Alvarez MD LAB - CHEMISTRY OR DERABLES [facility] ([facility]) [address] [place] [address] * ALDOSTERONE BLOOD (05/03/2020 12:51 PM CDT) Only the most recent of2 resultswithin the time period is included. Aldosterone 21.3 0.0 - 30.0 ng/dL 05/06/2020 9:10 AM CDT [facility] ([facility]) Comment: This test was developed and its performance characteristics determined by [facility]. It has not been cleared or approved by the Food and Drug Administration. Blood BLOOD SPECIMEN / Unknown Lab Venipuncture / Unknown 05/03/2020 12:51 PM CDT 05/03/2020 1:23 PM CDT [facility]) - 05/06/2020 9:10 AM CDT Performed at: [address] [place] [address] [id number] Moving Picture Producer: Ruby Ponce MD, Phone: [phone] Abraham Alvarez MD LAB - CHEMISTRY OR DERABLES [facility]) [address] [place] [address] * (ABNORMAL) RENAL FUNCTION PANEL (04/13/2020 12:14 PM CDT) Only the most recent of2 resultswithin the time period is included. Glucose 103 70 - 105 mg/dL 04/13/2020 12:53 PM [facility] Sodium 141 136 - 145 mmol/L 04/13/2020 12:53 PM [facility] Potassium 4.3 3.5 - 5.1 mmol/L 04/13/2020 12:53 PM [facility] Chloride 109(H) 98 - 107 mmol/L 04/13/2020 12:53 PM [facility] CO2 21 20 - 28 mmol/L 04/13/2020 12:53 PM [facility] Calcium 8.99(L) 9.08 - 10.48 mg/dL 04/13/2020 12:53 PM [facility] Anion Gap 11 5 - 20 mmol/L 04/13/2020 12:53 PM [facility] BUN 8.2 5.3 - 18.7 mg/dL 04/13/2020 12:53 PM [facility] Creatinine 0.76 0.61 - 1.07 mg/dL 04/13/2020 12:53 PM [facility] Albumin 3.8 3.3 - 4.9 gm/dL 04/13/2020 12:53 PM [facility] Phosphorus 4.49 2.88 - 5.08 mg/dL 04/13/2020 12:53 PM [facility] eGFR by MDRD 04/13/2020 12:53 PM [facility] Comment: eGFR calculations are not performed for children under 18 years old. eGFR by MDRD 04/13/2020 12:53 PM [facility] Comment: eGFR calculations are not performed for children under 18 years old. Blood BLOOD SPECIMEN / Unknown Lab Venipuncture / Unknown 04/13/2020 12:14 PM CDT 04/13/2020 12:13 PM CDT Linwood Pepe MD LAB - CHEMISTRY ORDLiliya WESLYBELEN Performing Organization Address City/[facility]/ZIP Co de Phone Number [facility] [address] [place] [address] * TSH (04/13/2020 12:14 PM CDT) Only the most recent of2 resultswithin the time period is included. TSH 1.97 0.35 - 4.95 uIU/mL 04/13/2020 1:10 PM CDT [facility] Blood BLOOD SPECIMEN / Unknown Lab Venipuncture / Unknown 04/13/2020 12:14 PM CDT 04/13/2020 12:13 PM CDT Linwood Pepe MD LAB - CHEMISTRY NISSA BRIONES Performing Organization Address [facility] Co de Phone Number [facility] [address] [place] [address] * US RETROPERITONEAL COMPLETE (04/06/2020 2:41 PM [...] Yellow Straw, Yellow 04/06/2020 2:08 PM CDT [facility] Clarity UA Slt Cloudy(A) Clear 04/06/2020 2:08 PM CDT [facility] Glucose UA Negative Negative 04/06/2020 2:08 PM CDT [facility] Bilirubin UA Negative Negative 04/06/2020 2:08 PM CDT [facility] Ketone UA Negative Negative 04/06/2020 2:08 PM CDT [facility] Specific Slayden UA 1.012 1.005 - 1.030 04/06/2020 2:08 PM CDT [facility] Blood UA Negative Negative 04/06/2020 2:08 PM CDT [facility] pH UA 6.0 5.0 - 8.0 pH 04/06/2020 2:08 PM T [facility] Protein UA Negative Negative 04/06/2020 2:08 PM CDT [facility] Urobilinogen UA Negative Negative mg/dL 04/06/2020 2:08 PM T [facility] Nitrite UA Negative Negative 04/06/2020 2:08 PM T [facility] Leukocyte UA Trace(A) Negative 04/06/2020 2:08 PM CDT [facility] RBC UA 0-2 None Seen, 0-2, 3-5 # /hpf 04/06/2020 2:08 PM T [facility] WBC UA 0-5 None Seen, 0-5 # /hpf 04/06/2020 2:08 PM T [facility] Bacteria UA Trace(A) None Seen 04/06/2020 2:08 PM T [facility] Squamous Epithelial Cells 6-10(A) None Seen, 0-2, 3-5 /hpf 04/06/2020 2:08 PM T [facility] Mucus UA 1+ /LPF 04/06/2020 2:08 PM T [facility] Urine URINE SPECIMEN OBTAINED BY CLEAN CATCH PROCEDURE / Unknown Collection / Unknown 04/06/2020 1:26 PM CDT 04/06/2020 1:47 PM CDT Narrative [facility] - 04/06/2020 2:08 PM CDT Ascorbic Acid can cause false negative urine strip tests for blood, glucose, nitrite, and bilirubin. Jennie Berg DO LAB - URINALYSIS O RDERABLES [facility] [address] [place] [address] * CORTISOL BLOOD (04/06/2020 10:51 AM CDT) Cortisol 4.3 ug/dL 04/06/2020 11:52 AM T [facility] Blood BLOOD SPECIMEN / Unknown Lab Venipuncture / Unknown 04/06/2020 10:51 AM CDT 04/06/2020 10:57 AM CDT Narrative [facility] - 04/06/2020 11:52 AM CDT CORTISOL REFERENCE RANGE COMMENT Cortisol AM (7-10 a.m.) 3.70 - 19.40 ug/dL Cortisol PM (3-5 p.m.) 2.90 - 17.30 ug/dL Note: No reference range available for random cortisol levels. All results interpreted by ordering physician. Normal cortisol levels are generally highest in the morning hours and lowest from late evening through the database reporting consultant hours (8 PM to 4 AM). The PM measurements of cortisol run approximately one-half to one-third of the AM values. Jennie Berg DO LAB - CHEMISTRY OR DERABLES [facility] [place] [address] * ECHO CONSULT - PEDIATRIC (04/06/2020 9:55 AM CDT) 04/06/2020 9:55 AM CDT Narrative Procedure Note Denis Tanner DDS - 04/06/[address] [place] [phone] Fax Non-Congenital Transthoracic Report Pat.Name: VIEIRAROSANGELA Razo Pat.ID: [id number] .Date: 04/06/2020 Exam Time: 9:55:00 AM Study Type:Non-Congenital TTE Height: 175cm Weight: 146.1kg BSA: 2.53 m2 Age: 2 2005,14Y Sex: FEMALE BP: 124/82 Sonogrphr: Natasha Mast RDCS Pat. Stat.:Inpatient Room: 2010 CPT - 4: 50889 Reason for Study: HTN History / Clinical: ECHO for HTN urgency Procedures: 2D Non-congenital, Doppler Complete, Color Flow Race: U Visit ID: [id number] SUMMARY: Impression: Moderate concentric left ventricular hypertrophy. [...] DOPPLER Mitral Valve MV pkE 0.78 m/s ([facility] -0.8) MV DeTm 142.68 ms (zsc -0.5) [...] [place] MD Jennie Berg DO ECHO ORDERABLES [facility] [address] [phone] * XR FINGERS LEFT 2VW OR MORE [...] Grey on 12/02/2019 at 10:09 AM Yuly Acuna SENIOR HRIS ANALYST-CLOTH BLEACHING RANGE OPERATOR CHIEF MR ORDERABLES * EEG AWAKE AND ASLEEP (07/01/2018 1:09 PM DINKEY ENGINE FIRER) Narrative [facility] - 07/01/2018 1:09 PM DINKEY ENGINE FIRER Sven Rodriguez MD 07/01/2018 1:09 PM M [facility] [address] [place] [address] CLINICAL NEUROPHYSIOLOGY NAME: Rosangela Vieira :2005 AD[address] [place] [id number] CSN #: [id number] DATE OF TEST:07/01/2018 Requesting Physician :Mesfin May MD END FINDER FORMING DEPARTMENT: Sven Rodriguez MD MEDICAL HISTORY: 12 years old female with staring spells, syncope MEDICATIONS: No seizure medications EEG DESCRIPTION: A routine EEG with scalp electrodes was performed during clinical wakefulness and sleep using Call Loop monitoring system to record EEG data digitally [...] Crystal Kasie Worsena DO NEUROLOGY ORDER CARLEEN [facility] * (05/30/2018 3:07 PM CDT) LH 3.2 mIU/mL 05/30/2018 7:05 PM CDT [facility] Blood BLOOD SPECIMEN / Unknown Lab Venipuncture / Unknown 05/30/2018 3:07 PM CDT 05/30/2018 3:34 PM CDT Narrative [facility] - 05/30/2018 7:05 PM CDT LH [...] Ahn MD LAB - CHEMISTR Y ORDERABLES [facility] [address] [place] [address] * INSULIN LEVEL (05/30/2018 3:07 PM CDT) Insulin 33.3 uIU/mL 05/30/2018 5:10 PM CDT [facility] Blood BLOOD SPECIMEN / Unknown Lab Venipuncture / Unknown 05/30/2018 3:07 PM CDT 05/30/2018 3:34 PM CDT Narrative [facility] - 05/30/2018 5:10 PM CDT INSULIN BLOOD RANGE COMMENT: Random Level Not Established Fasting Level 3-19 mcU/mL 30 minutes post challege 20-112 mcU/mL 60 minutes 29-88 mcU/mL 90 minutes 26-84 mcU/mL 120 minutes 22-79 mcU/mL Delia Ahn MD LAB - CHEMISTR Y ORDERABLES [facility] [address] [place] [address] * FSH (05/30/2018 3:07 PM CDT) [facility] FSH 5.01 0.2 - 8.0 mIU/mL 05/30/2018 4:41 PM CDT [facility] Blood BLOOD SPECIMEN / Unknown Lab Venipuncture / Unknown 05/30/2018 3:07 PM CDT 05/30/2018 3:35 PM CDT Narrative [facility] - 05/30/2018 4:41 PM CDT FSH Reference Range Normal Female Menses: Normally menstruating: Follicular 3.0 - 8.1 mIU/mL Midcycle Peak 2.6 - 16.7 mIU/mL Luteal 1.4 - 5.5 mIU/mL Postmenopausal 26.7 - 133.4 mIU/mL Delia Ahn MD LAB - CHEMISTR Y ORDERABLES Performing Organization Address [facility] Co de Phone Number [facility] [address] [place] [address] * ESTRADIOL (05/30/2018 3:07 PM CDT) [facility] Estradiol 34.87 pg/mL 05/30/2018 7:07 PM CDT [facility] Blood BLOOD SPECIMEN / Unknown Lab Venipuncture / Unknown 05/30/2018 3:07 PM CDT 05/30/2018 3:34 PM CDT Narrative [facility] - 05/30/2018 7:07 PM CDT Menstruating Females Day in cycle relative to LH peak: Follicular Phase(-12 to -4) 18.9 - 246.7 pg/mL Midcycle (-3 to +2) 35.5 - 570.8 pg/mL Luteal Phase (+4 to +12) 22.4 - 256.0 pg/mL Postmenopausal ND* - 44.5 pg/mL Males 11.6 - 41.2 pg/mL * ND = not detectable Delia Ahn MD LAB - CHEMISTR Y ORDERABLES [facility] [address] [place] [address] * TESTOSTERONE FREE FEM/CHLD HYPOGNDL MALE (05/30/2018 3:07 PM CDT) Testosterone 16 ng/dL 06/05/2018 4:23 PM DINKEY ENGINE FIRER [facility] ([facility]) Comment: Reference Range: Michael Age Range Stage (years) (ng/dL) 1 <9.2 <2.5 - 10 2 9.2 - 13.7 7 - 28 3 10.0 - 14.4 15 - 35 4 10.7 - 15.6 13 - 32 5 11.8 - 18.6 20 - 38 Adult Females >18 10 - 55 Free Testosterone % 2.1 % 06/05/2018 4:23 PM DINKEY ENGINE FIRER [facility] ([facility]) Comment: Reference Range: Adult Females: 0.8 - 1.4 Testosterone Free 3.4 pg/mL 018 4:23 PM DINKEY ENGINE FIRER [facility] ([facility]) Comment: Reference Range: Comprehensive values for free testosterone by dialysis throughout puberty are currently unavailable. Adult Females: 1.1 - 6.3 Blood BLOOD SPECIMEN / Unknown Lab Venipuncture / Unknown 05/30/2018 3:07 PM CDT 05/30/2018 3:34 PM CDT Narrative [facility] ([facility]) - 06/05/2018 4:23 PM DINKEY ENGINE FIRER Performed at: [facility] [employer] [address] [place] [id number] Moving Picture Producer: Linwood uCenca MD, Phone: [phone] Delia Ahn MD LAB - CHEMISTR Y ORDERABLES [facility] ([facility]) [address] [place] [address] * TESTOSTERONE TOTAL FEM/CHLD HYPOGNDL MALE (05/30/2018 3:07 PM CDT) Testosterone Total LC-MS 14.1 ng/dL 06/02/2018 12:07 PM DINKEY ENGINE FIRER [facility] ([facility]) Comment: Michael Stage Age (years) Female [...] CDT 05/30/2018 3:34 PM CDT Narrative [facility] ([facility]) - 06/02/2018 12:07 PM DINKEY ENGINE FIRER Performed at: [address] [id number] Moving Picture Producer: Ruby Ponce MD, Phone: [phone] Delia Ahn MD LAB - CHEMISTR Y ORDERABLES Performing Organization Address City/State/[facility] Co de Phone Number [facility] ([facility]) [address] [place] [address] * (ABNORMAL) URINALYSIS - POCT (IP) BEAKER INTERFACE (05/30/2018 2:15 PM CDT) Color UA POCT Yellow Straw, Yellow, Dark Yellow, Light Yellow 05/30/2018 2:06 PM CDT [facility] Clarity UA POCT Clear 8 2:06 PM CDT [facility] Specific Slayden UA POCT 1.025 1.005 - 1.030 05/30/2018 2:06 PM CDT [facility] pH UA POCT 5.5 5.0 - 8.0 pH 05/30/2018 2:06 PM CDT [facility] Protein UA POCT Negative Negative 8 2:06 PM CDT [facility] Blood UA POCT Negative Negative 05/30/2018 2:06 PM CDT [facility] Leukocyte UA POCT Trace(A) Negative 05/30/2018 2:06 PM CDT [facility] Nitrite UA POCT Negative Negative 8 2:06 PM CDT [facility] Glucose UA POCT Negative Negative 8 2:06 PM CDT [facility] Ketone UA POCT Negative Negative 05/30/2018 2:06 PM CDT [facility] Bilirubin UA POCT Negative Negative 05/30/2018 2:06 PM CDT [facility] Urobilinogen UA POCT 0.2 0.1 - 1.0 E.U./dL 05/30/2018 2:06 PM CDT [facility] Urine URINE / Unknown 05/30/2018 2 :15 PM CDT 05/30/2018 2:06 PM CDT Delia Ahn MD LAB - POINT OF CARE ORDERABLES Performing Organization Address City/[facility]/ZIP Co de Phone Number [facility] [address] [place] [address] * URINALYSIS - POCT (IP) NOTIFICATION (05/30/2018 2:00 PM CDT) Comment Notification Label Only - See Separate Report 05/30/2018 3:30 PM CDT [facility] Urine URINE / Unknown 05/30/2018 2 :00 PM CDT 05/30/2018 2:00 PM CDT Delia Ahn MD LAB - URINALYS IS ORDERABLES Performing Organization Address [facility] Co de Phone Number [facility] [address] [place] [address] * AUDIOLOGY/TYMPANOMETRY ORDER (05/02/2018 10:09 PM CDT) [...] URINE PANEL (12/28/2017 1:09 PM CDT) Pathologist [facility] Amphetamines Screen Urine Not Detected Not Detected 12/28/2017 1:52 PM T [facility] Barbiturates Screen Urine Not Detected Not Detected 12/28/2017 1:52 PM T [facility] Benzodiazepines Screen Urine Not Detected Not Detected 12/28/2017 1:52 PM T [facility] Cannabinoids Screen Urine Not Detected Not Detected 12/28/2017 1:52 PM T [facility] Cocaine Screen Urine Not Detected Not Detected 12/28/2017 1:52 PM T [facility] Methadone Screen Urine Not Detected Not Detected 12/28/2017 1:52 PM T [facility] Opiate Screen Urine Not Detected Not Detected 12/28/2017 1:52 PM T [facility] Phencyclidine Screen Urine Not Detected Not Detected 12/28/2017 1:52 PM T [facility] Urine URINE / Unknown Collection / Unknown 12/28/2017 1:09 PM CDT 12/28/2017 1:33 PM CDT Narrative [facility] - 12/28/2017 1:52 PM CDT This [...] MD LAB - URINE CHEMISTR Y ORDERABLES [facility] [address] [facility] [place] [address] * XR ANKLE 3+ VW RIGHT (12/04/2017 [...] integrity, or exclude intracranial hemorrhage. Yuly Acuna APRN-CLOTH BLEACHING RANGE OPERATOR CHIEF MR ORDERABLES * HCG URINE QUALITATIVE - POCT (IP) BEAKER (07/09/2017 12:30 PM DINKEY ENGINE FIRER) HCG Qual Urine Negative Negative [facility] POCT TESTING QC Verified Yes Yes [facility] PO CT TESTING Urine URINE / Unknown 07/09/2017 1 2:30 PM DINKEY ENGINE FIRER Areli Kwan MD LAB - POINT OF CARE ORDERABLES [facility] POCT TESTING [address] [place] [address], [facility] [phone] * CT LOWER EXTREMITY NON CONTRAST RIGHT (07/05/2017 10:30 AM DINKEY ENGINE FIRER) Anatomical Region Laterality Modality Lower Extremity Computed Tomogra phy 07/05/2017 10:5 2 AM DINKEY ENGINE FIRER Impressions 07/05/2017 2:41 PM DINKEY ENGINE FIRER 1. Salter-Ma IV fracture, distal tibia. 2. A gap of 4 mm and a 4mm fragment of bone from the medial tibial epiphysis. 3. Soft tissue swelling and ankle joint effusion. This report was dictated by Lew Escalante M.D. (Bioinformatics Research Technician). I, Lorin Mendes, have personally reviewed the images and I agree with this report. Narrative 07/05/2017 2:41 PM DINKEY ENGINE FIRER Exam: CT right lower extremity without contrast [...] report was dictated by Lew Escalante M.D. (Bioinformatics Research Technician). I, Lorin Mendes, have personally reviewed the images and I agree with this report. Scott MOREAU-Liliya CT ORDERABLES * GLUCOSE (12/28/2016 2:11 PM CDT) Only the most recent of2 resultswithin the time period is included. [facility] Glucose 94 70 - 105 mg/dL 12/28/2016 5:10 PM CDT [facility] Blood BLOOD SPECIMEN / Unknown Lab Venipuncture / Unknown 12/28/2016 2:11 PM CDT 12/28/2016 3:02 PM CDT Taisha Valladares DO LAB - CHEMISTRY NISSA BRIONES [facility] [place] [address] * XR FOOT 2 VW LEFT (09/28/2016 11:49 AM DINKEY ENGINE FIRER) Anatomical Region Laterality Modality Ankle / Foot Radiographic Mackenzie ging 09/28/2016 11:5 8 AM DINKEY ENGINE FIRER Impressions 09/28/2016 12:02 PM DINKEY ENGINE FIRER No fracture. Narrative 09/28/2016 12:02 PM DINKEY ENGINE FIRER EXAMINATION: Left foot 2 views HISTORY: 11-year-old [...] INFLUENZA A+B ANTIGEN RAPID (09/28/2016 11:07 AM DINKEY ENGINE FIRER) Influenza A Antigen Negative Negative 09/28/2016 11:33 AM DINKEY ENGINE FIRER [facility] Influenza B Antigen Negative Negative 09/28/2016 11:33 AM DINKEY ENGINE FIRER [facility] Microbiology NASOPHARYNGEAL SWAB / Unknown Collection / Unknown 09/28/2016 11:07 AM DINKEY ENGINE FIRER 09/28/2016 11:07 AM DINKEY ENGINE FIRER Narrative [facility] - 09/28/2016 11:33 AM [facility] The sensitivity of rapid tests [...] - MICROBIOLOGY O RDERABLES Performing Organization Address [facility] Co de Phone Number [facility] [address] [place] [address] * ALT (12/02/2015 3:11 PM CDT) ALT 13 8 - 65 U/L 12/02/2015 4:07 PM CDT [facility] Blood BLOOD SPECIMEN / Unknown Lab Venipuncture / Unknown 12/02/2015 3:11 PM CDT 12/02/2015 3:29 PM CDT Taisha Valladares DO LAB - CHEMISTRY NISSA BRIONES Performing Organization Address [facility] Co de Phone Number [facility] [address] [place] [address] * XR LUMBAR SPINE 2 OR 3 [...] * LAB RESULTS ORDER (09/27/2013 4:34 AM DINKEY ENGINE FIRER) Narrative 09/27/2013 4:34 AM DINKEY ENGINE FIRER Ordered by an unspecified provider. Transcriptions Document, Scanned - 06/11/2013 7:18 AM CST Document, Scanned - 06/11/2013 7:19 AM CST Document, Scanned - 09/27/2013 4:34 AM CST Scanned Document LAB - THERAPEUTIC DR ZAMORA MONITORING ORDERABLES * CARDIAC ECHOCARDIOGRAM COMPLETE ORDER (09/27/2013 4:34 AM DINKEY ENGINE FIRER) Narrative 09/27/2013 4:34 AM DINKEY ENGINE FIRER Ordered by an unspecified provider. Transcriptions Document, Scanned - 06/11/2013 7:19 AM CST Document, Scanned - 09/27/2013 4:34 AM CST Scanned Document ECHO ORDERABLES * XR AP PELVIS AND FROG HIPS ODETTE >1YR (06/04/2013 4:59 PM DINKEY ENGINE FIRER) Anatomical Region Laterality Modality Pelvis, Lower Extremity Rad[facility] 06/04/2013 5:01 PM DINKEY ENGINE FIRER Impressions 06/04/2013 5:02 PM DINKEY ENGINE FIRER No abnormality is seen. Narrative 06/04/2013 5:02 PM DINKEY ENGINE FIRER 2 views of the hips performed June [...] - 14.5 X(10)9/L 05/21/2013 7:51 AM CDT [facility] Neutrophil % Manual 50 24 - 66 % 05/21/2013 7:51 AM CDT [facility] Lymphocytes % Manual 28 22 - 61 % 05/21/2013 7:51 AM CDT [facility] Monocytes % Manual 15 3 - 15 % 2012 7:51 AM CDT [facility] Eosinophils % Manual 1 0 - 10 % 05/21/2013 7:51 AM CDT [facility] Basophils % Manual 1 % 2012 7:51 AM CDT [facility] Atypical Lymphocyte % Manual 5(H) <=0 % 05/21/2013 7:51 AM CDT [facility] Cells Counted 100 # cells 05/21/2013 7:51 AM CDT [facility] Platelet Estimation Normal Normal, Adequate platelets 05/21/2013 7:51 AM CDT [facility] WBC Morph Normal 05/21/2013 7:51 AM CDT [facility] Anisocytosis 1+(A) None 05/21/2013 7:51 AM CDT [facility] Poikilocytosis 1+(A) None 05/21/2013 7:51 AM CDT [facility] Ovalocytes 1+(A) None 05/21/2013 7:51 AM CDT [facility] Blood BLOOD SPECIMEN / Unknown 05/21/2013 6:22 AM CDT 05/21/2013 6:37 AM CDT Bren Roque MD LAB - HEMATOLOGY ORD ERABLES Performing Organization Address City/[facility] Co de Phone Number [facility] [address] [place] [address] * CULTURE WOUND+GRAM STAIN (05/19/2013 1:31 PM CDT) Only the most recent of2 resultswithin the time period is included. Culture No Growth 05/22/2013 8:25 AM CDT [facility] Gram Stain No organisms seen 05/22/2013 8:25 AM CDT [facility] Gram Stain Heavy Red blood cells 05/22/2013 8:25 AM CDT [facility] Microbiology SPECIMEN OBTAINED BY INCISIONAL BIOPSY / Unknown 05/19/2013 1:31 PM CDT 05/19/2013 1:41 PM CDT Aiden Turner MD LAB - MICROBIOLOG Y ORDERABLES Performing Organization Address [facility] Co de Phone Number [facility] [address] * CULTURE ANAEROBE (05/19/2013 1:30 PM CDT) Culture No anaerobic organisms isolated 05/26/2013 4:02 PM CDT [facility] Microbiology SPECIMEN FROM WOUND / Unknown 05/19/2013 1:30 PM CDT 05/19/2013 1:41 PM CDT Aiden Turner MD LAB - MICROBIOLOG Y ORDERABLES Performing Organization Address [facility] Co de Phone Number [facility] [address] [place] [address] * CT BRAIN WITH OUT CONTRAST [...] CDT) ABO O 05/18/2013 6:50 PM CDT [facility] Rh Type Positive 05/18/2013 6:50 PM CDT [facility] Antibody Screen Negative 05/18/2013 6:50 PM CDT [facility] Blood Bank BLOOD SPECIMEN / Unknown 05/18/2013 5:43 PM CDT 05/18/2013 6:10 PM CDT Bren Roque MD LAB - BLOOD BANK ORD ERABLES [facility] * PT PTT PANEL (05/18/2013 5:43 PM CDT) Only the most recent of3 resultswithin the time period is included. PT 12.2 12.2 - 14.5 sec 05/18/2013 6:29 PM CDT [facility] INR 1.0 0.8 - 1.2 05/18/2013 6:29 PM CDT [facility] PTT 30.9 23.0 - 36.0 sec 05/18/2013 6:29 PM CDT [facility] Blood BLOOD SPECIMEN / Unknown 05/18/2013 5:43 PM CDT 05/18/2013 6:10 PM CDT Bren Roque MD LAB - COAGULATION OR DERABLES [facility] [address] [place] [address] * (ABNORMAL) SED RATE WESTERGREN (05/18/2013 5:43 PM CDT) Only the most recent of2 resultswithin the time period is included. Erythrocyte Sedimentation Rate Westergren 35(H) 0 - 12 mm/hr 05/18/2013 7:04 PM CDT [facility] Blood BLOOD SPECIMEN / Unknown 05/18/2013 5:43 PM CDT 05/18/2013 6:10 PM CDT Ozzie Eason DO LAB - HEMATOLOGY ORD ERABLES [facility] [address] [place] [address] * CT HEAD WITH CONTRAST (05/16/2013 2:54 [...] Culture No Growth 05/21/2013 6:04 AM CDT [facility] Blood PERIPHERAL BLOOD / Unknown 05/16/2013 2:20 AM CDT 05/16/2013 2:23 AM CDT Margarita Ibanez MD LAB - MICROBIOLOGY O RDERABLES [facility] [address] [facility] [address] [place], [place] [id number] [place] [address] * PATHOLOGY/CYTOLOGY REPORT ORDER (05/09/2013 4:13 PM CDT) Narrative 05/09/2013 4:13 PM CDT Ordered by an unspecified provider. Transcriptions Document, Scanned - 05/09/2013 4:13 PM CDT Scanned Document LAB - PATHOLOGY/CYTO LOGY ORDERABLES * GROSS + MICRO EXAM (STL) (05/05/2013 10:00 AM CDT) Case Report Surgical Pathology Report Case: [id number] Authorizing Provider: Aiden Turner MD Ordering Provider: Aiden Turner MD Ordering Location: PICU Collected: 05/05/2013 10:00 AM Pathologist: Gianna Stallings MD Received: 05/05/2013 12:59 PM Signed Out: 05/06/2013 12:07 PM (Final) Specimen: Cyst, Right Posterior Fossa 05/06/2013 12:07 PM CDT [facility] Final Diagnosis A. 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 05/06/2013 12:07 PM CDT [facility] Gross Description Submitted fresh in one container for gross and microscopic examination labeled with the patient's name, Rosangela Vieira, and right posterior fossa, are two membranous portions of glistening pink-white soft tissue with an aggregate measurement of 1.5 x 1 x 0.1 cm. The specimen is submitted in toto as A1. (CT/rtc) 05/06/2013 12:07 PM T [facility] Microscopic Description 1 H&E slide Sections show fragments of fibrous tissue and a cyst wall formed of delicate fibrous connective tissue and lined by meningothelial cells. 05/06/2013 12:07 PM T [facility] Disclaimer The performance characteristics of all immunohistochemical and indirect immunofluorescence stains (if any) cited in this report were determined by the Histopathology Laboratory of [facility] (immunohistochemistry ) or the [facility]ology Laboratory of [facility] (indirect immunofluorescence) in compliance with CLIA `88 regulations. Some of these tests rely on the use of analyte-specific reagents and are subject to specific labeling requirements by the FDA. Such tests were developed by the [facility] Laboratory of [facility] or the [facility]ology Laboratory of [facility] and have not been cleared or approved by the FDA. The FDA has determined that such clearance or approval is not necessary. These tests are used for clinical purposes and should not be regarded as investigational or for research. This case has been personally reviewed and interpreted by the attending (teaching) pathologist. 05/06/2013 12:07 PM [facility] Synoptic Report 05/06/2013 12:07 PM [facility] Pathology/Cytolo gy CYST TISSUE / Unknown 05/05/2013 10:00 AM CDT 05/05/2013 12:59 PM CDT Samer Lyly Turner MD LAB - PATHOLOGY/C YTOLOGY ORDERABLES Performing Organization Address City/State/[place] [facility] Co de Phone Number [facility] [address] [place] [address] * (ABNORMAL) BLOOD GASES ART + GLUC K CA+ PANEL (05/05/2013 9:39 AM CDT) pH Arterial 7.40 7.35 - 7.45 pH 05/05/2013 9:50 AM T [facility] pCO2 Arterial 35 32 - 45 mm hg 05/05/2013 9:50 AM T [facility] pO2 Arterial 221(H) 83 - 108 mm hg 05/05/2013 9:50 AM T [facility] BE Arterial -2.6(L) -2.0 - 2.0 mmol/L 05/05/2013 9:50 AM [facility] O2 Saturation Arterial 99 95 - 99 % 05/05/2013 9:50 AM T [facility] Glucose WB 115(H) 70 - 106 mg/dL 05/05/2013 9:50 AM T [facility] Calcium Ionized 1.24 mmol/L 3 9:50 AM [facility] Calcium Ionized Adjusted 1.24 1.15 - 1.29 mmol/L 05/05/2013 9:50 AM [facility] Potassium Whole Blood 4.4 3.4 - 4.5 mmol/L 05/05/2013 9:50 AM [facility] Temp 37.0 C 05/05/2013 9:50 AM [facility] Hemoglobin Arterial 10.3(L) 11.5 - 15.5 gm/dL 05/05/2013 9:50 AM [facility] Oxyhemoglobin Arterial 97 94 - 98 % 05/05/2013 9:50 AM [facility] Methemoglobin Arterial 1.5(H) 0.2 - 0.6 % 05/05/2013 9:50 AM [facility] O2 Content Arterial 14.6(L) 15.0 - 23.0 mg/dL 05/05/2013 9:50 AM [facility] P50 Arterial 26.25 25.3 - 26.8 mm hg 05/05/2013 9:50 AM [facility] Carboxyhemoglobin Arterial 0.2 0.0 - 0.8 % 05/05/2013 9:50 AM [facility] Blood ARTERIAL BLOOD SPECIMEN / Unknown Venipuncture / Unknown 05/05/2013 9:39 AM CDT 05/05/2013 9:46 AM CDT Samer Lyly Turner MD LAB - BLOOD GASES ORDERABLES Performing Organization Address City/State/[facility] Co de Phone Number [facility] [address] [facility] [place] [address] * CROSSMATCH RBC (05/05/2013 8:01 AM CDT) Only the most recent of2 resultswithin the time period is included. Unit Donor # [id number] -F 05/09/2013 3:44 AM CDT [facility] Product Code [id number] 05/09/2013 3:44 AM CDT [facility] Unit Description [id number] RBC, LR, -5 05/09/2013 3:44 AM CDT [facility] ABO Donor Type O 05/09/2013 3:44 AM CDT [facility] Rh Type Unit NEG 05/09/2013 3:44 AM CDT [facility] Crossmatch Interpretation Compatible 05/09/2013 3:44 AM CDT [facility] Unit Status Returned 05/09/2013 3:44 AM CDT [facility] Blood Bank BLOOD SPECIMEN / Unknown 05/05/2013 8:01 AM CDT 05/05/2013 8:12 AM CDT Laurie Brower MD LAB - BLOOD BANK ORD ERABLES [facility] * BLOOD TYPE ABO+ RH PANEL (05/05/2013 8:01 AM CDT) ABO O 05/05/2013 9:03 AM CDT [facility] Rh Type Positive 05/05/2013 9:03 AM CDT [facility] Blood Bank BLOOD SPECIMEN / Unknown 05/05/2013 8:01 AM CDT 05/05/2013 8:12 AM CDT Laurie Brower MD LAB - BLOOD BANK ORD ERABLES [facility] * ANTIBODY SCREEN (05/05/2013 8:01 AM CDT) Antibody Screen Negative 05/05/2013 9:07 AM CDT [facility] Blood Bank BLOOD SPECIMEN / Unknown 05/05/2013 8:01 AM CDT 05/05/2013 8:12 AM CDT Laurie Brower MD LAB - BLOOD BANK ORD ERABLES [facility] * LYTES (NA K CL CO2) BLOOD (04/29/2013 12:22 PM CDT) Sodium 141 136 - 145 mmol/L 04/29/2013 1:16 PM CDT [facility] Potassium 4.5 3.5 - 5.1 mmol/L 04/29/2013 1:16 PM CDT [facility] Chloride 107 98 - 107 mmol/L 04/29/2013 1:16 PM CDT [facility] CO2 25 20 - 28 mmol/L 04/29/2013 1:16 PM CDT [facility] Anion Gap 9 5 - 20 mmol/L 04/29/2013 1:16 PM CDT [facility] Blood BLOOD SPECIMEN / Unknown Lab Venipuncture / Unknown 04/29/2013 12:22 PM CDT 04/29/2013 12:42 PM CDT Shanon Vang APRN-[employer] RANGE OPERATOR CHIEF LAB - CHEMISTRY ORD ERABLES Performing Organization Address [facility] Co de Phone Number [facility] [address] [place] [phone] * CREATININE BLOOD (04/29/2013 12:22 PM CDT) Creatinine 0.71 0.53 - 0.80 mg/dL 04/29/2013 1:16 PM CDT [facility] eGFR by MDRD ml/min/1.7 3m2 04/29/2013 1:16 PM CDT [facility] Comment:eGFR calculations ar e not performed for children under 18 years old. eGFR by MDRD ml/min/1.7 3m2 04/29/2013 1:16 PM CDT [facility] Comment:eGFR calculations ar e not performed for children under 18 years old. Blood BLOOD SPECIMEN / Unknown Lab Venipuncture / Unknown 04/29/2013 12:22 PM CDT 04/29/2013 12:42 PM CDT Shanon Vang SENIOR HRIS ANALYST-[employer] RANGE OPERATOR CHIEF LAB - CHEMISTRY ORD ERABLES [facility] [address] [place] [address] * BUN (04/29/2013 12:22 PM CDT) BUN 13.1 6.7 - 19.6 mg/dL 04/29/2013 1:16 PM CDT [facility] Blood BLOOD SPECIMEN / Unknown Lab Venipuncture / Unknown 04/29/2013 12:22 PM CDT 04/29/2013 12:42 PM CDT Shanon Vang SENIOR HRIS ANALYST-[employer] RANGE OPERATOR CHIEF LAB - CHEMISTRY ORD ERABLES [facility] [address] [facility] [place] [address] * XR TIBIA AND FIBULA 2 VW [...] Rapid Negative Neg Grp A Beta Strep [facility] ENTIRE THROAT (SURFACE REGION OF NECK) / Unknown 03/05/2010 1:47 PM CDT 03/05/2010 1:58 PM CDT Jm Cuellar MD LAB - MICROBIOLOGY ORDERABLES Performing Organization Address City/State/[facility] Co de Phone Number [facility] [address] [place] [address] * CT BRAIN WO CON C SPINE [...] Meena Contreras MD CT ORDERABLES Care Teams Ceramic Tile Installation Helper Relationship Specialty Start Date End Date Yuly Pope DO [address] [place] [id number] PCP - General Internal Medicine 02/17/22 Kiki Burks MD [facility] [place] [address] Resident Student Resident 12/11/17
--- OUTSIDE RECORDS SUMMARY | 2024-10-01 13:19 | XMS_ITS | Encounter Summary ---
Author Organization [facility] Address [address] [place] [address] Care Team Providers Care Asic Engineer Name Role Phone Mesfin May MD Primary Care Provider [phone] Kiki Burks MD Unavailable Yuly Pope DO Primary Care Provider [phone] Reason for Visit * Reason Onset Date Comments Health Information 05/01/2018 Encounter Details Date Type Department Care Team (Late st Contact Info) Description 05/01/2018 Telephone [facility] [address] [place] [phone] Mesfin May MD [address] [place] [phone] Health Information Social History Tobacco Use Types [...] st Contact Info) Description 10/03/2024 10:00 AM INTERNAL CONTROLS MANAGER Office Visit [facility] - [address] [phone] Amina Nicholas SCISS[employer] GRINDER-JACKSPOOLER [address] [place] [phone] 01/08/2025 9:00 AM CDT Office Visit [facility] - [address] [place] [phone] Areli Dao [employer]JACKSPOOLER [address] [place] [address] documented as of this encounter Visit Diagnoses Not on filedocumented in this encounter Additional Health Concerns Infection Onset Date Last Indicated Resolved Time COVID-19 Under Investigation 07/13/2020 07/13/2020 07/14/2020 12:25 PM INTERNAL CONTROLS MANAGER COVID-19 Under Investigation 04/13/2023 04/13/2023 04/13/2023 5:37 AM CDT documented as of this encounter Care Teams Asic Engineer Relationship Specialty [place] [address] [place] [phone] PCP - General Pediatrics 12/11/17 02/16/22 Yuly Pope DO [address] [place], [place] [phone] PCP - General Internal Medicine 02/17/22 Kiki Burks MD [facility] [place] [address] Resident Student Resident 12/11/17 documented as of this encounter
--- OUTSIDE RECORDS SUMMARY | 2024-10-01 13:19 | XMS_ITS | Clinical Summary ---
Author Organization [facility] Address [address] [place] [address] Care Team Providers Care [employer] Administrator Name Role Phone Kiki Burks MD Unavailable Yuly Pope DO Primary Care Provider [phone] Source Comments [facility],non-owned Affiliates and Associated Physician Practices is amultiple site organization consisting of ambulatory clinics and hospital sitesin [place], [place]. This disclosure is being madepursuant to the Care Everywhere program and may not contain all information available regarding this patient. Last updated 18.[facility] Allergies Active Allergy Reactions Criticality Noted Date Comments Lac Bovis Vomiting Low 10/05/2017 Lactose GI Discomfort Low 05/30/2018 Luna Rash Medium 09/25/2014 Luna Fruit Swelling Medium 10/05/2017 Luna Oil Rash Medium 09/25/2014 Penicillins Swelling High [...] device by Intrauterine route continuous Inserted at [facility] Comprehensive Ophthalmologist 04/23/2022, good through 04/24/2030 04/24/2022 Active albuterol [...] 08/14/2024 Assessment & Plan (08/14/2024 4:26 PM FISHER NET): Pt with concern for diabetes, had elevated HgA1c in the past, now has increased thirst. + acanthosis, BMI > 99%ile, 51 today. Will check HgA1c, CMP today. F/u next week. Irregular bleeding 09/23/2023 Assessment & Plan (09/23/2023 10:32 AM FISHER NET): IUD - Mirena placed in March 2022 [...] 09/23/2023 Assessment & Plan (09/23/2023 10:45 AM FISHER NET): Does have a hx of anxiety and depression as per patient with no SI/HI. Is currently in therapy - at [facility] once a week and seeking psychiatry referral to [facility] to initiate medication. Mood stable today. PHQ-9 6/ZACH -5. Screen for STD (sexually transmitted disease) Assessment & Plan (09/23/2023 10:48 AM FISHER NET): Is currently newly sexually active - with [...] 05/07/2020 Assessment & Plan (08/14/2024 4:23 PM FISHER NET): Pt with chronic constipation, managed with Miralax [...] here Assessment & Plan (09/23/2023 10:44 AM FISHER NET): BP stable today but patient takes lisinopril [...] June as scheduled - Will follow-up in [facility] and start antihypertensives pending today's labs Assessment [...] follow up results of labs sent at [facility] 5. If BP noted to be >130/80 using manual BP measurement technique while during hospitalization, will consider further evaluation for etiology of elevated BP including (depending on evaluation already performed at [facility]) Urine for urinalysis Blood for RFP, [...] 04/30/2018 Assessment & Plan (09/23/2023 10:42 AM FISHER NET): Continues to have frontal headaches - atleast [...] lisinopril. Assessment & Plan (06/23/2019 1:06 PM FISHER NET): Followed by Neurology Assessment & Plan (05/01/2018 [...] interested in Nexplanon insertion. 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 Angulo Assessment & Plan (06/23/2019 1:06 PM FISHER NET): Improved Followed by Adolescent Med Assessment & Plan (04/23/2018 12:43 PM CDT): Hx of heavy painful periods Naproxen makes her sleepy Check CBC today In the past Ibuprofen, has not worked. Instructed to trial 600mg every 6-8 hours instead of 400mg Refer to Adolescent Anxiety 04/23/2018 Assessment & Plan (08/25/2022 7:03 PM FISHER NET): Assessment: 16 year old female who presents with signs and symptoms generalized anxiety for several years. Including fear, anxiety, trouble staying asleep, repeated thoughts, palpitation, chest pain, and more. Calm during exam today. Has not tried any medication in the past. Plan: Start Wellbutrin daily Start Atarax PRN for anxiety Follow-up in 4-6 weeks Assessment & Plan (07/19/2020 4:56 PM FISHER NET): Spent >50% of this visit discussing concerns [...] 0904/23/2018 Assessment & Plan (07/19/2020 4:57 PM FISHER NET): BMI remains elevated. Has likely been exacerbated [...] and sodium - Has been referred to seed cleaning manager in the past and tried the meal [...] 01/01/2017 Assessment & Plan (09/23/2023 10:28 AM FISHER NET): Continues to have poor sleep hygiene with [...] 09/28/2016 Assessment & Plan (06/23/2019 1:07 PM FISHER NET): Referral to Ortho. Assessment & Plan (09/28/2016 11:59 AM FISHER NET): Mass on left dorsal surface of the bony prominence. Unlikely to be fracture or calcification of bone without h/o trauma. Plan: - Xray of left foot 2 view Allergic rhinitis 10/15/2014 Overview (04/29/2015): Assessment & Plan (08/03/2021 3:50 PM FISHER NET): Poorly controlled. Takes Zyrtec. Plan: Continue Zyrtec. Start Flonase Assessment & Plan (09/28/2016 11:56 AM FISHER NET): Pt with AR on Zyrtec. Her symptoms [...] 09/09/2014 Assessment & Plan (08/03/2021 3:49 PM FISHER NET): Refused Flu shot Assessment & Plan (07/19/2020 4:52 PM FISHER NET): Ashley Menon is here for her adolescent well child check and has excessive weight gain and normal development. Immunizations up to date - flu shot today Has dentist PHQ-9: Negative Age appropriate anticipatory guidance provided Return in about 3 months (around 10/17/2020) for weight follow-up. Assessment & Plan (06/23/2019 1:05 PM FISHER NET): Ronald Menon is here for her adolescent [...] arise. Assessment & Plan (09/09/2014 1:45 PM FISHER NET): Ashley Menon is here for her 8 y.o. well child check. - Immunizations up to date, except flu which was declined today - Has a dental home - Age appropriate anticipatory guidance provided - Return for next well child check; sooner if concerns arise - See other separate problems Obesity 09/09/2014 Assessment & Plan (09/23/2023 10:26 AM FISHER NET): Weight is up from previous visit - [...] time Assessment & Plan (06/23/2019 1:05 PM FISHER NET): Good exercise regimen Discussed diet issues. Assessment [...] made healthy changes including workouts with a strainer tender 3-4 times per week and limiting sweet [...] spurt. Assessment & Plan (09/09/2014 1:42 PM FISHER NET): Ashley Menon is an obese 8 y/o [...] 07/08/2014 Assessment & Plan (07/19/2020 4:59 PM FISHER NET): Noted on bilateral cheeks and chin. No inflammation noted. Likely exacerbated by stress of the pandemic. Plan: - Will start benzoyl peroxide - RTC in 3mo (monitor during weight follow-up) Assessment & Plan (07/08/2014 1:31 PM FISHER NET): Flesh colored fine papular rash. Appears to [...] 07/31/2013 Assessment & Plan (07/19/2020 5:04 PM FISHER NET): Has had significant difficulty with attention and [...] schooling. Assessment & Plan (09/28/2016 11:51 AM FISHER NET): Pt with ADHD diagnosed earlier. Pt was [...] psychology. Assessment & Plan (07/31/2013 5:51 PM FISHER NET): Unusual behaviors, escalating since, after surgery. Initially, [...] mother and child in office. Referral to [facility] for formal evaluation although from previous visits, autism seems unlikely. Stressed importance of continuing to see psychologist. Make sure to take copies of school evaluation for [facility] to review. Follow up in 3-4 months after [facility] evaluation completed. Asthma 06/18/2013 Assessment & Plan (06/23/2019 1:06 PM FISHER NET): Well controlled Does not get relief from [...] PRN Assessment & Plan (09/28/2016 11:50 AM FISHER NET): Pt on Flovent 44 2puffs BID and [...] prn Assessment & Plan (07/31/2013 5:45 PM FISHER NET): Mild exacerabation over past month. Not giving full dose of Flovent. Instructed mother to increase to 2 puffs BID and wean off albuterol. Call office if unable to wean off albuterol over next two weeks or if worsens. Assessment & Plan (06/18/2013 5:23 PM FISHER NET): Patient with mild persistent asthma. No ED [...] 025 Assessment & Plan (08/25/2022 7:11 PM FISHER NET): Assessment: Rolled ankle about 2 weeks ago and still having pain to palpation and limited range of motion. Pain mostly on the lateral malleolus. Able to bare weight for only a limited amount of time. Plan: Follow-up with orthopedic surgery Follow-up with physical therapy Otitis externa 08/03/2021 09/14/2021 Assessment & Plan (08/03/2021 3:48 PM FISHER NET): Otitis Externa on L side Plan: Start Ciprodex Acute right otitis media 08/03/202105/2024 Assessment & Plan (08/03/2021 3:49 PM FISHER NET): See exam. Plan: Start Cefdinir Diarrhea 06/07/2021 [...] 02/20/2022 Assessment & Plan (07/13/2020 11:30 AM FISHER NET): 14-year-old female with multiple comorbidities and positive [...] 09/28/2016 Assessment & Plan (09/28/2016 12:04 PM FISHER NET): 11yo female with h/o asthma, allergic rhinitis [...] worsens; would consider treating for sinusitis then Hcfcy-cmjfvqn-fzhmkzw vaccine (MMR) not given 09/29/19 17 06/23/2019 Assessment & Plan (09/28/2016 12:00 PM FISHER NET): Missing record of her 2nd MMR vaccine. [...] 06/23/2019 Assessment & Plan (09/09/2014 1:34 PM FISHER NET): Ashley Menon is 8 y/o obese female [...] clinic Assessment & Plan (09/09/2014 1:36 PM FISHER NET): Ashley Menon is a 8 y/o female [...] behaviors Assessment & Plan (09/09/2014 1:39 PM FISHER NET): Ashley Menon is a 8 y/o female seen today for well child check found to have significant separation anxiety related to her mother. Discussed with mom and Ashley the role of therapy in treatment of anxiety in childhood. - Referral to Psychology at [facility] for management of anxiety. Mom does not wish to return to prior therapist in [place]. URI (upper respiratory infection) 07/24/2014 12/09/2014 Assessment & Plan (07/24/2014 4:52 PM FISHER NET): 8yo with 4-5days of fever, congestion, runny [...] 06/23/2019 Assessment & Plan (07/24/2014 4:56 PM FISHER NET): Per Mom Ashley has been staying with her in women's correction for past several weeks. Did not give [...] 09/09/2014 Assessment & Plan (07/13/2014 1:21 PM FISHER NET): Zantac trial x 1 mo Hip pain 06/18/2013 12/09/2015 Assessment & Plan (06/18/2013 5:25 PM FISHER NET): BL hip pain resolved with stretching exercises. Not needed any pain meds for. X-rays are normal. Normal hip exam BL. -Follow clinically Posterior fossa arachnoid cyst 06/18/2013 06/23/2019 Overview (04/29/2017): . IMO Update 04/29/2017 Assessment & Plan (06/18/2013 10:01 PM FISHER NET): 05/05/13 Right suboccipital retrosigmoid craniotomy for excision and fenestration of arachnoid cyst. Microsurgical technique. Cranioplasty of skull defect less than 5 cm using Synthes titanium plating system. 05/19/13 Recurrent incisional drainage, right posterior fossa arachnoid cyst, surgical wound breakdown and exploration Fall 11/10/2009 06/18/2013 Encounters Date Type Department Care Team Description 08/19/2024 Telephone [facility] [address] [place] [address]. [place] [address] Yuly Pope, DO Concerns 08/15/2024 7:44 AM FISHER NET - 08/15/2024 8:07 PM FISHER NET Emergency ER at [address] [address] Dasia Donaldson MD Gerard, James M, MD Abdominal pain, epigastric Discharge Disposition: Home or Self Care 08/15/2024 Travel 08/14/2024 4:34 PM FISHER NET - 08/14/2024 11:59 PM FISHER NET Hospital Encounter [facility] - Lab [address] [place] [address] Areli Salinas, PhD Discharge Disposition: Home or Self Care 08/14/2024 4:20 PM FISHER NET - 08/14/2024 4:33 PM FISHER NET Hospital Encounter [facility] - Radiology [address] [place] [address] Areli Dao APRN-CNP Discharge Disposition: Home or Self Care 08/14/2024 2:45 PM FISHER NET - 08/14/2024 4:19 PM FISHER NET Hospital Encounter [facility] - [facility] [address] [place] [address] Areli Salinas, PhD Areli Dao APRN-CNP from Last 3 Months Immunizations Name Administration Dates Next Due CovAffinity Edge primary Monoval ent 12+ yr 0.3ml 02/17/2022 [...] Comments Blood Pressure 135/90 08/15/2024 6:43 PM FISHER NET Pulse 90 08/15/2024 6:43 PM FISHER NET Temperature 37.6 C (99.7 F) 08/15/2024 6:43 PM FISHER NET Respiratory Rate 20 08/15/2024 6:43 PM FISHER NET Oxygen Saturation 99% 08/15/2024 6:43 PM FISHER NET Inhaled Oxygen Concentration 100% 01/2013 12:30 PM CDT Weight 161.4 kg (355 lb 13.2 oz) 08/15/2024 7:31 AM FISHER NET Height 175 cm (5' 8.9 ) 08/15/2024 7:31 AM FISHER NET Body Mass Index 52.7 08/15/2024 7:31 AM FISHER NET Plan of Treatment Upcoming Encounters Date Type Department Care Team (Late st Contact Info) Description 10/03/2024 10:00 AM FISHER NET Office Visit [facility] Medical [facility] - [address] [address], [address] [address] Amina Nicholas, KIER DRIER-SHOW WORKER [id number] [place] [phone] 01/08/2025 9:00 AM CDT Office Visit [facility] - GI [address] [facility] [place] [id number] Areli Dao, KIER DRIER-SHOW WORKER [address] [place] [address] Health Maintenance Due Date Last Done Comments [...] history exists Medical Devices Implanted Type Area Flux Plant Operator Device Identifier Shelf Expiration Date Model / Serial / Lot Floseal 10ml Implanted:Qty: 1 on 05/05/2013 by Aiden Turner MD at [facility] Right: Cranial [employer] 06/29/2014 [id number] / / [id number] Grft Duragen Plus 2 X 2 Implanted:Qty: 1 on 05/05/2013 by Aiden Turner MD at [facility] Right: Cranial Integra [employer] Alexandra 11/28/2015 [id number] / / [id number] Matrix Regeneration Durepair 1 X 1in Implanted:Qty: 1 on 05/05/2013 by Aiden Turner MD at [facility] Right: Cranial Medtronic Neurological 12/28/2013 [id number] / / [id number] Glue Tisseel Fibrin 10ml Implanted:Qty: 1 on 05/05/2013 by Aiden Turner MD at [facility] Right: Cranial Sant[employer]ruz Katie [employer]o 09/27/2014 [id number] / / [id number] Cov Bur Hole Ti Matrix 17mm Implanted:Qty: 1 on 05/05/2013 by Aiden Turner MD at [facility] Right: Cranial Synthes Maxillofacial [id number] / / Synthes Matrix Neuro Plate Implanted:Qty: 1 on 05/05/2013 by Aiden Turner MD at [facility] Right: Cranial 04.502.074 / / Synthes Matrix Neuro Screws 4 Mm Implanted:Qty: 9 on 05/05/2013 by Aiden Turner MD at [facility] Right: Cranial 04.503.104 / / Screw Ortho Pediatric Set Implanted:Qty: 1 on 07/09/2017 by Areli Kwan MD at [facility] Right: Ankle 45 / / Explanted Type Area Flux Plant Operator Device Identifier Shelf Expiration Date Model / Serial / Lot Wire K 3mm 21mm Ss Orth Fx Explanted:Qty: 1 on 07/09/2017 by Areli Kwan MD at [facility] Right: Ankle Ortho Pedicatrics 6 / / Procedures Procedure Name Priority Date/Time Associated Diagnosis Comments US ABDOMEN LIMITED STAT 08/15/2024 5: 21 PM FISHER NET Abdominal pain, epigastric CT ABDOMEN PELVIS W CONTRAST STAT 08/15/2024 3:47 PM FISHER NET Abdominal pain, epigastric HCG URINE QUALITATIVE - POCT (IP) INTERFACED Routine 08/15/2024 3:08 PM FISHER NET URINALYSIS W/MICROSCOPIC REFLEX TO CULTURE STAT 08/15/2024 3:05 PM FISHER NET HCG URINE QUAL POCT NOTIFICATION STAT 08/15/2024 1:32 PM FISHER NET AMYLASE BLOOD STAT 08/15/2024 10:10 AM FISHER NET LIPASE BLOOD STAT 08/15/2024 10:10 AM FISHER NET COMPREHENSIVE METABOLIC PANEL STAT 08/15/2024 10:10 AM FISHER NET CBC W AUTO DIFFERENTIAL STAT 08/15/2024 10:10 AM FISHER NET CBC W/O DIFFERENTIAL Routine 08/14/2024 4:45 PM FISHER NET Chronic constipation COMPREHENSIVE METABOLIC PANEL Routine 08/14/2024 4:45 PM FISHER NET Chronic constipation TSH REFLEX FREE T4 Routine 08/14/2024 4: 45 PM FISHER NET Chronic constipation HEMOGLOBIN A1C Routine 08/14/2024 4:45 PM FISHER NET Chronic constipation LIPID PROFILE Routine 08/14/2024 4:45 PM FISHER NET Encounter for routine child health examination with abnormal findings XR ABD OBSTRUCTION SERIES 2VW Routine 08/14/2024 4:29 PM FISHER NET Chronic constipation CHLAMYDIA + GC AMPLIFIED PROBE Routine 09/21/2023 4:07 PM FISHER NET Encounter for routine child health examination with abnormal findings from Last 3 Months or Most Recently Relevant to Health Maintenance Results * US Abdomen Limited (08/15/2024 5:21 PM FISHER NET) Anatomical Region Laterality Modality Abdomen Ultrasound 08/15/2024 4:46 PM FISHER NET Impressions 08/16/2024 7:23 AM FISHER NET Limited gallbladder ultrasound as the patient was [...] at 7:23 AM Narrative 08/16/2024 7:23 AM FISHER NET PROCEDURE: US ABDOMEN LIMITED, DATE/TIME OF EXAM: [...] Abdomen Pelvis W Contrast (08/15/2024 3:47 PM FISHER NET) Anatomical Region Laterality Modality Abdomen, Pelvis Computed Tomogra phy 08/15/2024 3:40 PM FISHER NET Impressions 08/15/2024 4:12 PM FISHER NET 1. Questionable cholelithiasis (versus gallbladder folds) without [...] at 4:12 PM Narrative 08/15/2024 4:12 PM FISHER NET PROCEDURE: CT ABDOMEN PELVIS W CONTRAST, DATE/TIME OF EXAM: 08/15/2024 3:40 PM, LOCATION INDICATION: Epigastric pain CG SEDATION IF NEEDED: ORDER [id number] FOR INPATIENTS AND [id number] FOR OUTPATIENTS AND CLINIC PATIENTS. - Radiation [...] Epigastric pain CG SEDATION IF NEEDED: ORDER [id number] FORINPATIENTS AND [id number] FOR OUTPATIENTS AND CLINIC PATIENTS. - RadiationDose:->761.52 [...] - POCT (IP) INTERFACED (08/15/2024 3:08 PM FISHER NET) HCG Qual Urine Negative Negative 08/15/2024 3:18 PM FISHER NET [facility] Urine URINE / Unknown 08/15/2024 3 :08 PM FISHER NET 08/15/2024 3:18 PM FISHER NET Amandeep Blackwell MD LAB - POINT OF CARE ORDERABLES [facility] [address] [place] [address] * (ABNORMAL) URINALYSIS W/MICROSCOPIC REFLEX TO CULTURE (08/15/2024 3:05 PM FISHER NET) Color UA Yellow Straw, Yellow 08/15/2024 3:19 PM [facility] Clarity UA Slt Cloudy(A) Clear 08/15/2024 3:19 PM [facility] Specific [place] UA 1.024 1.005 - 1.030 08/15/2024 3:19 PM [facility] pH UA 8.0 5.0 - 8.0 pH 08/15/2024 3:19 PM [facility] Protein UA Negative Negative 08/15/2024 3:19 PM [facility] Glucose UA Negative Negative 08/15/2024 3:19 PM [facility] Ketone UA Negative Negative 08/15/2024 3:19 PM [facility] Bilirubin UA Negative Negative 08/15/2024 3:19 PM [facility] Blood UA Negative Negative 08/15/2024 3:19 PM [facility] Nitrite UA Negative Negative 08/15/2024 3:19 PM [facility] Leukocyte Esterase Negative Negative 08/15/2024 3:19 PM [facility] Urobilinogen UA 2.0(A) Negative mg/dL 08/15/2024 3:19 PM [facility] RBC UA 3-5 None Seen, 0-2, 3-5 /HPF 08/15/2024 3:19 PM [facility] WBC UA 0-5 None Seen, 0-5 /HPF 08/15/2024 3:19 PM [facility] Squamous Epithelial Cells UA 6-10(A) None Seen, 0-2, 3-5 /HPF 08/15/2024 3:19 PM [facility] Mucus UA 1+ /LPF 08/15/2024 3:19 PM [facility] Urine URINE SPECIMEN OBTAINED BY CLEAN CATCH PROCEDURE / Unknown Collection / Unknown 08/15/2024 3:05 PM FISHER NET 08/15/2024 3:13 PM FISHER NET Narrative [facility] - 08/15/2024 3:19 PM FISHER NET Culture Not Indicated Dasia Donaldson MD LAB - URINALYSI S ORDERABLES Performing Organization Address City/[facility]/ZIP Co de Phone Number [facility] [address] [place] [address] [phone] * HCG URINE QUAL POCT NOTIFICATION (08/15/2024 1:32 PM FISHER NET) Comment Notification Label Only - See Separate Report 08/15/2024 4:01 PM FISHER NET [facility] Urine URINE / Unknown 08/15/2024 1 :32 PM FISHER NET 08/15/2024 2:51 PM FISHER NET Dasia Donaldson MD LAB - URINALYSI S ORDERABLES [place] [address] [place] [address] * (ABNORMAL) CBC W AUTO DIFFERENTIAL (08/15/2024 10:10 AM FISHER NET) WBC 11.3(H) 4.0 - 10.7 x10E9/L 08/15/2024 10:45 AM [facility] RBC Count 4.14 3.90 - 5.20 x10E12/L 08/15/2024 10:45 AM [facility] Hemoglobin 12.3 11.9 - 15.8 g/dL 08/15/2024 10:45 AM [facility] Hematocrit 37.0 34.8 - 46.1 % 08/15/2024 10:45 AM [facility] MCV 89.4 80.0 - 98.0 fL 08/15/2024 10:45 AM [facility] MCH 29.7 26.7 - 33.6 pg 08/15/2024 10:45 AM [facility] MCHC 33.2 31.7 - 36.3 g/dL 08/15/2024 10:45 AM [facility] RDW-CV 12.7 11.3 - 14.8 % 08/15/2024 10:45 AM [facility] Platelet Count 413 150 - 420 x10E9/L 08/15/2024 10:45 AM [facility] MPV 9.5 7.8 - 11.4 fL 08/15/2024 10:45 AM [facility] Neutrophil % 78.9(H) 41.0 - 74.0 % 08/15/2024 10:45 AM [facility] Lymphocyte % 12.8(L) 17.0 - 47.0 % 08/15/2024 10:45 AM [facility] Monocyte % 7.4 3.0 - 11.0 % 08/15/2024 10:45 AM [facility] Eosinophil % 0.3 0.0 - 7.0 % 08/15/2024 10:45 AM [facility] Basophil % 0.2 0.0 - 1.6 % 08/15/2024 10:45 AM [facility] Immature Granulocytes % 0.4 0.0 - 1.0 % 08/15/2024 10:45 AM [facility] Neutrophil Absolute 8.94(H) 1.60 - 7.50 x10E9/L 08/15/2024 10:45 AM [facility] Lymphocyte Absolute 1.45 1.00 - 4.40 x10E9/L 08/15/2024 10:45 AM [facility] Monocyte Absolute 0.84 0.15 - 1.00 x10E9/L 08/15/2024 10:45 AM [facility] Eosinophil Absolute 0.03 0.00 - 0.60 x10E9/L 08/15/2024 10:45 AM [facility] Basophil Absolute 0.02 0.00 - 0.13 x10E9/L 08/15/2024 10:45 AM [facility] Blood BLOOD SPECIMEN / Unknown Venipuncture / Unknown 08/15/2024 10:[address] [facility] 08/15/2024 10:[address] [facility] Dasia Donaldson MD LAB - HEMATOLOG Y ORDERABLES [facility] [address] [place] [address], [facility] [phone] * COMPREHENSIVE METABOLIC PANEL (08/15/2024 10:[address] [facility]) Only the most recent of2 resultswithin the time period is included. BUN 11 7 - 26 mg/dL 08/15/2024 10:59 AM [facility] Creatinine 0.68 0.56 - 0.96 mg/dL 08/15/2024 10:59 AM [facility] Sodium 137 136 - 145 mmol/L 08/15/2024 10:59 AM [facility] Potassium 4.0 3.5 - 4.5 mmol/L 08/15/2024 10:59 AM [facility] Chloride 106 98 - 107 mmol/L 08/15/2024 10:59 AM [facility] CO2 24 22 - 29 mmol/L 08/15/2024 10:59 AM [facility] Glucose 98 70 - 99 mg/dL 08/15/2024 10:59 AM [facility] Calcium 9.6 8.4 - 10.2 mg/dL 08/15/2024 10:59 AM [facility] Protein Total 7.6 6.0 - 8.3 g/dL 08/15/2024 10:59 AM [facility] Albumin 3.9 3.4 - 5.0 g/dL 08/15/2024 10:59 AM [facility] Bilirubin Total 0.6 0.2 - 1.2 mg/dL 08/15/2024 10:59 AM [facility] Alkaline Phosphatase 77 40 - 150 U/L 08/15/2024 10:59 AM [facility] ALT 16 5 - 55 U/L 08/15/2024 10:59 AM [facility] AST 17 5 - 34 U/L 08/15/2024 10:59 AM [facility] Anion Gap 7 6 - 16 08/15/2024 10:59 AM [facility] BUN/Creatinine Ratio 16 7 - 23 08/15/2024 10:59 AM [facility] Osmolality Calculated 283 275 - 295 mOsm/kg 08/15/2024 10:59 AM [facility] Albumin/Globulin Ratio 1.1 1.1 - 2.3 08/15/2024 10:59 AM [facility] eGFR by CKD-EPI >90 >=90 mL/min/1.7 3 m2 08/15/2024 10:59 AM [facility] Blood BLOOD SPECIMEN / Unknown Venipuncture / Unknown 08/15/2024 10:10 AM [facility] 08/15/2024 10:31 AM FISHER NET Dasia Donaldson MD LAB - CHEMISTRY ORDERABLES [address] [address], [place] [phone] * LIPASE BLOOD (08/15/2024 10:10 AM FISHER NET) Lipase 14 8 - 78 U/L 08/15/2024 10:59 AM [facility] Blood BLOOD SPECIMEN / Unknown Venipuncture / Unknown 08/15/2024 10:10 AM [facility] 08/15/2024 10:31 AM FISHER NET Narrative [facility] - 08/15/2024 10:59 AM FISHER NET Lipase results from the [employer] Alinity analyzer may not be comparable with other methodologies. Dasia Donaldson MD LAB - CHEMISTRY ORDERABLES [address] [address], [place] [phone] * AMYLASE BLOOD (08/15/2024 10:10 AM FISHER NET) Amylase 42 25 - 125 U/L 08/15/2024 10:59 AM [facility] Blood BLOOD SPECIMEN / Unknown Venipuncture / Unknown 08/15/2024 10:10 AM [facility] 08/15/2024 10:31 AM [facility]ER NET Dasia Donaldson MD LAB - CHEMISTRY ORDERABLES Performing Organization Address City/[facility]/ZIP Co de Phone Number [phone] [address] [address], [facility] [phone] * TSH REFLEX FREE T4 (08/14/2024 4:45 PM FISHER NET) TSH 1.281 0.350 - 4.940 uIU/mL 08/14/2024 6:39 PM [facility] Blood BLOOD SPECIMEN / Unknown Lab Venipuncture / Unknown 08/14/2024 4:45 PM FISHER NET 08/14/2024 4:57 PM FISHER NET Areli CARNES LAB - FUNDRAISING CONSULTANT RY ORDERABLES Performing Organization Address [facility] Co de Phone Number [address] [address], [facility] [phone] * HEMOGLOBIN A1C (08/14/2024 4:45 PM FISHER NET) Hemoglobin A1c 5.3 <=5.6 % 08/15/2024 10:21 AM [facility] Estimated Average Glucose 105 mg/dL 08/15/2024 10:21 AM [facility] Comment: HbA1c Interpretation: Normal : < 5.7% Pre-diabetes: 5.7-6.4% Diabetes: Equal to or greater than 6.5% Test results diagnostic of diabetes should be repeated for confirmation. Treatment target values recommended by ADA and other clinical organizations should be used to evaluate metabolic control in patients. Reference: [place] [employer], Standards of Care in Diabetes -2020 In patients 70 years and older consider HbA1c target range of 7.0-7.5% (Reference: Phil Vargas et al. MINA. 2012) The Sebia assay for the measurement of HbA1c is a National Glycohemoglobin Standardization Program (NGSP) certified method. Blood BLOOD SPECIMEN / Unknown Lab Venipuncture / Unknown 08/14/2024 4:45 PM FISHER NET 08/14/2024 4:57 PM FISHER NET Areli Dao KIER DRIER-SHOW WORKER LAB - FUNDRAISING CONSULTANT RY ORDERABLES [facility] [address] [place] [phone], [facility] [phone] * (ABNORMAL) CBC NO DIFFERENTIAL (08/14/2024 4:45 PM FISHER NET) WBC 12.7(H) 4.0 - 10.7 x10E9/L 08/14/2024 5:00 PM [facility] RBC Count 3.93 3.90 - 5.20 x10E12/L 08/14/2024 5:00 PM [facility] Hemoglobin 11.8(L) 11.9 - 15.8 g/dL 08/14/2024 5:00 PM [facility] Hematocrit 36.1 34.8 - 46.1 % 08/14/2024 5:00 PM [facility] MCV 91.9 80.0 - 98.0 fL 08/14/2024 5:00 PM [facility] MCH 30.0 26.7 - 33.6 pg 08/14/2024 5:00 PM [facility] MCHC 32.7 31.7 - 36.3 g/dL 08/14/2024 5:00 PM [facility] RDW-CV 12.7 11.3 - 14.8 % 08/14/2024 5:00 PM [facility] Platelet Count 395 150 - 420 x10E9/L 08/14/2024 5:00 PM [facility] MPV 9.1 7.8 - 11.4 fL 08/14/2024 5:00 PM [facility] Blood BLOOD SPECIMEN / Unknown Lab Venipuncture / Unknown 08/14/2024 4:45 PM FISHER NET 08/14/2024 4:57 PM FISHER NET Areli Dao KIER DRIER-SHOW WORKER LAB - HEMATOL OGY ORDERABLES Performing Organization Address City/[facility]/ZIP Co de Phone Number [facility] [address] [place] [address], [place] [phone] * (ABNORMAL) LIPID PROFILE (08/14/2024 4:45 PM FISHER NET) Cholesterol Total 164 <200 mg/dL 08/14/2024 6:21 PM [facility] HDL 34(L) >40 mg/dL 08/14/2024 6:21 PM [facility] Comment: ATP III Classification of HDL Cholesterol: <40 mg/dL: Considered a major risk factor. >60 mg/dL: Considered a negative risk factor. LDL Calculated 107(H) <100 mg/dL 08/14/2024 6:21 PM [facility] Comment: ATP III Classification of LDL Cholesterol: <100 mg/dL: Optimal 100 - 129 mg/dL: Near Optimal/Above Optimal 130 - 159 mg/dL: Borderline High 160 - 189 mg/dL: High >190 mg/dL: Very High Triglycerides 115 <150 mg/dL 08/14/2024 6:21 PM [facility] Comment: ATP III Classification of Triglycerides: <150 mg/dL: Normal 150 - 199 mg/dL: Borderline High 200 - 400 mg/dL: High >500 mg/dL: Very High Blood BLOOD SPECIMEN / Unknown Lab Venipuncture / Unknown 08/14/2024 4:45 PM FISHER NET 08/14/2024 4:57 PM FISHER NET Yuly Pope DO LAB - CHEMISTRY ORDE ANSELMO [facility] [address] [place] [address], [place] [phone] * XR Abd Obstruction Series 2Vw (08/14/2024 4:29 PM FISHER NET) Anatomical Region Laterality Modality Abdomen Computed Radiogr aphy 08/14/2024 4:22 PM FISHER NET Impressions 08/14/2024 4:37 PM FISHER NET Nonobstructive bowel gas pattern. Reading Radiologist: Pallavi Lange on 08/14/2024 at 4:37 PM Narrative 08/14/2024 4:37 PM FISHER NET INDICATION: Constipation COMPARISON: None available. TECHNIQUE: Supine [...] on 08/14/2024 at 4:37 PM Areli Dao KIER DRIER-SHOW WORKER DIAGNOSTIC IM AGING ORDERABLES * (ABNORMAL) CHLAMYDIA + GC AMPLIFIED PROBE (09/21/2023 4:07 PM FISHER NET) Chlamydia Amplified Probe Positive(A) Negative 09/22/2023 12:40 AM FISHER NET [facility] GC Amplified Probe Negative Negative 09/22/2023 12:40 AM FISHER NET [facility] Microbiology URINE / Unknown Collection / Unknown 09/21/2023 4:07 PM FISHER NET 09/21/2023 4:53 PM FISHER NET Narrative [facility] - 09/22/2023 12:40 AM FISHER NET Repeat testing is recommended 3 months post treatment for patients who test positive for Chlamydia trachomatis/Neisseria gonorrhoeae. Results based on detection/no detection of ribosomal RNA by amplified method. Yuly Pope DO LAB - MICROBIOLOGY O RDERABLES [facility] [address] [place] [id number] [phone] from Last 3 Months or Most Recently Relevant to Health Maintenance Advance Directives * Full Code (Latest Code Status on File) Date Activated Date Inactivated Comments 12/25/2023 11:24 PM 12/28/2023 2:22 PM * Full Code Date Activated Date Inactivated Comments 04/05/2020 1:50 PM 04/06/2020 6:02 PM * Full Code Date Activated Date Inactivated Comments 04/30/2018 9:48 AM 05/01/2018 4:48 PM Care Teams [employer] Administrator Relationship Specialty Start Date End Date Yuly Pope DO [address] [place] [address] PCP - General Internal Medicine 02/17/22 Kiki Burks MD [address] [place] [address] Resident Student Resident 12/11/17
--- OUTSIDE RECORDS SUMMARY | 2024-10-01 13:19 | XMS_ITS | Encounter Summary ---
Author Organization [facility] Address [address] [facility] [place] [address] Care Team Providers Care Compliance Program Manager Name Role Phone Mesfin May MD Primary Care Provider [phone] Kiki Burks MD Unavailable Yuly Pope DO Primary Care Provider [phone] Reason for Visit * Reason Onset Date Comments Concerns 09/07/2021 Encounter Details Date Type Department Care Team (Late st Contact Info) Description 09/07/2021 Telephone [facility] [address] [place] [address] Mesfin May MD [address] [place] [address] Concerns Social History Tobacco Use Types [...] Priya Christianson APRN-CNP - 09/07/2021 3:45 PM RAILROAD CAR PAINTER Called number in chart mother Ms Purdy. She said she got 2nd covid vaccine at [facility]. Instructed to provide school with vaccine care or contact [facility] for letter since we do not have record of this visit. ROAD CAR PAINTER * Telephone Encounter - Ariana Booker - [...] her sick. You canreach patient mom at [phone] Instructed that provider will call back at their earliest convenience. ROAD CAR PAINTER documented in this encounter Plan of Treatment Upcoming Encounters Date Type Department Care Team (Late st Contact Info) Description 10/03/2024 10:00 AM RAILROAD CAR PAINTER Office Visit [facility] [place] [address] [facility] , [address] [address] Amina Nicholas APRN-CNP [address] [address] 01/08/2025 9:00 AM CDT Office Visit [facility] [place] [address] [facility], [place] [phone] Areli Dao APRN-CNP [address] [place] [address] documented as of this encounter Visit Diagnoses Not on filedocumented in this encounter Additional Health Concerns Infection Onset Date Last Indicated Resolved Time COVID-19 Under Investigation 04/13/2023 04/13/2023 04/13/2023 5:37 AM CDT documented as of this encounter Care Teams Compliance Program Manager Relationship Specialty [place] [address] [place] [address] PCP - General Pediatrics 12/11/17 02/16/22 Yuly Pope DO [address] [place] [address] PCP - General Internal Medicine 02/17/22 Kiki Burks MD [address] [place] [address] Resident Student Resident 12/11/17 documented as of this encounter
--- OUTSIDE RECORDS SUMMARY | 2024-10-01 13:19 | XMS_ITS | Clinical Summary ---
Author Organization [facility] Address [address] [place] [address] Care Team Providers Care Crown Blocker Name Role Phone Yuly Pope DO Primary Care Provider Allergies Active Allergy Reactions Criticality Noted Date Comments [place] Derived Swelling Medium 10/05/2017 [place] Flavor Swelling Medium 10/05/2017 Lactose Stomach upset Low 05/30/2018 Milk Vomiting Low 10/05/2017 [place] Rash,Swelling Medium 09/25/2014 [place] Juice [place] Oil Rash Medium 09/25/2014 Penicillins Swollen tongue,Swelling [...] [facility] and has fairly consistently been in [...] interested in Nexplanon insertion. Referred to adolescent healthcare or medical clinic with Dr. Angulo Severe childhood obesity [...] increased blood pressure. She has the school's [place] break to consider whether she would like [...] Department Care Team Description 08/01/2024 2:45 PM DIVISIONAL STOREKEEPER Office Visit [facility] Medical [facility] Convenient Care at [address] [address] Heather Pickering PA Dyspnea on [...] murmur Heart murmur Hypertension Hypertension; Co mments: [facility] 06/07/2015 - Attention deficit disorder ADHD Active [...] on file Legal Sex Female 8:59 PM DIVISIONAL STOREKEEPER Gender Identity Not on file Sexual Orientation Not on file Obstetrics History Last Filed Vital Signs Vital Sign Reading Time Taken Comments Blood Pressure 130/78 08/01/2024 2:36 PM DIVISIONAL STOREKEEPER Pulse 110 08/01/2024 2:36 PM DIVISIONAL STOREKEEPER Temperature 36.9 C (98.4 F) 08/01/2024 2:36 PM DIVISIONAL STOREKEEPER Respiratory Rate 20 08/01/2024 2:36 PM DIVISIONAL STOREKEEPER Oxygen Saturation 99% 08/01/2024 2:36 PM DIVISIONAL STOREKEEPER Inhaled Oxygen Concentration - - Weight 136.1 kg (300 lb) 08/01/2024 2:36 PM DIVISIONAL STOREKEEPER Height 175.3 cm (5' 9 ) 08/01/2024 2:36 PM DIVISIONAL STOREKEEPER Body Mass Index 44.3 08/01/2024 2:36 PM DIVISIONAL STOREKEEPER Plan of Treatment Health Maintenance Due Date [...] 10/13/2015 Meningococcal Vaccine Completed 08/03/2021, 016 Insurance [facility] [place] [facility] [place]ICA[place] [facility] [place] [address] MEDICAID [facility] Care Teams Crown Blocker Relationship Specialty Start Date End Date Yuly Pope DO [address] [facility] [address] [place] [address] PCP - General Internal Medicine 12/21/23
--- OUTSIDE RECORDS SUMMARY | 2024-10-01 13:20 | XMS_ITS | Referral Summary ---
Author Organization [facility] Address [address] [place] [address] Care Team Providers Care Supervisor Garment Manufacturing Name Role Phone Yuly Pope DO Primary Care Provider Encounters Date Type Department Care Team Description 08/01/2024 2:45 PM ROLLER SHOP UTILITY WORKER Office Visit [facility] Convenient Care at [address] [place] [phone] Heather Pickering PA Dyspnea on exertion (Primary Dx); RSV (respiratory syncytial virus infection) from Last 3 Months Allergies Active Allergy Reactions Criticality Noted Date Comments [place] Derived Swelling Medium 10/05/2017 [place] Flavor Swelling Medium 10/05/2017 Lactose Stomach upset Low 05/30/2018 Milk Vomiting Low 10/05/2017 [place] Rash,Swelling Medium 09/25/2014 [place] Juice [place] Oil Rash Medium 09/25/2014 Penicillins Swollen tongue,Swelling [...] interested in Nexplanon insertion. Referred to adolescent restrictive preparation operator clinic with Dr. Angulo Severe childhood obesity [...] on file Legal Sex Female 8:59 PM ROLLER SHOP UTILITY WORKER Gender Identity Not on file Sexual Orientation Not on file Last Filed Vital Signs Vital Sign Reading Time Taken Comments Blood Pressure 130/78 08/01/2024 2:36 PM ROLLER SHOP UTILITY WORKER Pulse 110 08/01/2024 2:36 PM ROLLER SHOP UTILITY WORKER Temperature 36.9 C (98.4 F) 08/01/2024 2:36 PM ROLLER SHOP UTILITY WORKER Respiratory Rate 20 08/01/2024 2:36 PM ROLLER SHOP UTILITY WORKER Oxygen Saturation 99% 08/01/2024 2:36 PM ROLLER SHOP UTILITY WORKER Inhaled Oxygen Concentration - - Weight 136.1 kg (300 lb) 08/01/2024 2:36 PM ROLLER SHOP UTILITY WORKER Height 175.3 cm (5' 9 ) 08/01/2024 2:36 PM ROLLER SHOP UTILITY WORKER Body Mass Index 44.3 08/01/2024 2:36 PM ROLLER SHOP UTILITY WORKER Plan of Treatment Not on file Insurance [employer] [place] [facility] [place] [facility] [place] ANTH ACCESS [facility] Care Teams Supervisor Garment Manufacturing Relationship Specialty Start Date End Date Yuly Pope DO [address] [facility] [address] [place] [address] PCP - General Internal Medicine 12/21/23
== END 2024-10-01 13:30 | disposition left against medical advice (07) ==
PROVIDERS: PCP Emergency Medicine
DX: G43.909 Migraine, unspecified, not intractable, without status migrainosus (principal)
CPT/HCPCS: 99199

== ENCOUNTER 2024-12-01 18:30 | Emergency (ER) | payer SELFPAY ==
--- NOTE | ~2024-12-01 | XR_ITS ---
CHEST RADIOGRAPH, PA AND LATERAL CLINICAL HISTORY: sob . COMPARISON: None available TECHNIQUE: PA and lateral views of the chest. FINDINGS The cardiomediastinal silhouette is unremarkable. The lungs are clear. IMPRESSION: No focal infiltrate or effusion. Reviewed, dictated and finalized at location A.
--- OUTSIDE RECORDS SUMMARY | 2024-12-01 18:33 | XMS_ITS | Encounter Summary ---
Author Organization [facility] Address [address] [facility] [place] [address] Care Team Providers Care Automatic Drilling Machine Operator Name Role Phone Mesfin May MD Primary Care Provider [phone] Kiki Burks MD Unavailable Yuly Pope DO Primary Care Provider [phone] Encounter Details Date Type Department Care Team (Late st Contact Info) Description 04/30/2018 Ophth Exam [facility] Pediatrics - Ophthalmology [address] [place] [address] Alejandro Murillo MD [address] [place] [address] Social History Tobacco Use Types Packs/Day Years Used Date Smoking Tobacco: Passive Smo ke Exposure - Never Smoker Smokeless Tobacco: Never Alcohol Use Standard Drinks/Week Comments No 0 (1 standard drink = 0.6 oz pur e alcohol) Comments No Sex and Gender Information Value Date Recorded Sex Assigned at Not on file Legal Sex Female 5:43 AM PATIENT ACCOUNTS SPECIALIST Gender Identity Not on file Sexual Orientation Not on file documented as of this encounter Functional Status * Is person deaf or have serious hearing difficulty? Answer Date of Assessment Author No 04/30/2018 9:36 AM Kenny Yates RN * Is person blind or have serious difficulty seeing? Answer Date of Assessment Author No 04/30/2018 9:36 AM Kenny Yates RN * Does person have serious difficulty walking/climbing stairs? Answer Date of Assessment Author No 04/30/2018 9:36 AM CDT Kenny Brown RN * Does person have difficulty dressing/bathing? Answer Date of Assessment Author No 04/30/2018 9:36 AM CDT Kenny Brown RN * Does person have difficulty doing errands alone? Answer Date of Assessment Author No 04/30/2018 9:36 AM ELDERT Kenny Brown RN documented as of this encounter Mental Status * Does person have difficulty concentrating/remembering/making decisions? Answer Entry Date Author No 04/30/2018 9:36 AM CDT Kenny Brown RN documented in this encounter Plan of Treatment Upcoming Encounters Date Type Department Care Team (Late st Contact Info) Description 12/02/2024 10:30 AM CDT Appointment [facility] Pediatrics [address] [place] [address] Rolando Domínguez DO [address] [place] [address] 01/02/2025 10:00 AM CDT Office Visit [facility] [place] [facility] [place] [address] [address] Amina Nicholas, TRANSIT PLANNING DIRECTOR-LEGAL ARCHIVIST [address] [address] 01/08/2025 9:00 AM CDT Office Visit [facility] [place] [address] [facility], [place] [phone] Areli Dao TRANSIT PLANNING DIRECTOR-LEGAL ARCHIVIST [address] [place] [address] documented as of this encounter Visit Diagnoses Not on filedocumented in this encounter Additional Health Concerns Infection Onset Date Last Indicated Resolved Time COVID-19 Under Investigation 07/13/2020 07/13/2020 07/14/2020 12:25 PM PATIENT ACCOUNTS SPECIALIST COVID-19 Under Investigation 04/13/2023 04/13/2023 04/13/2023 5:37 AM CDT documented as of this encounter Care Teams Automatic Drilling Machine Operator Relationship Specialty Start Date End Date Mesfin May MD [address] [place] [address] PCP - General Pediatrics 12/11/17 02/16/22 Yuly Pope DO [address] [place] [address] PCP - General Internal Medicine 02/17/22 Kiki Burks MD [address] [place] [phone] Resident Student Resident 12/11/17 documented as of this encounter
--- OUTSIDE RECORDS SUMMARY | 2024-12-01 18:33 | XMS_ITS | Encounter Summary ---
Author Organization [facility] Address [address] [facility] [place] [address] Care Team Providers Care Kiss Machine Operator Name Role Phone Mesfin May MD Primary Care Provider [phone] Kiki Burks MD Unavailable Yuly Pope DO Primary Care Provider [phone] Reason for Visit * Reason Onset Date Comments Health Information 05/01/2018 Encounter Details Date Type Department Care Team (Late st Contact Info) Description 05/01/2018 Telephone [facility] - [facility] [address] [place] [address] Mesfin May MD [address] [place] [phone] Health Information Social History Tobacco Use Types Packs/Day Years Used Date Smoking Tobacco: Passive Smo ke Exposure - Never Smoker Smokeless Tobacco: Never Alcohol Use Standard Drinks/Week Comments No 0 (1 standard drink = 0.6 oz pur e alcohol) Comments No Sex and Gender Information Value Date Recorded Sex Assigned at Not on file Legal Sex Female 5:43 AM FLAG MAKER Gender Identity Not on file Sexual Orientation Not on file documented as of this encounter Functional Status * Is person deaf or have serious hearing difficulty? Answer Date of Assessment Author No 04/30/2018 9:36 AM CDT Kenny Brown RN * Is person blind or have serious difficulty seeing? Answer Date of Assessment Author No 04/30/2018 9:36 AM CDT Cuca Brown RN * Does person have serious difficulty walking/climbing stairs? Answer Date of Assessment Author No 04/30/2018 9:36 AM CDT Kenny Brown RN * Does person have difficulty dressing/bathing? Answer Date of Assessment Author No 04/30/2018 9:36 AM CDT Kenny Brown RN * Does person have difficulty doing errands alone? Answer Date of Assessment Author No 04/30/2018 9:36 AM CDT Kenny Brown RN documented as of this encounter Mental Status * Does person have difficulty concentrating/remembering/making decisions? Answer Entry Date Author No 04/30/2018 9:36 AM CDT Kenny Brown RN documented in this encounter Miscellaneous Notes * Telephone Encounter - Edwin Cano - 05/01/2018 3:[address] brooke [...] Info) Description 12/02/2024 10:30 AM CDT Appointment [facility] [address] [place] [address] Rolando Domínguez, DO [address] [place] [address] 01/02/2025 10:00 AM CDT Office Visit [facility] [place] [address] DePjon Adames, [address] [address] Amina Nicholas APRN-ELANA [address] [address] 01/08/2025 9:00 AM CDT Office Visit [facility] - [place] [address] [facility], [place] [address] Areli Dao, FISH FROG OR OYSTER FARMER-CRT [address] [place] [address] documented as of this encounter Visit Diagnoses Not on filedocumented in this encounter Additional Health Concerns Infection Onset Date Last Indicated Resolved Time COVID-19 Under Investigation 07/13/2020 07/13/2020 07/14/2020 12:25 PM FLAG MAKER COVID-19 Under Investigation 04/13/2023 04/13/2023 04/13/2023 5:37 AM CDT documented as of this encounter Care Teams Kiss Machine Operator Relationship Specialty Start Date End Date Mesfin May MD [address] [place] [address] PCP - General Pediatrics 12/11/17 02/16/22 Yuly Pope DO [address] [place] [address] PCP - General Internal Medicine 02/17/22 Kiki Burks MD [address] [place] [phone] Resident Student Resident 12/11/17 documented as of this encounter
--- OUTSIDE RECORDS SUMMARY | 2024-12-01 18:33 | XMS_ITS | Clinical Summary ---
Author Organization [facility] Address [address] [place] [address] Care Team Providers Care Slubber Hand Name Role Phone Kiki Burks MD Unavailable Yuly Pope DO Primary Care Provider [phone] Source Comments [facility],non-owned Affiliates and Associated Physician Practices is amultiple site organization consisting of ambulatory clinics and hospital sitesin [place], [place], [place] and [place]. This disclosure is being madepursuant to the Care Everywhere program and may not contain all information available regarding this patient. Last updated 18.[facility] Allergies Active Allergy Reactions Criticality Noted Date Comments Lac Bovis Vomiting Low 10/05/2017 Lactose GI Discomfort Low 05/30/2018 [place] Rash Medium 09/25/2014 [place] Fruit Swelling Medium 10/05/2017 [place] Oil Rash Medium 09/25/2014 Penicillins Swelling High 07/17/2011 Other reaction(s): Swollen tongue Prochlorperazine Rash Medium Medications * This document contains information received from the source organization and may not represent a complete record from that organization. * Be aware that medications may not be up to date on this document. Alwaysverify current medications with the patient. naproxen (NAPROSYN) 500 MG tablet Take at onset of severe. Do not take more than 3x per week. 30 tablet 5 2 Active levonorgestrel (Mirena) 20 MCG/DAY IUD 1 (one) device by Intrauterine route continuous Inserted at [facility] Emergency Medical Service Coordinator 04/23/2022, good through 04/24/2030 2 Active albuterol HFA (Ventolin HFA) 108 (90 Base) MCG/ACT inhaler Inhale 2 (two) puffs by mouth every 6 hours as needed 18 g 5 2 Active hydrOXYzine HCl (Atarax) 25 MG tablet Take 1 (one) tablet by mouth 4 times daily as needed for Itching 15 tablet 3 Active Additional Information Patient not taking.Reported on 10/03/2024 SUMAtriptan (Imitrex) 50 MG tablet Take 1 (one) tablet by mouth daily as needed - may repeat one time for Migraine Maximum daily dose: 200mg/24 hours 9 tablet 4 Active lisinopril (Prinivil; Zestril) 10 MG tablet Take 1 (one) tablet by mouth once daily 90 tablet 1 4 Active dexAMETHasone (Decadron) 0.5 MG/5ML elixir 5 mL swish and spit three to four times daily for 5 days. It is important to keep the medication in the mouth for five minutes prior to spitting it out. Do not rinse afterward and avoid eating or drinking for 30 minutes. 100 mL 4 Active ibuprofen (Motrin) 400 MG tablet TAKE 1 (ONE) TABLET BY MOUTH EVERY 4 HOURS FOR 30 DAYS 180 tablet 4 12/28/19 25 Active acyclovir (Zovirax) 200 MG capsule TAKE 2 (TWO) CAPSULES BY MOUTH 3 TIMES DAILY FOR 26 DOSES 52 capsule 4 12/28/19 25 Active polyethylene glycol 3350 (Miralax) 17 GM/SCOOP powder Take 2 capfuls QD-BID for soft regular stools 500 g 3 5 Active ondansetron, disintegrating, (Zofran ODT) 4 MG tablet Take 1 (one) tablet by mouth every 6 hours as needed for Nausea/Vomiting Allow tablet to dissolve on the tongue 5 tablet 5 Active omeprazole (PriLOSEC) 40 MG capsule Take 1 (one) capsule by mouth daily before breakfast 90 capsule 2 5 Active Active Problems Problem Noted Date Diagnosed Date Gastric ulcer 11/06/2024 Nausea and vomiting 10/03/2024 Heartburn 10/03/2024 Bloating 10/03/2024 Polydipsia/concern for diabetes 08/14/2024 Assessment & Plan (08/14/2024 4:26 PM SALES BROKER): Pt with concern for diabetes, had elevated HgA1c in the past, now has increased thirst. + acanthosis, BMI > 99%ile, 51 today. Will check HgA1c, CMP today. F/u next week. Irregular bleeding 09/23/2023 Assessment & Plan (09/23/2023 10:32 AM SALES BROKER): IUD - Mirena placed in March 2022 [...] 09/23/2023 Assessment & Plan (09/23/2023 10:45 AM SALES BROKER): Does have a hx of anxiety and depression as per patient with no SI/HI. Is currently in therapy - at [facility] once a week and seeking psychiatry referral to [place] to initiate medication. Mood stable today. PHQ-9 6/ZACH -5. Screen for STD (sexually transmitted disease) Assessment & Plan (09/23/2023 10:48 AM SALES BROKER): Is currently newly sexually active - with [...] Acanthosis nigricans 10/21/2020 Sleep difficulties 10/21/2020 Chronic idiopathic constipation 05/07/2020 Assessment & Plan (08/14/2024 4:23 PM SALES BROKER): Pt with chronic constipation, managed with Miralax [...] CMP, refer to GI. F/u next week. Pain of upper abdomen 05/07/2020 Left ventricular hypertrophy 05/03/2020 Assessment & Plan [...] here Assessment & Plan (09/23/2023 10:44 AM SALES BROKER): BP stable today but patient takes lisinopril [...] June as scheduled - Will follow-up in [facility] and start antihypertensives pending today's labs Assessment & Plan (04/06/2020 11:42 AM CDT): Assessment: Zenonmiki Menon 14 year old obese (BMI: 47.56) [...] follow up results of labs sent at [facility] 5. If BP noted to be >130/80 using manual BP measurement technique while during hospitalization, will consider further evaluation for etiology of elevated BP including (depending on evaluation already performed at [facility]) Urine for urinalysis Blood for RFP, renin, [...] 04/30/2018 Assessment & Plan (09/23/2023 10:42 AM SALES BROKER): Continues to have frontal headaches - atleast [...] lisinopril. Assessment & Plan (06/23/2019 1:06 PM SALES BROKER): Followed by Neurology Assessment & Plan (05/01/2018 [...] interested in Nexplanon insertion. 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 Angulo Assessment & Plan (06/23/2019 1:06 PM SALES BROKER): Improved Followed by Adolescent Med Assessment & Plan (04/23/2018 12:43 PM CDT): Hx of heavy painful periods Naproxen makes her sleepy Check CBC today In the past Ibuprofen, has not worked. Instructed to trial 600mg every 6-8 hours instead of 400mg Refer to Adolescent Anxiety 04/23/2018 Assessment & Plan (08/25/2022 7:03 PM SALES BROKER): Assessment: 16 year old female who presents with signs and symptoms generalized anxiety for several years. Including fear, anxiety, trouble staying asleep, repeated thoughts, palpitation, chest pain, and more. Calm during exam today. Has not tried any medication in the past. Plan: Start Wellbutrin daily Start Atarax PRN for anxiety Follow-up in 4-6 weeks Assessment & Plan (07/19/2020 4:56 PM SALES BROKER): Spent >50% of this visit discussing concerns [...] 0904/23/2018 Assessment & Plan (07/19/2020 4:57 PM SALES BROKER): BMI remains elevated. Has likely been exacerbated [...] and sodium - Has been referred to pediatric neuropsychologist in the past and tried the meal [...] 01/01/2017 Assessment & Plan (09/23/2023 10:28 AM SALES BROKER): Continues to have poor sleep hygiene with [...] 09/28/2016 Assessment & Plan (06/23/2019 1:07 PM SALES BROKER): Referral to Ortho. Assessment & Plan (09/28/2016 11:59 AM SALES BROKER): Mass on left dorsal surface of the bony prominence. Unlikely to be fracture or calcification of bone without h/o trauma. Plan: - Xray of left foot 2 view Allergic rhinitis 10/15/2014 Overview (04/29/2015): Assessment & Plan (08/03/2021 3:50 PM SALES BROKER): Poorly controlled. Takes Zyrtec. Plan: Continue Zyrtec. Start Flonase Assessment & Plan (09/28/2016 11:56 AM SALES BROKER): Pt with AR on Zyrtec. Her symptoms [...] 09/09/2014 Assessment & Plan (08/03/2021 3:49 PM SALES BROKER): Refused Flu shot Assessment & Plan (07/19/2020 4:52 PM SALES BROKER): Ashley Menon is here for her adolescent well child check and has excessive weight gain and normal development. Immunizations up to date - flu shot today Has dentist PHQ-9: Negative Age appropriate anticipatory guidance provided Return in about 3 months (around 10/17/2020) for weight follow-up. Assessment & Plan (06/23/2019 1:05 PM SALES BROKER): Ronald Menon is here for her adolescent [...] arise. Assessment & Plan (09/09/2014 1:45 PM SALES BROKER): Ashley Menon is here for her 8 y.o. well child check. - Immunizations up to date, except flu which was declined today - Has a dental home - Age appropriate anticipatory guidance provided - Return for next well child check; sooner if concerns arise - See other separate problems Obesity 09/09/2014 Assessment & Plan (09/23/2023 10:26 AM SALES BROKER): Weight is up from previous visit - [...] time Assessment & Plan (06/23/2019 1:05 PM SALES BROKER): Good exercise regimen Discussed diet issues. Assessment [...] made healthy changes including workouts with a management trainer 3-4 times per week and limiting [...] spurt. Assessment & Plan (09/09/2014 1:42 PM SALES BROKER): Ashley Menon is an obese 8 y/o [...] 07/08/2014 Assessment & Plan (07/19/2020 4:59 PM SALES BROKER): Noted on bilateral cheeks and chin. No inflammation noted. Likely exacerbated by stress of the pandemic. Plan: - Will start benzoyl peroxide - RTC in 3mo (monitor during weight follow-up) Assessment & Plan (07/08/2014 1:31 PM SALES BROKER): Flesh colored fine papular rash. Appears to [...] 07/31/2013 Assessment & Plan (07/19/2020 5:04 PM SALES BROKER): Has had significant difficulty with attention and [...] increased blood pressure. She has the school's [place] break to consider whether she would like [...] schooling. Assessment & Plan (09/28/2016 11:51 AM SALES BROKER): Pt with ADHD diagnosed earlier. Pt was [...] finding a counselor. - Refer to [facility], given phone number. Or recommend [...] psychology. Assessment & Plan (07/31/2013 5:51 PM SALES BROKER): Unusual behaviors, escalating since, after surgery. Initially, [...] mother and child in office. Referral to [facility] for formal evaluation although from previous visits, autism seems unlikely. Stressed importance of continuing to see psychologist. Make sure to take copies of school evaluation for [facility] to review. Follow up in 3-4 months after [facility] evaluation completed. Asthma 06/18/2013 Assessment & Plan (06/23/2019 1:06 PM SALES BROKER): Well controlled Does not get relief from [...] PRN Assessment & Plan (09/28/2016 11:50 AM SALES BROKER): Pt on Flovent 44 2puffs BID and [...] prn Assessment & Plan (07/31/2013 5:45 PM SALES BROKER): Mild exacerabation over past month. Not giving full dose of Flovent. Instructed mother to increase to 2 puffs BID and wean off albuterol. Call office if unable to wean off albuterol over next two weeks or if worsens. Assessment & Plan (06/18/2013 5:23 PM SALES BROKER): Patient with mild persistent asthma. No ED [...] Plan (12/25/2023 11:45 PM CDT): Assessment: Ronald Camposmely Menon, 18 year old female, with known [...] dehydration, TSH, BG normal, mono screen process. Lillian improved with swish and spit mouth wash [...] 025 Assessment & Plan (08/25/2022 7:11 PM SALES BROKER): Assessment: Rolled ankle about 2 weeks ago and still having pain to palpation and limited range of motion. Pain mostly on the lateral malleolus. Able to bare weight for only a limited amount of time. Plan: Follow-up with orthopedic surgery Follow-up with physical therapy Otitis externa 08/03/2021 09/14/2021 Assessment & Plan (08/03/2021 3:48 PM SALES BROKER): Otitis Externa on L side Plan: Start Ciprodex Acute right otitis media 08/03/202105/2024 Assessment & Plan (08/03/2021 3:49 PM SALES BROKER): See exam. Plan: Start Cefdinir Diarrhea 06/07/2021 [...] 02/20/2022 Assessment & Plan (07/13/2020 11:30 AM SALES BROKER): 14-year-old female with multiple comorbidities and positive [...] emergency department (call first) for worsening symptoms. Periumbilical abdominal pain 05/07/2020 02/20/2022 Dizziness 04/05/2020 [...] 09/28/2016 Assessment & Plan (09/28/2016 12:04 PM SALES BROKER): 11yo female with h/o asthma, allergic rhinitis [...] worsens; would consider treating for sinusitis then Iyemq-iyvasfj-dzdbcwq vaccine (MMR) not given 09/29/19 17 06/23/2019 Assessment & Plan (09/28/2016 12:00 PM SALES BROKER): Missing record of her 2nd MMR vaccine. [...] 06/23/2019 Assessment & Plan (09/09/2014 1:34 PM SALES BROKER): Ashley Menon is 8 y/o obese female [...] clinic Assessment & Plan (09/09/2014 1:36 PM SALES BROKER): Ashley Menon is a 8 y/o female [...] behaviors Assessment & Plan (09/09/2014 1:39 PM SALES BROKER): Ashley Menon is a 8 y/o female seen today for well child check found to have significant separation anxiety related to her mother. Discussed with mom and Ashley the role of therapy in treatment of anxiety in childhood. - Referral to Psychology at [facility] for management of anxiety. Mom does not wish to return to prior therapist in [place]. URI (upper respiratory infection) 07/24/2014 12/09/2014 Assessment & Plan (07/24/2014 4:52 PM SALES BROKER): 8yo with 4-5days of fever, congestion, runny [...] refills needed for albuterol Living in [facility]term with Mom 07/24/2014 06/23/2019 Assessment & Plan (07/24/2014 4:56 PM SALES BROKER): Per Mom Ashley has been staying with her in women's [facility] for past several weeks. Did not give details, but implied that it was a temporary arrangement. -Provided family with Mind[employer]'s [employer] card as a social service resource, instructed her to call with questions/concerns if we could be of service. Ashley is due for a well child check and Mom was interested in possibly speaking with Mindy at that time. Abdominal pain, epigastric 07/13/2014 0 09/09/2014 Assessment & Plan (07/13/2014 1:21 PM SALES BROKER): Zantac trial x 1 mo Hip pain 06/18/2013 12/09/2015 Assessment & Plan (06/18/2013 5:25 PM SALES BROKER): BL hip pain resolved with stretching exercises. Not needed any pain meds for. X-rays are normal. Normal hip exam BL. -Follow clinically Posterior fossa arachnoid cyst 06/18/2013 06/23/2019 Overview (04/29/2017): . IMO Update 04/29/2017 Assessment & Plan (06/18/2013 10:01 PM SALES BROKER): 05/05/13 Right suboccipital retrosigmoid craniotomy for excision and fenestration of arachnoid cyst. Microsurgical technique. Cranioplasty of skull defect less than 5 cm using Synthes titanium plating system. 05/19/13 Recurrent incisional drainage, right posterior fossa arachnoid cyst, surgical wound breakdown and exploration Fall 11/10/2009 06/18/2013 Encounters Date Type Department Care Team Description 10/31/2024 Travel 10/30/2024 Telephone [facility] [address] [facility] , [address] [address] Melanie Sanchez, GREEN CHAIN OPERATOR-MAIL SORTER Results 10/27/2024 9:45 AM CDT - 10/27/2024 10:15 AM CDT Surgery [facility] [address] [place] [id number] Ziyad Lynn MD ESOPHAGOGASTRODUODENOSCOPY (EGD) DIAGNOSTIC 10/27/2024 9:43 AM CDT Anesthesia Event Critical access hospital [facility] [address] [place] [address] Harshad Cadena, Taylor Garcia, GREEN CHAIN OPERATOR-STEAM CLEANER 10/27/2024 8:42 AM CDT - 10/27/2024 11:45 AM CDT Hospital Encounter Critical access hospital [facility] [address] [place] [id number] Ziyad Lynn MD Surgery General Discharge Disposition: Home or Self Care 10/27/2024 Travel 10/07/2024 Telephone [place] [address] [address], [address] [place] [address] Amina Nicholas APRN-CNP Update 10/03/2024 10:00 AM SALES BROKER Office [place] [facility] [place] [address] Ryan Adames, [address] [place] [address] Amina Nicholas APRN-CNP Nausea and vomiting, unspecified vomiting type (Primary Dx); Heartburn; Chronic idiopathic constipation; Bloating; Pain of upper abdomen 10/03/2024 Travel from Last 3 Months Immunizations Immunization Administration Dates Next Due [employer] primary Monoval ent 12+ yr 0.3ml 02/17/2022 DTaP VACCINE IM (6wk-6yrs) 03/04/2009,,03/30/2005,11/24 HEP A PEDS 2 DOSE 03/27/2008,02/19/2007 HEP B VACCINE, PED/ADOL 06/05/2005,05/05,03/30/2005,11/24,2004 HIB-PRP-OMP 3 DOSE 05/05/2005,03/30/2005, 005 Human Papilloma Virus Nineva lent Vaccine 12/28/2016,10/13/2015 INFLUENZA VACCINE 05/08/2013,05/23/2010 INFLUENZA VACCINE, QUADR. (F LUZONE; FLULAVAL; FLUARIX; AFLURIA QUADRIVALENT; 6MO+), 0.5 ML (IIV4) 07/19/2020 MENINGOCOCCAL ACWY (MCV4P) VAC IM 08/03/2021, MMR 06/23/2019,03/04/2009 PNEUMOCOCCAL PCV7 CONJ, PEDS 11/28/2005, [...] Recorded Patient Health Questionnaire-2 Score 0 04/16/2023 Comments No Sex and Gender Information Value Date Recorded Sex Assigned at Not on file Legal Sex Female 5:43 AM SALES BROKER Gender Identity Not on file Sexual Orientation Not on file Last Filed Vital Signs Vital Sign Reading Time Taken Comments Blood Pressure 132/99 10/27/2024 11:25 AM CDT Pulse 73 10/27/2024 11:25 AM CDT Temperature 36.9 C (98.4 F) 10/27/2024 11:06 AM CDT Respiratory Rate 15 10/27/2024 11:25 AM CDT Oxygen Saturation 100% 10/27/2024 11:25 AM CDT Inhaled Oxygen Concentration 100% 05/05/2013 1 2:30 PM CDT Weight 163.3 kg (360 lb) 10/27/2024 9:04 AM CDT Height 175.3 cm (5' 9 ) 10/27/2024 9:04 AM CDT Body Mass Index 53.16 10/27/2024 9:04 AM CDT Plan of Treatment Upcoming Encounters Date Type Department Care Team (Late st Contact Info) Description 12/02/2024 10:30 AM CDT Appointment [facility] [address] [place] [address] Rolando Domínguez, [address] [place] [address] 01/02/2025 10:00 AM CDT Office Visit [facility] - [address] [facility] [address] [place] [address] Amina Nicholas, GREEN CHAIN OPERATOR-MAIL SORTER [address] [facility] [address] [place] [address] 01/08/2025 9:00 AM CDT Office Visit [facility] - [address] [facility] [place] [phone] Areli Dao GREEN CHAIN OPERATOR-MAIL SORTER [address] [place] [address] Health Maintenance Due Date Last Done Comments PNEUMOCOCCAL VACCINE (1 of 1 - PPSV23) 2010 11/28/2005, 05/05/2005, 03/30/2005, Additional history exists HIV SCREENING 2019 MENINGOCOCCAL (Group B) VACCINE SHARED DECISION-MAKING (1 of 2 - Standard) 2020 HEPATITIS C SCREENING 09/15/2022 COVID-19 VACCINE ( season) 2024 02/17/2022, 07/25/2021 CHLAMYDIA/GONORRHEA SCREENING 09/21/2024 09/21/2023, 03/02/2023 INFLUENZA VACCINE (Season Ended) 2025 07/19/2020, 05/08/2013, 05/23/2010 DTAP/TDAP/TD VACCINES (6 - Td or Tdap) 10/12/2025 10/13/2015, 03/04/2009, 05/05/2005, Additional history exists ZOSTER VACCINE (1 of 2) 2054 HIB VACCINE Aged Out 05/05/2005, 07/2004, 2004 No longer eligible based on patient's age to complete this topic HEPATITIS B VACCINE Completed 06/05/2005, 05/05/2005, 03/30/2005, Additional history exists HPV VACCINE Completed 12/28/2016, 10/13/2015 MENINGOCOCCAL GROUPS A/C/Y/W VACCINE Completed 08/03/2021, 10/13/2015 DEPRESSION SCREENING Completed 08/14/2024, 09/21/2023, 08/25/2022, Additional history exists Medical Devices Implanted Type Area Corrections Sergeant Device Identifier Shelf Expiration Date Model / Serial / Lot Floseal 10ml Implanted:Qty: 1 on 05/05/2013 by Aiden Turner MD at [facility] Right: Cranial [employer] 06/29/2014 [id number] / / [id number] Grft Duragen Plus 2 X 2 Implanted:Qty: 1 on 05/05/2013 by Aiden Turner MD at [facility] Right: Cranial Integra [employer] Alexandra 11/28/2015 [id number] / / [id number] Matrix Regeneration Durepair 1 X 1in Implanted:Qty: 1 on 05/05/2013 by Aiden Turner MD at [facility] Right: Cranial Med[employer] Neurological 12/28/2013 [id number] / / [id number] Glue Tisseel Fibrin 10ml Implanted:Qty: 1 on 05/05/2013 by Aiden Turner MD at [facility] Right: Cranial [employer] 09/27/2014 [id number] / / [id number] Cov Bur Hole Ti Matrix 17mm Implanted:Qty: 1 on 05/05/2013 by Aiden Turner MD at [facility] Right: Cranial Synthes Maxillofacial [id number] / / Synthes Matrix Neuro Plate Implanted:Qty: 1 on 05/05/2013 by Aiden Turner MD at [facility] Right: Cranial 04.502.074 / / Synthes Matrix Neuro Screws 4 Mm Implanted:Qty: 9 on 05/05/2013 by Aiden Turner MD at [facility] Right: Cranial [id number] / / Screw Ortho Pediatric Set Implanted:Qty: 1 on 07/09/2017 by Areli Kwan MD at [facility] Right: Ankle 45 / / Explanted Type Area Corrections Sergeant Device Identifier Shelf Expiration Date Model / Serial / Lot Wire K 3mm 21mm Ss Orth Fx Explanted:Qty: 1 on 07/09/2017 by Areli Kwan MD at [facility] Right: Ankle Ortho Pedicatrics 6 / / Procedures Procedure Name Priority Date/Time Associated Diagnosis Comments PATHOLOGY TISSUE EXAM (STL) Routine 10/27/2024 11:02 AM CDT Diagnosis deferred HELICOBACTER PYLORI UREASE (STL) STAT 10/27/2024 10:57 AM CDT Diagnosis deferred HCG URINE QUAL POCT NOTIFICATION Routine 10/27/2024 10:00 AM CDT Pre-op exam [facility] ED EGD FLEX TRANSORAL DX 10/27/2024 9:45 AM CDT EGD Routine 10/27/2024 8:51 AM CDT Nausea and vomiting, unspecified vomiting type Heartburn Bloating Pain of upper abdomen HCG URINE QUALITATIVE - POCT (IP) INTERFACED Routine 10/27/2024 8:51 AM CDT CHLAMYDIA + GC AMPLIFIED PROBE Routine 09/21/2023 4:07 PM SALES BROKER Encounter for routine child health examination with abnormal findings from Last 3 Months or Most Recently Relevant to Health Maintenance Results * PATHOLOGY TISSUE EXAM (STL) (10/27/2024 11:02 AM CDT) Case Report Surgical Pathology Report Case: [id number] Authorizing Provider: Ziyad Lynn MD Collected: 10/27/2024 11:02 AM Ordering Location: [facility] Received: 10/28/2024 06:55 AM - [facility] Pathologist: Emmanuelle Georges MD Specimen: Duodenal Biopsy 10/29/2024 9:32 AM CDT [facility] Final Diagnosis Duodenum, biopsy: -- Duodenal mucosa with normal villi and no pathologic diagnosis -- No intraepithelial lymphocytosis -- No parasitic organisms 10/29/2024 9:32 AM CDT [facility] Clinical History Upper endoscopy: Clinical history: Epigastric abdominal pain, nausea with vomiting Endoscopic impression: Nonbleeding gastric ulcers. Normal examined duodenum. 10/29/2024 9:32 AM T [facility] Gross Description Received in formalin labeled with patient's name and duodenal biopsy are 2 fragments of abrams tissue measuring 2 and 3 mm respectively. Submitted entirely cassette B1. 10/29/2024 9:32 AM CDT [facility] Microscopic Description Microscopic examination substantiates the above cited diagnosis. 10/29/2024 9:32 AM T [facility] Disclaimer All histochemical and/or immunohistochemical results are interpreted with controls that demonstrate appropriate staining reactions before reporting results. Note on use of immunocytochemistry reagents: This test was developed and its performance characteristic determined by [facility], Department of Laboratory Medicine. It has not been cleared or approved by the U.S. Food and Drug Administration (FDA). The FDA has determined that such clearance or approval is not necessary. The test is used for clinical purpose. It should not be regarded as investigational or for research. This laboratory is certified to perform high complexity testing. The performance characteristics of the IHC/TRIXIE assays have been validated on formalin-fixed paraffin embedded tissues only. The assays have not been validated on decalcified tissues. Results should be interpreted with caution. 10/29/2024 9:32 AM CDT [facility] Embedded Images 10/29/2024 9:32 AM T [facility] Miscellaneous samples (specimen) DUODENAL BIOPSY SPECIMEN / Unknown 10/27/2024 11:02 AM CDT 10/28/2024 6:55 AM CDT us Ziyad Lynn MD LAB - PATHOLOGY/CYTOLOGY OR DERABLES Final Result [facility] [address] [place] [id number] * HELICOBACTER PYLORI UREASE (STL) (10/27/2024 10:57 AM CDT) Helicobacter pylori Urease Initial Negative Negative 10/28/2024 11:41 AM CDT [facility] Helicobacter pylori Urease Final Negative Negative 10/28/2024 11:41 AM CDT [facility] Microbiology GASTRIC ANTRAL BIOPSY SPECIMEN / Unknown 10/27/2024 10:57 AM CDT 10/27/2024 2:15 PM CDT Narrative [facility] - 10/28/2024 11:41 AM CDT 02/2027 Ziyad Lynn MD LAB - MICROBIOLOGY ORDERABL ES Final Result [facility] [address] [place] [id number] * HCG URINE QUAL POCT NOTIFICATION (10/27/2024 10:00 AM CDT) Comment Notification Label Only - See Separate Report 10/27/2024 10:00 AM CDT [facility] Urine URINE / Unknown 8:48 AM CDT us Ziyad Lynn MD LAB - URINALYSIS ORDERABLES Final Result [facility] [address] [place] [address] * EGD (10/27/2024 8:51 AM CDT) Report Endoscopy POC _ Patient Name: Ronald Menon Procedure Date: 10/27/2024 8:51 AM Date of : 2005 Admit Type: Outpatient Age: 19 Gender: Female Attending MD: Ziyad Lynn MD, [id number] _ Procedure: Upper GI endoscopy Indications: Epigastric abdominal pain, Nausea with vomiting Providers: Ziyad Lynn MD (Doctor) Referring MD: Yuly Pope DO (Referring MD) Medicines: Monitored Anesthesia Care Complications: No immediate complications. _ Estimated Blood Loss: Estimated blood loss: none. Procedure: Pre-Anesthesia Assessment: - Prior to the procedure, a History and Physical was performed, and patient medications and allergies were reviewed. The patient is competent. The risks and benefits of the procedure and the sedation options and risks were discussed with the patient. All questions were answered and informed consent was obtained. Patient identification and proposed procedure were verified by the physician, the nurse and the palliative care specialist in the procedure room. Mental Status Examination: alert and oriented. Airway Examination: normal oropharyngeal airway and neck mobility. Respiratory Examination: clear to auscultation. CV Examination: normal. Prophylactic Antibiotics: The patient does not require prophylactic antibiotics. Prior Anticoagulants: The patient has taken no anticoagulant or antiplatelet agents. ASA Grade Assessment: II - A patient with mild systemic disease. After reviewing the risks and benefits, the patient was deemed in satisfactory condition to undergo the procedure. The anesthesia plan was to use monitored anesthesia care (MAC). Immediately prior to administration of medications, the patient was re-assessed for adequacy to receive sedatives. The heart rate, respiratory rate, oxygen saturations, blood pressure, adequacy of pulmonary ventilation, and response to care were monitored throughout the procedure. The physical status of the patient was re-assessed after the procedure. - Prior Aspirin/ NSAID therapy: The patient has taken no aspirin or NSAID medications. After obtaining informed consent, the endoscope was passed under direct vision. Throughout the procedure, the patient's blood pressure, pulse, and oxygen saturations were monitored continuously. The was introduced through the mouth, and advanced to the second part of duodenum. The upper GI endoscopy was accomplished without difficulty. The patient tolerated the procedure well. Findings: The examined esophagus was normal. Many non-bleeding superficial gastric ulcers were found in the gastric body and in the gastric antrum. The largest lesion was 8 mm in largest dimension. Biopsies were taken with a cold forceps for Helicobacter pylori testing using CLOtest. The duodenal bulb and second portion of the duodenum were normal. Biopsies were taken with a cold forceps for histology. _ Impression: - Normal esophagus. - Non-bleeding gastric ulcers. Biopsied. - Normal duodenal bulb and second portion of the duodenum. Biopsied. Recommendation: - Await pathology results. - Avoid NSAIDS (ibuprofen, naproxyn, aspirin, alleve) - Resume previous diet. - Continue present medications. - Patient has a contact number available for emergencies. The signs and symptoms of potential delayed complications were discussed with the patient. Return to normal activities tomorrow. Written discharge instructions were provided to the patient. Procedure Code(s): --- Professional --- 71916, Esophagogastroduod enoscopy, flexible, transoral; with biopsy, single or multiple --- Technical --- 44218, Esophagogastroduod enoscopy, flexible, transoral; with biopsy, single or multiple Diagnosis Code(s): --- Professional --- K25.9, Gastric ulcer, unspecified as acute or chronic, without hemorrhage or perforation R10.13, Epigastric pain R11.2, Nausea with vomiting, unspecified --- Technical --- K25.9, Gastric ulcer, unspecified as acute or chronic, without hemorrhage or perforation R10.13, Epigastric pain R11.2, Nausea with vomiting, unspecified CPT copyright 2020 [employer]. All rights reserved. The codes documented in this report are preliminary and upon assistant producer review may be revised to meet current compliance requirements. Dr. Ziyad Lynn MD Ziyad Lynn MD 10/27/2024 11:05:06 AM This report has been signed electronically. Number of Addenda: 0 Note Initiated On: 10/27/2024 8:51 AM [facility] 10/27/2024 8:51 AM CDT Amina Nicholas GREEN CHAIN OPERATOR-MAIL SORTER GI PROCEDURE ORDERABLE S Edited Result - Final Performing Organization Address City/[facility]/ZIP Co de Phone Number [facility] [place] [place] [address] * HCG URINE QUALITATIVE - POCT (IP) INTERFACED (10/27/2024 8:51 AM CDT) HCG Qual Urine Negative Negative 10/27/2024 8:56 AM CDT [facility] Urine URINE / Unknown 10/27/2024 8 :51 AM CDT 10/27/2024 8:56 AM CDT us Ziyad Lynn MD LAB - POINT OF CARE ORDERAB LES Final Result Performing Organization Address City/[facility]/[place]UST Co de Phone Number [facility] [address] [place] [address] * (ABNORMAL) CHLAMYDIA + GC AMPLIFIED PROBE (09/21/2023 4:07 PM SALES BROKER) Chlamydia Amplified Probe Positive(A) Negative 09/22/2023 12:40 AM SALES BROKER [facility] GC Amplified Probe Negative Negative 09/22/2023 12:40 AM SALES BROKER [facility] Microbiology URINE / Unknown Collection / Unknown 09/21/2023 4:07 PM SALES BROKER 09/21/2023 4:53 PM SALES BROKER Narrative [facility] - 09/22/2023 12:40 AM SALES BROKER Repeat testing is recommended 3 months post treatment for patients who test positive for Chlamydia trachomatis/Neisseria gonorrhoeae. Results based on detection/no detection of ribosomal RNA by amplified method. us Yuly Pope DO LAB - MICROBIOLOGY ORDERABLES Final Result [facility] [address] [place] [address], [facility] [phone] from Last 3 Months or Most Recently Relevant to Health Maintenance Insurance [address] [place] [address] ANTH Advance Directives * Full Code (Latest Code Status on File) Date Activated Date Inactivated Comments 12/25/2023 11:24 PM 12/28/2023 2:22 PM * Full Code Date Activated Date Inactivated Comments 04/05/2020 1:50 PM 04/06/2020 6:02 PM * Full Code Date Activated Date Inactivated Comments 04/30/2018 9:48 AM 05/01/2018 4:48 PM Care Teams Slubber Hand Relationship Specialty Start Date End Date Yuly Pope DO [address] [place] [address] PCP - General Internal Medicine 02/17/22 Kiki Burks MD [address] [place] [address] Resident Student Resident 12/11/17
--- OUTSIDE RECORDS SUMMARY | 2024-12-01 18:33 | XMS_ITS | Encounter Summary ---
Author Organization [facility] Address [address] [place] [address] Care Team Providers Care Technical Project Lead Name Role Phone Mesfin May MD Primary Care Provider [phone] Kiki Burks MD Unavailable Yuly Pope DO Primary Care Provider [phone] Encounter Details Date Type Department Care Team (Late st Contact Info) Description 08/15/2018 Telephone [facility] - Pulmonology [address] [place] [id number] Jennifer Michael Social History Tobacco Use Types Packs/Day Years Used Date Smoking Tobacco: Passive Smo ke Exposure - Never Smoker Smokeless Tobacco: Never Alcohol Use Standard Drinks/Week Comments No 0 (1 standard drink = 0.6 oz pur e alcohol) Comments No Sex and Gender Information Value Date Recorded Sex Assigned at Not on file Legal Sex Female 5:43 AM STAFFING CLERK Gender Identity Not on file Sexual Orientation [...] Assessment Author No 04/30/2018 9:36 AM Kenny Yates, RN * Does person have difficulty dressing/bathing? [...] Description 12/02/2024 10:30 AM CDT Appointment [facility] [address] [place] [address] Rolando Domínguez DO [address] [place] [address] 01/02/2025 10:00 AM CDT Office Visit [facility] [place] [address] [address] Amina Nicholas, PHYSICAL EDUCATION DEPARTMENT CHAIR-FLEXO OPERATOR [address] [place] [phone] 01/08/2025 9:00 AM CDT Office Visit [facility] - [address] [facility], [place] [phone] Areli Dao PHYSICAL EDUCATION DEPARTMENT CHAIR-FLEXO OPERATOR [address] [place] [address] documented as of this encounter Visit Diagnoses Not on filedocumented in this encounter Additional Health Concerns Infection Onset Date Last Indicated Resolved Time COVID-19 Under Investigation 07/13/2020 07/13/2020 07/14/2020 12:25 PM STAFFING CLERK COVID-19 Under Investigation 04/13/2023 04/13/2023 04/13/2023 5:37 AM CDT documented as of this encounter Care Teams Technical Project Lead Relationship Specialty Start Date End Date Mesfin May MD [address] [place] [address] PCP - General Pediatrics 12/11/17 02/16/22 Yuly Pope DO [address] [place] [address] PCP - General Internal Medicine 02/17/22 Kiki Burks MD [address] [place] [phone] Resident Student Resident 12/11/17 documented as of this encounter
--- OUTSIDE RECORDS SUMMARY | 2024-12-01 18:33 | XMS_ITS | Encounter Summary ---
Author Organization [facility] Address [address] [place] [address] Care Team Providers Care Laundry Manager Name Role Phone Mesfin May MD Primary Care Provider [phone] Kiki Burks MD Unavailable Yuly Pope DO Primary Care Provider [phone] Reason for Visit * Reason Onset Date Comments Concerns 09/07/2021 Encounter Details Date Type Department Care Team (Late st Contact Info) Description 09/07/2021 Telephone [facility] [address] [place] [address] Mesfin May MD [address] [place] [address] Concerns Social History Tobacco Use Types Packs/Day Years Used Date Smoking Tobacco: Passive Smo ke Exposure - Never Smoker Smokeless Tobacco: Never Alcohol Use Standard Drinks/Week Comments No 0 (1 standard drink = 0.6 oz pur e alcohol) Comments No Sex and Gender Information Value Date Recorded Sex Assigned at Not on file Legal Sex Female 5:43 AM SALES ADVISOR Gender Identity Not on file Sexual Orientation Not on file documented as of this encounter Functional Status * Is person deaf or have serious hearing difficulty? Answer Date of Assessment Author No 04/05/2020 3:01 PM ELDERT Luigi Clark RN * Is person blind or have serious difficulty seeing? Answer Date of Assessment Author Yes 04/05/2020 3:01 PM CDT Luigi Clark RN * Does person have serious difficulty walking/climbing stairs? Answer Date of Assessment Author Yes 04/05/2020 3:01 PM ELDERT Luigi Clark RN * Does person have difficulty dressing/bathing? Answer Date of Assessment Author Yes 04/05/2020 3:01 PM Luigi Leal RN * Does person have difficulty doing errands alone? Answer Date of Assessment Author Yes 04/05/2020 3:01 PM Luigi Leal RN documented as of this encounter Mental Status * Does person have difficulty concentrating/remembering/making decisions? Answer Entry Date Author Yes 04/05/2020 3:01 PM Luigi Leal RN documented in this encounter Miscellaneous Notes * Telephone Encounter - Priya Christianson APRN-CNP - 09/07/2021 3:45 PM SALES ADVISOR Called number in chart mother Ms Purdy. She said she got 2nd covid vaccine at [facility]. Instructed to provide school with vaccine care or contact [facility] for letter since we do not have record of this visit. S ADVISOR * Telephone Encounter - Ariana Booker - 09/07/2021 3:09 PM CST Edilberto Menon's, 15 year old female, Mother } is calling with concerns. Patient mom call and said that she need her child doctor to fax over a notes to patient school to let them know that she was here at the doctor office yesterday 09/06/2021 getting her 2nd covid shot and it made her sick. You canreach patient mom at [phone] Instructed that provider will call back at their earliest convenience. S ADVISOR documented in this encounter Plan of Treatment Upcoming Encounters Date Type Department Care Team (Late st Contact Info) Description 12/02/2024 10:30 AM CDT Appointment [facility] [address] [place] [address] Rolando Domínguez DO [address] [place] [address] 01/02/2025 10:00 AM CDT Office Visit [facility] - [address] [phone] Amina Nicholas, DIRECTOR OF REGULATORY AFFAIRS-LAUNDRY MANAGER [address] [phone] 01/08/2025 9:00 AM CDT Office Visit [facility] - [address] [facility], [facility] [place] [phone] Areli Dao DIRECTOR OF REGULATORY AFFAIRS-LAUNDRY MANAGER [address] [place] [address] documented as of this encounter Visit Diagnoses Not on filedocumented in this encounter Additional Health Concerns Infection Onset Date Last Indicated Resolved Time COVID-19 Under Investigation 04/13/2023 04/13/2023 04/13/2023 5:37 AM CDT documented as of this encounter Care Teams Laundry Manager Relationship Specialty Start Date End Date Mesfin May MD [address] [place] [address] PCP - General Pediatrics 12/11/17 02/16/22 Yuly Pope DO [address] [place] [address] PCP - General Internal Medicine 02/17/22 Kiki Burks MD [address] [place] [phone] Resident Student Resident 12/11/17 documented as of this encounter
--- OUTSIDE RECORDS SUMMARY | 2024-12-01 18:34 | XMS_ITS | Patient Health Record ---
Author Organization [facility] Address [address] [place] [address] Care Team Providers Care Tire Duster Name Role Phone Sharonda Roberts Primary Care Provider Reason For Referral No Information Social History Sex Assigned At : Social History Observation Description Sex Assigned At Female Plan Of Treatment No Information Insurance Providers Payer Name Payer Address Payer Phone Subscriber Number Group Number Insured Name Patient Relationship to Insured Coverage Start Date Coverage End Date MEDICAID [address] [place] [phone] [id number] Ronald Menon Self - patient is the insured 4 [employer]ICA[employer] [address] [place] [address] [id number] Ronald Menon Self - patient is the insured 4
--- OUTSIDE RECORDS SUMMARY | 2024-12-01 18:34 | XMS_ITS | Referral Summary ---
Author Organization [facility] Address [address] [place] [address] Care Team Providers Care Chemistry Technician Name Role Phone Yuly Pope Primary Care Provider Jennie Montoya MD Unavailable Encounters Date Type Department Care Team Description 11/14/2024 Results Follow-Up [facility] at [address] [phone] Jennie Montoya MD Vaginal yeast infection (Primary Dx) 11/14/2024 2:42 PM CDT - 11/14/2024 11:59 PM CDT Hospital Encounter [address] [phone] Discharge Disposition: Discharge to home or self care 11/14/2024 11:30 AM CDT Ancillary Procedure [facility] at [address] [phone] IUD (intrauterine device) in place 11/14/2024 11:00 AM CDT Office Visit [facility] at [address] [phone] Jennie Montoya MD Well woman exam (Primary Dx); IUD (intrauterine device) in place; Screening examination for STI; Vaginal discharge from Last 3 Months Allergies Active Allergy Reactions Criticality Noted Date Comments [place] Derived Swelling Medium 10/05/2017 [place] Flavor Swelling Medium 10/05/2017 Lactose Stomach upset Low 05/30/2018 Milk Vomiting Low 10/05/2017 [place] Rash,Swelling Medium 09/25/2014 [place] Juice [place] Oil Rash Medium 09/25/2014 Penicillins Swollen tongue,Swelling High 07/17/2011 Prochlorperazine Rash Medium Medications albuterol HFA (PROVENTIL HFA,VENTOLIN HFA,PROAIR HFA) 90 mcg/actuation inhalerIndicat ions:Bronchosp asm Prevention Inhale 2 puffs every 4 (four) hours as needed for wheezing or shortness of breath. 1 Inhaler 03/22/20 18 Active albuterol (PROVENTIL,CULLEN TOLIN) 2.5 mg /3 mL (0.083 %) nebulizer solution 1 amp q 4 hours prn 12/14/19 18 Active omeprazole (PriLOSEC) 40 mg capsule TAKE 1 (ONE) CAPSULE BY MOUTH ONCE DAILY FOR 90 DAYS 11/01/19 21 Active lisinopriL (PRINIVIL,ZEST RIL) 10 mg tablet Take 1 tablet (10 mg total) by mouth daily 05/03/20 20 Active levonorgestreL (MIRENA) IUD 1 each by intrauterine route continuously as needed 04/24/20 22 Active SUMAtriptan (IMITREX) 50 mg tablet Take 1 tablet (50 mg total) by mouth 09/21/19 24 Active topiramate (TOPAMAX) 25 mg tablet Take 1 tablet (25 mg total) by mouth daily 07/01/20 18 025 Discontinu ed(Patient Reported) lidocaine viscous (XYLOCAINE) 2 % solution Apply a small amount to a cotton ball and place over the affected tooth and gums until pain is relieved, Q3HPRN 100 mL 06/22/20 19 025 Discontinu ed(Patient Reported) mupirocin (BACTROBAN) 2 % ointment Apply topically daily Apply with each dressing change. Collaborating physician Cassius Krause MD 22 g 1 04/21/20 21 025 Discontinu ed(Patient Reported) azithromycin (Zithromax Z-Myron) 250 mg tabletIndicati ons:Acute right otitis media Take 1 tablet (250 mg total) by mouth daily Take first 2 tablets together, then 1 every day until finished. Collaborating physician Cassius Krause MD 6 tablet 12/21/19 24 025 Discontinu ed(Patient Reported) ibuprofen (ADVIL,MOTRIN) 800 mg tabletIndicati ons:Acute right otitis media,History of fever Take 1 tablet (800 mg total) by mouth every 8 (eight) hours as needed for pain or fever Collaborating physician Cassius Krause MD 20 tablet 12/21/19 24 025 Discontinu ed(Patient Reported) naproxen (NAPROSYN) 500 mg tablet Take 1 tablet (500 mg total) by mouth 2 (two) times a day with meals 30 tablet 06/25/20 24 025 Discontinu ed(Patient Reported) methocarbamoL (ROBAXIN) 500 mg tablet Take 1 tablet (500 mg total) by mouth 2 (two) times a day 20 tablet 06/25/20 24 025 Discontinu ed(Patient Reported) albuterol HFA (PROVENTIL HFA,VENTOLIN HFA,PROAIR HFA) 90 mcg/actuation inhaler Inhale 2 puffs every 6 (six) hours as needed for shortness of breath 1 each 08/01/19 025 Discontinu ed(Patient Reported) fluconazole (DIFLUCAN) 150 mg tabletIndicati ons:Vaginal yeast infection Take 1 tablet (150 mg total) by mouth once for 1 dose 1 tablet 11/15/19 025 Active Problems Problem Noted Date Diagnosed Date [...] Overview (01/11/2024): Last Assessment & Plan: IMPRESSION Rosangela is a 14 year-old with: 1. Obesity. 2. Left ventricular hypertrophy, likely secondary to hypertension. PLAN Rosangela has a structurally normal heart by exam [...] interested in Nexplanon insertion. 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 Angulo Severe childhood obesity [...] increased blood pressure. She has the school's [place] break to consider whether she would like [...] Date Smoking Tobacco: Never Smokeless Tobacco: Never Personal Safety Answer Date Recorded Have you ever been in or are you currently in a harmful physical or emotional relationship or is someone making you feel afraid or unsafe? Denies 06/25/2024 Comments No Sex and Gender Information Value Date Recorded Sex Assigned at Not on file Legal Sex Female 8:59 PM ACTIVITIES COORDINATOR Gender Identity Not on file Sexual Orientation Not on file Last Filed Vital Signs Vital Sign Reading Time Taken Comments Blood Pressure 134/86 11/14/2024 10:58 AM CDT Pulse 110 08/01/2024 2:36 PM ACTIVITIES COORDINATOR Temperature 36.9 C (98.4 F) 08/01/2024 2:36 PM ACTIVITIES COORDINATOR Respiratory Rate 20 08/01/2024 2:36 PM ACTIVITIES COORDINATOR Oxygen Saturation 99% 08/01/2024 2:36 PM ACTIVITIES COORDINATOR Inhaled Oxygen Concentration - - Weight 162.8 kg (358 lb 14.4 oz) 2024 10:58 AM CDT Height 175.3 cm (5' 9 ) 11/14/2024 10:5 8 AM CDT Body Mass Index 53 11/14/2024 10:58 AM CDT Plan of Treatment Not on file Procedures Procedure Name Priority Date/Time Associated Diagnosis Comments N. GONORRHOEAE/C. TRACHOMATIS AMPLIFICATION Routine 11/14/2024 1:28 PM CDT Screening examination for STI VAGINITIS PANEL Routine 11/14/2024 1:21 PM CDT Vaginal discharge HEPATITIS B SURFACE ANTIGEN Routine 11/14/2024 11:53 AM CDT Screening examination for STI RPR Routine 11/14/2024 11:53 AM CDT Screening examination for STI HIV 1/2 ANTIBODY PLUS P24 ANTIGEN Routine 11/14/2024 11:53 AM CDT Screening examination for STI HEPATITIS C ANTIBODY Routine 11/14/2024 11:53 AM CDT Screening examination for STI US PELVIS W ENDOVAGINAL Schedule Routine, Read Routine (OP Routine) 11/14/2024 11:34 AM CDT IUD (intrauterine device) in place from Last 3 Months Results * N. gonorrhoeae/C. trachomatis Amplification Endocervical (11/14/2024 1:28 PM CDT) C. trachomatis Not Detected N. gonorrhoeae Not Detected [facility] Comment: Interpretive Data This assay detects Chlamydia trachomatis and Neisseria gonorrhoeae by nucleic acid amplification testing (NAAT). This assay has been cleared by the [place] Food and Drug administration. The performance characteristics of this test have been verified by the [facility] laboratory. The performance characteristics of this test have not been evaluated in individuals less than 14 years of age. Current Interpretive Data was last revised on 2023. Endocervical (None) 11/15/19 25 1:28 PM CDT 11/14/2024 1:30 PM CDT Jennie Montoya MD LAB MICROBIOLOGY - [facility] ORDERABLES Final Result [facility] [address] Department [place] [address] * (ABNORMAL) Vaginitis panel Vaginal (11/14/2024 1:21 PM CDT) Bacterial Vaginosis Not Detected Not Detected Comment:A negative result do es not preclude a possible infection. Results should be considered in conjunction with clinical presentation to determine the disease status. [place] group Detected(A) Not Detected [facility] Comment:[place] species can be present as commensal organisms in women; results should be considered in conjunction with clinical presentation to determine the disease status. [place] glabrata/ krusei Not Detected Not Detected [facility] Trichomonas DNA Not Detected Not Detected [facility] Vaginal 11/14/2024 1:21 PM CDT 11/14/2024 1:24 PM CDT Jennie Montoya MD LAB MICROBIOLOGY - GENE RAL ORDERABLES Final Result Performing Organization Address [facility] de Phone Number [facility] [address] [facility] [place] [address] * HIV 1/2 Antibody plus p24 Antigen Blood (11/14/2024 11:53 AM CDT) Pathologist [facility] HIV 1/2 ab + p24 ag Nonreactive Nonreactive Comment: Nonreactive for HIV-1 antigen and HIV-1/HIV-2 antibodies. No laboratory evidence of HIV infection. If acute HIV infection is suspected, consider testing for HIV-1 RNA. Blood 11/14/2024 11:5 3 AM CDT 11/14/2024 1:44 PM CDT Jennie Montoya MD LAB MICROBIOLOGY - GENE RAL ORDERABLES Final Result Performing Organization Address [facility] de Phone Number [facility] [address] [facility] [place] [address] * Hepatitis C antibody Blood (11/14/2024 11:53 AM CDT) Hep C Ab Nonreactive Nonreactive Comment: Interpretive Data Nonreactive: Antibodies to HCV not detected. Does NOT exclude the possibility of recent exposure to HCV. Equivocal: Equivocal for HCV antibodies. Supplemental molecular testing will be automatically performed to determine infection status in accordance with current CDC screening recommendations. Reactive: Positive for HCV antibodies. This may represent current or past HCV infection. Supplemental molecular testing will be automatically performed to determine current infection status in accordance with current CDC screening recommendations. Interpretive data was last revised on 2019. Blood 11/14/2024 11:5 3 AM CDT 11/14/2024 1:44 PM CDT Jennie Montoya MD LAB MICROBIOLOGY - GENE RAL ORDERABLES Final Result Performing Organization Address [facility] Co de Phone Number [facility] [address] [facility] [place] [address] * RPR Blood (11/14/2024 11:53 AM CDT) RPR Nonreactive Nonreactive Comment:Testing performed by : [facility], [address] [place]., [address] Blood 11/14/2024 11:5 3 AM CDT 11/14/2024 7:30 PM CDT Jennie Montoya MD LAB MICROBIOLOGY - GENE RAL ORDERABLES Final Result Performing Organization Address [facility] Co de Phone Number [facility] [address] [facility] [place] [address] * Hepatitis B Surface Antigen Blood (11/14/2024 11:53 AM CDT) HepBsAg Nonreactive Nonreactive Blood 11/14/2024 11:5 3 AM CDT 11/14/2024 1:44 PM CDT Jennie Montoya MD LAB MICROBIOLOGY - GENE RAL ORDERABLES Final Result Performing Organization Address [facility] Co de Phone Number [facility] [address] [facility] [place] [address] * US Pelvis W Endovaginal (11/14/2024 11:34 AM CDT) Cul de Sac No free fluid visualized [facility] Endometrial Thickness 3.2 mm&millim eters [facility] Anatomical Region Laterality Modality Pelvis N/A Ultrasound 11/14/2024 11:5 4 AM CDT Impressions 11/14/2024 12:25 PM CDT The uterus is anteverted and normal in size and morphology. The endometrial thickness measured 3.2 mm. IUD placed correctly at the fundus. The 3D coronal view of the uterine cavity is normal in appearance. Left ovary WNL. Right ovary not visualized due to overlying bowel gas. There was no evidence of free fluid in the pelvis or other pelvic masses. Narrative Procedure Note Jennie Montoya MD - 11/14/2024 IMPRESSION: The uterus is anteverted and normal in size and morphology. The endometrial thickness measured 3.2 mm. IUD placed correctly at thefundus. The 3D coronal view of the uterine cavity is normal in appearance. Left ovary WNL. Right ovary not visualized due to overlying bowel gas. There was no evidence of free fluid in the pelvis or other pelvic masses. Jennie Montoya MD IMG US PROCEDURES Final Result from Last 3 Months Insurance [employer] DE [facility] MEDICAID IDPA [facility] MEDICAID ANTHEM ACCESS IDPA [facility] Care Teams Chemistry Technician Relationship Specialty Start Date End Date Yuly Pope DO [address] [address] [place] [address] PCP - General Internal Medicine 12/21/23 Jennie Montoya MD [address] [place] [address] Consulting Physician Obstetrics and Gynecology 11/10/24
--- OUTSIDE RECORDS SUMMARY | 2024-12-01 18:34 | XMS_ITS ---
Author Organization [facility] Address [address] [place] [address] Care Team Providers Care Chief Diversity Officer Name Role Phone Sharonda Roberts Primary Care Provider REASON FOR VISIT New Patient Psych Eval Social History Sex Assigned At : Social History Observation Description Sex Assigned At Female Encounters Encounter Location Date Provider Diagnosis [address] [phone] 11/27/2023 Sharonda Roberts Plan Of Treatment No Information Progress Notes * Ronald VIEIRAiDOB:[birth year] (19 yo F)Acc No.[id number]:11/27/2023 UNLOCKED PROGRESS NOTE Patient: Duncan JOYRonald Provider: Liliya Roberts, MSN, JAVA SOFTWARE DEVELOPER-BC, PMHNP-BC :2005 A ge:18 Y S ex:Female Date:11/27/2023 Address:[address] [place], [place] [id number] Subjective: * Chief Complaints: * 1 . New Patient Psych Eval. * Medical History: Objective: * Vitals: Assessment: Plan: * Treatment: * * Electronic signature of Sharonda Roberts , [id number] on 12/01/2024 at 06:34 PM CDT Sign off status: Pending * Provider: Liliya Roberts, MSN, JAVA SOFTWARE DEVELOPER-BC, PMHNP-BC Date: 0 11/27/2023 Generated for Eric doyle/Chon/Ange on: 0 12/01/2024 06:34 PM CDT
--- OUTSIDE RECORDS SUMMARY | 2024-12-01 18:34 | XMS_ITS | Clinical Summary ---
Author Organization [facility] Address [address] [place] [address] Care Team Providers Care Advance Scout Name Role Phone Yuly Pope DO Primary Care Provider Jennie Montoya MD Unavailable [phone] Allergies Active Allergy Reactions Criticality Noted Date Comments [place] Derived Swelling Medium 10/05/2017 [place] Flavor Swelling Medium 10/05/2017 Lactose Stomach upset Low 05/30/2018 Milk Vomiting Low 10/05/2017 [place] Rash,Swelling Medium 09/25/2014 [place] Juice [place] Oil Rash Medium 09/25/2014 Penicillins Swollen tongue,Swelling [...] by intrauterine route continuously as needed 04/24/20 Active SUMAtriptan (IMITREX) 50 mg tablet Take [...] (two) times a day 20 tablet 06/25/20 025 Discontinu ed(Patient Reported) albuterol HFA (PROVENTIL HFA,VENTOLIN HFA,PROAIR HFA) 90 mcg/actuation inhaler Inhale 2 puffs every 6 (six) hours as needed for shortness of breath 1 each 01/03/20 25 04/18/2 025 Discontinu ed(Patient Reported) fluconazole (DIFLUCAN) 150 mg tabletIndicati ons:Vaginal yeast infection Take 1 tablet (150 mg total) by mouth once for 1 dose 1 tablet 11/15/19 25 025 Active Problems Problem Noted Date Diagnosed [...] pressures in March (apparently 165/100 at an [facility]), and has fairly consistently been [...] interested in Nexplanon insertion. Referred [facility] with Dr. Angulo Severe childhood obesity [...] Date Type Department Care Team Description 11/14/2024 2:42 PM CDT - 11/14/2024 11:59 PM CDT Hospital Encounter [address] [phone] Discharge Disposition: Discharge to home or self care 11/14/2024 11:30 AM CDT Ancillary Procedure [facility] at [address] [phone] IUD (intrauterine device) in place 11/14/2024 11:00 AM CDT Office Visit [facility] at [address] [phone] Jennie Montoya MD Well woman exam (Primary Dx); IUD (intrauterine device) in place; Screening examination for STI; Vaginal discharge 11/14/2024 Results Follow-Up [facility] at [address] [phone] Jennie Montoya MD Vaginal yeast infection (Primary Dx) from Last 3 Months Immunizations Immunization Administration [...] Date Comments Exercise-induced asthma Asthma, exercise-induced; Comments: [facility] 06/07/2015 - Hx Other Medical Cyst on brain; Comments: [facility] 06/07/2015 - Heart murmur Heart murmur Hypertension Hypertension; Co mments: [facility] 06/07/2015 - Attention deficit disorder ADHD Active autistic disorder Autism; Comments: [facility] 06/07/2015 - Hx Other Medical Partially Blind ; Comments: [facility] 06/07/2015 -; Laterality: right Migraines GERD (gastroesophageal reflux disease) Anxiety Peptic ulceration Menstrual problem Social History Tobacco Use Types Packs/Day Years [...] on file Legal Sex Female 8:59 PM INSEAM TRIMMER Gender Identity Not on file Sexual Orientation Not on file Obstetrics History Para Term AB IAB SAB Ectopic Multiple Livin g Live Births 0 0 0 0 0 0 0 0 0 0 0 Last Filed Vital Signs Vital Sign Reading Time Taken Comments Blood Pressure 134/86 11/14/2024 10:58 AM CDT Pulse 110 08/01/2024 2:36 PM INSEAM TRIMMER Temperature 36.9 C (98.4 F) 08/01/2024 2:36 PM INSEAM TRIMMER Respiratory Rate 20 08/01/2024 2:36 PM INSEAM TRIMMER Oxygen Saturation 99% 08/01/2024 2:36 PM INSEAM TRIMMER Inhaled Oxygen Concentration - - Weight 162.8 kg (358 lb 14.4 oz) 2024 10:58 AM CDT Height 175.3 cm (5' 9 ) 11/14/2024 10:5 8 AM CDT Body Mass Index 53 11/14/2024 10:58 AM CDT Plan of Treatment Health Maintenance Due Date Last Done Comments Depression Screening 2004 Pneumococcal vaccine <65 (1 of 1 - PPSV23) 2010 11/28/2005, 05/05/2005, 03/30/2005, Additional history exists Meningococcal B Vaccine (1 o f 2 - Standard) 2020 Covid-19 Vaccine (3 - 2023-2 5 season) 2024 02/17/2022, 07/25/2021 Influenza Vaccine (Season Ended) 2025 07/19/2020, 05/08/2013, 05/23/2010 DTaP/Tdap/Td Vaccine (6 - Td or Tdap) 10/12/2025 10/13/2015, 03/04/2009, 05/05/2005, Additional history exists Chlamydia and Gonorrhea (GC/ CT) Screening 11/14/2025 11/14/2024, 12/24/2023 Regular Well Visit/Exam 18-64 11/14/2025 11/14/2024 Hepatitis B Screening Completed 06/05/2005 , 05/05/2005, 03/30/2005, Additional history exists Varicella Vaccines Completed 03/04/2009, 11/28/2005 HPV Vaccines Completed 12/28/2016, 10/13/2015 Meningococcal Vaccine Completed 08/03/2021, 016 Hepatitis C Screening Completed 11/14/2024 Procedures Procedure Name Priority Date/Time Associated Diagnosis [...] trachomatis Not Detected N. gonorrhoeae Not Detected [facility] Comment: Interpretive Data This assay detects Chlamydia trachomatis and Neisseria gonorrhoeae by nucleic acid amplification testing (NAAT). This assay has been cleared by the [place] Food and Drug administration. The performance characteristics of this test have been verified by the [facility] laboratory. The performance characteristics of this test have not been evaluated in individuals less than 14 years of age. Current Interpretive Data was last revised on 2023. Endocervical (None) 11/15/19 1:28 PM CDT 11/14/2024 1:30 PM CDT Jennie Montoya MD LAB MICROBIOLOGY - [facility] ORDERABLES Final Result [facility] [address] Department [place] [address] * (ABNORMAL) Vaginitis panel Vaginal (11/14/2024 1:21 PM CDT) Bacterial Vaginosis Not Detected Not Detected Comment:A negative result do es not preclude a possible infection. Results should be considered in conjunction with clinical presentation to determine the disease status. Pa[place] group Detected(A) Not Detected [facility] Comment:[place] species can be present as commensal organisms in women; results should be considered in conjunction with clinical presentation to determine the disease status. [place] glabrata/ krusei Not Detected Not Detected [facility] Trichomonas DNA Not Detected Not Detected [facility] Vaginal 11/14/2024 1:21 PM CDT 11/14/2024 1:24 PM CDT Jennie Montoya MD LAB MICROBIOLOGY - GENE RAL ORDERABLES Final Result Performing Organization Address [facility] de Phone Number [facility] [address] [place] [address] * HIV 1/2 Antibody plus p24 Antigen Blood (11/14/2024 11:53 AM CDT) HIV 1/2 ab + p24 ag Nonreactive Nonreactive Comment: Nonreactive for HIV-1 antigen and HIV-1/HIV-2 antibodies. No laboratory evidence of HIV infection. If acute HIV infection is suspected, consider testing for HIV-1 RNA. Blood 11/14/2024 11:5 3 AM CDT 11/14/2024 1:44 PM CDT Jennie Montoya MD LAB MICROBIOLOGY - GENE RAL ORDERABLES Final Result Performing Organization Address [facility] de Phone Number [facility] [address] [place] [address] * Hepatitis C antibody Blood (11/14/2024 11:53 AM CDT) Pathologist [facility] Hep C Ab Nonreactive Nonreactive Comment: Interpretive [...] RAL ORDERABLES Final Result Performing Organization Address [facility] de Phone Number [facility] [address] [facility] [place] [address] * RPR Blood (11/14/2024 11:53 AM CDT) Pathologist [facility] RPR Nonreactive Nonreactive Comment:Testing performed by : [facility], [address] [place]., [address] Blood 11/14/2024 11:5 3 AM CDT 11/14/2024 7:30 PM CDT Jennie Montoya MD LAB MICROBIOLOGY - GENE RAL ORDERABLES Final Result Performing Organization Address [facility]/ZIP Co de Phone Number [facility] [address] [place] [address] * Hepatitis B Surface Antigen Blood (11/14/2024 11:53 AM CDT) [facility] HepBsAg Nonreactive Nonreactive Blood 11/14/2024 11:5 3 AM CDT 11/14/2024 1:44 PM CDT Jennie Montoya MD LAB MICROBIOLOGY - GENE RAL ORDERABLES Final Result Performing Organization Address [facility] Co de Phone Number [facility] [address] [place] [address] * US Pelvis W Endovaginal (11/14/2024 11:34 AM CDT) [facility] Cul de Sac No free fluid visualized [...] in the pelvis or other pelvic masses. us Jennie Montoya MD [facility] US PROCEDURES Final Result from Last 3 Months Insurance [employer] [place] [facility] MEDICAID IDPA [facility] [place] [place] [address] MEDICAID ANTHEM ACCESS IDPA [facility] Care Teams Advance Scout Relationship Specialty Start Date End Date Yuly Pope DO [address] [facility] [address] [place] [address] PCP - General Internal Medicine 12/21/23 Jennie Montoya MD [address] [place] [address] Consulting Physician Obstetrics and Gynecology 11/10/24
--- OUTSIDE RECORDS SUMMARY | 2024-12-01 18:34 | XMS_ITS ---
Author Organization [facility] Address [address] [place] [address] Care Team Providers Care Dry Pan Feeder Name Role Phone Sharonda Roberts Primary Care Provider [phone] REASON FOR VISIT New Patient Psych Eval Social History Sex Assigned At : Social History Observation Description Sex Assigned At Female Encounters Encounter Location Date Provider Diagnosis [address] [address] 12/05/2023 Sharonda Roberts Plan Of Treatment No Information Progress Notes * Ronald VIEIRAiDOB:[birth year] (19 yo F)Acc No.[id number]:12/05/2023 UNLOCKED PROGRESS NOTE Patient: Duncan JOYRonald Provider: Liliya Roberts, MSN, CADMIUM LIQUOR MAKER-BC, PMHNP-BC :2005 A ge:18 Y S ex:Female Date:12/05/2023 Address:[address] [place], [place] [id number] Subjective: * Chief Complaints: * 1 . New Patient Psych Eval. * Medical History: Objective: * Vitals: Assessment: Plan: * Treatment: * * Electronic signature of Sharonda Roberts , [id number] on 12/01/2024 at 06:34 PM CDT Sign off status: Pending * Provider: Liliya Roberts, MSN, CADMIUM LIQUOR MAKER-BC, PMHNP-BC Date: 0 12/05/2023 Generated for Eric doyle/Chon/Ange on: 0 12/01/2024 06:34 PM CDT
[2024-12-01 18:42] VITALS: BP 132/80; PULSE 70; RESP 20; TEMP 37; O2SAT 100
--- NOTE | 2024-12-01 18:45 | ECG_ITS ---
Test Date: 2024-12-01 21:15:15 Measurements Intervals Barlow Rate: 78 P: 35 MD: 152 QRS: 40 QRSD: 90 T: 21 QT: 329 QTc: 376 Interpretive Statements SINUS RHYTHM BASELINE ARTIFACT LIMITS INTERPRETATION No previous ECG available for comparison Electronically Signed On 12-02-2024 14:19:54 CDT by Chitra David M.D.
--- NOTE | 2024-12-01 18:45 | ED.URI ---
HPI - URI/Sore Throat General Chief Complaint: Upper Respiratory Infection <Itzel Acuña PA-C - Last Filed: 12/03/24 10:00> Stated Complaint: cough, congestion, body aches <Itzel Acuña PA-C - Last Filed: 12/03/24 10:00> Time Seen by Provider: 12/01/24 18:46 <Itzel Acuña PA-C - Last Filed: 12/03/24 10:00> Focused HPI: This is a 19-year-old female that presents to the emergency department for shortness of breath. Reports she has been feeling ill with cough, congestion, body aches. When she was walking around outside today she felt short of breath asnd had pleuritic chest pain which prompted her to be seen. GENERAL: Well-appearing, well-nourished, and in no acute distress. HEAD: Normocephalic, atraumatic. CHEST: Clear to auscultation. ?No respiratory distress. HEART: Regular rate and rhythm.? NEURO: ?Alert and oriented x3. Patient screened in triage and initial orders placed.? ?Additional care and disposition to be based upon?diagnostic testing and treatment. <Itzel Acuña PA-C - Last Filed: 12/03/24 10:00> History of Present Illness HPI Narrative: agree with MSE <Kirsten Iglesias MD - Last Filed: 12/01/24 21:41> Related Data Home Medications: Home Medications ?Medication ?Instructions ?Recorded ?Confirmed ?Last Taken ?Type lisinopril 10 mg tablet mg 02/14/24 Unknown History <Itzel Acuña PA-C - Last Filed: 12/03/24 10:00> Allergies/Adverse Reactions: Allergies Allergy/AdvReac Type Severity Reaction Status Date / Time Penicillins Allergy Severe Anaphylactic Verified 12/01/24 18:31 Shock [place] And Derivatives Allergy Mild itching Verified 12/01/24 18:31 [place] Allergy Intermediate hives Uncoded 12/01/24 18:31 Whole Milk AdvReac Unknown projectile Uncoded 12/01/24 18:31 vomiting <Itzel Acuña PA-C - Last Filed: 12/03/24 10:00> Review of Systems Review of Systems: All systems reviewed & are unremarkable except as noted in HPI and below <Kirsten Iglesias MD - Last Filed: 12/01/24 21:41> Exam Narrative: EXAMINATION OF ORGAN SYSTEMS/BODY AREAS: Constitutional: Vital signs per nursing GENERAL:[No acute distress, non-toxic appearing.] HEAD: Normal with no signs of head trauma. EYES: EOMI, conjunctiva normal ENT: Hearing grossly intact LUNGS: Nonlabored breathing. Clear to auscultation bilaterally HEART: [Regular rate and rhythm] ABD: [Soft], [nontender to palpation] EXT: Normal range of motion SKIN: [No rashes or lesions.] NEURO: [Alert and oriented x 3. No gross focal sensory or strength deficits.] PSYCH: Normal affect <Kirsten Iglesias MD - Last Filed: 12/01/24 21:41> Course Vital Signs Vital signs: Vital Signs Temperature 98.6 F 12/01/24 18:42 Pulse Rate 70 12/01/24 18:42 Respiratory Rate 20 12/01/24 18:42 Blood Pressure 132/80 12/01/24 18:42 Pulse Oximetry 100 12/01/24 18:42 Oxygen Delivery Room Air 12/01/24 18:42 Temperature 98.2 F 12/01/24 22:10 Pulse Rate 76 12/01/24 22:10 Respiratory Rate 18 12/01/24 22:10 Blood Pressure 127/84 12/01/24 22:10 Pulse Oximetry 99 12/01/24 22:10 Oxygen Delivery Room Air 12/01/24 21:22 <Itzel Acuña PA-C - Last Filed: 12/03/24 10:00> Vital Signs Temperature 98.6 F 12/01/24 18:42 Pulse Rate 70 12/01/24 18:42 Respiratory Rate 20 12/01/24 18:42 Blood Pressure 132/80 12/01/24 18:42 Pulse Oximetry 100 12/01/24 18:42 Oxygen Delivery Room Air 12/01/24 18:42 Temperature 98.2 F 12/01/24 22:10 Pulse Rate 76 12/01/24 22:10 Respiratory Rate 18 12/01/24 22:10 Blood Pressure 127/84 12/01/24 22:10 Pulse Oximetry 99 12/01/24 22:10 Oxygen Delivery Room Air 12/01/24 21:22 <Kirsten Iglesias MD - Last Filed: 12/01/24 21:41> MDM - URI/Sore Throat MDM Narrative Medical decision making narrative: ED COURSE AND MEDICAL DECISION MAKING: This 19 year old patient presents with symptoms most suggestive of viral upper respiratory tract infection. Lungs are clear bilaterally without any respiratory distress or accessory muscle use. 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 This will be provided. She is very well-appearing here, in no distress, normal voice, normal vital signs. She is PERC negative, chest x-ray is clear on my independent interpretation without PTX or consolidatoin, EKG on my independent interpretation shows normal sinus rhythm rate 70, normal axis, normal DE, QRS, QTC, no ST elevations or depressions or acute ischemia or arrhythmia. Swabs neg. She will be discharged home in stable condition with expectant management. Return precautions were provided. <Kirsten Iglesias MD - Last Filed: 12/01/24 21:41> Lab Data Labs: Lab Results 12/01/24 Range/Units 20:58 Influenza A (RT-PCR) Negative (Negative) Influenza B (RT-PCR) Negative (Negative) RSV (RT-PCR) Negative (Negative) SARS-CoV-2 RNA (RT-PCR) Negative (Negative) <Itzel Acuña PA-C - Last Filed: 12/03/24 10:00> Lab Results 12/01/24 Range/Units 20:58 Influenza A (RT-PCR) Negative (Negative) Influenza B (RT-PCR) Negative (Negative) RSV (RT-PCR) Negative (Negative) SARS-CoV-2 RNA (RT-PCR) Negative (Negative) <Kirsten Iglesias MD - Last Filed: 12/01/24 21:41> Imaging Data Radiologist's impression: ITS Impressions Chest X-Ray 12/01/24 19:07 IMPRESSION: No focal infiltrate or effusion. <Itzel Acuña PA-C - Last Filed: 12/03/24 10:00> Critical Care Time Critical Care Time Critical Care Time: No <Itzel Acuña PA-C - Last Filed: 12/03/24 10:00> Discharge Plan Discharge Clinical Impression: Upper respiratory infection Qualifiers: URI type: unspecified viral URI Qualified Code(s): J06.9 - Acute upper respiratory infection, unspecified <Itzel Acuña PA-C - Last Filed: 12/03/24 10:00> Patient Disposition: Home <Itzel Acuña PA-C - Last Filed: 12/03/24 10:00> Condition: Stable <Itzel Acuña PA-C - Last Filed: 12/03/24 10:00> Instructions: Viral Syndrome (ED) <LORENZO Lazo Last Filed: 12/03/24 10:00> Additional Instructions: Please follow-up with your doctor as planned tomorrow and come back if you feel worse. You can try the medications as prescribed. <Itzel Acuña PA-C - Last Filed: 12/03/24 10:00> Patient Language: [place] Korean <LORENZO Lazo Last Filed: 12/03/24 10:00> Prescriptions: New ibuprofen 600 mg tablet 600 mg PO TID PRN (Reason: fever or pain) Qty: 30 0RF fluticasone propionate [Allergy Relief (fluticasone)] 50 mcg/actuation spray,suspension 1 spray intranasal DAILY Qty: 16 0RF Rx Instructions: administer into each nostril No Action lisinopril 10 mg Tablet doxycycline hyclate 100 mg tablet 100 mg PO BID Qty: 14 0RF metronidazole 500 mg tablet 500 mg PO Q8H 7 Days Qty: 21 0RF nitrofurantoin monohyd/m-cryst [Macrobid] 100 mg capsule 100 mg PO Q12H 5 Days Qty: 10 0RF Rx Instructions: must administer with a meal/food doxycycline hyclate 100 mg capsule 100 mg PO BID 7 Days Qty: 14 0RF metronidazole 500 mg tablet 500 mg PO Q8H 7 Days Qty: 21 0RF <LORENZO Lazo Last Filed: 12/03/24 10:00> Follow-up/Referrals: Zack Mejia MD [Primary Care Provider] - <LORENZO Lazo Last Filed: 12/03/24 10:00> Stand Alone Forms: Work/School Release IP <LORENZO Lazo Last Filed: 12/03/24 10:00>
--- OUTSIDE RECORDS SUMMARY | 2024-12-01 20:39 | XMS_ITS | Encounter Summary ---
Author Organization [facility] Address [address] [place] [address] Care Team Providers Care Low Raw Sugar Cutter Name Role Phone Mesfin May MD Primary Care Provider [phone] Kiki Burks MD Unavailable Yuly Pope DO Primary Care Provider [phone] Encounter Details Date Type Department Care Team (Late st Contact Info) Description 04/30/2018 Ophth Exam [facility] - Ophthalmology [address] [place] [address] Alejandro Murillo MD [address] [place] [address] Social History Tobacco Use Types Packs/Day Years Used Date Smoking Tobacco: Passive Smo ke Exposure - Never Smoker Smokeless Tobacco: Never Alcohol Use Standard Drinks/Week Comments No 0 (1 standard drink = 0.6 oz pur e alcohol) Comments No Sex and Gender Information Value Date Recorded Sex Assigned at Not on file Legal Sex Female 5:43 AM CONE RUNNER Gender Identity Not on file Sexual Orientation [...] Info) Description 12/02/2024 10:30 AM CDT Appointment [facility] [address] [place] [address] Rolando Domínguez DO [address] [place] [address] 01/02/2025 10:00 AM CDT Office Visit [facility] [place] [address] [address] Amina Nicholas, ASSOCIATE DIRECTOR CAREER SERVICES-PLACEMENT ASSISTANT [address] [address] 01/08/2025 9:00 AM CDT Office Visit [facility] - [place] [address] [facility], [place] [phone] Areli Dao ASSOCIATE DIRECTOR CAREER SERVICES-PLACEMENT ASSISTANT [address] [place] [address] documented as of this encounter Visit Diagnoses Not on filedocumented in this encounter Additional Health Concerns Infection Onset Date Last Indicated Resolved Time COVID-19 Under Investigation 07/13/2020 07/13/2020 07/14/2020 12:25 PM CONE RUNNER COVID-19 Under Investigation 04/13/2023 04/13/2023 04/13/2023 5:37 AM CDT documented as of this encounter Care Teams Low Raw Sugar Cutter Relationship Specialty Start Date End Date Mesfin May MD [address] [place] [address] PCP - General Pediatrics 12/11/17 02/16/22 Yuly Pope DO [address] [place] [address] PCP - General Internal Medicine 02/17/22 Kiki Burks MD [address] [place] [phone] Resident Student Resident 12/11/17 documented as of this encounter
--- OUTSIDE RECORDS SUMMARY | 2024-12-01 20:39 | XMS_ITS | Encounter Summary ---
Author Organization [facility] Address [address] [facility] [place] [address] Care Team Providers Care Instructional Support Services Director Name Role Phone Mesfin May MD Primary Care Provider [phone] Kiki Burks MD Unavailable Yuly Pope DO Primary Care Provider [phone] Reason for Visit * Reason Onset Date Comments Health Information 05/01/2018 Encounter Details Date Type Department Care Team (Late st Contact Info) Description 05/01/2018 Telephone [facility] - [facility]s [address] [place] [address] Mesfin May MD [address] [place] [phone] Health Information Social History Tobacco Use Types Packs/Day Years Used Date Smoking Tobacco: Passive Smo ke Exposure - Never Smoker Smokeless Tobacco: Never Alcohol Use Standard Drinks/Week Comments No 0 (1 standard drink = 0.6 oz pur e alcohol) Comments No Sex and Gender Information Value Date Recorded Sex Assigned at Not on file Legal Sex Female 5:43 AM CRIME ANALYST Gender Identity Not on file Sexual Orientation [...] Info) Description 12/02/2024 10:30 AM CDT Appointment [facility] [address] [place] [address] Rolando Domínguez, DO [address] [place] [address] 01/02/2025 10:00 AM CDT Office Visit [facility] [place] [facility] [address] DePjon Adames, [address] [address] Amina Nicholas APRN-ELANA [address] [address] 01/08/2025 9:00 AM CDT Office Visit [facility] - [place] [address] [facility], [place] [address] Areli Dao, WASHERY BOSS-AUTO HAULER [address] [place] [address] documented as of this encounter Visit Diagnoses Not on filedocumented in this encounter Additional Health Concerns Infection Onset Date Last Indicated Resolved Time COVID-19 Under Investigation 07/13/2020 07/13/2020 07/14/2020 12:25 PM CRIME ANALYST COVID-19 Under Investigation 04/13/2023 04/13/2023 04/13/2023 5:37 AM CDT documented as of this encounter Care Teams Instructional Support Services Director Relationship Specialty Start Date End Date Mesfin May MD [address] [place] [address] PCP - General Pediatrics 12/11/17 02/16/22 Yuly Pope DO [address] [place] [address] PCP - General Internal Medicine 02/17/22 Kiki Burks MD [address] [place] [phone] Resident Student Resident 12/11/17 documented as of this encounter
--- OUTSIDE RECORDS SUMMARY | 2024-12-01 20:39 | XMS_ITS | Encounter Summary ---
Author Organization [facility] Address [address] [facility] [place] [address] Care Team Providers Care Car Pusher Name Role Phone Mesfin May MD Primary Care Provider [phone] Kiki Burks MD Unavailable Yuly Pope DO Primary Care Provider [phone] Reason for Visit * Reason Onset Date Comments Concerns 09/07/2021 Encounter Details Date Type Department Care Team (Late st Contact Info) Description 09/07/2021 Telephone [facility] - [facility] [address] [place] [address] Mesfin May MD [address] [place] [address] Concerns Social History Tobacco Use Types Packs/Day Years Used Date Smoking Tobacco: Passive Smo ke Exposure - Never Smoker Smokeless Tobacco: Never Alcohol Use Standard Drinks/Week Comments No 0 (1 standard drink = 0.6 oz pur e alcohol) Comments No Sex and Gender Information Value Date Recorded Sex Assigned at Not on file Legal Sex Female 5:43 AM NURSE PRACTITIONER MANAGER Gender Identity Not on file Sexual Orientation [...] Priya Christianson APRN-CNP - 09/07/2021 3:45 PM NURSE PRACTITIONER MANAGER Called number in chart mother Ms Purdy. She said she got 2nd covid vaccine at [facility]. Instructed to provide school with vaccine care or contact [facility] for letter since we do not have record of this visit. E PRACTITIONER MANAGER * Telephone Encounter - Ariana Booker - [...] her sick. You canreach patient mom at [phone] Instructed that provider will call back at their earliest convenience. E PRACTITIONER MANAGER documented in this encounter Plan of Treatment Upcoming Encounters Date Type Department Care Team (Late st Contact Info) Description 12/02/2024 10:30 AM CDT Appointment [facility] [address] [place] [address] Rolando Domínguez DO [address] [place] [address] 01/02/2025 10:00 AM CDT Office Visit [facility] - [address] [address] Amina Nicholas, FINISHING OPERATOR-METAL CEILING HANGER [address] [phone] 01/08/2025 9:00 AM CDT Office Visit [facility] - [address] [facility] [place] [phone] Areli Dao FINISHING OPERATOR-METAL CEILING HANGER [address] [place] [address] documented as of this encounter Visit Diagnoses Not on filedocumented in this encounter Additional Health Concerns Infection Onset Date Last Indicated Resolved Time COVID-19 Under Investigation 04/13/2023 04/13/2023 04/13/2023 5:37 AM CDT documented as of this encounter Care Teams Car Pusher Relationship Specialty Start Date End Date Mesfin May MD [address] [place] [address] PCP - General Pediatrics 12/11/17 02/16/22 Yuly Pope DO [address] [place] [address] PCP - General Internal Medicine 02/17/22 Kiki Burks MD [address] [place] [phone] Resident Student Resident 12/11/17 documented as of this encounter
--- OUTSIDE RECORDS SUMMARY | 2024-12-01 20:39 | XMS_ITS | Referral Summary ---
Author Organization [facility] Address [address] [place] [address] Care Team Providers Care Set Up Mechanic Crown Assembly Machine Name Role Phone Yuly Pope Primary Care Provider Jennie Montoya MD Unavailable [phone] Encounters Date Type Department Care Team Description 11/14/2024 Results Follow-Up [facility] at [address] [phone] Jennie Montoya MD Vaginal yeast infection (Primary Dx) 11/14/2024 2:42 PM CDT - 11/14/2024 11:59 PM CDT Hospital Encounter [address] [phone] Discharge Disposition: Discharge to home or self care 11/14/2024 11:30 AM CDT Ancillary Procedure [facility] at [address] [phone] IUD (intrauterine device) in place 11/14/2024 11:00 AM CDT Office Visit [facility] at [address] [phone] Jennie Montoya MD Well woman exam (Primary Dx); IUD (intrauterine device) in place; Screening examination for STI; Vaginal discharge from Last 3 Months Allergies Active Allergy Reactions Criticality Noted Date Comments Abanda Derived Swelling Medium 10/05/2017 Abanda Flavor Swelling Medium 10/05/2017 Lactose Stomach upset Low 05/30/2018 Milk Vomiting Low 10/05/2017 [place] Rash,Swelling Medium 09/25/2014 [place] Juice [place] Oil Rash Medium 09/25/2014 Penicillins Swollen tongue,Swelling [...] interested in Nexplanon insertion. Referred to adolescent daycare director clinic with Dr. Angulo Severe childhood obesity [...] increased blood pressure. She has the school's [place] break to consider whether she would like [...] on file Legal Sex Female 8:59 PM PROFESSIONAL WRESTLER Gender Identity Not on file Sexual Orientation Not on file Last Filed Vital Signs Vital Sign Reading Time Taken Comments Blood Pressure 134/86 11/14/2024 10:58 AM CDT Pulse 110 08/01/2024 2:36 PM PROFESSIONAL WRESTLER Temperature 36.9 C (98.4 F) 08/01/2024 2:36 PM PROFESSIONAL WRESTLER Respiratory Rate 20 08/01/2024 2:36 PM PROFESSIONAL WRESTLER Oxygen Saturation 99% 08/01/2024 2:36 PM PROFESSIONAL WRESTLER Inhaled Oxygen Concentration - - Weight 162.8 [...] trachomatis Not Detected N. gonorrhoeae Not Detected [facility] Comment: Interpretive Data This assay detects Chlamydia trachomatis and Neisseria gonorrhoeae by nucleic acid amplification testing (NAAT). This assay has been cleared by the [place] Food and Drug administration. The performance characteristics of this test have been verified by the [facility] laboratory. The performance characteristics of this test have not been evaluated in individuals less than 14 years of age. Current Interpretive Data was last revised on 2023. Endocervical (None) 11/15/19 25 1:28 PM CDT 11/14/2024 1:30 PM CDT Jennie Montoya MD LAB MICROBIOLOGY - [facility] ORDERABLES Final Result [facility] [address] Department [place] [address] * (ABNORMAL) Vaginitis panel Vaginal (11/14/2024 1:21 PM CDT) Bacterial Vaginosis Not Detected Not Detected Comment:A negative result do es not preclude a possible infection. Results should be considered in conjunction with clinical presentation to determine the disease status. Paola group Detected(A) Not Detected [facility] Comment:Paola species can be present as commensal organisms in women; results should be considered in conjunction with clinical presentation to determine the disease status. [place] glabrata/ krusei Not Detected Not Detected [facility] Trichomonas DNA Not Detected Not Detected [facility] Vaginal 11/14/2024 1:21 PM CDT 11/14/2024 1:24 PM CDT Jennie Montoya MD LAB MICROBIOLOGY - GENE RAL ORDERABLES Final Result Performing Organization Address [facility] de Phone Number [facility] [address] [facility] [place] [address] * HIV 1/2 Antibody plus p24 Antigen [...] RAL ORDERABLES Final Result Performing Organization Address [facility] de Phone Number [facility] [address] [facility] [place] [address] * Hepatitis C antibody Blood (11/14/2024 11:53 [...] RAL ORDERABLES Final Result Performing Organization Address [facility] Co de Phone Number [facility] [address] [facility] [place] [address] * RPR Blood (11/14/2024 11:53 AM CDT) RPR Nonreactive Nonreactive Comment:Testing performed by : [facility], [address] [place]., [address] Blood 11/14/2024 11:5 3 AM CDT 11/14/2024 7:30 PM CDT Jennie Montoya MD LAB MICROBIOLOGY - GENE RAL ORDERABLES Final Result Performing Organization Address [facility] Co de Phone Number [facility] [address] [facility] [place] [address] * Hepatitis B Surface Antigen Blood (11/14/2024 11:53 AM CDT) HepBsAg Nonreactive Nonreactive Blood 11/14/2024 11:5 3 AM CDT 11/14/2024 1:44 PM CDT Jennie Montoya MD LAB MICROBIOLOGY - GENE RAL ORDERABLES Final Result Performing Organization Address [facility] Co de Phone Number [facility] [address] [facility] [place] [address] * US Pelvis W Endovaginal (11/14/2024 11:34 [...] Final Result from Last 3 Months Insurance [place] [facility] MEDICAID [facility] MEDICAID ANTHEM ACCESS [facility] Care Teams Set Up Mechanic Crown Assembly Machine Relationship Specialty Start Date End Date Yuly Pope DO [address] [facility] [address] [place] [address] PCP - General Internal Medicine 12/21/23 Jennie Montoya MD [address] [place] [address] Consulting Physician Obstetrics and Gynecology 11/10/24
--- OUTSIDE RECORDS SUMMARY | 2024-12-01 20:39 | XMS_ITS | Encounter Summary ---
Author Organization [facility] Address [address] [place] [address] Care Team Providers Care Resin Mixer Name Role Phone Mesfin May MD Primary Care Provider [phone] Kiki Burks MD Unavailable Yuly Pope DO Primary Care Provider [phone] Encounter Details Date Type Department Care Team (Late st Contact Info) Description 08/15/2018 Telephone [facility] Pediatrics - Pulmonology [address] [place] [id number] Jennifer Michael Social History Tobacco Use Types Packs/Day Years Used Date Smoking Tobacco: Passive Smo ke Exposure - Never Smoker Smokeless Tobacco: Never Alcohol Use Standard Drinks/Week Comments No 0 (1 standard drink = 0.6 oz pur e alcohol) Comments No Sex and Gender Information Value Date Recorded Sex Assigned at Not on file Legal Sex Female 5:43 AM SPORTS MEDICINE TRAINER Gender Identity Not on file Sexual Orientation [...] Info) Description 12/02/2024 10:30 AM CDT Appointment [facility] Pediatrics [address] [place] [address] Rolando Domínguez DO [address] [place] [address] 01/02/2025 10:00 AM CDT Office Visit [facility] [place] [address] [address] Amina Nicholas, CONCRETE MASON-ACADEMIC PHYSICIAN [id number] [place] [phone] 01/08/2025 9:00 AM CDT Office Visit [facility] - [address] [facility], [place], [place] [phone] Areli Dao CONCRETE MASON-ACADEMIC PHYSICIAN [address] [place] [address] documented as of this encounter Visit Diagnoses Not on filedocumented in this encounter Additional Health Concerns Infection Onset Date Last Indicated Resolved Time COVID-19 Under Investigation 07/13/2020 07/13/2020 07/14/2020 12:25 PM SPORTS MEDICINE TRAINER COVID-19 Under Investigation 04/13/2023 04/13/2023 04/13/2023 5:37 AM CDT documented as of this encounter Care Teams Resin Mixer Relationship Specialty Start Date End Date Mesfin May MD [address] [place] [id number] PCP - General Pediatrics 12/11/17 02/16/22 Yuly Pope DO [address] [place] [id number] PCP - General Internal Medicine 02/17/22 Kiki Burks MD [address] [place] [phone] Resident Student Resident 12/11/17 documented as of this encounter
--- OUTSIDE RECORDS SUMMARY | 2024-12-01 20:39 | XMS_ITS | Clinical Summary ---
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 Name Role Phone Yuly Pope DO Primary Care Provider Jennie Montoya MD Unavailable [phone] Allergies Active Allergy Reactions Criticality Noted Date Comments [place] Derived Swelling Medium 10/05/2017 [place] Flavor Swelling Medium 10/05/2017 Lactose Stomach upset Low 05/30/2018 Milk Vomiting Low 10/05/2017 [place] Rash,Swelling Medium 09/25/2014 [place] Juice [place] Oil Rash Medium 09/25/2014 Penicillins Swollen tongue,Swelling [...] pressures in March (apparently 165/100 at an [facility]), and has fairly consistently been [...] interested in Nexplanon insertion. [facility] with Dr. Angulo Severe childhood obesity [...] - 11/14/2024 11:59 PM CDT Hospital Encounter [address] [address] Discharge Disposition: Discharge to home or self care 11/14/2024 11:30 AM CDT Ancillary Procedure [facility] at [address] [phone] IUD (intrauterine device) in place 11/14/2024 11:00 AM CDT Office Visit [facility] at [address] [address] Jennie Montoya MD Well woman exam (Primary Dx); IUD (intrauterine device) in place; Screening examination for STI; Vaginal discharge 11/14/2024 Results Follow-Up [facility] at [address] [phone] Jennie Montoya MD Vaginal yeast infection (Primary [...] Date Comments Exercise-induced asthma Asthma, exercise-induced; Comments: [facility] 06/07/2015 - Hx Other Medical Cyst on brain; Comments: [facility] 06/07/2015 - Heart murmur Heart murmur Hypertension Hypertension; Co mments: [facility] 06/07/2015 - Attention deficit disorder ADHD Active autistic disorder Autism; Comments: [facility] 06/07/2015 - Hx Other Medical Partially Blind ; Comments: [facility] 06/07/2015 -; Laterality: right Migraines GERD [...] on file 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 Gender Identity Not on file Sexual Orientation Not on file Obstetrics History Para Term AB IAB SAB Ectopic Multiple Livin g Live Births 0 0 0 0 0 0 0 0 0 0 0 Last Filed Vital Signs Vital Sign Reading Time Taken Comments Blood Pressure 134/86 11/14/2024 10:58 AM CDT Pulse 110 08/01/2024 2:36 PM 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 gonorrhoeae Not Detected [facility] Comment: Interpretive Data This assay detects Chlamydia trachomatis and Neisseria gonorrhoeae by nucleic acid amplification testing (NAAT). This assay has been cleared by the [place] Food and Drug administration. The performance characteristics of this test have been verified by the [facility] laboratory. The performance characteristics of this test have not been evaluated in individuals less than 14 years of age. Current Interpretive Data was last revised on 2023. Endocervical (None) 11/15/19 1:28 PM CDT 11/14/2024 1:30 PM CDT Jennie Montoya MD LAB MICROBIOLOGY - [facility] ORDERABLES Final Result [facility] [address] Department [place] [address] * (ABNORMAL) Vaginitis panel Vaginal (11/14/2024 1:21 PM CDT) Bacterial Vaginosis Not Detected Not Detected Comment:A negative result do es not preclude a possible infection. Results should be considered in conjunction with clinical presentation to determine the disease status. Paola group Detected(A) Not Detected [facility] Comment:Paola species can be present as commensal organisms in women; results should be considered in conjunction with clinical presentation to determine the disease status. Paola glabrata/ krusei Not Detected Not Detected [facility] Trichomonas DNA Not Detected Not Detected [facility] Vaginal 11/14/2024 1:21 PM CDT 11/14/2024 1:24 PM CDT Jennie Montoya MD LAB MICROBIOLOGY - GENE RAL ORDERABLES Final Result Performing Organization Address [facility] de Phone Number [facility] [address] [place] [address] * HIV 1/2 Antibody plus p24 Antigen [...] RAL ORDERABLES Final Result Performing Organization Address [facility] de Phone Number [facility] [address] [place] [address] * Hepatitis C antibody Blood (11/14/2024 11:53 AM CDT) Pathologist [facility] Hep C Ab Nonreactive Nonreactive Comment: Interpretive [...] RAL ORDERABLES Final Result Performing Organization Address [facility] de Phone Number [facility] [address] [facility] [place] [address] * RPR Blood (11/14/2024 11:53 AM CDT) Pathologist [facility] RPR Nonreactive Nonreactive Comment:Testing performed by : [facility], [address] [place]., [address] Blood 11/14/2024 11:5 3 AM CDT 11/14/2024 7:30 PM CDT Jennie Montoya MD LAB MICROBIOLOGY - GENE RAL ORDERABLES Final Result Performing Organization Address [facility]/ZIP Co de Phone Number [facility] [address] [place] [address] * Hepatitis B Surface Antigen Blood (11/14/2024 11:53 AM CDT) [facility] HepBsAg Nonreactive Nonreactive Blood 11/14/2024 11:5 3 AM CDT 11/14/2024 1:44 PM CDT Jennie Montoya MD LAB MICROBIOLOGY - GENE RAL ORDERABLES Final Result Performing Organization Address [facility] Co de Phone Number [facility] [address] [place] [address] * US Pelvis W Endovaginal (11/14/2024 11:34 AM CDT) [facility] Cul de Sac No free fluid visualized [...] other pelvic masses. 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
--- OUTSIDE RECORDS SUMMARY | 2024-12-01 20:39 | XMS_ITS | Clinical Summary ---
Author Organization [facility] Address [address] [place] [address] Care Team Providers Care Storeroom Attendant Name Role Phone Kiki Burks MD Unavailable Yuly Pope DO Primary Care Provider [phone] Source Comments [facility],non-owned Affiliates and Associated Physician Practices is amultiple site organization consisting of ambulatory clinics and hospital sitesin [place], [place], [place] and [place]. This disclosure is being madepursuant to the Care Everywhere program and may not contain all information available regarding this patient. Last updated 18.[facility] Allergies Active Allergy Reactions Criticality Noted Date Comments Lac Bovis Vomiting Low 10/05/2017 Lactose GI Discomfort Low 05/30/2018 Burleson Rash Medium 09/25/2014 Burleson Fruit Swelling Medium 10/05/2017 Burleson Oil Rash Medium 09/25/2014 Penicillins Swelling High [...] device by Intrauterine route continuous Inserted at [facility] After School Program Director 04/23/2022, good through 04/24/2030 2 Active albuterol [...] 08/14/2024 Assessment & Plan (08/14/2024 4:26 PM DIRECTOR OF FIELD SERVICE): Pt with concern for diabetes, had elevated HgA1c in the past, now has increased thirst. + acanthosis, BMI > 99%ile, 51 today. Will check HgA1c, CMP today. F/u next week. Irregular bleeding 09/23/2023 Assessment & Plan (09/23/2023 10:32 AM DIRECTOR OF FIELD SERVICE): IUD - Mirena placed in March 2022 [...] 09/23/2023 Assessment & Plan (09/23/2023 10:45 AM DIRECTOR OF FIELD SERVICE): Does have a hx of anxiety and depression as per patient with no SI/HI. Is currently in therapy - at [facility] once a week and seeking psychiatry referral to [facility] to initiate medication. Mood stable today. PHQ-9 6/ZACH -5. Screen for STD (sexually transmitted disease) Assessment & Plan (09/23/2023 10:48 AM DIRECTOR OF FIELD SERVICE): Is currently newly sexually active - with [...] 05/07/2020 Assessment & Plan (08/14/2024 4:23 PM DIRECTOR OF FIELD SERVICE): Pt with chronic constipation, managed with Miralax [...] here Assessment & Plan (09/23/2023 10:44 AM DIRECTOR OF FIELD SERVICE): BP stable today but patient takes lisinopril [...] June as scheduled - Will follow-up in [facility] and start antihypertensives pending today's labs [...] follow up results of labs sent at [facility] 5. If BP noted to be >130/80 using manual BP measurement technique while during hospitalization, will consider further evaluation for etiology of elevated BP including (depending on evaluation already performed at [facility]) Urine for urinalysis Blood for RFP, [...] 04/30/2018 Assessment & Plan (09/23/2023 10:42 AM DIRECTOR OF FIELD SERVICE): Continues to have frontal headaches - atleast [...] lisinopril. Assessment & Plan (06/23/2019 1:06 PM DIRECTOR OF FIELD SERVICE): Followed by Neurology Assessment & Plan (05/01/2018 [...] interested in Nexplanon insertion. Referred to adolescent nurse companion clinic with Dr. Angulo Assessment & Plan (06/23/2019 1:06 PM DIRECTOR OF FIELD SERVICE): Improved Followed by Adolescent Med Assessment & Plan (04/23/2018 12:43 PM CDT): Hx of heavy painful periods Naproxen makes her sleepy Check CBC today In the past Ibuprofen, has not worked. Instructed to trial 600mg every 6-8 hours instead of 400mg Refer to Adolescent Anxiety 04/23/2018 Assessment & Plan (08/25/2022 7:03 PM DIRECTOR OF FIELD SERVICE): Assessment: 16 year old female who presents with signs and symptoms generalized anxiety for several years. Including fear, anxiety, trouble staying asleep, repeated thoughts, palpitation, chest pain, and more. Calm during exam today. Has not tried any medication in the past. Plan: Start Wellbutrin daily Start Atarax PRN for anxiety Follow-up in 4-6 weeks Assessment & Plan (07/19/2020 4:56 PM DIRECTOR OF FIELD SERVICE): Spent >50% of this visit discussing concerns [...] 0904/23/2018 Assessment & Plan (07/19/2020 4:57 PM DIRECTOR OF FIELD SERVICE): BMI remains elevated. Has likely been exacerbated [...] and sodium - Has been referred to christian science nurse in the past and tried the meal [...] 01/01/2017 Assessment & Plan (09/23/2023 10:28 AM DIRECTOR OF FIELD SERVICE): Continues to have poor sleep hygiene with [...] 09/28/2016 Assessment & Plan (06/23/2019 1:07 PM DIRECTOR OF FIELD SERVICE): Referral to Ortho. Assessment & Plan (09/28/2016 11:59 AM DIRECTOR OF FIELD SERVICE): Mass on left dorsal surface of the bony prominence. Unlikely to be fracture or calcification of bone without h/o trauma. Plan: - Xray of left foot 2 view Allergic rhinitis 10/15/2014 Overview (04/29/2015): Assessment & Plan (08/03/2021 3:50 PM DIRECTOR OF FIELD SERVICE): Poorly controlled. Takes Zyrtec. Plan: Continue Zyrtec. Start Flonase Assessment & Plan (09/28/2016 11:56 AM DIRECTOR OF FIELD SERVICE): Pt with AR on Zyrtec. Her symptoms [...] 09/09/2014 Assessment & Plan (08/03/2021 3:49 PM DIRECTOR OF FIELD SERVICE): Refused Flu shot Assessment & Plan (07/19/2020 4:52 PM DIRECTOR OF FIELD SERVICE): Ashley Menon is here for her adolescent well child check and has excessive weight gain and normal development. Immunizations up to date - flu shot today Has dentist PHQ-9: Negative Age appropriate anticipatory guidance provided Return in about 3 months (around 10/17/2020) for weight follow-up. Assessment & Plan (06/23/2019 1:05 PM DIRECTOR OF FIELD SERVICE): Ronald Menon is here for her adolescent [...] arise. Assessment & Plan (09/09/2014 1:45 PM DIRECTOR OF FIELD SERVICE): Ashley Menon is here for her 8 y.o. well child check. - Immunizations up to date, except flu which was declined today - Has a dental home - Age appropriate anticipatory guidance provided - Return for next well child check; sooner if concerns arise - See other separate problems Obesity 09/09/2014 Assessment & Plan (09/23/2023 10:26 AM DIRECTOR OF FIELD SERVICE): Weight is up from previous visit - [...] time Assessment & Plan (06/23/2019 1:05 PM DIRECTOR OF FIELD SERVICE): Good exercise regimen Discussed diet issues. Assessment [...] made healthy changes including workouts with a first aid trainer 3-4 times per week and limiting [...] spurt. Assessment & Plan (09/09/2014 1:42 PM DIRECTOR OF FIELD SERVICE): Ashley Menon is an obese 8 y/o [...] 07/08/2014 Assessment & Plan (07/19/2020 4:59 PM DIRECTOR OF FIELD SERVICE): Noted on bilateral cheeks and chin. No inflammation noted. Likely exacerbated by stress of the pandemic. Plan: - Will start benzoyl peroxide - RTC in 3mo (monitor during weight follow-up) Assessment & Plan (07/08/2014 1:31 PM DIRECTOR OF FIELD SERVICE): Flesh colored fine papular rash. Appears to [...] 07/31/2013 Assessment & Plan (07/19/2020 5:04 PM DIRECTOR OF FIELD SERVICE): Has had significant difficulty with attention and [...] increased blood pressure. She has the school's [place] break to consider whether she would like [...] schooling. Assessment & Plan (09/28/2016 11:51 AM DIRECTOR OF FIELD SERVICE): Pt with ADHD diagnosed earlier. Pt was [...] psychology. Assessment & Plan (07/31/2013 5:51 PM DIRECTOR OF FIELD SERVICE): Unusual behaviors, escalating since, after surgery. Initially, [...] mother and child in office. Referral to [facility] for formal evaluation although from previous visits, autism seems unlikely. Stressed importance of continuing to see psychologist. Make sure to take copies of school evaluation for [facility] to review. Follow up in 3-4 months after [facility] evaluation completed. Asthma 06/18/2013 Assessment & Plan (06/23/2019 1:06 PM DIRECTOR OF FIELD SERVICE): Well controlled Does not get relief from [...] PRN Assessment & Plan (09/28/2016 11:50 AM DIRECTOR OF FIELD SERVICE): Pt on Flovent 44 2puffs BID and [...] prn Assessment & Plan (07/31/2013 5:45 PM DIRECTOR OF FIELD SERVICE): Mild exacerabation over past month. Not giving full dose of Flovent. Instructed mother to increase to 2 puffs BID and wean off albuterol. Call office if unable to wean off albuterol over next two weeks or if worsens. Assessment & Plan (06/18/2013 5:23 PM DIRECTOR OF FIELD SERVICE): Patient with mild persistent asthma. No ED [...] 025 Assessment & Plan (08/25/2022 7:11 PM DIRECTOR OF FIELD SERVICE): Assessment: Rolled ankle about 2 weeks ago and still having pain to palpation and limited range of motion. Pain mostly on the lateral malleolus. Able to bare weight for only a limited amount of time. Plan: Follow-up with orthopedic surgery Follow-up with physical therapy Otitis externa 08/03/2021 09/14/2021 Assessment & Plan (08/03/2021 3:48 PM DIRECTOR OF FIELD SERVICE): Otitis Externa on L side Plan: Start Ciprodex Acute right otitis media 08/03/202105/2024 Assessment & Plan (08/03/2021 3:49 PM DIRECTOR OF FIELD SERVICE): See exam. Plan: Start Cefdinir Diarrhea 06/07/2021 [...] 02/20/2022 Assessment & Plan (07/13/2020 11:30 AM DIRECTOR OF FIELD SERVICE): 14-year-old female with multiple comorbidities and positive [...] 09/28/2016 Assessment & Plan (09/28/2016 12:04 PM DIRECTOR OF FIELD SERVICE): 11yo female with h/o asthma, allergic rhinitis [...] worsens; would consider treating for sinusitis then Ugmph-unmngbn-qctgkqt vaccine (MMR) not given 09/29/19 17 06/23/2019 Assessment & Plan (09/28/2016 12:00 PM DIRECTOR OF FIELD SERVICE): Missing record of her 2nd MMR vaccine. [...] 06/23/2019 Assessment & Plan (09/09/2014 1:34 PM DIRECTOR OF FIELD SERVICE): Ashley Menon is 8 y/o obese female [...] clinic Assessment & Plan (09/09/2014 1:36 PM DIRECTOR OF FIELD SERVICE): Ashley Menon is a 8 y/o female [...] behaviors Assessment & Plan (09/09/2014 1:39 PM DIRECTOR OF FIELD SERVICE): Ashley Menon is a 8 y/o female seen today for well child check found to have significant separation anxiety related to her mother. Discussed with mom and Ashley the role of therapy in treatment of anxiety in childhood. - Referral to Psychology at [facility] for management of anxiety. Mom does not wish to return to prior therapist in [place]. URI (upper respiratory infection) 07/24/2014 12/09/2014 Assessment & Plan (07/24/2014 4:52 PM DIRECTOR OF FIELD SERVICE): 8yo with 4-5days of fever, congestion, runny [...] refills needed for albuterol [facility] with Mom 07/24/2014 06/23/2019 Assessment & Plan (07/24/2014 4:56 PM DIRECTOR OF FIELD SERVICE): Per Mom Ashley has been staying with her in women[facility] for past several weeks. Did not give details, but implied that it was a temporary arrangement. -Provided family with Mindy's Ofelia Feliz card as a social service resource, instructed her to call with questions/concerns if we could be of service. Ashley is due for a well child check and Mom was interested in possibly speaking with Mindy at that time. Abdominal pain, epigastric 07/13/2014 0 09/09/2014 Assessment & Plan (07/13/2014 1:21 PM DIRECTOR OF FIELD SERVICE): Zantac trial x 1 mo Hip pain 06/18/2013 12/09/2015 Assessment & Plan (06/18/2013 5:25 PM DIRECTOR OF FIELD SERVICE): BL hip pain resolved with stretching exercises. Not needed any pain meds for. X-rays are normal. Normal hip exam BL. -Follow clinically Posterior fossa arachnoid cyst 06/18/2013 06/23/2019 Overview (04/29/2017): . IMO Update 04/29/2017 Assessment & Plan (06/18/2013 10:01 PM DIRECTOR OF FIELD SERVICE): 05/05/13 Right suboccipital retrosigmoid craniotomy for excision and fenestration of arachnoid cyst. Microsurgical technique. Cranioplasty of skull defect less than 5 cm using Synthes titanium plating system. 05/19/13 Recurrent incisional drainage, right posterior fossa arachnoid cyst, surgical wound breakdown and exploration Fall 11/10/2009 06/18/2013 Encounters Date Type Department Care Team Description 10/31/2024 Travel 10/30/2024 Telephone [facility] [address] [facility] , [address] [address] Melanie Sanchez, CARDIAC REHABILITATION PROGRAM DIRECTOR-CLINICAL CARE LEADER Results 10/27/2024 9:45 AM CDT - 10/27/2024 10:15 AM CDT Surgery [facility] [address] [place] [address] Ziyad Lynn MD ESOPHAGOGASTRODUODENOSCOPY (EGD) DIAGNOSTIC 10/27/2024 9:43 AM CDT Anesthesia Event [facility] [address] [place] [address] Harshad Cadena, Taylor Garcia, CARDIAC REHABILITATION PROGRAM DIRECTOR-NON DESTRUCTIVE EVALUATION MANAGER 10/27/2024 8:42 AM CDT - 10/27/2024 11:45 AM CDT Hospital Encounter [facility] [address] [place] [address] Ziyad Lynn MD Surgery General Discharge Disposition: Home or Self Care 10/27/2024 Travel 10/07/2024 Telephone [facility] [place] [address] [address], [address] [place] [address] Amina Nicholas APRN-CNP Update 10/03/2024 10:00 AM DIRECTOR OF FIELD SERVICE Office [place] [facility] [place] [address] [address] [place] [address] Amina Nicholas APRN-CNP Nausea and vomiting, unspecified vomiting type (Primary Dx); Heartburn; Chronic idiopathic constipation; Bloating; Pain of upper abdomen 10/03/2024 Travel from Last 3 Months Immunizations Immunization Administration Dates Next Due iWatt primary Monoval ent 12+ yr 0.3ml 02/17/2022 [...] on file Legal Sex Female 5:43 AM DIRECTOR OF FIELD SERVICE Gender Identity Not on file Sexual Orientation [...] Appointment [facility] [address] [place] [address] Rolando Domínguez, [address] [place] [address] 01/02/2025 10:00 AM CDT Office Visit [facility] - [address] Formerly named [facility], [facility] [address] [place] [address] Amina Nicholas, CARDIAC REHABILITATION PROGRAM DIRECTOR-CLINICAL CARE LEADER [address] [facility] [address] [place] [address] 01/08/2025 9:00 AM CDT Office Visit [facility] - [address] [facility] [place] [phone] Areli Dao CARDIAC REHABILITATION PROGRAM DIRECTOR-CLINICAL CARE LEADER [address] [place] [address] Health Maintenance Due Date Last [...] history exists Medical Devices Implanted Type Area Termite Control Servicer Device Identifier Shelf Expiration Date Model / Serial / Lot Floseal 10ml Implanted:Qty: 1 on 05/05/2013 by Aiden Turner MD at [facility] Right: Cranial [employer] 06/29/2014 [id number] / / [id number] Grft Duragen Plus 2 X 2 Implanted:Qty: 1 on 05/05/2013 by Aiden Turner MD at [facility] Right: Cranial Integra [employer]ela[employer]atak[employer] Alexandra 11/28/2015 [id number] / / [id number] Matrix Regeneration Durepair 1 X 1in Implanted:Qty: 1 on 05/05/2013 by Aiden Turner MD at [facility] Right: Cranial Medtronic Neurological 12/28/2013 [id number] / / [id number] Glue Tisseel Fibrin 10ml Implanted:Qty: 1 on 05/05/2013 by Aiden Turner MD at [facility] Right: Cranial [employer] 09/27/2014 [id number] / / [id number] Cov Bur Hole Ti Matrix 17mm Implanted:Qty: 1 on 05/05/2013 by Aiden Turner MD at [facility] Right: Cranial Synthes Maxillofacial 04.503.023 / / Synthes Matrix Neuro Plate Implanted:Qty: 1 on 05/05/2013 by Aiden Turner MD at [facility] Right: Cranial 04.502.074 / / Synthes Matrix Neuro Screws 4 Mm Implanted:Qty: 9 on 05/05/2013 by Aiden Turner MD at [facility] Right: Cranial [id number] / / Screw Ortho Pediatric Set Implanted:Qty: 1 on 07/09/2017 by Areli Kwan MD at [facility] Right: Ankle 45 / / Explanted Type Area Termite Control Servicer Device Identifier Shelf Expiration Date Model / Serial / Lot Wire K 3mm 21mm Ss Orth Fx Explanted:Qty: 1 on 07/09/2017 by Areli Kwan MD at [facility] Right: Ankle Ortho Pedicatrics 6 / / Procedures Procedure Name Priority Date/Time Associated Diagnosis Comments PATHOLOGY TISSUE EXAM (STL) Routine 10/27/2024 11:02 AM CDT Diagnosis deferred HELICOBACTER PYLORI UREASE (STL) STAT 10/27/2024 10:57 AM CDT Diagnosis deferred HCG URINE QUAL POCT NOTIFICATION Routine 10/27/2024 10:00 AM CDT Pre-op exam [facility] [facility] EGD FLEX TRANSORAL DX 10/27/2024 9:45 AM CDT EGD Routine 10/27/2024 8:51 AM CDT Nausea and vomiting, unspecified vomiting type Heartburn Bloating Pain of upper abdomen HCG URINE QUALITATIVE - POCT (IP) INTERFACED Routine 10/27/2024 8:51 AM CDT CHLAMYDIA + GC AMPLIFIED PROBE Routine 09/21/2023 4:07 PM DIRECTOR OF FIELD SERVICE Encounter for routine child health examination with abnormal findings from Last 3 Months or Most Recently Relevant to Health Maintenance Results * PATHOLOGY TISSUE EXAM (STL) (10/27/2024 11:02 AM CDT) Case Report Surgical Pathology Report Case: [id number] Authorizing Provider: Ziyad Lynn MD Collected: 10/27/2024 11:02 AM Ordering Location: [facility] Received: 10/28/2024 06:55 AM - Endoscopy Services Pathologist: Emmanuelle Georges MD Specimen: Duodenal Biopsy 10/29/2024 9:32 AM CDT [facility] Final Diagnosis Duodenum, biopsy: -- Duodenal mucosa with normal villi and no pathologic diagnosis -- No intraepithelial lymphocytosis -- No parasitic organisms 10/29/2024 9:32 AM CDT [facility] Clinical History Upper endoscopy: Clinical history: Epigastric abdominal pain, nausea with vomiting Endoscopic impression: Nonbleeding gastric ulcers. Normal examined duodenum. 10/29/2024 9:32 AM T [facility] Gross Description Received in formalin labeled with patient's name and duodenal biopsy are 2 fragments of abrams tissue measuring 2 and 3 mm respectively. Submitted entirely cassette B1. 10/29/2024 9:32 AM CDT [facility] Microscopic Description Microscopic examination substantiates the above cited diagnosis. 10/29/2024 9:32 AM T [facility] Disclaimer All histochemical and/or immunohistochemical results are interpreted with controls that demonstrate appropriate staining reactions before reporting results. Note on use of immunocytochemistry reagents: This test was developed and its performance characteristic determined by [facility], Department of Laboratory Medicine. It has not [...] interpreted with caution. 10/29/2024 9:32 AM CDT [facility] Embedded Images 10/29/2024 9:32 AM T [facility] Miscellaneous samples (specimen) DUODENAL BIOPSY SPECIMEN / Unknown 10/27/2024 11:02 AM CDT 10/28/2024 6:55 AM CDT us Ziyad Lynn MD LAB - PATHOLOGY/CYTOLOGY OR DERABLES Final Result [facility] [address] [place] [id number] * HELICOBACTER PYLORI UREASE (STL) (10/27/2024 10:57 AM CDT) Helicobacter pylori Urease Initial Negative Negative 10/28/2024 11:41 AM CDT [facility] Helicobacter pylori Urease Final Negative Negative 10/28/2024 11:41 AM CDT [facility] Microbiology GASTRIC ANTRAL BIOPSY SPECIMEN / Unknown 10/27/2024 10:57 AM CDT 10/27/2024 2:15 PM CDT Narrative [facility] - 10/28/2024 11:41 AM CDT 02/2027 Ziyad Lynn MD LAB - MICROBIOLOGY ORDERABL ES Final Result [facility] [address] [place] [address] * HCG URINE QUAL POCT NOTIFICATION (10/27/2024 10:00 AM CDT) Comment Notification Label Only - See Separate Report 10/27/2024 10:00 AM CDT [facility] Urine URINE / Unknown 8:48 AM CDT us Ziyad Lynn MD LAB - URINALYSIS ORDERABLES Final Result [facility] [address] [place] [address] * EGD (10/27/2024 8:51 AM CDT) Report Endoscopy POC _ Patient Name: Ronald Menon Procedure Date: 10/27/2024 8:51 AM Date of : 2005 Admit Type: Outpatient Age: 19 Gender: Female Attending MD: Ziyad Lynn MD, [id number] _ Procedure: Upper GI endoscopy Indications: Epigastric [...] by the physician, the nurse and the solution lead in the procedure room. Mental Status Examination: [...] the patient. Procedure Code(s): --- Professional --- 79305, Esophagogastroduod enoscopy, flexible, transoral; with biopsy, single or multiple --- Technical --- 46807, Esophagogastroduod enoscopy, flexible, transoral; with biopsy, single or multiple Diagnosis Code(s): --- Professional --- K25.9, Gastric ulcer, unspecified as acute or chronic, without hemorrhage or perforation R10.13, Epigastric pain R11.2, Nausea with vomiting, unspecified --- Technical --- K25.9, Gastric ulcer, unspecified as acute or chronic, without hemorrhage or perforation R10.13, Epigastric pain R11.2, Nausea with vomiting, unspecified CPT copyright 2020 [employer]. All rights reserved. The codes documented in this report are preliminary and upon certified professional coder review may be revised to meet current compliance requirements. Dr. Ziyad Lynn MD Ziyad Lynn MD 10/27/2024 11:05:06 AM This report has been signed electronically. Number of Addenda: 0 Note Initiated On: 10/27/2024 8:51 AM [facility] 10/27/2024 8:51 AM CDT Amina Nicholas CARDIAC REHABILITATION PROGRAM DIRECTOR-CLINICAL CARE LEADER GI PROCEDURE ORDERABLE S Edited Result - Final Performing Organization Address City/[facility]/ZIP Co de Phone Number [facility] [place] [address] * HCG URINE QUALITATIVE - POCT (IP) INTERFACED (10/27/2024 8:51 AM CDT) HCG Qual Urine Negative Negative 10/27/2024 8:56 AM CDT [facility] Urine URINE / Unknown 10/27/2024 8 :51 AM CDT 10/27/2024 8:56 AM CDT us Ziyad Lynn MD LAB - POINT OF CARE ORDERAB LES Final Result Performing Organization Address City/[facility] Co de Phone Number [facility] [address] [place] [address] * (ABNORMAL) CHLAMYDIA + GC AMPLIFIED PROBE (09/21/2023 4:07 PM DIRECTOR OF FIELD SERVICE) Chlamydia Amplified Probe Positive(A) Negative 09/22/2023 12:40 AM DIRECTOR OF FIELD SERVICE [facility] GC Amplified Probe Negative Negative 09/22/2023 12:40 AM DIRECTOR OF FIELD SERVICE [facility] Microbiology URINE / Unknown Collection / Unknown 09/21/2023 4:07 PM DIRECTOR OF FIELD SERVICE 09/21/2023 4:53 PM DIRECTOR OF FIELD SERVICE Narrative [facility] - 09/22/2023 12:40 AM DIRECTOR OF FIELD SERVICE Repeat testing is recommended 3 months post treatment for patients who test positive for Chlamydia trachomatis/Neisseria gonorrhoeae. Results based on detection/no detection of ribosomal RNA by amplified method. us Yuly Pope DO LAB - MICROBIOLOGY ORDERABLES Final Result [facility] [address] [place] [address], [facility] [phone] from Last 3 Months or Most Recently Relevant to Health Maintenance Insurance [address] [place] [address] ANTH Advance Directives * Full Code (Latest Code Status on File) Date Activated Date Inactivated Comments 12/25/2023 11:24 PM 12/28/2023 2:22 PM * Full Code Date Activated Date Inactivated Comments 04/05/2020 1:50 PM 04/06/2020 6:02 PM * Full Code Date Activated Date Inactivated Comments 04/30/2018 9:48 AM 05/01/2018 4:48 PM Care Teams Storeroom Attendant Relationship Specialty Start Date End Date Yuly Pope DO [address] [place] [address] PCP - General Internal Medicine 02/17/22 Kiki Burks MD [address] [place] [address] Resident Student Resident 12/11/17
--- NOTE | 2024-12-01 20:59 | PC.NURSE ---
pt refuses blood draw after multiple attempts. EDP made aware.
[2024-12-01 21:22] VITALS: O2SAT 98
[2024-12-01 21:40] LABS: Influenza A QL RT-PCR Negative (Negative); Influenza B QL RT-PCR Negative (Negative); RSV RNA, RT-PCR Negative (Negative); SARS-CoV-2 RNA PCR Negative (Negative)
[2024-12-01 22:04] VITALS: BP 127/84; PULSE 76; RESP 18; TEMP 36.8; O2SAT 99
[2024-12-01 22:10] VITALS: BP 127/84; PULSE 76; RESP 18; TEMP 36.8; O2SAT 99
== END 2024-12-01 22:13 | disposition home or self-care (01) ==
PROVIDERS: Physician Assistant; Emergency Provider Emergency Medicine; PCP Emergency Medicine
DX: J06.9 Acute upper respiratory infection, unspecified (principal); Z20.822 Contact with and (suspected) exposure to COVID-19
CPT/HCPCS: 71046; 87637; 93005; 99283